=== PATIENT | male | born 1990 | race Caucasian/White ===

== ENCOUNTER 2017-02-13 22:41 | Inpatient (IN) ==
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
[2017-02-13 23:26] LABS: Bilirubin,Urine Negative (Negative); Blood,Urine Negative (Negative); Clarity,Urine Cloudy (Clear); Color,Urine Yellow (Yellow); Glucose,Urine (UA) Normal (Normal); Ketones,Urine Negative (Negative); Leukocyte Esterase,Urine Large (Negative); Nitrite,Urine Negative (Negative); PH,Urine 7.5 pH Units (5.0-8.0); Protein,Urine Negative (Neg-Trace); Specific Gravity,Urine 1.015 (1.010-1.025); Urobilinogen,Urine Normal (Normal)
[2017-02-13 23:29] LABS: Bacteria,Urine None Seen per hpf (None-Few); Hyaline Casts,Urine None Seen per lpf (None-Few); Squamous Epithelial Cell,Urine Many per lpf (None-Few); WBC,Urine TNTC per hpf (0-3)
[2017-02-13 23:45] LABS: Basophils % 0.3 %; Eosinophils # 0.1 K/mcL (0.0-0.6); Eosinophils % 0.8 %; Hematocrit 41.7 % (37.5-50.1); Hemoglobin 13.9 g/dL (12.9-16.9); Immature Granulocytes % 0.3 % (0-4); Lymphocytes # 1.5 K/mcL (0.6-4.6); Lymphocytes % 13.1 %; Mean Corpuscular HGB Conc 33.3 g/dL (31.6-35.5); Mean Corpuscular Hemoglobin 30.1 pg (28.0-33.3); Mean Corpuscular Volume 90.3 fL (83.0-100.0); Mean Platelet Volume 10.3 fL (9.4-12.4); Monocytes % 8.2 %; Neutrophils # 9.1 K/mcL (1.6-8.9); Platelet Count 112 K/mcL (140-400); Red Blood Count 4.62 M/mcL (4.19-5.50); Red Cell Distribution Width 15.6 % (11.5-14.5); Segmented Neutrophils % 77.3 %
[2017-02-14 00:08] LABS: BUN/Creatinine Ratio 18 (6-26); Blood Urea Nitrogen 9 mg/dL (8-26); Calcium 8.8 mg/dL (8.6-10.8); Carbon Dioxide 27 mEq/L (19-29); Chloride 106 mEq/L (98-109); Glucose 74 mg/dL (70-99); Osmolality,Calculated 289 (280-300); Sodium 141 mEq/L (136-145); eGFR For African Americans > 60 (> 60); eGFR For Non-African Americans > 60 (> 60)
[2017-02-14] MEDS ORDERED: Ondansetron ODT 4 MG TAB.RAPDIS SL ONE (00:19)
[2017-02-14] MEDS ORDERED: Ampicillin/Sulbactam 1,500 MG in 0.9 % Sodium Chloride Mini Bag 100 ML IVPB ONE (00:32)
[2017-02-14] MEDS ORDERED: 0.9 % Sodium Chloride 1,000 ML IVC ONE (00:59)
[2017-02-14] MEDS ORDERED: Ondansetron 4 MG/2 ML VIAL IVP PRN (05:05)
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
[2017-02-14] MEDS ORDERED: *HR* HYDROmorphone 4 MG TABLET PO SCH (05:15)
[2017-02-14] MEDS ORDERED: *HR* HYDROmorphone (PF) 1 MG/ML SYRINGE IV ONE (05:52)
[2017-02-14] MEDS: Ampicillin/Sulbactam 1,500 MG in 0.9 % Sodium Chloride Mini Bag 100 ML IVPB SCH ×3 (06:03→17:01)
[2017-02-14] MEDS: *HR* Heparin 5,000 UNIT/ML VIAL SQ SCH ×4 (06:03→23:43)
[2017-02-14] MEDS: Baclofen 10 MG TABLET PO SCH ×3 (09:24→17:01)
[2017-02-14] MEDS: diazePAM 5 MG TABLET PO SCH ×2 (09:25→23:43)
[2017-02-14] MEDS: Pregabalin 75 MG CAPSULE PO SCH ×2 (09:25→17:01)
[2017-02-14] MEDS: *HR* HYDROmorphone 4 MG TABLET PO SCH ×2 (09:25→17:01)
[2017-02-14] MEDS: Silver Sulfadiazine 50 GM TUBE TP SCH ×2 (09:25→19:49)
[2017-02-14] MEDS: Sennosides 8.6 MG TABLET PO SCH (09:25)
[2017-02-14] MEDS: *HR* HYDROmorphone (PF) 1 MG/ML SYRINGE IVP PRN ×4 (12:22→23:35)
[2017-02-14] MEDS: 0.9 % Sodium Chloride 1,000 ML IVC SCH (15:17)
--- NOTE | 2017-02-14 17:22 | Internal Med Progress Note ---
Date of Encounter: 02/14/17 Time of Encounter: 17:20 - Assessment and plan (1) UTI (urinary tract infection) Current Visit: Yes Status: Acute Assessment and plan: continue with iv antibiotics. iv fluids. continue monitoring the patient closely. has a scott in. follow cultures. typicaly intermittent self catheterizations at home Qualifiers: Urinary tract infection type: site unspecified Hematuria presence: without hematuria Qualified Code(s): N39.0 - Urinary tract infection, site not specified (2) Leukocytosis Current Visit: Yes Status: Acute Qualifiers: Leukocytosis type: unspecified Qualified Code(s): D72.829 - Elevated white blood cell count, unspecified (3) History of quadriplegia Current Visit: Yes Status: Chronic (4) DVT prophylaxis Current Visit: Yes Status: Acute - Subjective Interval history: patient seen and exmained during roudns, poor appetite. - Constitutional Vitals: Temp Pulse Resp BP Pulse Ox 98.9 F 86 17 145/64 91 02/14/17 14:56 02/14/17 14:56 02/14/17 14:56 02/14/17 14:56 02/14/17 14:56 General appearance: Present: cooperative, A&O X 3, no acute distress, answers questions appropriately Exam: indwelling scott. - Head Head exam: Present: atraumatic, normocephalic - Eye Eye exam: Present: PERRL, conjuntiva pink, sclera anicteric Pupils: Present: PERRL - Neck Neck exam general surgery: Present: supple, trachea midline. Absent: lymphadenopathy - Respiratory Respiratory exam: Present: CTAB. Absent: accessory muscle use, rales, rhonchi, wheezes - Cardiovascular Cardiovascular exam: Present: RRR, +S1, +S2. Absent: diastolic murmur, gallop, rubs, systolic murmur - GI/Abdominal GI/Abdominal exam: Present: normal bowel sounds, soft, no peritoneal signs. Absent: distended, tenderness - Extremities Exam Extremities exam: Present: warm, radial pulses palpable and symetrical. Absent : calf tenderness, cyanotic, pedal edema - Neurological Exam Neurological exam: Present: motor sensory deficit, oriented X3. Absent: pronater drift, facial droop, speech deficit - Skin Skin exam: Present: dry, intact Internal Medicine: Result - Labs CBC & Chem 7: 02/13/17 23:39 02/13/17 23:39 Consult Discharge Plan - Plan Referrals: Bang Swenson MD [Primary Care Provider] -
[2017-02-14] MEDS: Acetaminophen 325 MG TABLET PO PRN (23:42)
[2017-02-15] MEDS: *HR* HYDROmorphone 4 MG TABLET PO SCH ×3 (00:22→16:58)
[2017-02-15] MEDS: Ampicillin/Sulbactam 1,500 MG in 0.9 % Sodium Chloride Mini Bag 100 ML IVPB SCH ×4 (00:23→18:18)
[2017-02-15] MEDS: Pregabalin 75 MG CAPSULE PO SCH ×3 (00:23→16:58)
[2017-02-15] MEDS: Baclofen 10 MG TABLET PO SCH ×4 (00:23→18:17)
[2017-02-15] MEDS: Sennosides 8.6 MG TABLET PO SCH ×2 (00:24→09:22)
[2017-02-15] MEDS: *HR* HYDROmorphone (PF) 1 MG/ML SYRINGE IVP PRN ×5 (02:55→19:54)
[2017-02-15] MEDS: 0.9 % Sodium Chloride 1,000 ML IVC SCH (04:40)
[2017-02-15 05:37] LABS: Basophils % 0.4 %; Eosinophils # 0.1 K/mcL (0.0-0.6); Eosinophils % 1.2 %; Hematocrit 39.5 % (37.5-50.1); Hemoglobin 13.1 g/dL (12.9-16.9); Immature Granulocytes % 0.4 % (0-4); Lymphocytes # 1.3 K/mcL (0.6-4.6); Lymphocytes % 25.1 %; Mean Corpuscular HGB Conc 33.2 g/dL (31.6-35.5); Mean Corpuscular Hemoglobin 30.5 pg (28.0-33.3); Mean Corpuscular Volume 92.1 fL (83.0-100.0); Mean Platelet Volume 10.7 fL (9.4-12.4); Monocytes # 0.5 K/mcL (0.0-1.3); Monocytes % 9.8 %; Neutrophils # 3.2 K/mcL (1.6-8.9); Platelet Count 103 K/mcL (140-400); Red Blood Count 4.29 M/mcL (4.19-5.50); Red Cell Distribution Width 15.9 % (11.5-14.5); Segmented Neutrophils % 63.1 %
[2017-02-15 05:53] LABS: BUN/Creatinine Ratio 11 (6-26); Calcium 8.6 mg/dL (8.6-10.8); Carbon Dioxide 28 mEq/L (19-29); Chloride 107 mEq/L (98-109); Glucose 92 mg/dL (70-99); Osmolality,Calculated 291 (280-300); Potassium 3.5 mEq/L (3.5-4.5); Sodium 142 mEq/L (136-145); eGFR For African Americans > 60 (> 60); eGFR For Non-African Americans > 60 (> 60)
[2017-02-15 05:56] LABS: Blood Urea Nitrogen 5 mg/dL (8-26)
[2017-02-15] MEDS: *HR* Heparin 5,000 UNIT/ML VIAL SQ SCH ×3 (06:10→21:45)
[2017-02-15] MEDS: diazePAM 5 MG TABLET PO SCH ×2 (09:22→21:45)
[2017-02-15] MEDS: Silver Sulfadiazine 50 GM TUBE TP SCH ×2 (09:22→21:45)
--- NOTE | 2017-02-15 11:33 | Internal Med Progress Note ---
Date of Encounter: 02/15/17 Time of Encounter: 11:32 - Assessment and plan (1) UTI (urinary tract infection) Current Visit: Yes Status: Acute Assessment and plan: continue with iv antibiotics. gram negative rods. still febrile, leukocytosis resolved, will continue with unasyn and adjust according to cultures. iv fluids. continue monitoring the patient closely. has a scott in. follow cultures. typicaly intermittent self catheterizations at home Qualifiers: Urinary tract infection type: site unspecified Hematuria presence: without hematuria Qualified Code(s): N39.0 - Urinary tract infection, site not specified (2) Leukocytosis Current Visit: Yes Status: Acute Qualifiers: Leukocytosis type: unspecified Qualified Code(s): D72.829 - Elevated white blood cell count, unspecified (3) History of quadriplegia Current Visit: Yes Status: Chronic (4) DVT prophylaxis Current Visit: Yes Status: Acute - Subjective Interval history: patient seen and examined during rounds, fever yesterday. still poor appetite. - Constitutional Vitals: Temp Pulse Resp BP Pulse Ox 98.2 F 76 16 116/74 91 02/15/17 07:21 02/15/17 07:21 02/15/17 07:21 02/15/17 07:21 02/15/17 07:21 General appearance: Present: cooperative, A&O X 3, no acute distress, answers questions appropriately - Head Head exam: Present: atraumatic, normocephalic - Eye Eye exam: Present: PERRL, conjuntiva pink, sclera anicteric Pupils: Present: PERRL - Neck Neck exam general surgery: Present: supple, trachea midline. Absent: lymphadenopathy - Respiratory Respiratory exam: Present: CTAB. Absent: accessory muscle use, rales, rhonchi, wheezes - Cardiovascular Cardiovascular exam: Present: RRR, +S1, +S2. Absent: diastolic murmur, gallop, rubs, systolic murmur - GI/Abdominal GI/Abdominal exam: Present: normal bowel sounds, soft, no peritoneal signs. Absent: distended, tenderness - Extremities Exam Extremities exam: Present: warm, radial pulses palpable and symetrical. Absent : calf tenderness, cyanotic, pedal edema - Neurological Exam Neurological exam: Present: alert, oriented X3. Absent: pronater drift, facial droop, speech deficit - Skin Skin exam: Present: dry, intact Internal Medicine: Result - Labs CBC & Chem 7: 02/15/17 05:20 02/15/17 05:20 Labs: Short CBC 02/15/17 Range/Units 05:20 WBC 5.1 D (4.3-11.1) K/mcL Hgb 13.1 (12.9-16.9) g/dL Hct 39.5 (37.5-50.1) % Plt Count 103 L (140-400) K/mcL Neutrophils # 3.2 (1.6-8.9) K/mcL BMP 02/15/17 05:20 Sodium 142 Potassium 3.5 Chloride 107 Carbon Dioxide 28 BUN 5 L Creatinine 0.44 L Glucose 92 Calcium 8.6 Consult Discharge Plan - Plan Referrals: Bang Swenson MD [Primary Care Provider] -
[2017-02-15] MEDS: Acetaminophen 325 MG TABLET PO PRN (19:54)
[2017-02-16] MEDS: *HR* HYDROmorphone 4 MG TABLET PO SCH ×3 (00:42→18:05)
[2017-02-16] MEDS: Pregabalin 75 MG CAPSULE PO SCH ×3 (00:42→18:06)
[2017-02-16] MEDS: Baclofen 10 MG TABLET PO SCH ×4 (00:42→18:06)
[2017-02-16] MEDS: Sennosides 8.6 MG TABLET PO SCH ×2 (00:43→08:13)
[2017-02-16] MEDS: Ampicillin/Sulbactam 1,500 MG in 0.9 % Sodium Chloride Mini Bag 100 ML IVPB SCH ×2 (00:46→06:24)
[2017-02-16] MEDS: *HR* HYDROmorphone (PF) 1 MG/ML SYRINGE IVP PRN ×4 (02:07→20:37)
[2017-02-16] MEDS: 0.9 % Sodium Chloride 1,000 ML IVC SCH ×2 (02:23→21:50)
[2017-02-16] MEDS: *HR* Heparin 5,000 UNIT/ML VIAL SQ SCH ×3 (05:35→21:18)
[2017-02-16 06:39] LABS: Basophils % 0.7 %; Eosinophils # 0.2 K/mcL (0.0-0.6); Eosinophils % 4.5 %; Hematocrit 40.2 % (37.5-50.1); Hemoglobin 13.3 g/dL (12.9-16.9); Immature Granulocytes % 0.2 % (0-4); Lymphocytes # 1.4 K/mcL (0.6-4.6); Lymphocytes % 35.6 %; Mean Corpuscular HGB Conc 33.1 g/dL (31.6-35.5); Mean Corpuscular Hemoglobin 30.2 pg (28.0-33.3); Mean Corpuscular Volume 91.2 fL (83.0-100.0); Monocytes # 0.6 K/mcL (0.0-1.3); Monocytes % 15.4 %; Neutrophils # 1.8 K/mcL (1.6-8.9); Platelet Count 110 K/mcL (140-400); Red Blood Count 4.41 M/mcL (4.19-5.50); Red Cell Distribution Width 15.5 % (11.5-14.5); Segmented Neutrophils % 43.6 %
[2017-02-16 06:47] LABS: BUN/Creatinine Ratio 12 (6-26); Blood Urea Nitrogen 5 mg/dL (8-26); Calcium 8.5 mg/dL (8.6-10.8); Carbon Dioxide 28 mEq/L (19-29); Chloride 106 mEq/L (98-109); Glucose 74 mg/dL (70-99); Osmolality,Calculated 290 (280-300); Potassium 3.6 mEq/L (3.5-4.5); Sodium 142 mEq/L (136-145); eGFR For African Americans > 60 (> 60); eGFR For Non-African Americans > 60 (> 60)
[2017-02-16] MEDS: Silver Sulfadiazine 50 GM TUBE TP SCH ×2 (08:09→18:08)
[2017-02-16] MEDS: diazePAM 5 MG TABLET PO SCH ×2 (14:13→21:18)
--- NOTE | 2017-02-16 17:05 | Internal Med Progress Note ---
Date of Encounter: 02/16/17 Time of Encounter: 17:02 - Assessment and plan (1) Sepsis due to urinary tract infection Current Visit: Yes Status: Acute Assessment and plan: Secondary to Klebsiella UTI, pansensitive. SIRS criteria 3/4 (fever of 101.7, tachycardia of 95, and leukocytosis of 4). Patient with history of recurrent UTIs in the past. Three weeks ago, the patient was diagnosed of UTI and took keflex and bactrim for 10 days but symptoms persisted and a week later he came to our ED. Urine culture Klebsiella pneumonia, pansensitive. blood cultures negative so far. clinically improving slowly. afebrile for 12 hours only. Change antibiotics to Ceftriaxone. continue IV fluids. check retroperitoneal US. (2) UTI (urinary tract infection) Current Visit: Yes Status: Acute Assessment and plan: Klebsiella UTI. plan as above. Qualifiers: Urinary tract infection type: site unspecified Hematuria presence: without hematuria Qualified Code(s): N39.0 - Urinary tract infection, site not specified (3) Constipation Current Visit: No Status: Chronic Assessment and plan: continue home meds including enema. Qualifiers: Constipation type: unspecified constipation type Qualified Code(s): K59.00 - Constipation, unspecified - Subjective Interval history: Patient reports no nausea or vomiting. No scott at home. He does straight urinary catheterizations at home every 4 hours. - Constitutional Vitals: Temp Pulse Resp BP Pulse Ox 97.8 F 67 16 134/96 95 02/16/17 15:32 02/16/17 15:32 02/16/17 15:32 02/16/17 15:32 02/16/17 15:32 General appearance: Present: cooperative, A&O X 3, no acute distress, answers questions appropriately - Respiratory Respiratory exam: Present: CTAB - Cardiovascular Cardiovascular exam: Present: RRR - GI/Abdominal GI/Abdominal exam: Present: normal bowel sounds, soft, tenderness (lower abdominal tenderness). Absent: distended - Extremities Exam Extremities exam: Present: pedal edema (ankle) - Neurological Exam Neurological exam: Present: alert, oriented X3. Absent: facial droop, speech deficit Additional comments: quadriplegia Internal Medicine: Result - Labs CBC & Chem 7: 02/16/17 06:00 02/16/17 06:00 Labs: Short CBC 02/16/17 Range/Units 06:00 WBC 4.0 L (4.3-11.1) K/mcL Hgb 13.3 (12.9-16.9) g/dL Hct 40.2 (37.5-50.1) % Plt Count 110 L (140-400) K/mcL Neutrophils # 1.8 (1.6-8.9) K/mcL BMP 02/16/17 06:00 Sodium 142 Potassium 3.6 Chloride 106 Carbon Dioxide 28 BUN 5 L Creatinine 0.43 L Glucose 74 Calcium 8.5 L Consult Discharge Plan - Plan Referrals: Bang Swenson MD [Primary Care Provider] -
[2017-02-17] MEDS: Pregabalin 75 MG CAPSULE PO SCH ×3 (00:07→15:17)
[2017-02-17] MEDS: Baclofen 10 MG TABLET PO SCH ×4 (00:07→16:58)
[2017-02-17] MEDS: *HR* HYDROmorphone 4 MG TABLET PO SCH ×3 (00:07→15:18)
[2017-02-17] MEDS: Sennosides 8.6 MG TABLET PO SCH ×2 (00:08→09:00)
[2017-02-17] MEDS: *HR* HYDROmorphone (PF) 1 MG/ML SYRINGE IVP PRN ×5 (01:23→20:05)
[2017-02-17] MEDS: *HR* Heparin 5,000 UNIT/ML VIAL SQ SCH ×3 (06:03→20:12)
[2017-02-17] MEDS: 0.9 % Sodium Chloride 1,000 ML IVC SCH (06:04)
[2017-02-17 06:28] LABS: Basophils % 0.8 %; Eosinophils # 0.2 K/mcL (0.0-0.6); Eosinophils % 4.9 %; Hematocrit 39.9 % (37.5-50.1); Hemoglobin 13.1 g/dL (12.9-16.9); Immature Granulocytes % 0.3 % (0-4); Lymphocytes # 1.6 K/mcL (0.6-4.6); Lymphocytes % 40.1 %; Mean Corpuscular HGB Conc 32.8 g/dL (31.6-35.5); Mean Corpuscular Hemoglobin 29.8 pg (28.0-33.3); Mean Corpuscular Volume 90.9 fL (83.0-100.0); Mean Platelet Volume 10.7 fL (9.4-12.4); Monocytes # 0.6 K/mcL (0.0-1.3); Monocytes % 14.1 %; Neutrophils # 1.6 K/mcL (1.6-8.9); Platelet Count 126 K/mcL (140-400); Red Blood Count 4.39 M/mcL (4.19-5.50); Red Cell Distribution Width 15.5 % (11.5-14.5); Segmented Neutrophils % 39.8 %
[2017-02-17 06:36] LABS: BUN/Creatinine Ratio 14 (6-26); Blood Urea Nitrogen 6 mg/dL (8-26); Calcium 8.3 mg/dL (8.6-10.8); Carbon Dioxide 23 mEq/L (19-29); Chloride 107 mEq/L (98-109); Glucose 85 mg/dL (70-99); Magnesium 1.6 mg/dL (1.6-2.6); Osmolality,Calculated 289 (280-300); Potassium 3.4 mEq/L (3.5-4.5); Sodium 141 mEq/L (136-145); eGFR For African Americans > 60 (> 60); eGFR For Non-African Americans > 60 (> 60)
[2017-02-17] MEDS: diazePAM 5 MG TABLET PO SCH ×2 (09:00→20:11)
[2017-02-17] MEDS: Silver Sulfadiazine 50 GM TUBE TP SCH ×2 (09:02→20:22)
[2017-02-17] MEDS: DOCUSATE PO SCH (11:19)
[2017-02-17] MEDS: BENZOCAINE PO SCH (11:19)
[2017-02-17] MEDS: [UNRECOGNIZED DRUG - OTHER] PO SCH (11:19)
[2017-02-17] MEDS ORDERED: 0.9 % Sodium Chloride 1,000 ML IVC SCH (17:15)
--- NOTE | 2017-02-17 17:15 | Internal Med Progress Note ---
Date of Encounter: 02/17/17 Time of Encounter: 08:45 - Assessment and plan (1) Sepsis due to urinary tract infection Current Visit: Yes Status: Acute Assessment and plan: Secondary to Klebsiella UTI, pansensitive. SIRS criteria 3/4 (fever of 101.7, tachycardia of 95, and leukocytosis of 4). Patient with history of recurrent UTIs in the past. Three weeks ago, the patient was diagnosed of UTI and took keflex and bactrim for 10 days but symptoms persisted and a week later he came to our ED. Urine culture Klebsiella pneumonia, pansensitive. blood cultures negative so far. clinically improving slowly. afebrile for 24 hours. Continue Ceftriaxone and decrease IV fluids. (2) UTI (urinary tract infection) Current Visit: Yes Status: Acute Assessment and plan: Klebsiella UTI. plan as above. Qualifiers: Urinary tract infection type: site unspecified Hematuria presence: without hematuria Qualified Code(s): N39.0 - Urinary tract infection, site not specified (3) Constipation Current Visit: No Status: Chronic Assessment and plan: continue home meds including enema. Qualifiers: Constipation type: unspecified constipation type Qualified Code(s): K59.00 - Constipation, unspecified - Subjective Interval history: Patient reports no nausea or vomiting. - Constitutional Vitals: Temp Pulse Resp BP Pulse Ox 97.7 F 55 16 143/90 96 02/17/17 15:35 02/17/17 15:35 02/17/17 15:35 02/17/17 15:35 02/17/17 15:35 General appearance: Present: cooperative, A&O X 3, pleasant, no acute distress, answers questions appropriately - Respiratory Respiratory exam: Present: CTAB - Cardiovascular Cardiovascular exam: Present: RRR - GI/Abdominal GI/Abdominal exam: Present: soft. Absent: distended, tenderness - Extremities Exam Extremities exam: Present: pedal edema - Neurological Exam Neurological exam: Present: alert, oriented X3 Internal Medicine: Result - Labs CBC & Chem 7: 02/17/17 06:00 02/17/17 06:00 Labs: Short CBC 02/17/17 Range/Units 06:00 WBC 3.9 L (4.3-11.1) K/mcL Hgb 13.1 (12.9-16.9) g/dL Hct 39.9 (37.5-50.1) % Plt Count 126 L (140-400) K/mcL Neutrophils # 1.6 (1.6-8.9) K/mcL BMP 02/17/17 06:00 Sodium 141 Potassium 3.4 L Chloride 107 Carbon Dioxide 23 BUN 6 L Creatinine 0.42 L Glucose 85 Calcium 8.3 L Consult Discharge Plan - Plan Referrals: Bang Swenson MD [Primary Care Provider] -
[2017-02-18] MEDS: Pregabalin 75 MG CAPSULE PO SCH ×2 (00:19→09:59)
[2017-02-18] MEDS: Sennosides 8.6 MG TABLET PO SCH ×2 (00:20→09:59)
[2017-02-18] MEDS: *HR* HYDROmorphone 4 MG TABLET PO SCH ×2 (00:20→09:59)
[2017-02-18] MEDS: Baclofen 10 MG TABLET PO SCH ×3 (00:20→12:35)
[2017-02-18] MEDS: *HR* HYDROmorphone (PF) 1 MG/ML SYRINGE IVP PRN ×2 (01:35→05:28)
[2017-02-18 05:01] LABS: BUN/Creatinine Ratio 18 (6-26); Blood Urea Nitrogen 7 mg/dL (8-26); Calcium 8.2 mg/dL (8.6-10.8); Carbon Dioxide 24 mEq/L (19-29); Chloride 107 mEq/L (98-109); Glucose 76 mg/dL (70-99); Magnesium 1.8 mg/dL (1.6-2.6); Osmolality,Calculated 287 (280-300); Potassium 3.9 mEq/L (3.5-4.5); Sodium 140 mEq/L (136-145); eGFR For African Americans > 60 (> 60); eGFR For Non-African Americans > 60 (> 60)
[2017-02-18] MEDS: *HR* Heparin 5,000 UNIT/ML VIAL SQ SCH ×2 (05:21→12:24)
[2017-02-18 05:35] LABS: Basophils % 0.5 %; Eosinophils # 0.2 K/mcL (0.0-0.6); Eosinophils % 4.7 %; Hematocrit 40.5 % (37.5-50.1); Hemoglobin 13.6 g/dL (12.9-16.9); Immature Granulocytes % 0.2 % (0-4); Immature Platelets 6.8 % (1.1-6.1); Lymphocytes # 1.4 K/mcL (0.6-4.6); Lymphocytes % 32.4 %; Mean Corpuscular HGB Conc 33.6 g/dL (31.6-35.5); Mean Corpuscular Hemoglobin 30.3 pg (28.0-33.3); Mean Corpuscular Volume 90.2 fL (83.0-100.0); Mean Platelet Volume 10.9 fL (9.4-12.4); Monocytes # 0.5 K/mcL (0.0-1.3); Monocytes % 11.3 %; Neutrophils # 2.2 K/mcL (1.6-8.9); Platelet Count 137 K/mcL (140-400); Red Blood Count 4.49 M/mcL (4.19-5.50); Red Cell Distribution Width 15.3 % (11.5-14.5); Segmented Neutrophils % 50.9 %
[2017-02-18 07:32] VITALS: BP 112/70
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
[2017-02-18] MEDS: BENZOCAINE PO SCH (09:49)
[2017-02-18] MEDS: DOCUSATE PO SCH (09:49)
[2017-02-18] MEDS: [UNRECOGNIZED DRUG - OTHER] PO SCH (09:49)
[2017-02-18] MEDS: diazePAM 5 MG TABLET PO SCH ×2 (09:59→10:07)
[2017-02-18] MEDS: Silver Sulfadiazine 50 GM TUBE TP SCH (10:00)
--- NOTE | 2017-02-18 10:23 | Physician Discharge Referral ---
Home Health/Hosp Referral Info Transfer to: Home Health Attending Provider: evangelist Provider in Charge Post Discharge: PCP - Diagnosis (1) Sepsis due to urinary tract infection Status: Acute (2) UTI (urinary tract infection) Status: Acute (3) Constipation Status: Chronic - Respiratory Orders Smoking Cessation: Smoking cessation has been advised. For more information, call the [place] Tobacco Quit Line at 5-958-PWUT-NOW. - Diet/Nutrition Diet/Nutrition Orders: Regular - Activity Activity Orders: Bedrest - Services Needed Following services are medically necessary services: Nursing, Home Health Aide, Physical Therapy, Occupational Therapy, Home Infusion Other Treatments: Iv ceftriaxone 1 gm daily for 6 days - Transfer Medications Prescriptions: CefTRIAXone [Rocephin] 1,000 mg IVPB DAILY #6 vial Home Medications: Ascorbic Acid [Vitamin C with Cira Hips] 500 mg PO DAILY 02/14/17 [History] Baclofen 20 mg PO QID 02/14/17 [History] Diazepam [Valium] 5 mg PO BID 02/14/17 [History] Docusate Sodium [Dok] 100 mg PO BID 02/14/17 [History] HYDROmorphone [Dilaudid] 4 mg PO BID 02/14/17 [History] HYDROmorphone [Dilaudid] 8 mg PO HS 02/14/17 [History] Multivitamin [Multivitamins] 1 tab PO DAILY 02/14/17 [History] Oxybutynin [Ditropan] 5 mg PO TID 02/14/17 [History] Polyethylene Glycol 3350 [Smoothlax] 17 gm PO Q48H 02/14/17 [History] Potassium 99 mg PO DAILY 02/14/17 [History] Pregabalin [Lyrica] 150 mg PO TID 02/14/17 [History] Sennosides [Senna] 8.6 mg PO BID 02/14/17 [History] Silver Sulfadiazine [Ssd] 1 appl TP DAILY 02/14/17 [History] Docusate Sodium/Benzocaine [Enemeez Plus Mini Enema] 5 ml RC DAILY 02/16/17 [ History] CefTRIAXone [Rocephin] 1,000 mg IVPB DAILY #6 vial 02/18/17 [Rx] Allergies/Adverse Reactions: Allergies Erythromycin Base Allergy (Verified 11/27/16 08:42) See Comments comatose aspirin Adverse Reaction (Verified 11/27/16 08:42) Nausea codeine Adverse Reaction (Verified 11/27/16 08:42) Hives diphenhydramine [From Benadryl] Adverse Reaction (Verified 11/27/16 08:42) Swelling of Lip/Tongue/Throat gentamicin Adverse Reaction (Verified 11/27/16 08:42) See Comments Methadone Adverse Reaction (Verified 11/27/16 08:42) Swelling of Lip/Tongue/Throat morphine Adverse Reaction (Verified 11/27/16 08:42) Hives Oxycodone [From OxyContin] Adverse Reaction (Verified 11/27/16 08:42) Swelling of Lip/Tongue/Throat tobramycin Adverse Reaction (Verified 11/27/16 08:42) See Comments vancomycin Adverse Reaction (Verified 11/27/16 08:42) See Comments Certification: Further, I certify that my clinical findings support that this patient is homebound (i.e. absences from home require considerable and taxing effort and are for medical reasons or tenriism services or infrequently or short duration when for other reasons) because: Homebound Reason: Patient requires assistance of a person or device to safely leave home, Leaving home requires considerable and taxing effort due to condition Attestation: My signature below is to certify that this patient is under my care and that I, or nurse practitioner, or a physician's kindergarten assistant working with me, has a face-to -face encounter with this patient.
== END 2017-02-18 15:15 | disposition home health service (06) | DRG 720 ==
LOC: EMEROO 22:41 → 3BNU 22:41 → SUATTDRO 02-14 06:22
PROVIDERS: ADMIT Nurse Practitioner Family; ATTEND Internal Medicine

== ENCOUNTER 2017-03-31 21:42 | Observation (INO) ==
--- NOTE | 2017-04-01 00:07 | Emergency Department Note ---
START Narrative - START START: For this encounter, I have reviewed the ELECTRONIC TESTER or PA documentation, treatment plan, and medical decision making; and I have had face to face time with this patient. Patient to ED complaining of UTI symptoms. Patient is a quadriplegic. He states he does have a UTI Or Multiple Times. States He Has To Be Admitted or He Goes Home He Gets Unresponsive. On Exam Is Awake Alert in No Distress. Abdomen Soft. Plan. Basic Labs, UA, IV Antibiotic. Vital Signs Stable. No SIRS Criteria.
--- NOTE | 2017-04-01 00:17 | Emergency Department Note ---
Disposition Clinical Impression: UTI (urinary tract infection) Qualifiers: Urinary tract infection type: site unspecified Hematuria presence: with hematuria Qualified Code(s): N39.0 - Urinary tract infection, site not specified Disposition: Admitted As Inpatient Condition: Good Time of Disposition: 01:57 Male Urogenital HPI - General Chief complaint: ED Urogenital-Female Stated complaint: "possible UTI" Time Seen by Provider: 03/31/17 23:01 Source: EMS Mode of arrival: EMS Limitations: no limitations Nursing Notes Reviewed: Yes Vital Signs Reviewed: Yes - History of Present Illness HPI Narrative: Patient is a 26-year-old quadriplegic male that presents to the ED with chief complaint UTI. Patient states that he frequently gets UTI's and has to be admitted for IV antibiotics otherwise he is usually found unresponsive several days later. Patient does have a urologist out of [place]. He is complaining of frequently wetting his pants and foul-smelling/cloudy urine. Exact symptoms with previous UTI'S. He denies any hematuria. He denies any abdominal pain, back pain or fever. Does report he has had chills and has been weak and tired all day. Pt Subjective Complaint: other (UTI) Onset (ago): day(s) (2) Duration: constant Improves with: none Worsens with: none Reports: denies other symptoms, incontinence. Denies: discharge, swelling, mass , rash, urinary retention, hematuria, dysuria, fever, nausea/vomiting - Related Data Home Medications Medication Instructions Recorded Confirmed Ascorbic Acid [Vitamin C with Cira 500 mg PO DAILY 02/14/17 02/14/17 Hips] Baclofen 20 mg PO QID 02/14/17 02/14/17 Docusate Sodium [Dok] 100 mg PO BID 02/14/17 02/14/17 HYDROmorphone [Dilaudid] 4 mg PO BID 02/14/17 02/14/17 HYDROmorphone [Dilaudid] 8 mg PO HS 02/14/17 02/14/17 Multivitamin [Multivitamins] 1 tab PO DAILY 02/14/17 02/14/17 Oxybutynin [Ditropan] 5 mg PO TID 02/14/17 02/14/17 Polyethylene Glycol 3350 17 gm PO Q48H 02/14/17 02/14/17 [Smoothlax] Potassium 99 mg PO DAILY 02/14/17 02/14/17 Pregabalin [Lyrica] 150 mg PO TID 02/14/17 02/14/17 Sennosides [Senna] 8.6 mg PO BID 02/14/17 02/14/17 Silver Sulfadiazine [Ssd] 1 appl TP DAILY 02/14/17 02/14/17 diazePAM [Valium] 5 mg PO BID 02/14/17 02/14/17 Docusate Sodium/Benzocaine 5 ml RC DAILY 02/16/17 02/16/17 [Enemeez Plus Mini Enema] Previous Rx's Medication Instructions Recorded EPINEPHrine [Epipen] 0.3 mg IM PRN PRN #2 auto.injct 02/18/17 cefTRIAXone [Rocephin] 1,000 mg IVPB DAILY #6 vial 02/18/17 Allergies Allergy/AdvReac Type Severity Reaction Status Date / Time Erythromycin Base Allergy See Verified 11/27/16 08:42 Comments aspirin AdvReac Nausea Verified 11/27/16 08:42 codeine AdvReac Hives Verified 11/27/16 08:42 diphenhydramine AdvReac Swelling Verified 11/27/16 08:42 [From Benadryl] of Lip/Tongue/Throat gentamicin AdvReac See Verified 11/27/16 08:42 Comments Methadone AdvReac Swelling Verified 11/27/16 08:42 of Lip/Tongue/Throat morphine AdvReac Hives Verified 11/27/16 08:42 Oxycodone [From OxyContin] AdvReac Swelling Verified 11/27/16 08:42 of Lip/Tongue/Throat tobramycin AdvReac See Verified 11/27/16 08:42 Comments vancomycin AdvReac See Verified 11/27/16 08:42 Comments All systems ED: reviewed and negative except as stated. Constitutional: Reports: chills, weakness (Generalized). Denies: fever Cardiovascular: Denies: chest pain Respiratory: Denies: dyspnea Gastrointestinal: Denies: abdominal pain, nausea, vomiting, diarrhea, constipation, hematemesis, melena, hematochezia Genitourinary: Reports: other (Foul-smelling urine). Denies: urgency, dysuria, frequency, hematuria, testicular pain, testicular mass, genital lesions Musculoskeletal: Denies: back pain Integumentary: Denies: rash Neurological: Denies: headache Past Medical History - Past Medical History Source: patient Medical history: Reports: kidney stones, other Surgical history: Reports: vascular surgery, other (Neck fixation) Psychiatric history: Reports: depression - Social History Smoking Status: Never smoker Smokeless Tobacco Status: No Alcohol use: Reports: none Drug use: Reports: none Physical Exam - General Limitations: physical limitation (Quadriplegic) General appearance: alert, in no apparent distress - Head Head exam: normal inspection - Eye Eye exam: Present: normal appearance - ENT ENT exam: mucous membranes moist - Neck Neck exam: Present: normal inspection - Respiratory Respiratory exam: Present: normal lung sounds bilaterally - Cardiovascular Cardiovascular exam: Present: regular rate, normal rhythm, normal heart sounds - Abdominal Exam Abdominal Exam: Present: soft, Non-Tender, normal bowel sounds - Back Exam Back exam: Present: normal inspection, full ROM. Absent: tenderness, CVA tenderness (R), CVA tenderness (L) - Neurological Exam Neurological exam: Present: alert, oriented X3 - Psychiatric Psychiatric exam: Present: normal affect, normal mood - Skin Skin exam: Present: warm, dry, intact, normal color. Absent: rash, cyanosis, diaphoresis Course - Reevaluation(s) Reevaluation #1: Patient is a 26-year-old quadriplegic male that presents to the ED with chief complaint UTI. Patient states that he frequently gets UTI's and has to be admitted for IV antibiotics otherwise he is usually found unresponsive several days later. Patient does have a urologist out of [place]. He is complaining of frequently wetting his pants and foul-smelling/cloudy urine. Exact symptoms with previous UTI'S. He denies any hematuria. He denies any abdominal pain, back pain or fever. Does report he has had chills and has been weak and tired all day. Patient is nontoxic appearing 26-year-old male. Vital stable. Afebrile. Alert and oriented 3. Heart RRR. Lungs CTAB. Head normocephalic. Eyes normal inspection. ENT within normal limits. Airway patent. Abdomen soft, nontender. Normal bowel sounds. Back normal inspection, nontender. Plan to obtain UA and labs. UA indicate UTI. Will culture. WBC wnl Reviewed previous urine culture which grew Klebsiella. Patient started on Cipro. Discussed case with Dr. Bee. Will admit to medicine. Discussed case with the hospitalist. He will accept patient. No other request at this time. Vital Signs Temperature 98.0 F 03/31/17 21:47 Pulse Rate 84 03/31/17 21:47 Respiratory Rate 16 03/31/17 21:47 Blood Pressure 111/73 03/31/17 21:47 O2 Sat by Pulse Oximetry 93 03/31/17 21:47 Temperature 98.0 F 03/31/17 21:47 Pulse Rate 84 03/31/17 21:52 Respiratory Rate 16 03/31/17 21:52 Blood Pressure 111/73 03/31/17 21:52 O2 Sat by Pulse Oximetry 93 03/31/17 21:52 Oxygen Delivery Oxygen Delivery Room Air Urogenital-Male - Medical Records Medical records reviewed: Yes I reviewed the patient's medical records. - Lab Data Lab results reviewed: Yes I reviewed the patient's lab results. Result diagrams: 04/01/17 00:35 04/01/17 00:35 Lab Results 04/01/17 04/01/17 04/01/17 Range/Units 00:35 00:35 00:59 WBC 7.2 (4.3-11.1) K/mcL RBC 4.99 (4.19-5.50) M/mcL Hgb 14.7 (12.9-16.9) g/dL Hct 45.3 (37.5-50.1) % MCV 90.8 (83.0-100.0) fL MCH 29.5 (28.0-33.3) pg MCHC 32.5 (31.6-35.5) g/dL RDW 15.0 H (11.5-14.5) % Plt Count 160 (140-400) K/mcL MPV 10.6 (9.4-12.4) fL Immature Gran % 0.3 (0-4) % Seg Neutrophils % 66.2 % Lymphocytes % 24.1 % Monocytes % 7.5 % Eosinophils % 1.5 % Basophils % 0.4 % Neutrophils # 4.8 (1.6-8.9) K/mcL Lymphocytes # 1.7 (0.6-4.6) K/mcL Monocytes # 0.5 (0.0-1.3) K/mcL Eosinophils # 0.1 (0.0-0.6) K/mcL Basophils # 0.0 (0.0-0.2) K/mcL Sodium 138 (136-145) mEq/L Potassium 3.9 (3.5-4.5) mEq/L Chloride 103 (98-109) mEq/L Carbon Dioxide 27 (19-29) mEq/L BUN 12 (8-26) mg/dL Creatinine 0.49 L (0.72-1.25) mg/dL Est GFR ( Amer) > 60 (> 60) Est GFR (Non-Af Amer) > 60 (> 60) BUN/Creatinine Ratio 24 (6-26) Glucose 70 (70-99) mg/dL Calculated Osmolality 284 (280-300) Calcium 9.3 (8.6-10.8) mg/dL Urine Color Yellow (Yellow) Urine Clarity Turbid A (Clear) Urine pH 6.5 (5.0-8.0) pH Units Ur Specific [place] 1.019 (1.010-1.025) Urine Protein 100 H (Neg-Trace) mg/dL Urine Glucose (UA) Normal (Normal) mg/dL Urine Ketones Negative (Negative) mg/dL Urine Blood Moderate H (Negative) Urine Nitrite Positive A (Negative) Urine Bilirubin Negative (Negative) Urine Urobilinogen Normal (Normal) mg/dL Ur Leukocyte Esterase Large H (Negative) Urine Microscopic RBC 15-30 H (0-3) per hpf Urine Microscopic WBC TNTC H (0-3) per hpf Ur Squamous Epith Cells Many H (None-Few) per lpf Urine Bacteria Many H (None-Few) per hpf Hyaline Casts None Seen (None-Few) per lpf Urine Yeast Few H (None Seen) per hpf Ur Culture Indicated? YES A (NO)
[2017-04-01 01:00] LABS: BUN/Creatinine Ratio 24 (6-26); Blood Urea Nitrogen 12 mg/dL (8-26); Calcium 9.3 mg/dL (8.6-10.8); Carbon Dioxide 27 mEq/L (19-29); Chloride 103 mEq/L (98-109); Glucose 70 mg/dL (70-99); Osmolality,Calculated 284 (280-300); Potassium 3.9 mEq/L (3.5-4.5); Sodium 138 mEq/L (136-145); eGFR For African Americans > 60 (> 60); eGFR For Non-African Americans > 60 (> 60)
[2017-04-01 01:02] LABS: Basophils % 0.4 %; Eosinophils # 0.1 K/mcL (0.0-0.6); Eosinophils % 1.5 %; Hematocrit 45.3 % (37.5-50.1); Hemoglobin 14.7 g/dL (12.9-16.9); Immature Granulocytes % 0.3 % (0-4); Lymphocytes # 1.7 K/mcL (0.6-4.6); Lymphocytes % 24.1 %; Mean Corpuscular HGB Conc 32.5 g/dL (31.6-35.5); Mean Corpuscular Hemoglobin 29.5 pg (28.0-33.3); Mean Corpuscular Volume 90.8 fL (83.0-100.0); Mean Platelet Volume 10.6 fL (9.4-12.4); Monocytes # 0.5 K/mcL (0.0-1.3); Monocytes % 7.5 %; Neutrophils # 4.8 K/mcL (1.6-8.9); Platelet Count 160 K/mcL (140-400); Red Blood Count 4.99 M/mcL (4.19-5.50); Segmented Neutrophils % 66.2 %
[2017-04-01 01:05] LABS: Bilirubin,Urine Negative (Negative); Blood,Urine Moderate (Negative); Clarity,Urine Turbid (Clear); Color,Urine Yellow (Yellow); Glucose,Urine (UA) Normal (Normal); Ketones,Urine Negative (Negative); Leukocyte Esterase,Urine Large (Negative); Nitrite,Urine Positive (Negative); PH,Urine 6.5 pH Units (5.0-8.0); Protein,Urine 100 mg/dL (Neg-Trace); Specific Gravity,Urine 1.019 (1.010-1.025); Urobilinogen,Urine Normal (Normal)
[2017-04-01 01:07] LABS: Bacteria,Urine Many per hpf (None-Few); Hyaline Casts,Urine None Seen per lpf (None-Few); RBC,Urine 15-30 per hpf (0-3); Squamous Epithelial Cell,Urine Many per lpf (None-Few); WBC,Urine TNTC per hpf (0-3)
[2017-04-01 01:30] LABS: Yeast,Urine Few per hpf (None Seen)
[2017-04-01] MEDS ORDERED: *HR* OxyCODONE/APAP 5/325 TABLET PO ONE (01:55)
[2017-04-01] MEDS ORDERED: Ondansetron 4 MG/2 ML VIAL IVP ONE (01:56)
[2017-04-01] MEDS ORDERED: *HR* HYDROmorphone (PF) 1 MG/ML SYRINGE IVP ONE (01:58)
[2017-04-01] MEDS ORDERED: Naloxone 0.4 MG/ML INJ IVP PRN (03:28)
[2017-04-01] MEDS ORDERED: Ondansetron 4 MG/2 ML VIAL IVP PRN (03:28)
[2017-04-01] MEDS ORDERED: Acetaminophen 325 MG TABLET PO PRN (03:28)
[2017-04-01] MEDS: *HR* HYDROmorphone 2 MG/ML SYRINGE IVP PRN ×3 (05:07→13:19)
[2017-04-01] MEDS ORDERED: *HR* Enoxaparin 40 MG/0.4 ML SYRINGE SQ SCH (06:00)
--- NOTE | 2017-04-01 06:29 | Internal Med History&Physical ---
Date of Encounter: 04/01/17 Time of Encounter: 02:00 Assessment and Plan (1) Quadriplegia Current visit: Yes Status: Acute Due to c4-C5 level spinal injury which happened 10 yrs ago. (2) Decubitus ulcer Current visit: No Status: Chronic Continue wound care. Low pressure mattress. Turn patient every 2 hours. Qualifiers: Pressure ulcer location: sacral region Pressure ulcer stage: unspecified pressure ulcer stage Qualified Code(s): L89.159 - Pressure ulcer of sacral region, unspecified stage (3) UTI (urinary tract infection) Current visit: No Status: Acute Continue IV Rocephin. Previously urine culture result is reviewed. Sensitivity is referred. - Follow urine culture result. Qualifiers: Urinary tract infection type: site unspecified Hematuria presence: without hematuria Qualified Code(s): N39.0 - Urinary tract infection, site not specified (4) DVT prophylaxis Current visit: No Status: Acute Lovenox subcutaneously Internal Medicine - H&P: HPI Chief complaint: Dysuria Admitted From: Home Plans for Post Hospital Care: Home History of present illness: Mr. Beltran is a 26 year old male with history of quadriplegia presents to ER for dysuria. Patient has a neurogenic bladder need frequent straight catheter For urination. Patient recently has dysuria and urinary incontinence. Based on his previous experience, it means that he has a UTI. Patient also mentioned that if his UTI getting worse, he will be nonresponsive. Patient has a Sullivan catheter placed on Saturday because of the frequent urinary incontinence and patient has decubitus ulcer. Patient to come to ER for IV antibiotic. In ER, urine analysis shows UTI. Patient was admitted for IV antibiotic. Patient is full code as I discussed with patient and regarding CODE STATUS. Past Med Surg Social Fam HX - Past Medical History Medical history: kidney stones, other Psychiatric history: depression - Past Surgical History Surgical History: vascular surgery, other - Social History Smoking Status: Never smoker Smokeless Tobacco Status: No Alcohol use: none Drug use: none - Family History Father Adopted: No Family Member Ethnicity: Non- Living Status: Still Living Hx Family Endocrine Disorder: Yes (DM) Mother Adopted: No Family Member Ethnicity: Non- Living Status: Still Living Hx Family Cancer: Yes (cervical, breast) Hx Family Endocrine Disorder: Yes (DM type I) Internal Medicine - H&P: Meds Ascorbic Acid [Vitamin C with Cira Hips] 500 mg PO DAILY 02/14/17 [History] Baclofen 20 mg PO QID 02/14/17 [History] Docusate Sodium [Dok] 100 mg PO BID 02/14/17 [History] HYDROmorphone [Dilaudid] 4 mg PO BID 02/14/17 [History] HYDROmorphone [Dilaudid] 8 mg PO HS 02/14/17 [History] Multivitamin [Multivitamins] 1 tab PO DAILY 02/14/17 [History] Oxybutynin [Ditropan] 5 mg PO TID 02/14/17 [History] Polyethylene Glycol 3350 [Smoothlax] 17 gm PO Q48H 02/14/17 [History] Potassium 99 mg PO DAILY 02/14/17 [History] Pregabalin [Lyrica] 150 mg PO TID 02/14/17 [History] Sennosides [Senna] 8.6 mg PO BID 02/14/17 [History] Silver Sulfadiazine [Ssd] 1 appl TP DAILY 02/14/17 [History] diazePAM [Valium] 5 mg PO BID 02/14/17 [History] Docusate Sodium/Benzocaine [Enemeez Plus Mini Enema] 5 ml RC DAILY 02/16/17 [ History] EPINEPHrine [Epipen] 0.3 mg IM PRN PRN #2 auto.injct 02/18/17 [Rx] cefTRIAXone [Rocephin] 1,000 mg IVPB DAILY #6 vial 02/18/17 [Rx] Allergies Erythromycin Base Allergy (Verified 11/27/16 08:42) See Comments comatose aspirin Adverse Reaction (Verified 11/27/16 08:42) Nausea codeine Adverse Reaction (Verified 11/27/16 08:42) Hives diphenhydramine [From Benadryl] Adverse Reaction (Verified 11/27/16 08:42) Swelling of Lip/Tongue/Throat gentamicin Adverse Reaction (Verified 11/27/16 08:42) See Comments Methadone Adverse Reaction (Verified 11/27/16 08:42) Swelling of Lip/Tongue/Throat morphine Adverse Reaction (Verified 11/27/16 08:42) Hives Oxycodone [From OxyContin] Adverse Reaction (Verified 11/27/16 08:42) Swelling of Lip/Tongue/Throat tobramycin Adverse Reaction (Verified 11/27/16 08:42) See Comments vancomycin Adverse Reaction (Verified 11/27/16 08:42) See Comments All Systems PM: A 10-system review of systems was performed and is negative for pertinent findings except as documented above in the HPI. - Constitutional Vitals: Temp Pulse Resp BP Pulse Ox 98.4 F 85 16 115/72 97 04/01/17 03:58 04/01/17 03:58 04/01/17 03:58 04/01/17 03:58 04/01/17 03:58 General appearance: Present: A&O X 3, pleasant, no acute distress, answers questions appropriately - Head Head exam: Present: atraumatic, normocephalic - Eye Eye exam: Present: PERRL, conjuntiva pink, sclera anicteric Pupils: Present: PERRL - Neck Neck exam general surgery: Present: supple, trachea midline. Absent: lymphadenopathy - Respiratory Respiratory exam: Present: CTAB. Absent: accessory muscle use, rales, rhonchi, wheezes - Cardiovascular Cardiovascular exam: Present: RRR, +S1, +S2. Absent: diastolic murmur, gallop, rubs, systolic murmur - GI/Abdominal GI/Abdominal exam: Present: normal bowel sounds, soft, no peritoneal signs. Absent: distended, tenderness - Extremities Exam Extremities exam: Present: warm, radial pulses palpable and symetrical. Absent : calf tenderness, cyanotic, pedal edema - Neurological Exam Neurological exam: Present: CN II-XII intact, oriented X3. Absent: pronater drift, facial droop, speech deficit Additional comments: Qudriplegia - Skin Skin exam: Present: dry, intact Additional comments: Decubitus ulcer Internal Med - H&P Results - Labs CBC & Chem 7: 04/01/17 00:35 04/01/17 00:35
[2017-04-01] MEDS ORDERED: Ascorbic Acid 500 MG TABLET PO SCH (09:00)
--- NOTE | 2017-04-01 12:00 | Discharge Summary ---
Date of Encounter: 04/01/17 Time of Encounter: 11:59 - Discharge Medications Prescriptions: cefTRIAXone [Rocephin] 1,000 mg IVPB DAILY 10 Days Home Medications: Ascorbic Acid [Vitamin C with Cira Hips] 500 mg PO DAILY 02/14/17 [History] Baclofen 20 mg PO QID 02/14/17 [History] Docusate Sodium [Dok] 100 mg PO BID 02/14/17 [History] HYDROmorphone [Dilaudid] 4 mg PO BIDLS 02/14/17 [History] HYDROmorphone [Dilaudid] 8 mg PO HS 02/14/17 [History] Multivitamin [Multivitamins] 1 tab PO DAILY 02/14/17 [History] Oxybutynin [Ditropan] 5 mg PO TID 02/14/17 [History] Polyethylene Glycol 3350 [Smoothlax] 17 gm PO Q48H PRN 02/14/17 [History] Pregabalin [Lyrica] 150 mg PO TID 02/14/17 [History] Sennosides [Senna] 8.6 mg PO BID PRN 02/14/17 [History] Silver Sulfadiazine [Ssd] 1 appl TP DAILY 02/14/17 [History] diazePAM [Valium] 5 mg PO BID 02/14/17 [History] Docusate Sodium/Benzocaine [Enemeez Plus Mini Enema] 5 ml RC DAILY 02/16/17 [ History] EPINEPHrine [Epipen] 0.3 mg IM PRN PRN #2 auto.injct 02/18/17 [Rx] Acetaminophen [Non-Aspirin] 325 mg PO DAILY PRN 04/01/17 [History] Albuterol Sulfate [Albuterol Inhaler] 1 puff IH Q6H PRN 04/01/17 [History] Ibuprofen [Motrin] 200 mg PO Q6HR 04/01/17 [History] Potassium Chloride 20 meq PO DAILY 04/01/17 [History] Zinc Acetate [Galzin] 50 mg PO DAILY 04/01/17 [History] cefTRIAXone [Rocephin] 1,000 mg IVPB DAILY 10 Days 04/01/17 [Rx] Allergies/Adverse Reactions: Allergies Erythromycin Base Allergy (Verified 11/27/16 08:42) See Comments comatose aspirin Adverse Reaction (Verified 11/27/16 08:42) Nausea codeine Adverse Reaction (Verified 11/27/16 08:42) Hives diphenhydramine [From Benadryl] Adverse Reaction (Verified 11/27/16 08:42) Swelling of Lip/Tongue/Throat gentamicin Adverse Reaction (Verified 11/27/16 08:42) See Comments Methadone Adverse Reaction (Verified 11/27/16 08:42) Swelling of Lip/Tongue/Throat morphine Adverse Reaction (Verified 11/27/16 08:42) Hives Oxycodone [From OxyContin] Adverse Reaction (Verified 11/27/16 08:42) Swelling of Lip/Tongue/Throat tobramycin Adverse Reaction (Verified 11/27/16 08:42) See Comments vancomycin Adverse Reaction (Verified 11/27/16 08:42) See Comments Date of admission: 04/01/17 02:05 Primary care physician: Bang Swenson MD - Patient Status Disposition: Home Health Service Condition: Good Functional capacity at discharge: bed bound Overall status at discharge: patient is back to baseline - Discharge Instructions Follow Up With: Bang Swenson MD [Primary Care Provider] - - Diet and Activity Activity: as per physical therapy Diet: advance to your usual diet Interval History: Mr. Beltran is a 26 year old male with history of quadriplegia presents to ER for dysuria. Patient has a neurogenic bladder need frequent straight catheter For urination. Patient recently has dysuria and urinary incontinence. Based on his previous experience, he has a UTI. Patient also mentioned that if his UTI getting worse, he will be nonresponsive. He usually gets IV antibiotics for UTI. Patient has a Sullivan catheter placed on Saturday because of the frequent urinary incontinence and patient has decubitus ulcer. Patient to come to ER for IV antibiotic. In ER, urine analysis shows UTI, culture growing klebsiella which is brar sensitive. Patient was admitted for IV antibiotic. cayetano is being dc in stable condition today to complete IV antibiotic at home via for 10 days. Hospital course: Mr. Beltran is a 26 year old male - Time Spent with Patient Total time spent providing and/or coordinating discharge services: - Constitutional Vitals: Temp Pulse Resp BP Pulse Ox 97.5 F L 72 16 100/67 94 04/01/17 11:45 04/01/17 11:45 04/01/17 11:45 04/01/17 11:45 04/01/17 11:45 General appearance: Present: A&O X 3, pleasant, no acute distress, answers questions appropriately Exam: neck- supple chest- b/l clear, no added sounds CVs-s1 and s2, no mr/g/ abd-soft, non tender, bs are present ext- no edema, quadriplegic.
--- NOTE | 2017-04-01 13:22 | Physician Discharge Referral ---
Home Health/Hosp Referral Info Transfer to: Home Health Attending Provider: fina quevedo - Diagnosis (1) UTI (urinary tract infection) Status: Acute (2) History of quadriplegia Status: Chronic - Respiratory Orders Smoking Cessation: Smoking cessation has been advised. For more information, call the [place] Tobacco Quit Line at 3-653-TUQR-NOW. - Diet/Nutrition Diet/Nutrition Orders: Regular - Services Needed Following services are medically necessary services: Nursing, Home Health Aide, Physical Therapy, Occupational Therapy, Home Infusion - Transfer Medications Prescriptions: cefTRIAXone [Rocephin] 1,000 mg IVPB DAILY 10 Days Home Medications: Ascorbic Acid [Vitamin C with Cira Hips] 500 mg PO DAILY 02/14/17 [History] Baclofen 20 mg PO QID 02/14/17 [History] Docusate Sodium [Dok] 100 mg PO BID 02/14/17 [History] HYDROmorphone [Dilaudid] 4 mg PO BID 02/14/17 [History] HYDROmorphone [Dilaudid] 8 mg PO HS 02/14/17 [History] Multivitamin [Multivitamins] 1 tab PO DAILY 02/14/17 [History] Oxybutynin [Ditropan] 5 mg PO TID 02/14/17 [History] Polyethylene Glycol 3350 [Smoothlax] 17 gm PO Q48H 02/14/17 [History] Potassium 99 mg PO DAILY 02/14/17 [History] Pregabalin [Lyrica] 150 mg PO TID 02/14/17 [History] Sennosides [Senna] 8.6 mg PO BID 02/14/17 [History] Silver Sulfadiazine [Ssd] 1 appl TP DAILY 02/14/17 [History] diazePAM [Valium] 5 mg PO BID 02/14/17 [History] Docusate Sodium/Benzocaine [Enemeez Plus Mini Enema] 5 ml RC DAILY 02/16/17 [ History] EPINEPHrine [Epipen] 0.3 mg IM PRN PRN #2 auto.injct 02/18/17 [Rx] cefTRIAXone [Rocephin] 1,000 mg IVPB DAILY 10 Days 04/01/17 [Rx] Allergies/Adverse Reactions: Allergies Erythromycin Base Allergy (Verified 11/27/16 08:42) See Comments comatose aspirin Adverse Reaction (Verified 11/27/16 08:42) Nausea codeine Adverse Reaction (Verified 11/27/16 08:42) Hives diphenhydramine [From Benadryl] Adverse Reaction (Verified 11/27/16 08:42) Swelling of Lip/Tongue/Throat gentamicin Adverse Reaction (Verified 11/27/16 08:42) See Comments Methadone Adverse Reaction (Verified 11/27/16 08:42) Swelling of Lip/Tongue/Throat morphine Adverse Reaction (Verified 11/27/16 08:42) Hives Oxycodone [From OxyContin] Adverse Reaction (Verified 11/27/16 08:42) Swelling of Lip/Tongue/Throat tobramycin Adverse Reaction (Verified 11/27/16 08:42) See Comments vancomycin Adverse Reaction (Verified 11/27/16 08:42) See Comments Certification: Further, I certify that my clinical findings support that this patient is homebound (i.e. absences from home require considerable and taxing effort and are for medical reasons or jew services or infrequently or short duration when for other reasons) because: Homebound Reason: Patient requires assistance of a person or device to safely leave home Attestation: My signature below is to certify that this patient is under my care and that I, or nurse practitioner, or a physician's clinical research assistant working with me, has a face-to -face encounter with this patient.
[2017-04-01] MEDS ORDERED: Pregabalin 75 MG CAPSULE PO SCH (15:30)
[2017-04-01] MEDS ORDERED: *HR* HYDROmorphone 4 MG TABLET PO PRN (15:31)
[2017-04-01 16:40] VITALS: BP 137/93
[2017-04-01] MEDS ORDERED: Baclofen 10 MG TABLET PO SCH (17:00)
[2017-04-01] MEDS ORDERED: *HR* Heparin 5,000 UNIT/ML VIAL SQ SCH (18:00)
== END 2017-04-01 18:03 | disposition home health service (06) ==
LOC: EMEROO 21:42 → 3ANU 21:42
PROVIDERS: ADMIT Internal Medicine; ATTEND Internal Medicine Endocrinology, Diabetes & Metabolism

== ENCOUNTER 2017-09-28 22:11 | Inpatient (IN) ==
--- NOTE | 2017-09-28 22:32 | Emergency Department Note ---
Disposition Clinical Impression: Hyperbilirubinemia UTI (urinary tract infection) Qualifiers: Urinary tract infection type: acute cystitis Hematuria presence: without hematuria Qualified Code(s): N30.00 - Acute cystitis without hematuria Disposition: Admitted As Inpatient Condition: Fair Referrals: Bang Swenson MD [Primary Care Provider] - Forms: ED Satisfaction Letter General Adult HPI - General Chief complaint: ED Altered Mental Status Stated complaint: ams Time Seen by Provider: 09/28/17 22:13 Source: EMS Mode of arrival: EMS Limitations: language barrier Nursing Notes Reviewed: Yes Vital Signs Reviewed: Yes - History of Present Illness HPI Narrative: 26-year-old male with a history of a C5 injury years ago and subsequent quadraplegia. He was seen this morning for a fever and was discharged home with a dx of a UTI. He was sent home on abx. He returned to the ED tonight due to decreased alertness. He denies having N/V/D. His complaint to me is that he just "doesn't feel good". He cannot quantify to me what is the matter. Denies a cough. Radiation: non-radiation Pain Severity: moderate Pain Scale: 5 Improves with: nothing Worsens with: nothing Associated symptoms: Reports: denies other symptoms Treatments Prior to Arrival: none - Related Data Home Medications Medication Instructions Recorded Confirmed Ascorbic Acid [Vitamin C with Cira 500 mg PO DAILY 02/14/17 04/01/17 Hips] Baclofen 20 mg PO QID 02/14/17 04/01/17 Docusate Sodium [Dok] 100 mg PO BID 02/14/17 04/01/17 HYDROmorphone [Dilaudid] 4 mg PO BIDLS 02/14/17 04/01/17 HYDROmorphone [Dilaudid] 8 mg PO HS 02/14/17 04/01/17 Multivitamin [Multivitamins] 1 tab PO DAILY 02/14/17 04/01/17 Oxybutynin [Ditropan] 5 mg PO TID 02/14/17 04/01/17 Polyethylene Glycol 3350 17 gm PO Q48H PRN 02/14/17 04/01/17 [Smoothlax] Pregabalin [Lyrica] 150 mg PO TID 02/14/17 04/01/17 Sennosides [Senna] 8.6 mg PO BID PRN 02/14/17 04/01/17 Silver Sulfadiazine [Ssd] 1 appl TP DAILY 02/14/17 02/14/17 diazePAM [Valium] 5 mg PO BID 02/14/17 04/01/17 Docusate Sodium/Benzocaine 5 ml RC DAILY 02/16/17 02/16/17 [Enemeez Plus Mini Enema] Acetaminophen [Non-Aspirin] 325 mg PO DAILY PRN 04/01/17 04/01/17 Albuterol Sulfate [Albuterol 1 puff IH Q6H PRN 04/01/17 04/01/17 Inhaler] Ibuprofen [Motrin] 200 mg PO Q6HR 04/01/17 04/01/17 Potassium Chloride 20 meq PO DAILY 04/01/17 04/01/17 Zinc Acetate [Galzin] 50 mg PO DAILY 04/01/17 04/01/17 Previous Rx's Medication Instructions Recorded EPINEPHrine [Epipen] 0.3 mg IM PRN PRN #2 auto.injct 02/18/17 cefTRIAXone [Rocephin] 1,000 mg IVPB DAILY 10 Days vial 04/01/17 Acetaminophen [Tylenol Susp] 500 mg PO Q6HR PRN #1 bottle 09/28/17 Ibuprofen Susp [Motrin Susp] 400 mg PO Q6HR PRN #1 bottle 09/28/17 Sulfamethoxazole/Trimeth DS 1 each PO BID #6 tablet 09/28/17 [Bactrim DS] levoFLOXacin [Levaquin] 250 mg PO DAILY #3 tablet 09/28/17 Allergies Allergy/AdvReac Type Severity Reaction Status Date / Time Erythromycin Base Allergy See Verified 11/27/16 08:42 Comments aspirin AdvReac Nausea Verified 11/27/16 08:42 codeine AdvReac Hives Verified 11/27/16 08:42 diphenhydramine AdvReac Swelling Verified 11/27/16 08:42 [From Benadryl] of Lip/Tongue/Throat gentamicin AdvReac See Verified 11/27/16 08:42 Comments Methadone AdvReac Swelling Verified 11/27/16 08:42 of Lip/Tongue/Throat morphine AdvReac Hives Verified 11/27/16 08:42 Oxycodone [From OxyContin] AdvReac Swelling Verified 11/27/16 08:42 of Lip/Tongue/Throat tobramycin AdvReac See Verified 11/27/16 08:42 Comments vancomycin AdvReac See Verified 11/27/16 08:42 Comments All systems ED: reviewed and negative except as stated. Constitutional: Reports: fever Cardiovascular: Denies: chest pain Respiratory: Denies: cough, dyspnea Gastrointestinal: Denies: abdominal pain Integumentary: Reports: rash Past Medical History - Past Medical History Medical history: Reports: kidney stones, other Surgical history: Reports: vascular surgery, other Psychiatric history: Reports: depression - Social History Smoking Status: Never smoker Smokeless Tobacco Status: No Alcohol use: Reports: none Drug use: Reports: none Physical Exam - General General appearance: alert, in no apparent distress - Head Head exam: atraumatic - Eye Eye exam: Present: normal appearance, PERRL - ENT ENT exam: normal exam - Neck Neck exam: Present: normal inspection - Chest Chest inspection: Present: normal inspection - Respiratory Respiratory exam: Present: normal lung sounds bilaterally. Absent: respiratory distress - Cardiovascular Cardiovascular exam: Present: regular rate, normal rhythm - Abdominal Exam Abdominal exam: Present: soft, Non-Tender - Back Exam Back exam: Present: other (Chronic wound on buttocks. No surrounding erythema. ) - Skin Skin exam: Present: warm, dry, rash (mild urticarial rash on abdomen and upper extremities.) Course Course Narrative: He was discharged on bactrim. He seems to have an urticarial rash possibly from the bactrim. Will give steroids due to allergy to benadryl. No lip or tongue swelling or redness. Staff from the [facility] has arrived and they state that the rash has been there for a long time (months). His lab work is showing he has an acute doubling of his bilirubin. CT of his abdomen does not demonstrate an acute change. In addition he had a ultrasound done earlier today which did not show acute problems. I will admit him for failed outpatient his UTI and hyperbilirubinemia Vital Signs Temperature 99.4 F 09/28/17 22:16 Pulse Rate 100 09/28/17 22:16 Respiratory Rate 16 09/28/17 22:16 Blood Pressure 113/82 09/28/17 22:16 O2 Sat by Pulse Oximetry 94 09/28/17 22:16 Temperature 99.4 F 09/28/17 22:16 Pulse Rate 100 12/02/17 22:16 Respiratory Rate 16 09/28/17 22:16 Blood Pressure 113/82 09/28/17 22:16 O2 Sat by Pulse Oximetry 94 09/28/17 22:16 Oxygen Delivery Oxygen Delivery Room Air Medical Decision Making - Medical Records Medical records reviewed: Yes I reviewed the patient's medical records. - Lab Data Lab results reviewed: Yes I reviewed the patient's lab results. Result diagrams: 09/29/17 00:09 09/29/17 00:09 Lab Results 09/28/17 09/29/17 09/29/17 Range/Units 23:08 00:09 00:09 WBC 12.9 H (4.3-11.1) K/mcL RBC 4.64 (4.19-5.50) M/mcL Hgb 12.4 L (12.9-16.9) g/dL Hct 39.6 (37.5-50.1) % MCV 85.3 (83.0-100.0) fL MCH 26.7 L (28.0-33.3) pg MCHC 31.3 L (31.6-35.5) g/dL RDW 17.9 H (11.5-14.5) % Plt Count 125 L (140-400) K/mcL MPV 11.2 (9.4-12.4) fL Immature Gran % 0.3 (0-4) % Seg Neutrophils % 91.0 % Lymphocytes % 2.5 % Monocytes % 5.2 % Eosinophils % 0.8 % Basophils % 0.2 % Neutrophils # 11.7 H (1.6-8.9) K/mcL Lymphocytes # 0.3 L (0.6-4.6) K/mcL Monocytes # 0.7 (0.0-1.3) K/mcL Eosinophils # 0.1 (0.0-0.6) K/mcL Basophils # 0.0 (0.0-0.2) K/mcL Nucleated RBCs/100 WBC 0.2 H (0) /100 WBC Platelet Estimate Slight Decrease L (Normal) Sodium 135 L (136-145) mEq/L Potassium 3.8 (3.5-4.5) mEq/L Chloride 101 (98-109) mEq/L Carbon Dioxide 20 (19-29) mEq/L BUN 9 (8-26) mg/dL Creatinine 0.46 L (0.72-1.25) mg/dL Est GFR ( Amer) > 60 (> 60) Est GFR (Non-Af Amer) > 60 (> 60) BUN/Creatinine Ratio 20 (6-26) Glucose 82 (70-99) mg/dL Calculated Osmolality 278 L (280-300) Calcium 8.1 L (8.6-10.8) mg/dL Total Bilirubin 4.9 H D (0.2-1.2) mg/dL Direct Bilirubin 3.7 H D (0.0-0.5) mg/dL Indirect Bilirubin 1.2 (0.0-1.2) mg/dL AST 31 (5-34) Units/L ALT 39 (0-55) Units/L Alkaline Phosphatase 175 H (38-126) Units/L Serum Total Protein 6.3 (6.0-8.3) g/dL Albumin 2.5 L (3.5-5.0) g/dL Globulin 3.8 H (2.4-3.5) g/dL Albumin/Globulin Ratio 0.7 L (1.1-2.2) Urine Color [place] A (Yellow) Urine Clarity Cloudy A (Clear) Urine pH 6.0 (5.0-8.0) pH Units Ur Specific [place] 1.026 H (1.010-1.025) Urine Protein 30 H (Neg-Trace) mg/dL Urine Glucose (UA) Normal (Normal) mg/dL Urine Ketones 80 H (Negative) mg/dL Urine Blood Negative (Negative) Urine Nitrite Positive A (Negative) Urine Bilirubin Large H (Negative) Urine Urobilinogen 2.0 H (Normal) mg/dL Ur Leukocyte Esterase Small H (Negative) Urine Microscopic RBC 0-3 (0-3) per hpf Urine Microscopic WBC 15-30 H (0-3) per hpf Ur Squamous Epith Cells Many H (None-Few) per lpf Urine Bacteria Few (None-Few) per hpf Hyaline Casts Few (None-Few) per lpf Urine Mucus Many H (Few) Urine Yeast Test Not Performed Ur Culture Indicated? YES A (NO) - Radiology Data Radiology results reviewed: Yes I reviewed the patient's radiology results. - EKG Data EKG #1 EKG attestation: Yes I reviewed and interpreted this EKG. EKG shows normal: sinus rhythm Rate: normal Rhythm: NSR When compared to previous EKG there are: no significant changes Interpretation: no acute changes
--- NOTE | 2017-09-28 23:06 | Emergency Department Note ---
START Narrative - START START: I examined this patient and my medical decision-making was reviewed with the Resident Physician. I agree with the documented findings, disposition and treatment plan as described except to the extent set forth below. 26-year-old male presents emergency room for altered mental status. Seen this morning and diagnosed with urinary tract infection. Patient was placed on antibiotics. He returns tonight for altered mental status and more weakness and lethargy. We will do a CT abdomen and pelvis as he had elevated bilirubin this morning. We will do a chest x-ray and screening lab work again. Anticipate admission at this point for failure of outpatient treatment. Patient has multiple risk factors with being quadriplegic. He is bedbound.
[2017-09-28] MEDS ORDERED: MethylPREDNISolone 40 MG/ML VIAL IVP ONE (23:10)
[2017-09-28 23:17] LABS: Bilirubin,Urine Large (Negative); Blood,Urine Negative (Negative); Clarity,Urine Cloudy (Clear); Color,Urine Orange (Yellow); Glucose,Urine (UA) Normal (Normal); Ketones,Urine 80 mg/dL (Negative); Leukocyte Esterase,Urine Small (Negative); Nitrite,Urine Positive (Negative); Protein,Urine 30 mg/dL (Neg-Trace); Specific Gravity,Urine 1.026 (1.010-1.025)
[2017-09-28 23:19] LABS: RBC,Urine 0-3 per hpf (0-3); Squamous Epithelial Cell,Urine Many per lpf (None-Few); WBC,Urine 15-30 per hpf (0-3)
[2017-09-28 23:33] LABS: Hyaline Casts,Urine Few per lpf (None-Few)
[2017-09-28 23:34] LABS: Mucus,Urine Many (Few)
[2017-09-28 23:37] LABS: Bacteria,Urine Few per hpf (None-Few)
[2017-09-29 00:24] LABS: Basophils % 0.2 %; Eosinophils # 0.1 K/mcL (0.0-0.6); Eosinophils % 0.8 %; Hematocrit 39.6 % (37.5-50.1); Hemoglobin 12.4 g/dL (12.9-16.9); Immature Granulocytes % 0.3 % (0-4); Lymphocytes # 0.3 K/mcL (0.6-4.6); Lymphocytes % 2.5 %; Mean Corpuscular HGB Conc 31.3 g/dL (31.6-35.5); Mean Corpuscular Hemoglobin 26.7 pg (28.0-33.3); Mean Corpuscular Volume 85.3 fL (83.0-100.0); Mean Platelet Volume 11.2 fL (9.4-12.4); Monocytes # 0.7 K/mcL (0.0-1.3); Monocytes % 5.2 %; Nucleated Red Blood Cells 0.2 /100 WBC (0); Platelet Count 125 K/mcL (140-400); Red Blood Count 4.64 M/mcL (4.19-5.50); Red Cell Distribution Width 17.9 % (11.5-14.5)
[2017-09-29 00:36] LABS: Neutrophils # 11.7 K/mcL (1.6-8.9)
[2017-09-29 00:38] LABS: Platelet Estimate Slight Decrease (Normal)
[2017-09-29] MEDS ORDERED: cefTRIAXone 1,000 MG in Water for inj. (sterile) 10 ML IVP ONE (01:20)
[2017-09-29 01:22] LABS: Alanine Aminotransferase 39 Units/L (0-55); Albumin 2.5 g/dL (3.5-5.0); Albumin/Globulin Ratio 0.7 (1.1-2.2); Alkaline Phosphatase 175 Units/L (38-126); Aspartate Amino Transferase 31 Units/L (5-34); BUN/Creatinine Ratio 20 (6-26); Bilirubin,Indirect 1.2 mg/dL (0.0-1.2); Blood Urea Nitrogen 9 mg/dL (8-26); Calcium 8.1 mg/dL (8.6-10.8); Carbon Dioxide 20 mEq/L (19-29); Chloride 101 mEq/L (98-109); Globulin 3.8 g/dL (2.4-3.5); Glucose 82 mg/dL (70-99); Osmolality,Calculated 278 (280-300); Potassium 3.8 mEq/L (3.5-4.5); Sodium 135 mEq/L (136-145); Total Protein 6.3 g/dL (6.0-8.3); eGFR For African Americans > 60 (> 60); eGFR For Non-African Americans > 60 (> 60)
[2017-09-29 01:25] LABS: Bilirubin,Direct 3.7 mg/dL (0.0-0.5); Bilirubin,Total 4.9 mg/dL (0.2-1.2)
[2017-09-29] MEDS ORDERED: 0.9 % Sodium Chloride 1,000 ML IVC ONE (02:32)
[2017-09-29] MEDS ORDERED: Naloxone 0.4 MG/ML INJ IVP PRN (05:29)
[2017-09-29] MEDS ORDERED: Acetaminophen 325 MG TABLET PO PRN (05:35)
[2017-09-29] MEDS: Ondansetron 4 MG/2 ML VIAL IVP PRN ×2 (05:41→14:24)
--- NOTE | 2017-09-29 05:41 | Internal Med History&Physical ---
<William Cho - Last Filed: 09/29/17 05:44> Date of Encounter: 09/29/17 Time of Encounter: 04:00 Assessment and Plan (1) Abdominal pain Current visit: No Status: Resolved Abdominal CT shows no acute findings in abdomen and pelvis. Gallbladder U/S from earlier today was normal. Labs show an elevated T. Bili at 4.9 and an elevated Direct Bilirubin at 3.7. Alkaline phosphatase elevated at 175. Liver enzymes were normal. Albumin low at 2.5. Given the patient is reporting severe diffuse abdominal pain that is not constant, normal liver enzymes, with elevated alk phos and direct bilirubin, the primary concern for this patient is choledocolithiasis vs ascending cholangitis. Differential includes chronic hepatitis, liver cirrhosis, and pancreatitis. - MRCP. - Consult to GI. - Lipase - Amylase. - GGT. - Viral hepatitis panel pending. - Blood culture - IV fluids. Qualifiers: Abdominal location: generalized Qualified Code(s): R10.84 - Generalized abdominal pain (2) UTI (urinary tract infection) Current visit: Yes Status: Acute History of recurrent UTIs. UA was positive for nitrile and LE. - Ciprofloxacin. Qualifiers: Urinary tract infection type: acute cystitis Hematuria presence: with hematuria Qualified Code(s): N30.01 - Acute cystitis with hematuria (3) Altered mental status Current visit: Yes Status: Acute Likely secondary to UTI. Qualifiers: Qualified Code(s): R41.82 - Altered mental status, unspecified (4) Hyperbilirubinemia Current visit: Yes Status: Acute (5) Leukocytosis Current visit: No Status: Acute WBC elevated at 12.9. Qualifiers: Leukocytosis type: unspecified Qualified Code(s): D72.829 - Elevated white blood cell count, unspecified (6) Pressure ulcer Current visit: Yes Status: Acute Pressure ulcer for past 6 months. Stage 4. -Consult to wound care/ - Daily wound care. - Flagyl. Qualifiers: Pressure ulcer location: buttock Pressure ulcer stage: stage 4 Laterality : left Qualified Code(s): L89.324 - Pressure ulcer of left buttock, stage 4 (7) History of quadriplegia Current visit: No Status: Chronic (8) DVT prophylaxis Current visit: No Status: Acute - Heparin. Internal Medicine - H&P: HPI Chief complaint: AMS Admitted From: Emergency Dept History of present illness: Mr. Beltran is a 26 year old quadriplegic male with a PMH of C5 injury, nephrolithiasis, recurrent UTIs that presents for AMS. Most of history was obtained from maintenance carpenter at bedside. Patient had reported to the ER earlier today for fever. He was diagnosed with a UTI and discharged with bactrim. Later on in the day, the patient started to become altered. He currently complains of diffuse abdominal pain that is throbbing, non-constant, and "comes and goes". He admits to nausea, but denies any vomiting, diarrhea, or constipation. He denies any dysuria. Patient's maintenance carpenter says that he has been experiencing hematuria for the past two days. Patient denies any back pain, [place], dizziness, chest pain, or shortness of breath. Past Med Surg Social Fam HX - Past Medical History Medical history: kidney stones, other Psychiatric history: depression - Past Surgical History Surgical History: vascular surgery, other - Social History Smoking Status: Never smoker Smokeless Tobacco Status: No Alcohol use: none Drug use: none - Family History Father Adopted: No Family Member Ethnicity: Non- Living Status: Still Living Hx Family Endocrine Disorder: Yes (DM) Mother Adopted: No Family Member Ethnicity: Non- Living Status: Still Living Hx Family Cancer: Yes (cervical, breast) Hx Family Endocrine Disorder: Yes (DM type I) Internal Medicine - H&P: Meds Ascorbic Acid [Vitamin C with Cira Hips] 500 mg PO DAILY 02/14/17 [History] Baclofen 20 mg PO QID 02/14/17 [History] Docusate Sodium [Dok] 100 mg PO BID 02/14/17 [History] HYDROmorphone [Dilaudid] 4 mg PO BIDLS 02/14/17 [History] HYDROmorphone [Dilaudid] 8 mg PO HS 02/14/17 [History] Multivitamin [Multivitamins] 1 tab PO DAILY 02/14/17 [History] Oxybutynin [Ditropan] 5 mg PO TID 02/14/17 [History] Polyethylene Glycol 3350 [Smoothlax] 17 gm PO Q48H PRN 02/14/17 [History] Pregabalin [Lyrica] 150 mg PO TID 02/14/17 [History] Sennosides [Senna] 8.6 mg PO BID PRN 02/14/17 [History] Silver Sulfadiazine [Ssd] 1 appl TP DAILY 02/14/17 [History] diazePAM [Valium] 5 mg PO BID 02/14/17 [History] Docusate Sodium/Benzocaine [Enemeez Plus Mini Enema] 5 ml RC DAILY 02/16/17 [ History] EPINEPHrine [Epipen] 0.3 mg IM PRN PRN #2 auto.injct 02/18/17 [Rx] Acetaminophen [Non-Aspirin] 325 mg PO DAILY PRN 04/01/17 [History] Albuterol Sulfate [Albuterol Inhaler] 1 puff IH Q6H PRN 04/01/17 [History] Ibuprofen [Motrin] 200 mg PO Q6HR 04/01/17 [History] Potassium Chloride 20 meq PO DAILY 04/01/17 [History] Zinc Acetate [Galzin] 50 mg PO DAILY 04/01/17 [History] cefTRIAXone [Rocephin] 1,000 mg IVPB DAILY 10 Days vial 04/01/17 [Rx] Acetaminophen [Tylenol Susp] 500 mg PO Q6HR PRN #1 bottle 09/28/17 [Rx] Ibuprofen Susp [Motrin Susp] 400 mg PO Q6HR PRN #1 bottle 09/28/17 [Rx] Sulfamethoxazole/Trimeth DS [Bactrim DS] 1 each PO BID #6 tablet 09/28/17 [Rx] levoFLOXacin [Levaquin] 250 mg PO DAILY #3 tablet 09/28/17 [Rx] 3 Allergy/AdvReac Type Severity Reaction Status Date / Time Erythromycin Base Allergy See Verified 11/27/16 08:42 Comments aspirin AdvReac Nausea Verified 11/27/16 08:42 codeine AdvReac Hives Verified 11/27/16 08:42 diphenhydramine AdvReac Swelling Verified 11/27/16 08:42 [From Benadryl] of Lip/Tongue/Throat gentamicin AdvReac See Verified 11/27/16 08:42 Comments Methadone AdvReac Swelling Verified 11/27/16 08:42 of Lip/Tongue/Throat morphine AdvReac Hives Verified 11/27/16 08:42 Oxycodone [From OxyContin] AdvReac Swelling Verified 11/27/16 08:42 of Lip/Tongue/Throat tobramycin AdvReac See Verified 11/27/16 08:42 Comments vancomycin AdvReac See Verified 11/27/16 08:42 Comments ROS unobtainable: due to mental status, other (Part of history provided by maintenance carpenter) All Systems PM: A 10-system review of systems was performed and is negative for pertinent findings except as documented above in the HPI. - Constitutional Constitutional: fever(s) (Earlier in morning. ), lethargy, weakness - Cardiovascular Cardiovascular ROS IM: no chest pain, no dyspnea, no lightheadedness - Respiratory Respiratory: no cough, no dyspnea - Gastrointestinal Gastrointestinal: abdominal pain (Diffuse pain across abdomen. ), nausea, no change in stool character, no constipation, no diarrhea, no vomiting - Genitourinary Genitourinary ROS male: hematuria, no dysuria, no flank pain - Musculoskeletal Musculoskeletal ROS IM: no back pain - Neurological Neurological ROS: confusion, weakness, no dizziness, no headache(s) - Constitutional Vitals: Temp Pulse Resp BP Pulse Ox 99.0 F 103 16 121/76 95 09/29/17 03:02 09/29/17 03:02 09/29/17 03:02 09/29/17 03:02 09/29/17 03:02 General appearance: Present: A&O X 1. Absent: cooperative, answers questions appropriately - Respiratory Respiratory exam: Present: CTAB. Absent: rhonchi, wheezes, tachypnea - Cardiovascular Cardiovascular exam: Present: RRR, +S1, +S2 - GI/Abdominal GI/Abdominal exam: Present: distended, normal bowel sounds, soft, tenderness ( Severe tenderness with deep palpation to all four quadrants). Absent: guarding , rebound - Extremities Exam Extremities exam: Present: normal capillary refill, radial pulses palpable and symmetrical. Absent: pedal edema Additional comments: Stage 4 pressure ulcer of L buttocks. No signs of active bleeding, pus, or drainage. - Back Exam Back exam: Absent: CVA tenderness (L), CVA tenderness (R) Internal Med - H&P Results - Labs CBC & Chem 7: 09/29/17 00:09 09/29/17 00:09 <Sean Trujillo - Last Filed: 09/29/17 06:38> Date of Encounter: 09/29/17 Time of Encounter: 06:05 - Constitutional Constitutional: chills, fever(s), no night sweats - EENT Eyes: no blurry vision, no change in vision Ears: no tinnitus Nose, mouth and throat: no sinus pressure, no sore throat - Cardiovascular Cardiovascular ROS IM: no chest pain, no dyspnea - Respiratory Respiratory: no cough, no chest congestion - Gastrointestinal Gastrointestinal: abdominal pain, nausea, no diarrhea, no vomiting - Genitourinary Genitourinary ROS male: no dysuria - Integumentary Integumentary IM: no jaundice (no visible jaundice per report) - Neurological Neurological ROS: confusion, other (4 extremity paralysis (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 Absent: atraumatic - Eye Eye exam: Present: EOMI, PERRL, scleral icterus (minimal scleral icterus) Pupils: Present: normal accommodation - ENT ENT exam: Present: mucous membranes dry - Respiratory Respiratory exam: Present: CTAB. Absent: rales, respiratory distress, rhonchi, wheezes, tachypnea - Cardiovascular Cardiovascular exam: Present: RRR, +S1, +S2. Absent: diastolic murmur, systolic murmur - GI/Abdominal GI/Abdominal exam: Present: normal bowel sounds, tenderness (tenderness difficult to asses due to his quadriplegia; palpation of abdomen leads to shakes /tremors). Absent: guarding, hepatomegaly, rebound, splenomegaly - Skin Additional comments: no jaundice Internal Med - H&P Results - Labs CBC & Chem 7: 09/29/17 00:09 09/29/17 00:09 - Diagnostic Studies CT scan - abdomen Status: image reviewed by me (I viewed CT and did not appreciate abnormality; report reviewed -- negative) - Attending Attestation I discussed the patient DIOMEDE, PMH, ROS, lab data, and exam findings with Dr. Elizalde. I then saw and examined patient independently as well. When I saw patient, there were no caregivers present. However, patient was not very confused and was oriented x 2. He is in some distress, and I'm concerned about his abdominal complaints. In particular, I'm concerned about obstructive biliary problem. We ordered an MRCP despite negative GB ultrasound and abdominal CT. We are covering him with IV antibiotics for both UTI and GI lianne. I called and spoke with GI (Dr. Armando) requesting consultation, and he will see him this morning. Additionally, he has large decubitus ulcer which will need close follow up and likely surgical intervention down the road. At this time, however, his major issues is the obstructive jaundice and UTI. Imaging, consultative, and treatment plan as detailed above and per Dr. Elizalde. Other than my comments above and noted exam findings, I agree with his assessment and plan.
[2017-09-29] MEDS: 0.9 % Sodium Chloride w KCl 20 MEQ/1,000 ML MLS IVC SCH ×2 (05:45→16:29)
[2017-09-29] MEDS ORDERED: *HR* HYDROmorphone (PF) 1 MG/ML SYRINGE IVP PRN (05:48)
[2017-09-29] MEDS: *HR* Heparin 5,000 UNIT/ML VIAL SQ SCH ×3 (06:09→21:06)
[2017-09-29 06:24] LABS: Amylase 19 Units/L (25-125)
[2017-09-29] MEDS ORDERED: MetroNIDAZOLE 500 MG/100 ML 500 MG/100 ML BAG IVPB SCH (08:00)
[2017-09-29 08:31] LABS: Gamma Glutamyl Transpeptidase 85 Units/L (12-64)
[2017-09-29] MEDS: *HR* HYDROmorphone (PF) 1 MG/ML SYRINGE IVP PRN ×4 (10:31→21:06)
[2017-09-29] MEDS: *HR* Promethazine 25 MG/ML VIAL IVP PRN ×3 (10:32→22:40)
--- NOTE | 2017-09-29 12:04 | Gastroenterology Consult Note ---
Date of Encounter: 09/29/17 Time of Encounter: 12:04 - Assessment and plan (1) Decubitus ulcer Current Visit: Yes Status: Chronic Qualifiers: Pressure ulcer location: sacral region Pressure ulcer stage: unspecified pressure ulcer stage Qualified Code(s): L89.159 - Pressure ulcer of sacral region, unspecified stage (2) Abdominal pain Current Visit: No Status: Resolved Qualifiers: Abdominal location: generalized Qualified Code(s): R10.84 - Generalized abdominal pain (3) Leukocytosis Current Visit: Yes Status: Acute Qualifiers: Leukocytosis type: unspecified Qualified Code(s): D72.829 - Elevated white blood cell count, unspecified (4) UTI (urinary tract infection) Current Visit: No Status: Acute Qualifiers: Urinary tract infection type: site unspecified Hematuria presence: without hematuria Qualified Code(s): N39.0 - Urinary tract infection, site not specified (5) History of quadriplegia Current Visit: No Status: Chronic (6) Hyperbilirubinemia Current Visit: Yes Status: Acute (7) Pressure ulcer Current Visit: Yes Status: Acute Qualifiers: Pressure ulcer location: buttock Pressure ulcer stage: stage 4 Laterality : left Qualified Code(s): L89.324 - Pressure ulcer of left buttock, stage 4 - Time Spent With Patient Total time spent is greater than 50% in coordination of care (as documented) at patient's floor/unit and/or counseling patient: Greater than 35 minutes GI History of Present Illness - Data of Consult Consult date: 09/29/17 Requesting Physician: Erica Sanchez MD - Consult Narrative Reason for consult: Jaundice, abdominal pain History of present illness: Mr. Beltran is a 26 year old male who became quadriplegic after a C5 injury presents with jaundice and abdominal pain and chills. No chest pain. He says the pain has been of 2 days duration. No vomiting. Patient lives with a disabled friend apparently. He has multiple issues including a left gluteal wound which has been attended to by wound care and home health care (not on a daily basis). Patient says he has been feeling cold (his RN says he has been alternating with feeling cold and warm). He had a 1100 ml of orange colored urine evacuated from the bladder by Sullivan earlier today. Feel patient does not have ascending cholangitis. Would recommend surgical consultation and would check lactic acid. Past Med Surg Social Fam HX - Past Medical History Medical history: kidney stones, other Psychiatric history: depression - Past Surgical History Surgical History: vascular surgery, other - Social History Smoking Status: Never smoker Smokeless Tobacco Status: No Alcohol use: none Drug use: none - Family History Father Adopted: No Family Member Ethnicity: Non- Living Status: Still Living Hx Family Endocrine Disorder: Yes (DM) Mother Adopted: No Family Member Ethnicity: Non- Living Status: Still Living Hx Family Cancer: Yes (cervical, breast) Hx Family Endocrine Disorder: Yes (DM type I) - Gastrointestinal Gastrointestinal: Present: abdominal pain, nausea Additional Comments: Diffuse abdominal pain - Constitutional Additional Comments: Chills - Constitutional Vitals: Temp Pulse Resp BP Pulse Ox 98.5 F 108 18 96/58 94 09/29/17 11:08 09/29/17 11:08 09/29/17 11:08 09/29/17 11:08 09/29/17 11:08 Results - Labs CBC & Chem 7: 09/29/17 00:09 09/29/17 00:09 Labs: Last Result Calcium 8.1 mg/dL (8.6-10.8) L 09/29/17 00:09 Entire Visit Hgb 12.4 g/dL (12.9-16.9) L 09/29/17 00:09 Hct 39.6 % (37.5-50.1) 09/29/17 00:09 Total Bilirubin 4.9 mg/dL (0.2-1.2) H D 09/29/17 00:09 AST 31 Units/L (5-34) 09/29/17 00:09 ALT 39 Units/L (0-55) 09/29/17 00:09 Amylase 19 Units/L (25-125) L 09/29/17 06:11 Lipase < 10 Units/L (8-78) 09/29/17 06:11 Consult Discharge Plan - Plan Referrals: Bang Swenson MD [Primary Care Provider] -
[2017-09-29 12:52] LABS: Bilirubin,Urine Negative (Negative); Blood,Urine Negative (Negative); Clarity,Urine Cloudy (Clear); Color,Urine Yellow (Yellow); Glucose,Urine (UA) Normal (Normal); Ketones,Urine >=160 mg/dL (Negative); Leukocyte Esterase,Urine Negative (Negative); Nitrite,Urine Negative (Negative); Protein,Urine 30 mg/dL (Neg-Trace); Specific Gravity,Urine 1.022 (1.010-1.025); Urobilinogen,Urine Normal (Normal)
[2017-09-29 12:54] LABS: Bacteria,Urine None Seen per hpf (None-Few); Hyaline Casts,Urine None Seen per lpf (None-Few); Squamous Epithelial Cell,Urine Moderate per lpf (None-Few)
[2017-09-29 13:03] LABS: RBC,Urine 0-3 per hpf (0-3)
--- NOTE | 2017-09-29 14:05 | Event Note ---
Date of Encounter: 09/29/17 Time of Encounter: 14:05 26-year-old male with history of C5 spinal injury with resulting quadriplegia and stage IV decubitus ulcer, was admitted with abdominal pain and altered mental status. Patient seen and examined at bedside. Noted to be in mild distress, reports abdominal pain and nausea. No vomiting or diarrhea. No fever, chills, shortness of breath. Chest-S1, S2 heard, regular and tachycardic Lungs are clear to auscultation anterolaterally Abdomen is soft, nondistended, diffuse tenderness in all 4 quadrants and central abdomen Labs reviewed-improving leukocytosis. Initial total bilirubin noted to be 4.9 with increased direct bilirubin, repeat labs have been normal. Serum lactic acid noted to be normal. Serum amylase and lipase within normal limits. CT abdomen/pelvis showed no acute abnormality. Abdominal pain-uncertain etiology at this time, although he could have passed a small biliary stone. Labs have improved now. GI consult appreciated, recommended no acute intervention at this time. Continue pain control with when necessary IV Dilaudid, when necessary antiemetics. Diet as tolerated. Acute encephalopathy-probably due to underlying infection and pain. Currently improving. [id number] urine culture. Continue IV antibiotics.
[2017-09-29 16:13] LABS: Hematocrit 34.5 % (37.5-50.1); Immature Granulocytes % 0.9 % (0-4); Lymphocytes # 0.5 K/mcL (0.6-4.6); Lymphocytes % 4.2 %; Mean Corpuscular HGB Conc 31.9 g/dL (31.6-35.5); Mean Corpuscular Hemoglobin 26.5 pg (28.0-33.3); Mean Corpuscular Volume 83.1 fL (83.0-100.0); Mean Platelet Volume 10.4 fL (9.4-12.4); Monocytes # 0.3 K/mcL (0.0-1.3); Monocytes % 2.6 %; Neutrophils # 10.6 K/mcL (1.6-8.9); Platelet Count 156 K/mcL (140-400); Red Blood Count 4.15 M/mcL (4.19-5.50); Red Cell Distribution Width 17.7 % (11.5-14.5); Segmented Neutrophils % 92.3 %
[2017-09-29] MEDS: cefOXitin 1,000 MG in Water for inj. (sterile) 10 ML IVP SCH ×2 (16:29→21:05)
[2017-09-29 16:30] LABS: Alanine Aminotransferase 36 Units/L (0-55); Albumin 2.3 g/dL (3.5-5.0); Albumin/Globulin Ratio 0.5 (1.1-2.2); Alkaline Phosphatase 161 Units/L (38-126); Aspartate Amino Transferase 21 Units/L (5-34); BUN/Creatinine Ratio 9 (6-26); Calcium 8.3 mg/dL (8.6-10.8); Carbon Dioxide 20 mEq/L (19-29); Chloride 109 mEq/L (98-109); Globulin 4.3 g/dL (2.4-3.5); Glucose 100 mg/dL (70-99); Osmolality,Calculated 279 (280-300); Potassium 3.8 mEq/L (3.5-4.5); Sodium 136 mEq/L (136-145); Total Protein 6.6 g/dL (6.0-8.3); eGFR For African Americans > 60 (> 60); eGFR For Non-African Americans > 60 (> 60)
[2017-09-29 16:31] LABS: Albumin 2.3 g/dL (3.5-5.0); Albumin/Globulin Ratio 0.5 (1.1-2.2); Bilirubin,Indirect 0.4 mg/dL (0.0-1.2); Bilirubin,Total 1.2 mg/dL (0.2-1.2); Globulin 4.3 g/dL (2.4-3.5); Total Protein 6.6 g/dL (6.0-8.3)
[2017-09-29 16:35] LABS: Bilirubin,Direct 0.8 mg/dL (0.0-0.5)
[2017-09-29 16:36] LABS: Bilirubin,Total 1.2 mg/dL (0.2-1.2); Blood Urea Nitrogen 5 mg/dL (8-26)
[2017-09-30] MEDS: *HR* HYDROmorphone (PF) 1 MG/ML SYRINGE IVP PRN ×6 (00:29→21:05)
[2017-09-30] MEDS: Ondansetron 4 MG/2 ML VIAL IVP PRN (01:04)
[2017-09-30] MEDS: cefOXitin 1,000 MG in Water for inj. (sterile) 10 ML IVP SCH ×3 (05:10→21:05)
[2017-09-30] MEDS: *HR* Promethazine 25 MG/ML VIAL IVP PRN ×2 (05:10→16:16)
[2017-09-30] MEDS: *HR* Heparin 5,000 UNIT/ML VIAL SQ SCH ×3 (05:11→21:05)
[2017-09-30 05:14] LABS: Basophils % 0.1 %; Eosinophils % 0.4 %; Hematocrit 34.2 % (37.5-50.1); Hemoglobin 10.8 g/dL (12.9-16.9); Immature Granulocytes % 1.1 % (0-4); Lymphocytes # 0.8 K/mcL (0.6-4.6); Lymphocytes % 7.4 %; Mean Corpuscular HGB Conc 31.6 g/dL (31.6-35.5); Mean Corpuscular Hemoglobin 26.1 pg (28.0-33.3); Mean Corpuscular Volume 82.6 fL (83.0-100.0); Mean Platelet Volume 10.4 fL (9.4-12.4); Monocytes # 0.7 K/mcL (0.0-1.3); Monocytes % 6.9 %; Neutrophils # 8.8 K/mcL (1.6-8.9); Platelet Count 151 K/mcL (140-400); Red Blood Count 4.14 M/mcL (4.19-5.50); Segmented Neutrophils % 84.1 %
[2017-09-30 05:25] LABS: Alanine Aminotransferase 40 Units/L (0-55); Albumin 2.3 g/dL (3.5-5.0); Albumin/Globulin Ratio 0.5 (1.1-2.2); Alkaline Phosphatase 156 Units/L (38-126); Aspartate Amino Transferase 25 Units/L (5-34); BUN/Creatinine Ratio 11 (6-26); Bilirubin,Total 0.8 mg/dL (0.2-1.2); Blood Urea Nitrogen 6 mg/dL (8-26); Calcium 7.9 mg/dL (8.6-10.8); Carbon Dioxide 15 mEq/L (19-29); Chloride 110 mEq/L (98-109); Globulin 4.2 g/dL (2.4-3.5); Glucose 77 mg/dL (70-99); Osmolality,Calculated 282 (280-300); Potassium 3.5 mEq/L (3.5-4.5); Sodium 138 mEq/L (136-145); Total Protein 6.5 g/dL (6.0-8.3); eGFR For African Americans > 60 (> 60); eGFR For Non-African Americans > 60 (> 60)
[2017-09-30] MEDS: D5% in 0.9% NACL 1,000 ML IVC SCH ×2 (06:40→18:10)
[2017-09-30] MEDS ORDERED: Ringers Solution, Lactated 1,000 ML IVC SCH (10:15)
--- NOTE | 2017-09-30 10:21 | Internal Med Progress Note ---
Date of Encounter: 09/30/17 Time of Encounter: 10:15 - Assessment and plan (1) Abdominal pain Current Visit: Yes Status: Acute Assessment and plan: Unclear etiology at this time. Less likely cholecystitis, mesenteric ischemia. Patient continues to report diffuse abdominal pain and nausea, requesting IV Dilaudid every 2-3 hours. Reports being allergic to oral pain medications including oxycodone and hydrocodone. CT abdomen/pelvis without contrast at presentation, showed no acute abnormality. Right upper quadrant ultrasound showed normal caliber common bile duct and no evidence of acute cholecystitis. Presented with slightly elevated direct bilirubin, which currently normalized. GI was consulted, recommended no acute intervention. Continue bowel rest, IV hydration, IV Mefoxin and supportive care with when necessary antiemetics and pain control. Consulted surgery, recommend HIDA scan which is nondiagnostic as patient terminated the procedure due to significant nausea. Will await further recommendations. Qualifiers: Abdominal location: generalized Qualified Code(s): R10.84 - Generalized abdominal pain (2) UTI (urinary tract infection) Current Visit: Yes Status: Ruled-out Assessment and plan: Urine culture shows no growth. Qualifiers: Urinary tract infection type: site unspecified Hematuria presence: without hematuria Qualified Code(s): N39.0 - Urinary tract infection, site not specified (3) Quadriplegia Current Visit: Yes Status: Chronic Assessment and plan: Quadriplegic due to C5 cord injury. Bedbound. Requires higher level of nursing care. (4) Pressure ulcer Current Visit: Yes Status: Chronic Assessment and plan: Noted to have stage IV decubitus ulcer on left hip/upper lateral thigh. Noted to be moist, no foul-smelling, no clear evidence of infection. Continue local wound care, patient follows at [facility]. Patient's mother has received a call from the wound care center today stating that one culture from last week grows MRSA and Pseudomonas. We will try to obtain these results and send repeat one culture here. We will hold off on antibiotics at this time. Qualifiers: Pressure ulcer location: buttock Pressure ulcer stage: stage 4 Laterality : left Qualified Code(s): L89.324 - Pressure ulcer of left buttock, stage 4 - Subjective Interval history: Continues to have generalized abdominal pain and nausea; nausea has improved since yesterday but patient has been requesting IV Dilaudid every 3 hours; no fever/chills; poor historian otherwise; has had a BM yesterday; - Constitutional Vitals: Temp Pulse Resp BP Pulse Ox 97.8 F 99 15 105/68 96 09/30/17 06:54 09/30/17 06:54 09/30/17 06:54 09/30/17 06:54 09/30/17 06:54 General appearance: Present: cooperative, mild distress, A&O X 3, answers questions appropriately - Respiratory Respiratory exam: Present: CTAB. Absent: accessory muscle use, rales, rhonchi, wheezes - Cardiovascular Cardiovascular exam: Present: RRR, +S1, +S2, tachycardia. Absent: diastolic murmur, gallop, rubs, systolic murmur - GI/Abdominal GI/Abdominal exam: Present: normal bowel sounds (diminished in LUQ and hyperactive in RUQ and RLQ), soft (diffuse tenderness all over abdomen; no rigidity), no peritoneal signs. Absent: distended, tenderness - Extremities Exam Extremities exam: Present: pedal edema (dependent), warm, radial pulses palpable and symmetrical. Absent: calf tenderness, cyanotic - Neurological Exam Neurological exam: Present: CN II-XII intact, oriented X3, no focal deficits ( quadriplegia+). Absent: pronater drift, facial droop, speech deficit Internal Medicine: Result - Labs CBC & Chem 7: 09/30/17 05:00 09/30/17 05:00 Labs: Short CBC 09/29/17 09/30/17 Range/Units 15:35 05:00 WBC 11.5 H 10.4 (4.3-11.1) K/mcL Hgb 11.0 L 10.8 L (12.9-16.9) g/dL Hct 34.5 L 34.2 L (37.5-50.1) % Plt Count 156 151 (140-400) K/mcL Neutrophils # 10.6 H 8.8 (1.6-8.9) K/mcL BMP 09/29/17 09/30/17 15:35 05:00 Sodium 136 138 Potassium 3.8 3.5 Chloride 109 110 H Carbon Dioxide 20 15 L BUN 5 L 6 L Creatinine 0.54 L 0.57 L Glucose 100 H 77 Calcium 8.3 L 7.9 L Liver Function 09/29/17 09/29/1717 Range/Units 15:35 15:35 05:00 Total Bilirubin 1.2 D 1.2 0.8 (0.2-1.2) mg/dL Direct Bilirubin 0.8 H D (0.0-0.5) mg/dL AST 21 21 25 (5-34) Units/L ALT 36 36 40 (0-55) Units/L Alkaline Phosphatase 156 H 161 H 156 H (38-126) Units/L Albumin 2.3 L 2.3 L 2.3 L (3.5-5.0) g/dL Urine 09/29/17 Range/Units 12:40 Urine Color Yellow (Yellow) Urine Clarity Cloudy A (Clear) Urine pH 6.0 (5.0-8.0) pH Units Ur Specific [place] 1.022 (1.010-1.025) Urine Protein 30 H (Neg-Trace) mg/dL Urine Glucose (UA) Normal (Normal) mg/dL Consult Discharge Plan - Plan Referrals: Bang Swenson MD [Primary Care Provider] -
[2017-09-30 10:34] LABS: Hepatitis A Antibody IgM Nonreactive (Nonreactive); Hepatitis B Core IgM Nonreactive (Nonreactive); Hepatitis B Surface Antigen Nonreactive (Nonreactive); Hepatitis C Virus Antibody Nonreactive (Nonreactive)
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
[2017-09-30] MEDS ORDERED: *HR* HYDROmorphone (PF) 1 MG/ML SYRINGE IVP ONE (16:49)
--- NOTE | 2017-09-30 19:30 | Anesthesia Evaluation PreOp ---
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: Other (C5 quadriplegia) Other Medical History: Renal (kidney stones) Anesthesia History: No Prior Anesthetic Complications, Past Anesthesia Alcohol Use: none Drug use: none Medications and Allergies Ascorbic Acid [Vitamin C with Cira Hips] 500 mg PO DAILY 02/14/17 [History] Baclofen 20 mg PO QID 02/14/17 [History] Docusate Sodium [Dok] 100 mg PO BID 02/14/17 [History] HYDROmorphone [Dilaudid] 4 mg PO BIDLS 02/14/17 [History] HYDROmorphone [Dilaudid] 8 mg PO HS 02/14/17 [History] Multivitamin [Multivitamins] 1 tab PO DAILY 02/14/17 [History] Oxybutynin [Ditropan] 5 mg PO TID 02/14/17 [History] Polyethylene Glycol 3350 [Smoothlax] 17 gm PO Q48H PRN 02/14/17 [History] Pregabalin [Lyrica] 150 mg PO TID 02/14/17 [History] Sennosides [Senna] 8.6 mg PO BID PRN 02/14/17 [History] Silver Sulfadiazine [Ssd] 1 appl TP DAILY 02/14/17 [History] diazePAM [Valium] 5 mg PO BID 02/14/17 [History] Docusate Sodium/Benzocaine [Enemeez Plus Mini Enema] 5 ml RC DAILY 02/16/17 [ History] EPINEPHrine [Epipen] 0.3 mg IM PRN PRN #2 auto.injct 02/18/17 [Rx] Acetaminophen [Non-Aspirin] 325 mg PO DAILY PRN 04/01/17 [History] Albuterol Sulfate [Albuterol Inhaler] 1 puff IH Q6H PRN 04/01/17 [History] Ibuprofen [Motrin] 200 mg PO Q6HR 04/01/17 [History] Potassium Chloride 20 meq PO DAILY 04/01/17 [History] Zinc Acetate [Galzin] 50 mg PO DAILY 04/01/17 [History] cefTRIAXone [Rocephin] 1,000 mg IVPB DAILY 10 Days vial 04/01/17 [Rx] Acetaminophen [Tylenol Susp] 500 mg PO Q6HR PRN #1 bottle 09/28/17 [Rx] Ibuprofen Susp [Motrin Susp] 400 mg PO Q6HR PRN #1 bottle 09/28/17 [Rx] Sulfamethoxazole/Trimeth DS [Bactrim DS] 1 each PO BID #6 tablet 09/28/17 [Rx] levoFLOXacin [Levaquin] 250 mg PO DAILY #3 tablet 09/28/17 [Rx] 3 Allergy/AdvReac Type Severity Reaction Status Date / Time Erythromycin Base Allergy See Verified 11/27/16 08:42 Comments aspirin AdvReac Nausea Verified 11/27/16 08:42 codeine AdvReac Hives Verified 11/27/16 08:42 diphenhydramine AdvReac Swelling Verified 11/27/16 08:42 [From Benadryl] of Lip/Tongue/Throat gentamicin AdvReac See Verified 11/27/16 08:42 Comments Methadone AdvReac Swelling Verified 11/27/16 08:42 of Lip/Tongue/Throat morphine AdvReac Hives Verified 11/27/16 08:42 Oxycodone [From OxyContin] AdvReac Swelling Verified 11/27/16 08:42 of Lip/Tongue/Throat tobramycin AdvReac See Verified 11/27/16 08:42 Comments vancomycin AdvReac See Verified 11/27/16 08:42 Comments - Meds/Allergy Pre-op Review Medications Reviewed: Yes Allergies Reviewed: Yes Beta Blockers on Current Med List: No Anesthesia Results - Labs 09/30/17 05:00 09/30/17 05:00 - Imaging EKG: report reviewed (09/28/2017 SR, possible LAE) Anesthesia Exam Vital Signs/O2 Sat, Most Current Temp Pulse Resp BP Pulse Ox 99 F 70 15 134/94 96 09/30/17 19:00 09/30/17 19:00 09/30/17 19:00 09/30/17 19:00 09/30/17 19:00 Height: 6'/1.83 m Weight: 157 lbs/71.5 kg Pain Scale: 0 Pain Scale Used: Numeric (1 - 10) - HEENT Pupil (Motor): EOMI Mallampati: II Teeth: Normal Oral Opening: Greater than 3 - ASSOCIATE STORE LEADER LOC: Oriented ASSOCIATE STORE LEADER Motor: Normal Face, Deficit RUE, Deficit LUE, Deficit RLE, Deficit LLE ASSOCIATE STORE LEADER Sensory: Normal: Face, Deficit: RUE, LUE, RLE, LLE - Cardiac Rhythm: Regular Murmur: None - Pulmonary Breath Sounds: bilateral Clear Respiratory Effort: Symmetrical Anesthesia Assess/Plan ASA Score: 3 Modified Charlie Scale for Level of Consciousness: Cooperative, oriented, and tranquil Anesthetic Plan: General Monitoring Plan: Standard Monitors Recovery Plan: PACU
[2017-10-01] MEDS: *HR* HYDROmorphone (PF) 1 MG/ML SYRINGE IVP PRN ×5 (00:40→15:06)
[2017-10-01] MEDS: Ondansetron 4 MG/2 ML VIAL IVP PRN (02:09)
[2017-10-01] MEDS: cefOXitin 1,000 MG in Water for inj. (sterile) 10 ML IVP SCH ×3 (04:22→21:16)
[2017-10-01] MEDS: D5% in 0.9% NACL 1,000 ML IVC SCH (04:27)
[2017-10-01 04:50] LABS: BUN/Creatinine Ratio 6 (6-26); Carbon Dioxide 20 mEq/L (19-29); Chloride 105 mEq/L (98-109); Glucose 108 mg/dL (70-99); Osmolality,Calculated 285 (280-300); Potassium 2.7 mEq/L (3.5-4.5); Sodium 139 mEq/L (136-145); eGFR For African Americans > 60 (> 60); eGFR For Non-African Americans > 60 (> 60)
[2017-10-01 04:51] LABS: Blood Urea Nitrogen 3 mg/dL (8-26)
[2017-10-01 04:52] LABS: Albumin 2.6 g/dL (3.5-5.0); Albumin/Globulin Ratio 0.6 (1.1-2.2); Bilirubin,Direct 0.6 mg/dL (0.0-0.5); Bilirubin,Indirect 0.5 mg/dL (0.0-1.2); Bilirubin,Total 1.1 mg/dL (0.2-1.2); Globulin 4.5 g/dL (2.4-3.5); Total Protein 7.1 g/dL (6.0-8.3)
[2017-10-01] MEDS ORDERED: Potassium Chloride 40 MEQ, Lidocaine 1% 2 ML in D5% in Water 500 ML IVPB ONE (06:00)
[2017-10-01 06:09] LABS: Basophils % 0.2 %; Eosinophils # 0.3 K/mcL (0.0-0.6); Eosinophils % 3.1 %; Hematocrit 36.2 % (37.5-50.1); Hemoglobin 11.7 g/dL (12.9-16.9); Immature Granulocytes % 0.6 % (0-4); Lymphocytes # 1.1 K/mcL (0.6-4.6); Lymphocytes % 14.1 %; Mean Corpuscular HGB Conc 32.3 g/dL (31.6-35.5); Mean Corpuscular Volume 80.4 fL (83.0-100.0); Mean Platelet Volume 10.3 fL (9.4-12.4); Monocytes # 0.7 K/mcL (0.0-1.3); Monocytes % 8.5 %; Neutrophils # 5.9 K/mcL (1.6-8.9); Platelet Count 150 K/mcL (140-400); Red Cell Distribution Width 18.2 % (11.5-14.5); Segmented Neutrophils % 73.5 %
[2017-10-01] MEDS: *HR* Heparin 5,000 UNIT/ML VIAL SQ SCH ×4 (06:22→21:17)
[2017-10-01] MEDS: *HR* Promethazine 25 MG/ML VIAL IVP PRN ×2 (06:22→12:29)
[2017-10-01] MEDS ORDERED: Potassium Chloride 20 MEQ, Lidocaine 1% 2 ML in D5% in Water 250 ML IVPB ONE (08:27)
--- NOTE | 2017-10-01 09:49 | General Surgery Progress Note ---
Addendum entered and electronically signed by Sheeba Spear CNP 10/01/17 10: 33: Reviewed below with Dr. Aguirre. As patient requests, we will cancel surgery today. Ok for patient to resume home medications per primary medicine. Low fat diet. Follow-up as outpatient, with Dr. Aguirre, if symptoms return for possible interval cholecystectomy. Surgery will sign off. Thank you for allowing us to participate in Mr. Beltran's care. Original Note: <Sheeba Spear - Last Filed: 10/01/17 10:04> Date of Encounter: 10/01/17 Time of Encounter: 08:30 - Assessment and Plan (1) Abdominal pain Current Visit: Yes Status: Acute Patient presented with "severe UTI and then they found a possible gall bladder problem." He was seen in consult on 09/30/2017 and Given his symptom complaints, imaging, labs there was concern about biliary dyskinesia (given complaints and CBD of 2mm) and a HIDA scan was ordered. The patient did not complete the Hida scan, stating, "I got really hot and my side was hurting. I knew I would just get hotter." As his s/s would be difficult to discern d/t quadriplegia, He was placed on the surgical schedule for today. Upon re-evaluation today, the patient states that his abdomen is "not hurting but my right flank continues to hurt and it's in the back." He requests resuming his chronic medications such as Lyrica because "when I'm off them I get this type of chronic pain." He was offered the option of laproscopic cholecystectomy by refuses at this time stating he would rather attempt his chronic medications 1st. Plan: NPO except medications Resume home baclofen, lyrica, and will add IV toradol in place of ibuprofen Will review above with Dr. Aguirre Qualifiers: Abdominal location: generalized Qualified Code(s): R10.84 - Generalized abdominal pain (2) Quadriplegia Current Visit: Yes Status: Chronic (3) Hyperbilirubinemia Current Visit: Yes Status: Acute Down trending Subjective Patient reports: no new complaints, still having pain ("right flank"), no flatus , no bowel movement, afebrile Objective Vital Signs - Last 8 Hours Temp Pulse Resp BP Pulse Ox 10/01/17 07:00 98.0 F 95 16 131/94 99 10/01/17 05:00 98 F 102 17 127/90 97 Intake and Output 09/30/17 10/01/17 10/01/17 23:59 07:59 15:59 Intake Total 1020 / 1020 1010 / 1010 Output Total 1200 / 1200 625 / 625 Balance -180 / -180 385 / 385 Intake: IV Fluids 1020 / 1020 1010 / 1010 D5% And 0.9% Nacl 1000 Ml 1,000 1000 / 1000 1000 / 1000 ML @ 100 mls/hr IVC .Q10H [facility] Rx#:[id number] Mefoxin 1,000 MG In Water for inj. (sterile) 10 ML @ 150 mls/ hr IVP Q8H [facility] Rx#:[id number] Oral 0 / 0 0 / 0 Output: Catheter 1200 / 1200 625 / 625 Other: Stool Size Moderate Stool Characteristics Mucoid Stool Color White - General physical appearance no distress - ENT normal mucosa, atraumatic, normocephalic - Neck Neck exam: trachea midline - Respiratory other (Decreased anterior breath sounds) - Cardiovascular Cardiovascular exam: Present: RRR - Abdomen Abdomen: Present: bowel sounds present, soft (protuberant), tender (Right flank (lateral and posterior)) Hernia: none - Integumentary no abnormal pigmentation - Neurologic other (Quadrapilegic) - Musculoskeletal other (see above) - Psychiatric oriented to time, oriented to person, oriented to place, speech is normal, memory intact - Labs 10/01/17 05:30 10/01/17 04:15 Diabetes panel 10/01/17 10/01/17 Range/Units 04:15 04:15 Sodium 139 (136-145) mEq/L Potassium 2.7 L (3.5-4.5) mEq/L Chloride 105 (98-109) mEq/L Carbon Dioxide 20 (19-29) mEq/L BUN 3 L (8-26) mg/dL Creatinine 0.48 L (0.72-1.25) mg/dL Glucose 108 H (70-99) mg/dL Calcium 8.0 L (8.6-10.8) mg/dL AST 17 (5-34) Units/L ALT 36 (0-55) Units/L Alkaline Phosphatase 165 H (38-126) Units/L Albumin 2.6 L (3.5-5.0) g/dL Calcium panel 10/01/17 10/01/17 Range/Units 04:15 04:15 Calcium 8.0 L (8.6-10.8) mg/dL Albumin 2.6 L (3.5-5.0) g/dL Pituitary panel 10/01/17 Range/Units 04:15 Sodium 139 (136-145) mEq/L Potassium 2.7 L (3.5-4.5) mEq/L Chloride 105 (98-109) mEq/L Carbon Dioxide 20 (19-29) mEq/L BUN 3 L (8-26) mg/dL Creatinine 0.48 L (0.72-1.25) mg/dL Glucose 108 H (70-99) mg/dL Calcium 8.0 L (8.6-10.8) mg/dL Adrenal panel 10/01/17 10/01/17 Range/Units 04:15 04:15 Sodium 139 (136-145) mEq/L Potassium 2.7 L (3.5-4.5) mEq/L Chloride 105 (98-109) mEq/L Carbon Dioxide 20 (19-29) mEq/L BUN 3 L (8-26) mg/dL Creatinine 0.48 L (0.72-1.25) mg/dL Glucose 108 H (70-99) mg/dL Calcium 8.0 L (8.6-10.8) mg/dL Total Bilirubin 1.1 (0.2-1.2) mg/dL AST 17 (5-34) Units/L ALT 36 (0-55) Units/L Alkaline Phosphatase 165 H (38-126) Units/L Albumin 2.6 L (3.5-5.0) g/dL Consult Discharge Plan - Plan Referrals: Bang Swenson MD [Primary Care Provider] - <Annalisa Aguirre - Last Filed: 10/02/17 09:32> Date of Encounter: 10/01/17 - Assessment and Plan (1) Nausea Current Visit: Yes Status: Acute prn antiemetics (2) Abdominal pain Current Visit: Yes Status: Acute Qualifiers: Abdominal location: generalized Qualified Code(s): R10.84 - Generalized abdominal pain (3) Hyperbilirubinemia Current Visit: Yes Status: Acute (4) Leukocytosis Current Visit: Yes Status: Resolved Qualifiers: Leukocytosis type: unspecified Qualified Code(s): D72.829 - Elevated white blood cell count, unspecified (5) Biliary dyskinesia Current Visit: Yes Status: Acute discussed with the patient that I do think he may have biliary dyskinesia given his abdominal pain, nausea, diarrhea, and elevated lft, elevated wbc and symptoms during hida precipitating the patient stopping the test due to the pain. He states he does not want surgery at this time. He would like to restart his home medication and restart his diet. We discussed staying away from greasy and spicy foods. His symptoms may alleviate but if they do not we can always revisit surgery in the future as an outpatient. He expressed understanding will sign off at this time. Subjective Narrative: still complaining of diffuse abdominal pain some nausea no emesis patient states had some liquids but stopped drinking due to pain and fullness Objective Vital Signs - Last 8 Hours Temp Pulse Resp BP Pulse Ox 10/02/17 07:00 97.8 F 79 15 96/58 97 10/02/17 05:00 98 F 87 16 110/90 98 Intake and Output 10/01/17 10/01/17 10/02/17 15:59 23:59 07:59 Intake Total 0 / 0 Output Total 550 / 550 550 / 550 900 / 900 Balance -540 / -540 -540 / -540 -900 / -900 Intake: IV Fluids Mefoxin 1,000 MG In Water for inj. (sterile) 10 ML @ 150 mls/ hr IVP Q8H [facility] Rx#:[id number] Oral 0 / 0 0 / 0 0 / 0 Output: Catheter 550 / 550 550 / 550 900 / 900 Other: Weight 73.1 kg Patient Weight 10/02/17 23:59 Weight 73.1 kg - General physical appearance well nourished, no distress - Eyes PERRL, normal ocular movement - ENT atraumatic, normocephalic - Neck Neck exam: trachea midline - Respiratory normal expansion, normal respiratory effort - Abdomen Additional Comments: patient refused to allow me to palpate his abdomen stating it was hurting too bad - Integumentary no abnormal pigmentation, other (facial rash) - Musculoskeletal other (quadraplegia) - Psychiatric oriented to time, oriented to person, oriented to place, speech is normal, memory intact - Labs 10/02/17 05:30 10/02/17 05:30 Diabetes panel 10/02/17 Range/Units 05:30 Sodium 140 (136-145) mEq/L Potassium 3.1 L (3.5-4.5) mEq/L Chloride 106 (98-109) mEq/L Carbon Dioxide 24 (19-29) mEq/L BUN 4 L (8-26) mg/dL Creatinine 0.51 L (0.72-1.25) mg/dL Glucose 94 (70-99) mg/dL Calcium 7.9 L (8.6-10.8) mg/dL Calcium panel 10/02/17 Range/Units 05:30 Calcium 7.9 L (8.6-10.8) mg/dL Phosphorus 1.9 L (2.3-4.7) mg/dL Pituitary panel 10/02/17 Range/Units 05:30 Sodium 140 (136-145) mEq/L Potassium 3.1 L (3.5-4.5) mEq/L Chloride 106 (98-109) mEq/L Carbon Dioxide 24 (19-29) mEq/L BUN 4 L (8-26) mg/dL Creatinine 0.51 L (0.72-1.25) mg/dL Glucose 94 (70-99) mg/dL Calcium 7.9 L (8.6-10.8) mg/dL Adrenal panel 10/02/17 Range/Units 05:30 Sodium 140 (136-145) mEq/L Potassium 3.1 L (3.5-4.5) mEq/L Chloride 106 (98-109) mEq/L Carbon Dioxide 24 (19-29) mEq/L BUN 4 L (8-26) mg/dL Creatinine 0.51 L (0.72-1.25) mg/dL Glucose 94 (70-99) mg/dL Calcium 7.9 L (8.6-10.8) mg/dL - Attending Attestation I have personally performed a face to face evaluation on this patient. I have reviewed and agree with the care plan. History and Exam by me shows:
[2017-10-01] MEDS ORDERED: Simethicone 80 MG TAB.CHEW PO PRN (10:02)
[2017-10-01] MEDS: Pregabalin 75 MG CAPSULE PO SCH ×3 (11:38→21:15)
[2017-10-01] MEDS ORDERED: Ketorolac 15 MG/ML VIAL IVP SCH (12:00)
--- NOTE | 2017-10-01 12:03 | Internal Med Progress Note ---
Date of Encounter: 10/01/17 Time of Encounter: 12:01 - Assessment and plan (1) Abdominal pain Current Visit: Yes Status: Acute Assessment and plan: Unclear etiology at this time. Less likely cholecystitis, mesenteric ischemia. Patient continues to report diffuse abdominal pain and nausea, requesting IV Dilaudid every 2-3 hours. Reports being allergic to oral pain medications including oxycodone and hydrocodone. Surgery on board and lab emmett was recommended, however pt adamantly refusing Started on low fat diet today and lyrica today Continue IV Mefoxin and supportive care with when necessary antiemetics and pain control. will transition to patient's home PO dose of Dilaudid Qualifiers: Abdominal location: generalized Qualified Code(s): R10.84 - Generalized abdominal pain (2) Hypokalemia Current Visit: Yes Status: Acute Assessment and plan: K supplemented continue to monitor electrolytes and replace as needed (3) DVT prophylaxis Current Visit: No Status: Acute Assessment and plan: Heparin SQ (4) Pressure ulcer Current Visit: Yes Status: Chronic Assessment and plan: Noted to have stage IV decubitus ulcer on left hip/upper lateral thigh. Noted to be moist, no foul-smelling, no clear evidence of infection. Continue local wound care, patient follows at [facility]. Patient's mother has received a call from the wound care center today stating that one culture from last week grows MRSA and Pseudomonas. Awaiting these results and send repeat one culture here. We will hold off on antibiotics at this time. 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 Bedbound. Requires higher level of nursing care. (6) UTI (urinary tract infection) Current Visit: Yes Status: Ruled-out Assessment and plan: Urine culture shows no growth. Qualifiers: Urinary tract infection type: site unspecified Hematuria presence: without hematuria Qualified Code(s): N39.0 - Urinary tract infection, site not specified - Subjective Interval history: Patient seen and examined with mother present at bedside. Reports of mild improvement in pain. Pt and his mother adamantly refusing surgery at this time Surgery on board and outpatient follow up recommended started on low fat diet as per surgery - Constitutional Vitals: Temp Pulse Resp BP Pulse Ox 98.0 F 95 16 131/94 99 10/01/17 07:00 10/01/17 07:00 10/01/17 07:00 10/01/17 07:00 10/01/17 07:00 General appearance: Present: cooperative, A&O X 3, no acute distress, answers questions appropriately - Head Head exam: Present: atraumatic, normocephalic - Eye Eye exam: Present: conjuntiva pink, sclera anicteric - Respiratory Respiratory exam: Present: CTAB. Absent: accessory muscle use, respiratory distress, wheezes - Cardiovascular Cardiovascular exam: Present: +S1, +S2, tachycardia. Absent: diastolic murmur, gallop, rubs, systolic murmur - GI/Abdominal GI/Abdominal exam: Present: distended, normal bowel sounds, soft, tenderness ( Rt sided tenderness), no peritoneal signs. Absent: guarding - Extremities Exam Extremities exam: Present: pedal edema, warm, radial pulses palpable and symmetrical. Absent: calf tenderness - Neurological Exam Neurological exam: Present: alert, oriented X3 - Psychiatric Psychiatric exam: Present: normal affect, normal mood Internal Medicine: Result - Labs CBC & Chem 7: 10/01/17 05:30 10/01/17 04:15 Labs: Short CBC 10/01/17 Range/Units 05:30 WBC 8.1 (4.3-11.1) K/mcL Hgb 11.7 L (12.9-16.9) g/dL Hct 36.2 L (37.5-50.1) % Plt Count 150 (140-400) K/mcL Neutrophils # 5.9 (1.6-8.9) K/mcL BMP 10/01/17 04:15 Sodium 139 Potassium 2.7 L Chloride 105 Carbon Dioxide 20 BUN 3 L Creatinine 0.48 L Glucose 108 H Calcium 8.0 L Liver Function 10/01/17 Range/Units 04:15 Total Bilirubin 1.1 (0.2-1.2) mg/dL Direct Bilirubin 0.6 H (0.0-0.5) mg/dL AST 17 (5-34) Units/L ALT 36 (0-55) Units/L Alkaline Phosphatase 165 H (38-126) Units/L Albumin 2.6 L (3.5-5.0) g/dL - Impressions Impressions Bile Acid Absorption NM 09/30/17 10:19 IMPRESSION: Nondiagnostic HIDA scan as described. D/ / Galen Flores MD / Galen Flores MD Interpreting Provider: Galen Flores MD Consult Discharge Plan - Plan Referrals: Bang Swenson MD [Primary Care Provider] -
[2017-10-01] MEDS: Baclofen 10 MG TABLET PO SCH ×3 (13:17→21:15)
[2017-10-01] MEDS ORDERED: *HR* HYDROmorphone 4 MG TABLET PO PRN (15:12)
[2017-10-01] MEDS: Sennosides/Docusate Sodium TABLET PO SCH (21:15)
[2017-10-01] MEDS ORDERED: Ketorolac 15 MG/ML VIAL IVP PRN (23:25)
[2017-10-02] MEDS: *HR* HYDROmorphone (PF) 1 MG/ML SYRINGE IVP PRN ×2 (04:17→10:51)
[2017-10-02] MEDS: Ondansetron 4 MG/2 ML VIAL IVP PRN (04:21)
[2017-10-02] MEDS: *HR* Heparin 5,000 UNIT/ML VIAL SQ SCH ×2 (04:42→17:28)
[2017-10-02] MEDS: cefOXitin 1,000 MG in Water for inj. (sterile) 10 ML IVP SCH (04:43)
[2017-10-02 05:53] LABS: Basophils % 0.5 %; Eosinophils % 5.3 %; Hematocrit 36.1 % (37.5-50.1); Hemoglobin 11.4 g/dL (12.9-16.9); Immature Granulocytes % 0.9 % (0-4); Lymphocytes % 23.9 %; Mean Corpuscular HGB Conc 31.6 g/dL (31.6-35.5); Mean Corpuscular Hemoglobin 25.7 pg (28.0-33.3); Mean Corpuscular Volume 81.5 fL (83.0-100.0); Mean Platelet Volume 9.9 fL (9.4-12.4); Platelet Count 138 K/mcL (140-400); Red Blood Count 4.43 M/mcL (4.19-5.50); Red Cell Distribution Width 18.4 % (11.5-14.5); Segmented Neutrophils % 60.4 %
[2017-10-02 05:54] LABS: BUN/Creatinine Ratio 8 (6-26); Calcium 7.9 mg/dL (8.6-10.8); Carbon Dioxide 24 mEq/L (19-29); Chloride 106 mEq/L (98-109); Eosinophils # 0.3 K/mcL (0.0-0.6); Glucose 94 mg/dL (70-99); Lymphocytes # 1.4 K/mcL (0.6-4.6); Magnesium 1.5 mg/dL (1.6-2.6); Monocytes # 0.5 K/mcL (0.0-1.3); Neutrophils # 3.6 K/mcL (1.6-8.9); Osmolality,Calculated 287 (280-300); Phosphorous 1.9 mg/dL (2.3-4.7); Potassium 3.1 mEq/L (3.5-4.5); Sodium 140 mEq/L (136-145); eGFR For African Americans > 60 (> 60); eGFR For Non-African Americans > 60 (> 60)
[2017-10-02 05:55] LABS: Blood Urea Nitrogen 4 mg/dL (8-26)
--- NOTE | 2017-10-02 07:01 | Electrocardiograph Report ---
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
[2017-10-02] MEDS ORDERED: Magnesium Sulfate 1 GM in D5% in Water 100 ML IVPB ONE (09:13)
[2017-10-02] MEDS ORDERED: Potassium Phosphate 44 MEQ in 0.9 % Sodium Chloride 250 ML IVPB ONE (09:13)
[2017-10-02] MEDS: Pregabalin 75 MG CAPSULE PO SCH ×2 (10:49→17:33)
[2017-10-02] MEDS: Sennosides/Docusate Sodium TABLET PO SCH (10:49)
[2017-10-02] MEDS: Baclofen 10 MG TABLET PO SCH ×3 (10:49→17:33)
[2017-10-02] MEDS: *HR* Promethazine 25 MG/ML VIAL IVP PRN (10:51)
--- NOTE | 2017-10-02 13:26 | Internal Med Progress Note ---
Date of Encounter: 10/02/17 Time of Encounter: 13:24 - Assessment and plan (1) Abdominal pain Current Visit: Yes Status: Acute Assessment and plan: Unclear etiology at this time. Less likely cholecystitis, mesenteric ischemia. Patient continues to report diffuse abdominal pain and nausea. States he is unable to tolerate the low fat diet but willing to try clear liquid diet He is in agreement to switching over to PO Dilaudid as per his home dosing Surgery on board and lab emmett was recommended, however pt adamantly refusing started clear liquid diet, and continue lyrica Continue IV Mefoxin and supportive care with when necessary antiemetics and pain control. Qualifiers: Abdominal location: generalized Qualified Code(s): R10.84 - Generalized abdominal pain (2) Hypokalemia Current Visit: Yes Status: Acute Assessment and plan: K supplemented continue to monitor electrolytes and replace as needed (3) DVT prophylaxis Current Visit: No Status: Acute Assessment and plan: Heparin SQ (4) Pressure ulcer Current Visit: Yes Status: Chronic Assessment and plan: Noted to have stage IV decubitus ulcer on left hip/upper lateral thigh. Noted to be moist, no foul-smelling, no clear evidence of infection. Continue local wound care, patient follows at [facility]. 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 Bedbound. Requires higher level of nursing care. (6) UTI (urinary tract infection) Current Visit: Yes Status: Ruled-out Assessment and plan: Urine culture shows no growth. Qualifiers: Urinary tract infection type: site unspecified Hematuria presence: without hematuria Qualified Code(s): N39.0 - Urinary tract infection, site not specified (7) Hypomagnesemia Current Visit: Yes Status: Acute Assessment and plan: Mg supplemented continue to monitor electrolytes and replace as needed (8) Hypophosphatemia Current Visit: Yes Status: Acute Assessment and plan: Phos supplemented continue to monitor electrolytes and replace as needed - Subjective Interval history: Patient seen and examined at bedside. Reports of improvement in pain and willing to transition to PO meds Pt considering transfer to a different facility States he is unable to tolerate the low fat diet, will start clear liquid diet and advance as tolerated. Pt adamantly refusing surgery at this time Surgery on board and outpatient follow up recommended - Constitutional Vitals: Temp Pulse Resp BP Pulse Ox 97.8 F 79 15 96/58 97 10/02/17 07:00 10/02/17 07:00 10/02/17 07:00 10/02/17 07:00 10/02/17 07:00 General appearance: Present: cooperative, A&O X 3 (bed bound ), no acute distress, answers questions appropriately - Head Head exam: Present: atraumatic, normocephalic - Eye Eye exam: Present: conjuntiva pink, sclera anicteric - Respiratory Respiratory exam: Present: CTAB. Absent: accessory muscle use, rales, rhonchi, wheezes - Cardiovascular Cardiovascular exam: Present: RRR, +S1, +S2. Absent: diastolic murmur, gallop, rubs, systolic murmur - GI/Abdominal GI/Abdominal exam: Present: normal bowel sounds, soft, no peritoneal signs. Absent: distended, tenderness Additional comments: RUQ tenderness - Extremities Exam Extremities exam: Present: pedal edema, warm, radial pulses palpable and symmetrical. Absent: calf tenderness - Neurological Exam Neurological exam: Present: alert, oriented X3 Internal Medicine: Result - Labs CBC & Chem 7: 10/02/17 05:30 10/02/17 05:30 Labs: Short CBC 10/02/17 Range/Units 05:30 WBC 5.9 (4.3-11.1) K/mcL Hgb 11.4 L (12.9-16.9) g/dL Hct 36.1 L (37.5-50.1) % Plt Count 138 L (140-400) K/mcL Neutrophils # 3.6 (1.6-8.9) K/mcL BMP 10/02/17 05:30 Sodium 140 Potassium 3.1 L Chloride 106 Carbon Dioxide 24 BUN 4 L Creatinine 0.51 L Glucose 94 Calcium 7.9 L Consult Discharge Plan - Plan Referrals: Bang Swenson MD [Primary Care Provider] -
[2017-10-02 15:22] VITALS: BP 101/63
[2017-10-02] MEDS ORDERED: *HR* HYDROmorphone 4 MG TABLET PO SCH (16:00)
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
[2017-10-03] MEDS ORDERED: *HR* HYDROmorphone 4 MG TABLET PO SCH
== END 2017-10-02 22:27 | disposition left against medical advice (07) | DRG 251 ==
LOC: 3BNU 22:11 → EMEROO 22:11 → 3BNU 09-29 02:53 → SUATTDRO 09-29 05:48 → 2NENU 09-29 14:12
PROVIDERS: ADMIT Pediatrics; ATTEND Internal Medicine

== ENCOUNTER 2017-10-31 08:12 | Observation (INO) ==
--- NOTE | 2017-10-31 08:42 | Emergency Department Note ---
Disposition Clinical Impression: Dyspnea Disposition: Admitted As Inpatient Condition: Fair General Adult HPI - General Chief complaint: ED Shortness of Breath/Dyspnea Stated complaint: ROLAND/chest pain Time Seen by Provider: 10/31/17 08:17 Source: patient, EMS Limitations: physical limitation - History of Present Illness Pain Scale: 8 - Related Data Home Medications Medication Instructions Recorded Confirmed Ascorbic Acid [Vitamin C with Cira 500 mg PO DAILY 02/14/17 10/31/17 Hips] Baclofen 20 mg PO QID 02/14/17 10/31/17 Docusate Sodium [Dok] 100 mg PO BID 02/14/17 10/31/17 HYDROmorphone [Dilaudid] 4 mg PO BID 02/14/17 10/31/17 HYDROmorphone [Dilaudid] 8 mg PO 0000 02/14/17 10/31/17 Multivitamin [Multivitamins] 1 tab PO DAILY 02/14/17 10/31/17 Oxybutynin [Ditropan] 5 mg PO TID 02/14/17 10/31/17 Polyethylene Glycol 3350 17 gm PO Q48H 02/14/17 10/31/17 [Smoothlax] Pregabalin [Lyrica] 150 mg PO TID 02/14/17 10/31/17 Sennosides [Senna] 8.6 mg PO BID PRN 02/14/17 10/31/17 Docusate Sodium/Benzocaine 5 ml RC DAILY 02/16/17 10/31/17 [Enemeez Plus Mini Enema] Albuterol Sulfate [Albuterol 1 puff IH Q4H PRN 04/01/17 10/31/17 Inhaler] Potassium 99 mg PO QAM 04/01/17 10/31/17 Zinc Acetate [Galzin] 50 mg PO DAILY 04/01/17 10/31/17 Acetaminophen [Tylenol] 320 mg PO Q4H PRN 09/30/17 10/31/17 Albuterol Neb [Proventil Neb] 2.5 mg IH QID PRN 09/30/17 10/31/17 Bismuth Subsalicylate [Bismatrol] 525 mg PO Q6H PRN 09/30/17 10/31/17 Calcium Carbonate [Tums] 1,000 mg PO AD PRN 09/30/17 10/31/17 Chloraseptic [place] [Chloraseptic] 5 spray MM Q2H PRN 09/30/17 10/31/17 EPINEPHrine [Epipen] 0.3 mg IM ONCE PRN 09/30/17 10/31/17 Guaifenesin [Mucinex] 600 mg PO BID PRN 09/30/17 10/31/17 Ibuprofen Susp [Motrin Susp] 600 mg PO Q6HR PRN 09/30/17 10/31/17 Ketoconazole Shampoo [Nizoral 1 appl TP 3XW 09/30/17 10/31/17 Shampoo] Mag Hydrox/Al Hydrox/Simeth 30 ml PO Q4H PRN 09/30/17 10/31/17 [Antacid Suspension] Magnesium Citrate [Citroma] 296 ml PO TID PRN 09/30/17 10/31/17 Ondansetron HCl [Zofran] 4 mg PO Q4H PRN 09/30/17 10/31/17 Simethicone [Gas-X] 80 mg PO TID PRN 09/30/17 10/31/17 Ampicillin Trihydrate 500 mg PO QID 10/31/17 10/31/17 Cephalexin [Keflex] 500 mg PO QID 10/31/17 10/31/17 diazePAM [Valium] 10 mg PO BID 10/31/17 10/31/17 Allergies Allergy/AdvReac Type Severity Reaction Status Date / Time Erythromycin Base Allergy See Verified 10/31/17 10:56 Comments aspirin AdvReac Nausea Verified 10/31/17 10:56 codeine AdvReac Hives Verified 10/31/17 10:56 diphenhydramine AdvReac Swelling Verified 10/31/17 10:56 [From Benadryl] of Lip/Tongue/Throat gentamicin AdvReac See Verified 10/31/17 10:56 Comments Methadone AdvReac Swelling Verified 10/31/17 10:56 of Lip/Tongue/Throat morphine AdvReac Hives Verified 10/31/17 10:56 Oxycodone [From OxyContin] AdvReac Swelling Verified 10/31/17 10:56 of Lip/Tongue/Throat promethazine [From Phenergan] AdvReac See Verified 10/31/17 10:56 Comments tobramycin AdvReac See Verified 10/31/17 10:56 Comments vancomycin AdvReac See Verified 10/31/17 10:56 Comments Past Medical History - Past Medical History Medical history: Reports: kidney stones, other Surgical history: Reports: vascular surgery, other Psychiatric history: Reports: anxiety, depression - Social History Smoking Status: Never smoker Smokeless Tobacco Status: No Alcohol use: Reports: none Drug use: Reports: none Physical Exam - General Limitations: physical limitation General appearance: alert Course Vital Signs Temperature 98.5 F 10/31/17 08:19 Pulse Rate 98 10/31/17 08:19 Respiratory Rate 16 10/31/17 08:19 Blood Pressure 90/57 10/31/17 08:19 O2 Sat by Pulse Oximetry 93 10/31/17 08:19 Temperature 98.6 F 11/01/17 10:52 Pulse Rate 104 11/01/17 10:52 Respiratory Rate 17 11/01/17 10:52 Blood Pressure 114/71 11/01/17 10:52 O2 Sat by Pulse Oximetry 95 11/01/17 10:52 Oxygen Delivery Oxygen Delivery Room Air Medical Decision Making - Lab Data Result diagrams: 11/01/17 03:40 11/01/17 03:40 Lab Results 10/31/17 10/31/17 10/31/17 Range/Units 09:15 09:30 09:30 WBC 5.3 (4.3-11.1) K/mcL RBC 4.40 (4.19-5.50) M/mcL Hgb 11.3 L (12.9-16.9) g/dL Hct 36.5 L (37.5-50.1) % MCV 83.0 (83.0-100.0) fL MCH 25.7 L (28.0-33.3) pg MCHC 31.0 L (31.6-35.5) g/dL RDW 18.6 H (11.5-14.5) % Plt Count 160 (140-400) K/mcL MPV 10.5 (9.4-12.4) fL Immature Gran % 0.4 (0-4) % Seg Neutrophils % 75.0 % Lymphocytes % 10.2 % Monocytes % 11.0 % Eosinophils % 2.8 % Basophils % 0.6 % Neutrophils # 4.0 (1.6-8.9) K/mcL Lymphocytes # 0.5 L (0.6-4.6) K/mcL Monocytes # 0.6 (0.0-1.3) K/mcL Eosinophils # 0.2 (0.0-0.6) K/mcL Basophils # 0.0 (0.0-0.2) K/mcL Sodium 138 (136-145) mEq/L Potassium 3.6 (3.5-5.1) mEq/L Chloride 103 (98-107) mEq/L Carbon Dioxide 28 (23-29) mEq/L BUN 10 (6-20) mg/dL Creatinine 0.34 L (0.70-1.30) mg/dL Est GFR ( Amer) > 60 (> 60) Est GFR (Non-Af Amer) > 60 (> 60) BUN/Creatinine Ratio 29 H (6-26) Glucose 114 H (70-105) mg/dL Calculated Osmolality 286 (280-300) Lactic Acid (0.5-2.2) mmol/L Calcium 8.9 (8.6-10.3) mg/dL B-Natriuretic Peptide (Less than 100) pg/mL Urine Color Yellow (Yellow) Urine Clarity Clear (Clear) Urine pH 6.0 (5.0-8.0) pH Units Ur Specific [place] 1.022 (1.010-1.025) Urine Protein Negative (Neg-Trace) mg/dL Urine Glucose (UA) Normal (Normal) mg/dL Urine Ketones 15 H (Negative) mg/dL Urine Blood Negative (Negative) Urine Nitrite Negative (Negative) Urine Bilirubin Negative (Negative) Urine Urobilinogen Normal (Normal) mg/dL Ur Leukocyte Esterase Negative (Negative) Urine Microscopic RBC 5-15 H (0-3) per hpf Ur Squamous Epith Cells Many H (None-Few) per lpf Urine Bacteria None Seen (None-Few) per hpf Hyaline Casts None Seen (None-Few) per lpf Ur Culture Indicated? NO (NO) 10/31/17 10/31/17 Range/Units 09:30 09:30 WBC (4.3-11.1) K/mcL RBC (4.19-5.50) M/mcL Hgb (12.9-16.9) g/dL Hct (37.5-50.1) % MCV (83.0-100.0) fL MCH (28.0-33.3) pg MCHC (31.6-35.5) g/dL RDW (11.5-14.5) % Plt Count (140-400) K/mcL MPV (9.4-12.4) fL Immature Gran % (0-4) % Seg Neutrophils % % Lymphocytes % % Monocytes % % Eosinophils % % Basophils % % Neutrophils # (1.6-8.9) K/mcL Lymphocytes # (0.6-4.6) K/mcL Monocytes # (0.0-1.3) K/mcL Eosinophils # (0.0-0.6) K/mcL Basophils # (0.0-0.2) K/mcL Sodium (136-145) mEq/L Potassium (3.5-5.1) mEq/L Chloride (98-107) mEq/L Carbon Dioxide (23-29) mEq/L BUN (6-20) mg/dL Creatinine (0.70-1.30) mg/dL Est GFR ( Amer) (> 60) Est GFR (Non-Af Amer) (> 60) BUN/Creatinine Ratio (6-26) Glucose (70-105) mg/dL Calculated Osmolality (280-300) Lactic Acid 0.7 (0.5-2.2) mmol/L Calcium (8.6-10.3) mg/dL B-Natriuretic Peptide 28 (Less than 100) pg/mL Urine Color (Yellow) Urine Clarity (Clear) Urine pH (5.0-8.0) pH Units Ur Specific [place] (1.010-1.025) Urine Protein (Neg-Trace) mg/dL Urine Glucose (UA) (Normal) mg/dL Urine Ketones (Negative) mg/dL Urine Blood (Negative) Urine Nitrite (Negative) Urine Bilirubin (Negative) Urine Urobilinogen (Normal) mg/dL Ur Leukocyte Esterase (Negative) Urine Microscopic RBC (0-3) per hpf Ur Squamous Epith Cells (None-Few) per lpf Urine Bacteria (None-Few) per hpf Hyaline Casts (None-Few) per lpf Ur Culture Indicated? (NO) Attestation Statement - Attestation Attestation: For this encounter, I have reviewed the MEN'S SWIM COACH or PA documentation, treatment plan, and medical decision making; and I have had face to face time with this patient. [id number] time provided The patient appears in no acute distress on exam. No increased work of breathing. The patient and his mother requests transfer to another facility. I did review the transcribed report of the patient's chest x-ray from his previous visit several hours ago 11:12: Dr Trujillo accepts admission. Requests CTA chest
[2017-10-31] MEDS ORDERED: 0.9 % Sodium Chloride 1,000 ML IVC ONE ×2 (08:49→12:42)
[2017-10-31] MEDS ORDERED: Ipratropium/Albuterol Neb 3 ML IH ONE (08:49)
[2017-10-31] MEDS ORDERED: Levofloxacin 750 MG/150 ML 750 MG/150 ML BAG IVPB ONE (08:53)
--- NOTE | 2017-10-31 09:03 | Emergency Department Note ---
Disposition Clinical Impression: Dyspnea Qualifiers: Dyspnea type: shortness of breath Qualified Code(s): R06.02 - Shortness of breath; R06.00 - Dyspnea, unspecified; R06.01 - Orthopnea Disposition: Admitted As Inpatient Condition: Fair Referrals: Bang Swenson MD [Primary Care Provider] - Forms: ED Satisfaction Letter SOB HPI - General Chief Complaint: ED Shortness of Breath/Dyspnea Stated Complaint: ROLAND/chest pain Time Seen by Provider: 10/31/17 08:17 Source: patient, EMS Mode of arrival: private vehicle Limitations: physical limitation Nursing Notes Reviewed: Yes Vital Signs Reviewed: Yes - History of Present Illness Pt Subjective Complaint: shortness of breath, chest pain ("Lung pain" - Right lower, lateral) Onset (ago): day(s) (1 - began last night) Context: recent illness (runny nose for a couple of days), other (Hx of quadraplegia x 10 years) Severity: moderate Consistency/Duration: intermittent Improves with: nothing Worsens with: nothing Known history of: recurrent pneumonia, aspiration pneumonia Associated symptoms: Reports: chest pain, fever (felt febrile), cough. Denies: pain with inspiration, wheezing, sputum production, orthopnea, lower extremity pain, polyuria, polydipsia, parasthesias, palpitations, hemoptysis, diaphoresis , nausea/vomiting, syncope, abdominal pain, rash, sense of impending doom, other Treatment prior to arrival: other (was seen here early this AM - around 4 - received a dose of current ABX which had been prescribed by [facility] for a new culture result from left thigh wound. Flu swab was negative and CXR negative. Was sent home. Returns now feeling worse.) Cough present: Yes Cough Description: Involuntary, Non-Productive, Weak ("Unable to cough like normal b/c of paralysis") Cough Frequency: Intermittent Sputum production: No - Related Data Home oxygen amount: none Home Medications Medication Instructions Recorded Confirmed Ascorbic Acid [Vitamin C with Cira 500 mg PO DAILY 02/14/17 09/30/17 Hips] Baclofen 20 mg PO QID 02/14/17 09/30/17 Docusate Sodium [Dok] 100 mg PO BID 02/14/17 09/30/17 HYDROmorphone [Dilaudid] 4 mg PO BID 02/14/17 09/30/17 HYDROmorphone [Dilaudid] 8 mg PO 0000 02/14/17 09/30/17 Multivitamin [Multivitamins] 1 tab PO DAILY 02/14/17 09/30/17 Oxybutynin [Ditropan] 5 mg PO TID 02/14/17 09/30/17 Polyethylene Glycol 3350 17 gm PO Q48H 02/14/17 09/30/17 [Smoothlax] Pregabalin [Lyrica] 150 mg PO TID 02/14/17 09/30/17 Sennosides [Senna] 8.6 mg PO BID PRN 02/14/17 09/30/17 Docusate Sodium/Benzocaine 5 ml RC DAILY 02/16/17 09/30/17 [Enemeez Plus Mini Enema] Albuterol Sulfate [Albuterol 1 puff IH Q4H PRN 04/01/17 09/30/17 Inhaler] Potassium 99 mg PO QAM 04/01/17 09/30/17 Zinc Acetate [Galzin] 50 mg PO DAILY 04/01/17 09/30/17 Acetaminophen [Tylenol] 320 mg PO Q4H PRN 09/30/17 09/30/17 Albuterol Neb [Proventil Neb] 2.5 mg IH QID PRN 09/30/17 09/30/17 Bismuth Subsalicylate [Bismatrol] 525 mg PO Q6H PRN 09/30/17 09/30/17 Calcium Carbonate [Tums] 1,000 mg PO AD PRN 09/30/17 09/30/17 Chloraseptic [place] [Chloraseptic] 5 spray MM Q2H PRN 09/30/17 09/30/17 EPINEPHrine [Epipen] 0.3 mg IM ONCE PRN 09/30/17 09/30/17 Guaifenesin [Mucinex] 600 mg PO BID PRN 09/30/17 09/30/17 Ibuprofen Susp [Motrin Susp] 600 mg PO Q6HR PRN 09/30/17 09/30/17 Ketoconazole Shampoo [Nizoral 1 appl TP 3XW 09/30/17 09/30/17 Shampoo] Mag Hydrox/Al Hydrox/Simeth 30 ml PO Q4H PRN 09/30/17 09/30/17 [Antacid Suspension] Magnesium Citrate [Citroma] 296 ml PO TID PRN 09/30/17 09/30/17 Ondansetron HCl [Zofran] 4 mg PO Q4H PRN 09/30/17 09/30/17 Simethicone [Gas-X] 80 mg PO TID PRN 09/30/17 09/30/17 Ampicillin Trihydrate 500 mg PO QID 10/31/17 10/31/17 Cephalexin [Keflex] 500 mg PO QID 10/31/17 10/31/17 diazePAM [Valium] 10 mg PO BID 10/31/17 10/31/17 Allergies Allergy/AdvReac Type Severity Reaction Status Date / Time Erythromycin Base Allergy See Verified 10/31/17 10:56 Comments aspirin AdvReac Nausea Verified 10/31/17 10:56 codeine AdvReac Hives Verified 10/31/17 10:56 diphenhydramine AdvReac Swelling Verified 10/31/17 10:56 [From Benadryl] of Lip/Tongue/Throat gentamicin AdvReac See Verified 10/31/17 10:56 Comments Methadone AdvReac Swelling Verified 10/31/17 10:56 of Lip/Tongue/Throat morphine AdvReac Hives Verified 10/31/17 10:56 Oxycodone [From OxyContin] AdvReac Swelling Verified 10/31/17 10:56 of Lip/Tongue/Throat promethazine [From Phenergan] AdvReac See Verified 10/31/17 10:56 Comments tobramycin AdvReac See Verified 10/31/17 10:56 Comments vancomycin AdvReac See Verified 10/31/17 10:56 Comments All systems ED: reviewed and negative except as stated. Review of Systems: As Per HPI Constitutional: Reports: as per HPI, fever. Denies: chills, weakness, weight change Eyes: Denies: eye pain, eye discharge, vision change ENT ED: Denies: ear pain, throat pain, congestion, dysphagia Cardiovascular: Reports: as per HPI, chest pain. Denies: palpitations, dyspnea on exertion, orthopnea, edema, syncope Respiratory: Reports: as per HPI, cough, dyspnea. Denies: wheezes, hemoptysis, stridor, sputum production Gastrointestinal: Denies: abdominal pain, nausea, vomiting, diarrhea Genitourinary: Denies: urgency, dysuria, frequency, hematuria Musculoskeletal: Denies: joint swelling, arthralgia Integumentary: Reports: other (ulceration on left lateral femur - dressing changed daily - no wound vac today b/c HHRN could'nt locate canisters. REcent culture from [facility] grew two organisms. Patient was called in Rx for Keflex and Ampicillin. ). Denies: rash Neurological: Denies: headache, confusion, vertigo Hematological/Lymphatic: Denies: easy bleeding, easy bruising, lymphadenopathy Past Medical History - Past Medical History Attestation: Yes The following information was validated with the patient. Source: patient Medical history: Reports: kidney stones, other Surgical history: Reports: IVC Filter, tracheostomy (reversed), vascular surgery , other Psychiatric history: Reports: anxiety, depression - Social History Smoking Status: Never smoker Smokeless Tobacco Status: No Alcohol use: Reports: none Drug use: Reports: none Physical Exam - General Limitations: no limitations, physical limitation General appearance: alert, in no apparent distress - Head Head exam: atraumatic, normocephalic, normal inspection - Eye Eye exam: Present: normal appearance, PERRL. Absent: scleral icterus, conjunctival injection, periorbital swelling - ENT ENT exam: mucous membranes dry - Neck Neck exam: Present: normal inspection. Absent: meningismus - Chest Chest inspection: Present: normal inspection, symmetric chest wall rise - Respiratory Respiratory exam: Absent: respiratory distress, wheezes, stridor, accessory muscle use, prolonged expiratory phase - Expanded Respiratory Exam Location: rales: Left, Right, Lower - Cardiovascular Cardiovascular exam: Present: normal rhythm, tachycardia, normal heart sounds - Abdominal Exam Abdominal exam: Present: soft, Non-Tender. Absent: distention, mass - Extremities Exam Extremities exam: Present: other (hyperemia of bilateral shins, muscle atrophy bilateral, healing ulceration left lateral thigh with packing in place, 0.5cm of erythema surrounding, no edema. No drainage on dressing and packing appears dry.). Absent: tenderness - Neurological Exam Neurological exam: Present: alert, oriented X3, CN II-XII intact - Psychiatric Psychiatric exam: Present: normal affect, normal mood - Skin Skin exam: Present: warm, dry, intact, normal color Course Course Narrative: Patient with history of quadriplegia for the past 10 years, presents from home for evaluation of "right lung pain and shortness of breath." He states that yesterday night he began feeling short of breath and having pain in the right lung. He states, "it feels like I am getting pneumonia again." He describes an inability to cough like normal due to the paralysis affecting his diaphragm, and states that he has had pneumonia several times. He denies hemoptysis, nausea, vomiting, chills, abdominal discomfort, diarrhea, change in urine output , rash, or purulent drainage from his left leg ulceration. He was recently seen at [facility] for wound care for this left leg ulceration. Tissue biopsies were obtained and he received the results of the cultures yesterday. He was called in prescriptions for Keflex and ampicillin. He was unable to pick these up from the pharmacy before they closed. When he began feeling poorly last night. He was brought to the ER. He had an x-ray done which was negative. A nasal swab for the flu which was negative. He was given a dose of Keflex and ampicillin and was discharged to home. While at home he began to feel worse, so he returned for further evaluation. Initially, he stated that he wanted to be transferred to [facility]. His mom initially stated that she wanted him to be transferred to [facility]. Both the patient and his mom expressed myriad reasons for wanting to be transferred. After evaluating and examining the patient and discussing options with him, he states that he would like to stay here. Patient is at risk for PE given his immobile status, however he states that he has been checked for this several times and has never been positive. His mom states that he has a [place] filter. Despite this, it remains in the differential. He describes dyspnea, "lung pain", and a sensation that he needs to cough. He states that it feels like "pneumonia again", and his symptoms were preceded by a couple days of rhinitis. Thus, infectious etiology is also in the differential. He does not describe midsternal chest pain, chest heaviness or pressure, and has no risk factors for ACS. He has no known family history of ACS at a young age, so I do not think this is the cause of his symptoms. He has no rales, orthopnea, or peripheral edema. He has no murmur and no history of failure, so I do not suspect CHF as the cause of his symptoms. The pain is right lateral, he is afebrile with no history of drug use or recent infection. He has no known malignancy. Thus, pericarditis, myocarditis or endocarditis are felt to be unlikely. Labs, EKG, x-ray, DuoNeb and fluids have been ordered. Case has been discussed with Dr. Blanchard. He has already examined the patient, reviewed the previous ED visit report, and agrees with the assessment and plan. EKG shows sinus tachycardia similar to previous with no acute ST or T changes. Chest x-ray was read by the radiologist as no acute abnormality. Labs do not seem to indicate an acute systemic infection. Patient continues to be intermittently tachycardic with oxygen saturation in the mid 90s on room air. He is hypotensive, however this is his normal baseline. He has a current infection in his left leg ulcer per [facility] wound care and feels as though he is getting pneumonia. We are still in the process of ruling out a PE. The hospitalist has been contacted for admission as the patient has dyspnea with intermittent hypoxia of uncertain cause and has failed outpatient treatment. Patient has been accepted for admission. - Consultations Consultation #1: Case was discussed with Dr. Trujillo. He recommends CTA of the chest. This has been ordered. Patient has been accepted for admission. Vital Signs Temperature 98.5 F 10/31/17 08:19 Pulse Rate 98 10/31/17 08:19 Respiratory Rate 16 10/31/17 08:19 Blood Pressure 90/57 10/31/17 08:19 O2 Sat by Pulse Oximetry 93 10/31/17 08:19 Temperature 98.5 F 10/31/17 08:19 Pulse Rate 102 10/31/17 08:33 Respiratory Rate 18 10/31/17 08:33 Blood Pressure 89/56 10/31/17 08:33 O2 Sat by Pulse Oximetry 95 10/31/17 08:55 Oxygen Delivery Oxygen Delivery Room Air Shortness of Breath/Dyspnea - Medical Records Medical records reviewed: Yes I reviewed the patient's medical records. - Lab Data Lab results reviewed: Yes I reviewed the patient's lab results. Lab results narrative: Laboratory Last Values WBC 5.3 K/mcL (4.3-11.1) 10/31/17 09:30 RBC 4.40 M/mcL (4.19-5.50) 10/31/17 09:30 Hgb 11.3 g/dL (12.9-16.9) L 10/31/17 09:30 Hct 36.5 % (37.5-50.1) L 10/31/17 09:30 MCV 83.0 fL (83.0-100.0) 10/31/17 09:30 MCH 25.7 pg (28.0-33.3) L 10/31/17:30 MCHC 31.0 g/dL (31.6-35.5) L 10/31/17 09:30 RDW 18.6 % (11.5-14.5) H 10/31/17 09:30 Plt Count 160 K/mcL (140-400) 10/31/17:30 MPV 10.5 fL (9.4-12.4) 10/31/17:30 Immature Gran % 0.4 % (0-4) 10/31/17:30 Seg Neutrophils % 75.0 % 10/31/17:30 Lymphocytes % 10.2 % 10/31/17:30 Monocytes % 11.0 % 10/31/17 09:30 Eosinophils % 2.8 % 10/31/17:30 Basophils % 0.6 % 10/31/17 09:30 Neutrophils # 4.0 K/mcL (1.6-8.9) 10/31/17 09:30 Lymphocytes # 0.5 K/mcL (0.6-4.6) L 10/31/17 09:30 Monocytes # 0.6 K/mcL (0.0-1.3) 10/31/17 09:30 Eosinophils # 0.2 K/mcL (0.0-0.6) 10/31/17 09:30 Basophils # 0.0 K/mcL (0.0-0.2) 10/31/17 09:30 Sodium 138 mEq/L (136-145) 10/31/17 09:30 Potassium 3.6 mEq/L (3.5-5.1) 10/31/17 09:30 Chloride 103 mEq/L (98-107) 10/31/17 09:30 Carbon Dioxide 28 mEq/L (23-29) 10/31/17:30 BUN 10 mg/dL (6-20) 10/31/17 09:30 Creatinine 0.34 mg/dL (0.70-1.30) L 10/31/17 09:30 Est GFR ( Amer) > 60 (> 60) 10/31/17 09:30 Est GFR (Non-Af Amer) > 60 (> 60) 10/31/17 09:30 BUN/Creatinine Ratio 29 (6-26) H 10/31/17 09:30 Glucose 114 mg/dL (70-105) H 10/31/17 09:30 Calculated Osmolality 286 (280-300) 10/31/17 09:30 Lactic Acid 0.7 mmol/L (0.5-2.2) 10/31/17 09:30 Calcium 8.9 mg/dL (8.6-10.3) 10/31/17 09:30 B-Natriuretic Peptide 28 pg/mL (Less than 100) 10/31/17 09:30 Urine Color Yellow (Yellow) 10/31/17 09:15 Urine Clarity Clear (Clear) 10/31/17 09:15 Urine pH 6.0 pH Units (5.0-8.0) 10/31/17 09:15 Ur Specific [place] 1.022 (1.010-1.025) 10/31/17 09:15 Urine Protein Negative mg/dL (Neg-Trace) 10/31/17 09:15 Urine Glucose (UA) Normal mg/dL (Normal) 10/31/17 09:15 Urine Ketones 15 mg/dL (Negative) H 10/31/17 09:15 Urine Blood Negative (Negative) 10/31/17 09:15 Urine Nitrite Negative (Negative) 10/31/17 09:15 Urine Bilirubin Negative (Negative) 10/31/17 09:15 Urine Urobilinogen Normal mg/dL (Normal) 10/31/17 09:15 Ur Leukocyte Esterase Negative (Negative) 10/31/17 09:15 Urine Microscopic RBC 5-15 per hpf (0-3) H 10/31/17 09:15 Ur Squamous Epith Cells Many per lpf (None-Few) H 10/31/17 09:15 Urine Bacteria None Seen per hpf (None-Few) 10/31/17 09:15 Hyaline Casts None Seen per lpf (None-Few) 10/31/17 09:15 Ur Culture Indicated? NO (NO) 10/31/17 09:15 - Radiology Data Radiology results reviewed: Yes I reviewed the patient's radiology results. Chest X-Ray 10/31/17 08:49 IMPRESSION: Stable exam from earlier today. No new acute cardiopulmonary findings. D/ / Adrianne Andrade MD / Adrianne Andrade MD Interpreting Provider: Adrianne Andrade MD - EKG Data EKG attestation: Yes I reviewed and interpreted this EKG. EKG shows normal: Reports: sinus rhythm Rate: Reports: tachycardia Rhythm: Reports: NSR When compared to previous EKG there are: no significant changes Interpretation: Reports: unchanged when compared to prior tracing (date)
[2017-10-31 09:33] LABS: Bilirubin,Urine Negative (Negative); Blood,Urine Negative (Negative); Color,Urine Yellow (Yellow); Glucose,Urine (UA) Normal (Normal); Ketones,Urine 15 mg/dL (Negative); Leukocyte Esterase,Urine Negative (Negative); Nitrite,Urine Negative (Negative); Protein,Urine Negative (Neg-Trace); Specific Gravity,Urine 1.022 (1.010-1.025); Urobilinogen,Urine Normal (Normal)
[2017-10-31 09:36] LABS: Bacteria,Urine None Seen per hpf (None-Few); Hyaline Casts,Urine None Seen per lpf (None-Few); Squamous Epithelial Cell,Urine Many per lpf (None-Few)
[2017-10-31 09:40] LABS: Clarity,Urine Clear (Clear)
[2017-10-31 09:54] LABS: Basophils % 0.6 %; Eosinophils # 0.2 K/mcL (0.0-0.6); Eosinophils % 2.8 %; Hematocrit 36.5 % (37.5-50.1); Hemoglobin 11.3 g/dL (12.9-16.9); Immature Granulocytes % 0.4 % (0-4); Lymphocytes # 0.5 K/mcL (0.6-4.6); Lymphocytes % 10.2 %; Mean Corpuscular Hemoglobin 25.7 pg (28.0-33.3); Mean Platelet Volume 10.5 fL (9.4-12.4); Monocytes # 0.6 K/mcL (0.0-1.3); Platelet Count 160 K/mcL (140-400); Red Cell Distribution Width 18.6 % (11.5-14.5)
[2017-10-31 10:50] LABS: BUN/Creatinine Ratio 29 (6-26); Blood Urea Nitrogen 10 mg/dL (6-20); Calcium 8.9 mg/dL (8.6-10.3); Carbon Dioxide 28 mEq/L (23-29); Chloride 103 mEq/L (98-107); Glucose 114 mg/dL (70-105); Osmolality,Calculated 286 (280-300); Potassium 3.6 mEq/L (3.5-5.1); Sodium 138 mEq/L (136-145); eGFR For African Americans > 60 (> 60); eGFR For Non-African Americans > 60 (> 60)
[2017-10-31] MEDS ORDERED: *HR* HYDROmorphone (PF) 1 MG/ML SYRINGE IVP ONE ×2 (11:17→13:09)
[2017-10-31] MEDS ORDERED: Ondansetron 4 MG/2 ML VIAL IVP ONE (11:19)
[2017-10-31] MEDS ORDERED: Mag Hydrox/Al Hydrox/Simeth 30 ML UDC PO PRN (12:40)
[2017-10-31] MEDS ORDERED: Acetaminophen 325 MG TABLET PO PRN (12:40)
[2017-10-31] MEDS ORDERED: Chloraseptic Spray 177 ML BOTTLE MM PRN (12:40)
[2017-10-31] MEDS ORDERED: Albuterol 2.5 MG/3 ML NEBULIZER IH PRN (12:40)
[2017-10-31] MEDS ORDERED: Bismuth Subsalicylate 262 MG TABLET PO PRN (12:40)
[2017-10-31] MEDS ORDERED: Ondansetron ODT 4 MG TAB.RAPDIS PO PRN (12:40)
[2017-10-31] MEDS ORDERED: 0.9 % Sodium Chloride 1,000 ML IVC SCH (12:45)
--- NOTE | 2017-10-31 12:47 | Internal Med History&Physical ---
Date of Encounter: 10/31/17 Time of Encounter: 12:45 Assessment and Plan (1) Acute bronchitis Current visit: Yes Status: Acute No pneumonia on imaging. No PE Qualifiers: Qualified Code(s): J20.9 - Acute bronchitis, unspecified (2) Wound infection Current visit: Yes Status: Acute In the left hip region. wound vac has been taken out. He denies purulent drainage. Patient was started on ampicillin and cephalexin by [facility]. I reviewed the cultures done at outside hospital and so far it is no growth. I will gie him IV antibiotics instead for now since he is tachycardic and hypotensive. Start levaquin and doxycycline. Give fluids. repeat wound cultures. Lactic acid is normal. wound care to see patient. Patient gets his care at [facility]. 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 Can only take daptomycin. (3) History of quadriplegia Current visit: No Status: Chronic Bedridden. straight cath. Will put scott because of wound. (4) Anemia Current visit: Yes Status: Acute Likely AOCD. Check stool for occult blood. Qualifiers: Qualified Code(s): D64.9 - Anemia, unspecified (5) Decreased responsiveness Current visit: Yes Status: Acute will cut doses of baclofen and diazepam into half for now. Telemetry monitoring. He was alert not requiring any O2 during my interview Internal Medicine - H&P: HPI Chief complaint: cough History of present illness: Mr. Beltran is a 26 year old male who is paraplegic presents to the ED today with a main complain of cough. Since yesteray patient has been having non productive cough. He has been also having fever and chills up to 101 at [facility]. He started treatment with ampicillin and ceflex for wound infection in left hip region that started about 6 month ago. He denied any obvious purulent drainage from the wound. He denies any chest pain or hemoptysis. He has been recently hospitalized at our facitility within the past 3 month. He presented yesterday night to ED and was discharged to [place]. On arrival there he mentioned that he was less responsive and hypoxic to 86 %. On revieweing his medication list, he is on multiple sedative medications including diazepam, baclofen...etc Past Med Surg Social Fam HX - Past Medical History Medical history: kidney stones, other Psychiatric history: anxiety, depression - Past Surgical History Surgical History: IVC Filter, tracheostomy (reversed), vascular surgery, other - Social History Smoking Status: Never smoker Smokeless Tobacco Status: No Alcohol use: none Drug use: none - Family History Father Adopted: No Family Member Ethnicity: Non- Living Status: Still Living Hx Family Endocrine Disorder: Yes (DM) Mother Adopted: No Family Member Ethnicity: Non- Living Status: Still Living Hx Family Cancer: Yes (cervical, breast) Hx Family Endocrine Disorder: Yes (DM type I) Internal Medicine - H&P: Meds Ascorbic Acid [Vitamin C with Cira Hips] 500 mg PO DAILY 02/14/17 [History] Baclofen 20 mg PO QID 02/14/17 [History] Docusate Sodium [Dok] 100 mg PO BID 02/14/17 [History] HYDROmorphone [Dilaudid] 4 mg PO BID 02/14/17 [History] HYDROmorphone [Dilaudid] 8 mg PO 0000 02/14/17 [History] Multivitamin [Multivitamins] 1 tab PO DAILY 02/14/17 [History] Oxybutynin [Ditropan] 5 mg PO TID 02/14/17 [History] Polyethylene Glycol 3350 [Smoothlax] 17 gm PO Q48H 02/14/17 [History] Pregabalin [Lyrica] 150 mg PO TID 02/14/17 [History] Sennosides [Senna] 8.6 mg PO BID PRN 02/14/17 [History] Docusate Sodium/Benzocaine [Enemeez Plus Mini Enema] 5 ml RC DAILY 02/16/17 [ History] Albuterol Sulfate [Albuterol Inhaler] 1 puff IH Q4H PRN 04/01/17 [History] Potassium 99 mg PO QAM 04/01/17 [History] Zinc Acetate [Galzin] 50 mg PO DAILY 04/01/17 [History] Acetaminophen [Tylenol] 320 mg PO Q4H PRN 09/30/17 [History] Albuterol Neb [Proventil Neb] 2.5 mg IH QID PRN 09/30/17 [History] Bismuth Subsalicylate [Bismatrol] 525 mg PO Q6H PRN 09/30/17 [History] Calcium Carbonate [Tums] 1,000 mg PO AD PRN 09/30/17 [History] Chloraseptic [place] [Chloraseptic] 5 spray MM Q2H PRN 09/30/17 [History] EPINEPHrine [Epipen] 0.3 mg IM ONCE PRN 09/30/17 [History] Guaifenesin [Mucinex] 600 mg PO BID PRN 09/30/17 [History] Ibuprofen Susp [Motrin Susp] 600 mg PO Q6HR PRN 09/30/17 [History] Ketoconazole Shampoo [Nizoral Shampoo] 1 appl TP 3XW 09/30/17 [History] Mag Hydrox/Al Hydrox/Simeth [Antacid Suspension] 30 ml PO Q4H PRN 09/30/17 [ History] Magnesium Citrate [Citroma] 296 ml PO TID PRN 09/30/17 [History] Ondansetron HCl [Zofran] 4 mg PO Q4H PRN 09/30/17 [History] Simethicone [Gas-X] 80 mg PO TID PRN 09/30/17 [History] Ampicillin Trihydrate 500 mg PO QID 10/31/17 [History] Cephalexin [Keflex] 500 mg PO QID 10/31/17 [History] diazePAM [Valium] 10 mg PO BID 10/31/17 [History] 3 Allergy/AdvReac Type Severity Reaction Status Date / Time Erythromycin Base Allergy See Verified 10/31/17 10:56 Comments aspirin AdvReac Nausea Verified 10/31/17 10:56 codeine AdvReac Hives Verified 10/31/17 10:56 diphenhydramine AdvReac Swelling Verified 10/31/17 10:56 [From Benadryl] of Lip/Tongue/Throat gentamicin AdvReac See Verified 10/31/17 10:56 Comments Methadone AdvReac Swelling Verified 10/31/17 10:56 of Lip/Tongue/Throat morphine AdvReac Hives Verified 10/31/17 10:56 Oxycodone [From OxyContin] AdvReac Swelling Verified 10/31/17 10:56 of Lip/Tongue/Throat promethazine [From Phenergan] AdvReac See Verified 10/31/17 10:56 Comments tobramycin AdvReac See Verified 10/31/17 10:56 Comments vancomycin AdvReac See Verified 10/31/17 10:56 Comments All Systems PM: A 10-system review of systems was performed and is negative for pertinent findings except as documented above in the HPI. Review of systems: 10 point ROS is negative except for HPI - Constitutional Vitals: Temp Pulse Resp BP Pulse Ox 98.5 F 110 20 93/67 99 10/31/17 08:19 10/31/17 11:00 10/31/17 11:00 10/31/17 11:00 10/31/17 11:00 Exam: Gen[place]: patient is A&O, not in distress ardiac: tachycardic. Normal S1, S2, no murmurs Chest: Clear to auscultation, no crackles or bronchial breathing Abdomen: Distended but soft, non teder, no rebound or guarding. LE: Lax calf muscles Neuro: paraplegic Internal Med - H&P Results - Labs CBC & Chem 7: 10/31/17 09:30 10/31/17 09:30 Labs: Short CBC 10/31/17 Range/Units 09:30 WBC 5.3 (4.3-11.1) K/mcL Hgb 11.3 L (12.9-16.9) g/dL Hct 36.5 L (37.5-50.1) % Plt Count 160 (140-400) K/mcL Neutrophils # 4.0 (1.6-8.9) K/mcL BMP 10/31/17 09:30 Sodium 138 Potassium 3.6 Chloride 103 Carbon Dioxide 28 BUN 10 Creatinine 0.34 L Glucose 114 H Calcium 8.9 Urine 10/31/17 Range/Units 09:15 Urine Color Yellow (Yellow) Urine Clarity Clear (Clear) Urine pH 6.0 (5.0-8.0) pH Units Ur Specific [place] 1.022 (1.010-1.025) Urine Protein Negative (Neg-Trace) mg/dL Urine Glucose (UA) Normal (Normal) mg/dL - Impressions ITS Impressions Chest X-Ray 10/31/17 08:49 IMPRESSION: Stable exam from earlier today. No new acute cardiopulmonary findings. D/ / Adrianne Andrade MD / Adrianne Andrade MD Interpreting Provider: Adrianne Andrade MD Chest CTA 10/31/17 11:12 IMPRESSION: 1. No radiographic findings to suggest presence of pulmonary thromboembolism. 2. Volume loss with parenchymal disease/atelectasis within the left lower lobe. 3. Mild nonspecific bilateral hilar lymphadenopathy. 4. Narrowing of portions of the AP diameter of the trachea. Finding raises possibility of changes associated with underlying bronchomalacia as described above. D/ / Herbert Masters MD / Herbert Masters MD Interpreting Provider: Herbert Masters MD
[2017-10-31] MEDS ORDERED: Ampicillin/Sulbactam 3,000 MG in 0.9 % Sodium Chloride Mini Bag 100 ML IVPB SCH (13:00)
[2017-10-31] MEDS ORDERED: Doxycycline 100 MG in 0.9 % Sodium Chloride Mini Bag 100 ML IVPB SCH (13:00)
[2017-10-31] MEDS ORDERED: Baclofen 10 MG TABLET PO SCH (13:00)
[2017-10-31] MEDS: *HR* Heparin 5,000 UNIT/ML VIAL SQ SCH ×2 (14:46→21:12)
[2017-10-31] MEDS: Pregabalin 75 MG CAPSULE PO SCH ×2 (14:48→20:45)
[2017-10-31] MEDS: Pantoprazole 40 MG VIAL IVP SCH (14:48)
[2017-10-31] MEDS: Baclofen 10 MG TABLET PO SCH ×3 (14:48→20:44)
[2017-10-31] MEDS: 0.9 % Sodium Chloride 1,000 ML IVC SCH (14:49)
[2017-10-31] MEDS: diazePAM 10 MG TABLET PO SCH (20:45)
[2017-10-31] MEDS: *HR* HYDROmorphone 4 MG TABLET PO SCH (20:45)
[2017-10-31] MEDS ORDERED: diazePAM 10 MG TABLET PO SCH (21:00)
[2017-10-31] MEDS ORDERED: Ketorolac 15 MG/ML VIAL IVP ONE (22:33)
[2017-11-01] MEDS: *HR* HYDROmorphone 4 MG TABLET PO SCH ×3 (00:11→20:52)
[2017-11-01] MEDS: Doxycycline 100 MG in 0.9 % Sodium Chloride Mini Bag 100 ML IVPB SCH ×2 (00:16→12:58)
[2017-11-01] MEDS ORDERED: Benzonatate 100 MG CAPSULE PO PRN (03:03)
[2017-11-01] MEDS: 0.9 % Sodium Chloride 1,000 ML IVC SCH ×2 (03:33→21:02)
[2017-11-01 03:58] LABS: Basophils % 0.5 %; Eosinophils # 0.1 K/mcL (0.0-0.6); Eosinophils % 1.8 %; Immature Granulocytes % 0.3 % (0-4); Lymphocytes # 0.7 K/mcL (0.6-4.6); Lymphocytes % 17.2 %; Mean Corpuscular HGB Conc 31.3 g/dL (31.6-35.5); Mean Corpuscular Hemoglobin 25.8 pg (28.0-33.3); Mean Corpuscular Volume 82.4 fL (83.0-100.0); Mean Platelet Volume 10.4 fL (9.4-12.4); Monocytes # 0.5 K/mcL (0.0-1.3); Monocytes % 12.2 %; Neutrophils # 2.7 K/mcL (1.6-8.9); Platelet Count 151 K/mcL (140-400); Red Blood Count 3.76 M/mcL (4.19-5.50)
[2017-11-01 04:04] LABS: Hemoglobin 9.7 g/dL (12.9-16.9)
[2017-11-01] MEDS: *HR* Heparin 5,000 UNIT/ML VIAL SQ SCH ×3 (04:17→20:53)
[2017-11-01 04:28] LABS: BUN/Creatinine Ratio 25 (6-26); Blood Urea Nitrogen 7 mg/dL (6-20); C-Reactive Protein 95 mg/L (Less than 10); Calcium 7.7 mg/dL (8.6-10.3); Carbon Dioxide 23 mEq/L (23-29); Chloride 105 mEq/L (98-107); Glucose 60 mg/dL (70-105); Magnesium 1.8 mg/dL (1.6-2.6); Osmolality,Calculated 280 (280-300); Potassium 3.8 mEq/L (3.5-5.1); Sodium 137 mEq/L (136-145); eGFR For African Americans > 60 (> 60); eGFR For Non-African Americans > 60 (> 60)
[2017-11-01] MEDS: Pregabalin 75 MG CAPSULE PO SCH ×3 (08:42→20:52)
[2017-11-01] MEDS: Ascorbic Acid 500 MG TABLET PO SCH (08:43)
[2017-11-01] MEDS: Pantoprazole 40 MG VIAL IVP SCH (08:43)
[2017-11-01] MEDS: Levofloxacin 750 MG/150 ML 750 MG/150 ML BAG IVPB SCH (08:44)
[2017-11-01] MEDS: Baclofen 10 MG TABLET PO SCH ×4 (08:44→20:52)
[2017-11-01] MEDS: diazePAM 10 MG TABLET PO SCH ×2 (08:45→20:53)
[2017-11-01] MEDS ORDERED: Ketoconazole Shampoo 120 ML BOTTLE TP SCH (09:00)
[2017-11-01] MEDS ORDERED: Famotidine 20 MG/2 ML VIAL IVP SCH (09:00)
[2017-11-01] MEDS ORDERED: Sennosides 8.6 MG TABLET PO PRN (11:17)
[2017-11-01] MEDS ORDERED: Simethicone 80 MG TAB.CHEW PO PRN (11:17)
--- NOTE | 2017-11-01 11:59 | Electrocardiograph Report ---
[facility] Test Date: 2017-10-31 Pat Name: Bryan Beltran Department: 104 Room: 3B47 Gender: M Lock Expert: : 1990 Requested By: Sridevi Gee Order Number: [id number] Lili MD: Hemant Hernandez MD Measurements Intervals [place] Rate: 98 P: 53 HI: 163 QRS: 65 QRSD: 82 T: 52 QT: 348 QTc: 404 Interpretive Statements SINUS RHYTHM LEFT ATRIAL ENLARGEMENT [-0.15mV P WAVE IN V1/V2] WARNING: DATA QUALITY MAY AFFECT INTERPRETATION Electronically Signed On 11-01-2017 11:57:48 EST by Hemant Hernandez MD
[2017-11-01] MEDS: DOCUSATE SODIUM RC SCH (12:08)
[2017-11-01] MEDS: BENZOCAINE RC SCH (12:08)
[2017-11-01] MEDS: Multivit/Ca/Min/Fe/FA 1 TAB TABLET PO SCH (12:17)
[2017-11-01] MEDS: Ipratropium Neb 0.5 MG NEBULIZER IH SCH ×3 (15:49→20:04)
--- NOTE | 2017-11-01 18:44 | Internal Med Progress Note ---
Date of Encounter: 11/01/17 Time of Encounter: 10:40 - Assessment and plan (1) Acute bronchitis Current Visit: Yes Status: Acute Assessment and plan: Patient presented to the emergency department with a main complaint of cough since day prior to arrival. He reports that is productive and he has fever and chills, MAXIMUM TEMPERATURE 101 at home. Patient reports extensive cough today. His Mucinex had not been continued from the skilled nursing. I continued at this afternoon. His lungs are clear and diminished anteriorly and laterally bilaterally. Patient is not requiring supplemental oxygen. Due to immobility and skilled nursing placement, patient is at increased risk for hospital-acquired pneumonia. We will need to watch him closely and monitor labs and vital signs. Currently, patient has leukopenia and his vital signs are stable. He is afebrile, normotensive and tachycardia. Chest x-ray is negative. Chest CTA is negative other than narrowing of portions of the diameter of the trachea, will consult pulmonology. Continue Tylenol and ibuprofen for pain and fever. Continue Proventil nebulizer treatments, Tessalon Perles, doxycycline, guaifenesin, Atrovent nebulizers, Levaquin IV, and oxygen as needed to maintain sats greater than 92%. Chest X-Ray 10/31/17 08:49 IMPRESSION: Stable exam from earlier today. No new acute cardiopulmonary findings. D/ / Adrianne Andrade MD / Adrianne Andrade MD Interpreting Provider: Adrianne Andrade MD Chest CTA 10/31/17 11:12 IMPRESSION: 1. No radiographic findings to suggest presence of pulmonary thromboembolism. 2. Volume loss with parenchymal disease/atelectasis within the left lower lobe. 3. Mild nonspecific bilateral hilar lymphadenopathy. 4. Narrowing of portions of the AP diameter of the trachea. Finding raises possibility of changes associated with underlying bronchomalacia as described above. D/ / 10/31/2017 12:58:46 Herbert Masters MD / Willow Love Interpreting Provider: Herbert Masters MD Qualifiers: Qualified Code(s): J20.9 - Acute bronchitis, unspecified (2) History of quadriplegia Current Visit: Yes Status: Chronic Assessment and plan: Per patient history. Monitor for safety. Turn schedule per protocol. (3) Wound infection Current Visit: Yes Status: Acute Assessment and plan: Patient has partially healed wound to left superior buttock. Recently he has had a wound VAC which was been DC'd. Patient was [facility] at [facility] where he gets his wound care and was started on ampicillin and cephalexin. Admitting provider reviewed the cultures and there was no growth. Due to his tachycardia and hypotension, IV antibiotics were started on admission. Levaquin and doxycycline have been started. New wound culture today shows staph A. Wound care consultation is in, they will see patient. Patient has an allergy to vancomycin, clindamycin. 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 He can take daptomycin. There is no drainage, patient denies pain, no bleeding.. It is a stage IV and was noted prior to admission. (4) Anemia Current Visit: Yes Status: Acute Assessment and plan: Most likely anemia of chronic disease. Urine was negative for blood. Stool occult blood is ordered and still pending. B12, folate, iron studies ordered for morning. Qualifiers: Anemia type: other cause Other causes of anemia: chronic disease, other Qualified Code(s): D63.8 - Anemia in other chronic diseases classified elsewhere (5) Decreased responsiveness Current Visit: Yes Status: Resolved Assessment and plan: Patient has returned to his normal baseline. - Time Spent With Patient less than 15 minutes - Subjective Interval history: She was seen and assessed at bedside at 10:40 AM with community sports coordinator. Patient was pleasant, calm, alert and oriented. He reports feeling chest tightness and intense cough. After seeing patient I continued his ibuprofen mentioned, he also has Tylenol ordered. His normal dose of hydromorphone from home 8 mg at midnight, 4 mg twice daily have been continued. I have continued his Mucinex 600 mg by mouth twice a day for his cough. We will 6 suggested that patient move in bed to assist with moving secretions and assisting with pain, nurse reports that he is resistant to turning in the bed. He denies any nausea or vomiting, he denies abdominal pain. He denies headache or back pain. We will continue to monitor him until wound culture and sensitivities have returned. Patient was agreeable to this. - Constitutional Vitals: Temp Pulse Resp BP Pulse Ox 98.7 F 87 16 120/78 98 11/01/17 15:00 11/01/17 15:00 11/01/17 15:49 11/01/17 15:49 11/01/17 15:49 General appearance: Present: cooperative, A&O X 3, pleasant, no acute distress, answers questions appropriately - Head Head exam: Present: atraumatic, normal inspection, normocephalic - Eye Eye exam: Present: normal appearance, conjuntiva pink, sclera anicteric - Neck Neck exam general surgery: Present: normal inspection, supple, trachea midline. Absent: lymphadenopathy - Respiratory Respiratory exam: Present: decreased breath sounds, CTAB. Absent: accessory muscle use, chest wall tenderness, rales, rhonchi, wheezes - Cardiovascular Cardiovascular exam: Present: RRR, +S1, +S2. Absent: diastolic murmur, gallop, rubs, systolic murmur - GI/Abdominal GI/Abdominal exam: Present: normal bowel sounds, soft. Absent: distended, hepatomegaly, tenderness - Extremities Exam Extremities exam: Present: normal capillary refill, warm, radial pulses palpable and symmetrical. Absent: calf tenderness, cyanotic, normal inspection , pedal edema, tenderness - Neurological Exam Neurological exam: Present: alert, motor sensory deficit, oriented X3. Absent: facial droop, speech deficit - Skin Skin exam: Present: dry. Absent: intact Additional comments: Patient with open, stage IV, partially healed wound to left upper buttock. No drainage or odor noted. No bleeding. Internal Medicine: Result - Labs CBC & Chem 7: 11/01/17 03:40 11/01/17 03:40 Labs: Short CBC 11/01/17 Range/Units 03:40 WBC 4.0 L (4.3-11.1) K/mcL Hgb 9.7 L D (12.9-16.9) g/dL Hct 31.0 L (37.5-50.1) % Plt Count 151 (140-400) K/mcL Neutrophils # 2.7 (1.6-8.9) K/mcL BMP 11/01/17 03:40 Sodium 137 Potassium 3.8 Chloride 105 Carbon Dioxide 23 BUN 7 Creatinine 0.28 L Glucose 60 L Calcium 7.7 L Consult Discharge Plan - Plan Referrals: Bang Swenson MD [Primary Care Provider] -
[2017-11-02] MEDS: Ipratropium Neb 0.5 MG NEBULIZER IH SCH ×7 (00:18→23:49)
[2017-11-02] MEDS: *HR* HYDROmorphone 4 MG TABLET PO SCH ×2 (00:40→08:56)
[2017-11-02] MEDS: Doxycycline 100 MG in 0.9 % Sodium Chloride Mini Bag 100 ML IVPB SCH ×2 (00:41→13:01)
[2017-11-02] MEDS: 0.9 % Sodium Chloride 1,000 ML IVC SCH (01:36)
[2017-11-02] MEDS: *HR* Heparin 5,000 UNIT/ML VIAL SQ SCH ×2 (02:54→13:02)
[2017-11-02 05:53] LABS: Basophils % 0.3 %; Hematocrit 31.4 % (37.5-50.1); Hemoglobin 9.8 g/dL (12.9-16.9); Immature Granulocytes % 0.3 % (0-4); Lymphocytes % 31.3 %; Mean Corpuscular HGB Conc 31.2 g/dL (31.6-35.5); Mean Corpuscular Hemoglobin 25.7 pg (28.0-33.3); Mean Corpuscular Volume 82.4 fL (83.0-100.0); Monocytes # 0.4 K/mcL (0.0-1.3); Monocytes % 13.2 %; Neutrophils # 1.6 K/mcL (1.6-8.9); Platelet Count 146 K/mcL (140-400); Red Blood Count 3.81 M/mcL (4.19-5.50); Red Cell Distribution Width 18.7 % (11.5-14.5); Segmented Neutrophils % 53.9 %
[2017-11-02 06:29] LABS: % Iron Saturation 5 % (20-55); BUN/Creatinine Ratio 24 (6-26); Blood Urea Nitrogen 6 mg/dL (6-20); Calcium 7.7 mg/dL (8.6-10.3); Carbon Dioxide 23 mEq/L (23-29); Chloride 106 mEq/L (98-107); Glucose 57 mg/dL (70-105); Iron 13 mcg/dL (65-175); Osmolality,Calculated 283 (280-300); Potassium 3.8 mEq/L (3.5-5.1); Sodium 139 mEq/L (136-145); Transferrin 187 mg/dL (203-362); eGFR For African Americans > 60 (> 60); eGFR For Non-African Americans > 60 (> 60)
[2017-11-02 06:59] LABS: Folate 17.9 ng/mL (3.0-16.0)
[2017-11-02 07:09] VITALS: BP 128/87
[2017-11-02] MEDS ORDERED: DAPTOmycin 300 MG in 0.9 % Sodium Chloride 100 ML IVPB SCH (08:00)
[2017-11-02] MEDS: Pregabalin 75 MG CAPSULE PO SCH ×2 (08:55→13:51)
[2017-11-02] MEDS: Multivit/Ca/Min/Fe/FA 1 TAB TABLET PO SCH (08:55)
[2017-11-02] MEDS: Levofloxacin 750 MG/150 ML 750 MG/150 ML BAG IVPB SCH (08:56)
[2017-11-02] MEDS: Baclofen 10 MG TABLET PO SCH ×3 (08:56→18:02)
[2017-11-02] MEDS: Ascorbic Acid 500 MG TABLET PO SCH (08:56)
[2017-11-02] MEDS: BENZOCAINE RC SCH ×2 (08:57→11:47)
[2017-11-02] MEDS: DOCUSATE SODIUM RC SCH ×2 (08:57→11:47)
[2017-11-02] MEDS: Pantoprazole 40 MG VIAL IVP SCH (08:58)
[2017-11-02] MEDS: diazePAM 10 MG TABLET PO SCH (08:58)
[2017-11-02] MEDS ORDERED: (Zinc Acetate [Galzin] 50 MG) PO SCH (09:00)
--- NOTE | 2017-11-02 16:18 | Internal Med Progress Note ---
Date of Encounter: 11/02/17 Time of Encounter: 08:30 - Assessment and plan (1) Acute bronchitis Current Visit: Yes Status: Acute Assessment and plan: Patient presented to the emergency department with a main complaint of cough since day prior to arrival. He reports that is productive and he has fever and chills, MAXIMUM TEMPERATURE 101 at home. Patient reports cough improved today. His lungs are clear and diminished anteriorly and laterally bilaterally. Patient is not requiring supplemental oxygen. Due to immobility and retirement placement, patient is at increased risk for hospital-acquired pneumonia. We will need to watch him closely and monitor labs and vital signs. Currently, patient has leukopenia and his vital signs are stable. He is afebrile, normotensive and tachycardia. Chest x-ray is negative. Chest CTA is negative other than narrowing of portions of the diameter of the trachea, will consult pulmonology. Continue Tylenol and ibuprofen for pain and fever. Continue Proventil nebulizer treatments, Tessalon Perles, doxycycline, guaifenesin, Atrovent nebulizers, Levaquin IV, and oxygen as needed to maintain sats greater than 92%. Chest X-Ray 10/31/17 08:49 IMPRESSION: Stable exam from earlier today. No new acute cardiopulmonary findings. D/ / Adrianne Andrade MD / Adrianne Andrade MD Interpreting Provider: Adrianne Andrade MD Chest CTA 10/31/17 11:12 IMPRESSION: 1. No radiographic findings to suggest presence of pulmonary thromboembolism. 2. Volume loss with parenchymal disease/atelectasis within the left lower lobe. 3. Mild nonspecific bilateral hilar lymphadenopathy. 4. Narrowing of portions of the AP diameter of the trachea. Finding raises possibility of changes associated with underlying bronchomalacia as described above. D/ / 10/31/2017 12:58:46 Herbert Masters MD / Willow Love Interpreting Provider: Herbert Masters MD Qualifiers: Qualified Code(s): J20.9 - Acute bronchitis, unspecified (2) History of quadriplegia Current Visit: Yes Status: Chronic Assessment and plan: Per patient history. Monitor for safety. Turn schedule per protocol. (3) Wound infection Current Visit: Yes Status: Acute Assessment and plan: Patient has partially healed wound to left superior buttock. Recently he has had a wound VAC which was been DC'd. Patient was seen at [facility] where he gets his wound care and was started on ampicillin and cephalexin. Admitting provider reviewed the cultures and there was no growth. Due to his tachycardia and hypotension, IV antibiotics were started on admission. Wound care consultation is in, they will see patient. Patient has an allergy to vancomycin, clindamycin. Final culture and sensitivity show MRSA, pt has been started on Daptomycin 30mg IV qdaily There is no drainage, patient denies pain, no bleeding.. It is a stage IV and was noted prior to admission. (4) Anemia Current Visit: Yes Status: Acute Assessment and plan: Most likely anemia of chronic disease. Urine was negative for blood. Stool occult blood is ordered and still pending. B12 and Iron low. Will start B12 supplementation. Fereheme infusion. Pt declines po iron due to constipation. Pt states that even with daily laxatives, he still becomes constipated and 'it isn't worth it." Qualifiers: Anemia type: other cause Other causes of anemia: chronic disease, other Qualified Code(s): D63.8 - Anemia in other chronic diseases classified elsewhere (5) Decreased responsiveness Current Visit: Yes Status: Resolved - Time Spent With Patient less than 15 minutes - Subjective Interval history: She was seen and assessed at bedside at 8:30 AM. Patient was pleasant, calm, alert and oriented. Patient reports he is ready to go home. He states that he needs a shower at his own home. He reports that he has home health in place and a kidney refuses antibiotics. He states his pain is better. He denies any other complaints. No headache, no vomiting no nausea, no diarrhea, no chest pain or shortness of breath. After reviewing wound culture and sensitivity, we attempted to get patient home. Charge nurse made multiple phone calls to multiple [facility] trying to get infusion therapy set up for him. She was not successful. Patient is aware he will stay here for IV therapy until Saturday. - Constitutional Vitals: Temp Pulse Resp BP Pulse Ox 98.6 F 88 16 128/87 99 01/06/18 07:06 11/02/17 07:06 11/02/17 08:28 11/02/17 07:06 11/02/17 08:28 General appearance: Present: cooperative, A&O X 3, pleasant, no acute distress, answers questions appropriately - Head Head exam: Present: atraumatic, normal inspection, normocephalic - Eye Eye exam: Present: normal appearance, conjuntiva pink, sclera anicteric - Neck Neck exam general surgery: Present: supple, trachea midline. Absent: lymphadenopathy - Respiratory Respiratory exam: Present: CTAB, wheezes. Absent: accessory muscle use, chest wall tenderness, decreased breath sounds, prolonged expiratory phase, rales, rhonchi - Cardiovascular Cardiovascular exam: Present: RRR, +S1, +S2. Absent: diastolic murmur, gallop, rubs, systolic murmur - GI/Abdominal GI/Abdominal exam: Present: soft, no peritoneal signs. Absent: distended, hepatomegaly, tenderness - Extremities Exam Extremities exam: Present: normal capillary refill, pedal edema, warm, radial pulses palpable and symmetrical. Absent: calf tenderness, cyanotic, tenderness - Neurological Exam Neurological exam: Present: alert, oriented X3, no focal deficits. Absent: altered, facial droop, speech deficit - Skin Skin exam: Present: dry, intact, normal color. Absent: rash Internal Medicine: Result - Labs CBC & Chem 7: 11/02/17 05:33 11/02/17 05:33 Labs: Short CBC 11/02/17 Range/Units 05:33 WBC 3.0 L (4.3-11.1) K/mcL Hgb 9.8 L (12.9-16.9) g/dL Hct 31.4 L (37.5-50.1) % Plt Count 146 (140-400) K/mcL Neutrophils # 1.6 (1.6-8.9) K/mcL BMP 11/02/17 05:33 Sodium 139 Potassium 3.8 Chloride 106 Carbon Dioxide 23 BUN 6 Creatinine 0.25 L Glucose 57 L Calcium 7.7 L Consult Discharge Plan - Plan Referrals: Bang Swenson MD [Primary Care Provider] -
[2017-11-02] MEDS ORDERED: Ferumoxytol 510 MG in 0.9 % Sodium Chloride 100 ML IVPB ONE (16:26)
--- NOTE | 2017-11-02 16:37 | Discharge Summary ---
Date of Encounter: 11/02/17 Time of Encounter: 16:30 - Discharge Diagnosis (1) Acute bronchitis Priority: Primary Status: Acute Qualifiers: Qualified Code(s): J20.9 - Acute bronchitis, unspecified (2) History of quadriplegia Priority: Secondary Status: Chronic (3) Wound infection Priority: Secondary Status: Acute (4) Anemia Priority: Secondary Status: Acute Qualifiers: Anemia type: other cause Other causes of anemia: chronic disease, other Qualified Code(s): D63.8 - Anemia in other chronic diseases classified elsewhere (5) Decreased responsiveness Priority: Secondary Status: Resolved - Discharge Medications Home Medications: Ascorbic Acid [Vitamin C with Cira Hips] 500 mg PO DAILY 02/14/17 [History] Baclofen 20 mg PO QID 02/14/17 [History] Docusate Sodium [Dok] 100 mg PO BID 02/14/17 [History] HYDROmorphone [Dilaudid] 4 mg PO BID 02/14/17 [History] HYDROmorphone [Dilaudid] 8 mg PO 0000 02/14/17 [History] Multivitamin [Multivitamins] 1 tab PO DAILY 02/14/17 [History] Oxybutynin [Ditropan] 5 mg PO TID 02/14/17 [History] Polyethylene Glycol 3350 [Smoothlax] 17 gm PO Q48H 02/14/17 [History] Pregabalin [Lyrica] 150 mg PO TID 02/14/17 [History] Sennosides [Senna] 8.6 mg PO BID PRN 02/14/17 [History] Docusate Sodium/Benzocaine [Enemeez Plus Mini Enema] 5 ml RC DAILY 02/16/17 [ History] Albuterol Sulfate [Albuterol Inhaler] 1 puff IH Q4H PRN 04/01/17 [History] Potassium 99 mg PO QAM 04/01/17 [History] Zinc Acetate [Galzin] 50 mg PO DAILY 04/01/17 [History] Acetaminophen [Tylenol] 320 mg PO Q4H PRN 09/30/17 [History] Albuterol Neb [Proventil Neb] 2.5 mg IH QID PRN 09/30/17 [History] Bismuth Subsalicylate [Bismatrol] 525 mg PO Q6H PRN 09/30/17 [History] Calcium Carbonate [Tums] 1,000 mg PO AD PRN 09/30/17 [History] Chloraseptic [place] [Chloraseptic] 5 spray MM Q2H PRN 09/30/17 [History] EPINEPHrine [Epipen] 0.3 mg IM ONCE PRN 09/30/17 [History] Guaifenesin [Mucinex] 600 mg PO BID PRN 09/30/17 [History] Ibuprofen Susp [Motrin Susp] 600 mg PO Q6HR PRN 09/30/17 [History] Ketoconazole Shampoo [Nizoral Shampoo] 1 appl TP 3XW 09/30/17 [History] Mag Hydrox/Al Hydrox/Simeth [Antacid Suspension] 30 ml PO Q4H PRN 09/30/17 [ History] Magnesium Citrate [Citroma] 296 ml PO TID PRN 09/30/17 [History] Ondansetron HCl [Zofran] 4 mg PO Q4H PRN 09/30/17 [History] Simethicone [Gas-X] 80 mg PO TID PRN 09/30/17 [History] Ampicillin Trihydrate 500 mg PO QID 10/31/17 [History] Cephalexin [Keflex] 500 mg PO QID 10/31/17 [History] diazePAM [Valium] 10 mg PO BID 10/31/17 [History] Allergies/Adverse Reactions: 3 Allergy/AdvReac Type Severity Reaction Status Date / Time Erythromycin Base Allergy See Verified 10/31/17 10:56 Comments aspirin AdvReac Nausea Verified 10/31/17 10:56 codeine AdvReac Hives Verified 10/31/17 10:56 diphenhydramine AdvReac Swelling Verified 10/31/17 10:56 [From Benadryl] of Lip/Tongue/Throat gentamicin AdvReac See Verified 10/31/17 10:56 Comments Methadone AdvReac Swelling Verified 10/31/17 10:56 of Lip/Tongue/Throat morphine AdvReac Hives Verified 10/31/17 10:56 Oxycodone [From OxyContin] AdvReac Swelling Verified 10/31/17 10:56 of Lip/Tongue/Throat promethazine [From Phenergan] AdvReac See Verified 10/31/17 10:56 Comments tobramycin AdvReac See Verified 10/31/17 10:56 Comments vancomycin AdvReac See Verified 10/31/17 10:56 Comments Date of admission: 10/31/17 12:51 Primary care physician: Bang Swenson MD Consults: 11/01/17 10:35 Consult to Wound Care [CONS] Routine Reason for Consult: chronic wound to foot Call Completed: No Discharging clinician: Frances Serna Anticipated date of discharge: 11/02/17 - Patient Status Disposition: Left Against Medical Advice Condition: Fair Functional capacity at discharge: bed bound Overall status at discharge: patient is progressing back to baseline - Discharge Instructions Follow Up With: Bang Swenson MD [Primary Care Provider] - - Diet and Activity Activity: resume usual activities as tolerated Diet: advance to your usual diet Hospital course: Mr. Beltran is a 26 year old male with past medical history of quadriplegia, DVT. Patient has decided to sign out AMA. He says he has by mouth antibiotics at home from a deep tissue biopsy. According to documentation, there is no growth from that biopsy. Patient shows me on patient portal from [facility] that he has amoxicillin and Keflex at home that he should be taking. He states that he does not need any other prescriptions. He has most of the medications he has been getting here at home. Patient with mild, chronic anemia. He is declined. No iron supplementation, as well as IV ferriheme infusion. I went over his labs with him, he states that he cannot take iron by mouth due to severe constipation. Patient is leaving AMA. Please see progress note from same date for hospital course. - Time Spent with Patient Total time spent providing and/or coordinating discharge services: Less than 30 minutes - Constitutional Vitals: Temp Pulse Resp BP Pulse Ox 98.6 F 88 16 128/87 99 11/02/17 07:06 11/02/17 07:06 11/02/17 08:28 11/02/17 07:06 11/02/17 08:28 General appearance: Present: cooperative, A&O X 3, pleasant, no acute distress, answers questions appropriately - Head Head exam: Present: atraumatic, normal inspection, normocephalic - Eye Eye exam: Present: normal appearance, conjuntiva pink, sclera anicteric - Neck Neck exam general surgery: Present: supple, trachea midline. Absent: lymphadenopathy - Respiratory Respiratory exam: Present: CTAB. Absent: accessory muscle use, rales, rhonchi, wheezes - Cardiovascular Cardiovascular exam: Present: RRR, +S1, +S2. Absent: diastolic murmur, gallop, rubs, systolic murmur - GI/Abdominal GI/Abdominal exam: Present: normal bowel sounds, soft. Absent: distended, hepatomegaly, tenderness - Extremities Exam Extremities exam: Present: normal inspection, pedal edema, warm, radial pulses palpable and symmetrical. Absent: calf tenderness, cyanotic - Neurological Exam Neurological exam: Present: alert, oriented X3. Absent: facial droop, speech deficit - Skin Skin exam: Present: dry, intact, warm. Absent: rash
[2017-11-02] MEDS ORDERED: Doxycycline 100 MG CAPSULE PO SCH (21:00)
== END 2017-11-02 18:50 | disposition left against medical advice (07) ==
LOC: 3BNU 08:12 → EMEROO 08:12 → 3BNU 13:15
PROVIDERS: ADMIT Hospitalist; ATTEND Registered Nurse

== ENCOUNTER 2017-11-26 10:51 | Inpatient (IN) ==
[2017-11-26] MEDS ORDERED: Ipratropium/Albuterol Neb 3 ML IH ONE (10:58)
[2017-11-26 12:34] LABS: ABG Base Excess 5 mEq/L (-2 to 3); ABG HCO3 31 mEq/L (21-27); ABG Oxygen Saturation 88 % (95-98); ABG PCO2 50 mmHg (35-45); ABG PO2 56 mmHg (85-104); ABG TCO2 32 mEq/L (20-26)
[2017-11-26 12:57] LABS: Basophils % 0.4 %; Eosinophils # 0.1 K/mcL (0.0-0.6); Eosinophils % 2.4 %; Hematocrit 39.6 % (37.5-50.1); Hemoglobin 12.4 g/dL (12.9-16.9); Immature Granulocytes % 0.2 % (0-4); Lymphocytes # 1.2 K/mcL (0.6-4.6); Lymphocytes % 21.6 %; Mean Corpuscular HGB Conc 31.3 g/dL (31.6-35.5); Mean Corpuscular Hemoglobin 26.6 pg (28.0-33.3); Mean Platelet Volume 9.9 fL (9.4-12.4); Monocytes # 0.5 K/mcL (0.0-1.3); Monocytes % 9.8 %; Neutrophils # 3.6 K/mcL (1.6-8.9); Platelet Count 189 K/mcL (140-400); Red Blood Count 4.66 M/mcL (4.19-5.50); Red Cell Distribution Width 22.5 % (11.5-14.5); Segmented Neutrophils % 65.6 %
[2017-11-26 13:20] LABS: BUN/Creatinine Ratio 24 (6-26); Blood Urea Nitrogen 6 mg/dL (6-20); Calcium 8.7 mg/dL (8.6-10.3); Carbon Dioxide 30 mEq/L (23-29); Chloride 103 mEq/L (98-107); Glucose 76 mg/dL (70-105); Osmolality,Calculated 284 (280-300); Potassium 4.1 mEq/L (3.5-5.1); Sodium 139 mEq/L (136-145); eGFR For African Americans > 60 (> 60); eGFR For Non-African Americans > 60 (> 60)
--- NOTE | 2017-11-26 14:04 | Pulmonology Consult Note ---
Date of Encounter: 11/26/17 Time of Encounter: 02:00 Assessment and Plan (1) Acute respiratory failure with hypoxia and hypercapnia Current Visit: Yes Status: Acute Patient is a chronic quadriplegic with recurrent mucous plugging had multiple bronchoscopy in the past the last bronchoscopy was done last now he on 4 litres saturating 90-91% will change it to High flow nasal cannula , do accuPAP and intermittent BIPAP if the patient tolerates . Will do Duonebs every 4hrs . Will start him on antibiotics and IV steroids (2) Mucus plugging of bronchi Current Visit: Yes Status: Acute Patient has weak cough due to chronic quadriplegia had multiple episodes of mucous plugging with multiple bronchsocopy will need bronchsocopy in the morning all the risks were explained to the patient patient is consenting for bronchoscopy since patient doesnt want to undergo under local anaesthesia alone will involve anaesthesia for Monitored anesthesia care for airway protection because of acute hypoxic respiratory failure . Will keep him NPO after midnight for bronchoscopy. (3) Pneumonia Current Visit: Yes Status: Acute Will start on IV antibiotics and with steroids . Qualifiers: Laterality: left Lung location: lower lobe of lung Qualified Code(s): J18.1 - Lobar pneumonia, unspecified organism History of Present Illness Consult date: 11/26/17 Requesting physician: Hossein Sarkar Reason for consult: dyspnea, cough Chief complaint: Shortness of breadth felt like my lungs plugged again History of present illness: 27 year old male with past medical history of Quadriplegia with recurrent pneumonias in the left lower lobe and mucous plugging had a recent Bronchoscopy last week at [facility] , he felt the same symptoms what he had last week has weak cough cannot bring the secretions out no fever or chills now , has some chest pain denies any chest tightness this chest pain is chronic he said denies any recent sick contact denies any orthopnea or PND . Pulmonary was consulted for Bronchoscopy . CT chest with out contrast showed left lower lobar branches with the first and second generation of bronchus shows mucous plugging with some left lower lobe volume loss has some few secretions in the right side . Past Med Surg Social Fam HX - Past Medical History Medical history: kidney stones, other Psychiatric history: anxiety, depression - Past Surgical History Surgical History: vascular surgery, other - Social History Smoking Status: Never smoker Smokeless Tobacco Status: No Alcohol use: none Drug use: none - Family History Father Adopted: No Family Member Ethnicity: Non- Living Status: Still Living Hx Family Endocrine Disorder: Yes (DM) Mother Adopted: No Family Member Ethnicity: Non- Living Status: Still Living Hx Family Cancer: Yes (cervical, breast) Hx Family Endocrine Disorder: Yes (DM type I) Medications and Allergies Ascorbic Acid [Vitamin C with Cira Hips] 500 mg PO DAILY 02/14/17 [History] Baclofen 20 mg PO QID 02/14/17 [History] Docusate Sodium [Dok] 100 mg PO BID 02/14/17 [History] HYDROmorphone [Dilaudid] 4 mg PO BID 02/14/17 [History] HYDROmorphone [Dilaudid] 8 mg PO 0000 02/14/17 [History] Multivitamin [Multivitamins] 1 tab PO DAILY 02/14/17 [History] Oxybutynin [Ditropan] 5 mg PO TID 02/14/17 [History] Polyethylene Glycol 3350 [Smoothlax] 17 gm PO Q48H 02/14/17 [History] Pregabalin [Lyrica] 150 mg PO TID 02/14/17 [History] Sennosides [Senna] 8.6 mg PO BID PRN 02/14/17 [History] Docusate Sodium/Benzocaine [Enemeez Plus Mini Enema] 5 ml RC DAILY 02/16/17 [ History] Albuterol Sulfate [Albuterol Inhaler] 1 puff IH Q4H PRN 04/01/17 [History] Potassium 99 mg PO QAM 04/01/17 [History] Zinc Acetate [Galzin] 50 mg PO DAILY 04/01/17 [History] Acetaminophen [Tylenol] 320 mg PO Q4H PRN 09/30/17 [History] Albuterol Neb [Proventil Neb] 2.5 mg IH QID PRN 09/30/17 [History] Bismuth Subsalicylate [Bismatrol] 525 mg PO Q6H PRN 09/30/17 [History] Calcium Carbonate [Tums] 1,000 mg PO AD PRN 09/30/17 [History] Chloraseptic [place] [Chloraseptic] 5 spray MM Q2H PRN 09/30/17 [History] EPINEPHrine [Epipen] 0.3 mg IM ONCE PRN 09/30/17 [History] Guaifenesin [Mucinex] 600 mg PO BID PRN 09/30/17 [History] Ibuprofen Susp [Motrin Susp] 600 mg PO Q6HR PRN 09/30/17 [History] Ketoconazole Shampoo [Nizoral Shampoo] 1 appl TP 3XW 09/30/17 [History] Mag Hydrox/Al Hydrox/Simeth [Antacid Suspension] 30 ml PO Q4H PRN 09/30/17 [ History] Magnesium Citrate [Citroma] 296 ml PO TID PRN 09/30/17 [History] Ondansetron HCl [Zofran] 4 mg PO Q4H PRN 09/30/17 [History] Simethicone [Gas-X] 80 mg PO TID PRN 09/30/17 [History] diazePAM [Valium] 10 mg PO BID 10/31/17 [History] Cefdinir [Omnicef] 300 mg PO BID 11/26/17 [History] Ciprofloxacin HCl [Cipro] 1 tab PO BID 11/26/17 [History] levoFLOXacin [Levofloxacin] 1 tab PO DAILY 11/26/17 [History] 3 Allergy/AdvReac Type Severity Reaction Status Date / Time Erythromycin Base Allergy See Verified 10/31/17 10:56 Comments aspirin AdvReac Nausea Verified 10/31/17 10:56 codeine AdvReac Hives Verified 10/31/17 10:56 diphenhydramine AdvReac Swelling Verified 10/31/17 10:56 [From Benadryl] of Lip/Tongue/Throat gentamicin AdvReac See Verified 10/31/17 10:56 Comments Methadone AdvReac Swelling Verified 10/31/17 10:56 of Lip/Tongue/Throat morphine AdvReac Hives Verified 10/31/17 10:56 Oxycodone [From OxyContin] AdvReac Swelling Verified 10/31/17 10:56 of Lip/Tongue/Throat promethazine [From Phenergan] AdvReac See Verified 10/31/17 10:56 Comments tobramycin AdvReac See Verified 10/31/17 10:56 Comments vancomycin AdvReac See Verified 10/31/17 10:56 Comments All Systems: Remainder of the complete review of systems are negative - Constitutional Constitutional: as per HPI - EENT Eyes: other (no symptoms ) Nose, mouth and throat: other (no symptoms ) Physical Examination Vital Signs: Vital Signs, Last 4 Hours Temp Pulse Resp BP Pulse Ox 11/26/17 11:43 109 21 103/84 90 11/26/17 10:53 98.8 F 102 23 90/57 91 Effort: mildly labored Auscultation: left: diminished breath sounds, bilateral: rales (scattered rales ) Gastrointestinal: hypoactive bowel sounds Musculoskeletal: other (Patient has deformities due to his ) Gait: other (Patient cannot ambulate ) non-focal exam, other (chronic quadriplegia ) Results - Laboratory Findings CBC and BMP: 11/26/17 12:53 11/26/17 12:53 ABG ABG pH 7.40 pH Units (7.32-7.45) 11/26/17 12:26 ABG pCO2 50 mmHg (35-45) H 11/26/17 12:26 ABG pO2 56 mmHg (85-104) L 11/26/17 12:26 ABG O2 Saturation 88 % (95-98) L 11/26/17 12:26 Abnormal lab findings: Abnormal lab results Hgb 12.4 g/dL (12.9-16.9) L 11/26/17 12:53 MCH 26.6 pg (28.0-33.3) L 11/26/17 12:53 MCHC 31.3 g/dL (31.6-35.5) L 11/26/17 12:53 RDW 22.5 % (11.5-14.5) H 11/26/17 12:53 ABG pCO2 50 mmHg (35-45) H 11/26/17 12:26 ABG pO2 56 mmHg (85-104) L 11/26/17 12:26 ABG HCO3 31 mEq/L (21-27) H 11/26/17 12:26 ABG Total CO2 32 mEq/L (20-26) H 11/26/17 12:26 ABG O2 Saturation 88 % (95-98) L 11/26/17 12:26 ABG Base Excess 5 mEq/L (-2 to 3) H 11/26/17 12:26 Carbon Dioxide 30 mEq/L (23-29) H 11/26/17 12:53 Creatinine 0.25 mg/dL (0.70-1.30) L 11/26/17 12:53 - Clinical Findings Intake & Output: Intake & Output 11/25/17 11/26/17 11/26/17 23:59 07:59 15:59 Weight 72.575 kg Consult Discharge Plan - Plan Referrals: Bang Swenson MD [Primary Care Provider] -
--- NOTE | 2017-11-26 14:17 | Emergency Department Note ---
Disposition Clinical Impression: Hypoxia, Mucus plugging of bronchi, Respiratory distress Disposition: Admitted As Inpatient Condition: Fair Referrals: Bang Swenson MD [Primary Care Provider] - Time of Disposition: 15:41 SOB HPI - General Chief Complaint: ED Shortness of Breath/Dyspnea Stated Complaint: ROLAND Time Seen by Provider: 11/26/17 10:57 Source: patient, EMS Mode of arrival: EMS Limitations: no limitations Nursing Notes Reviewed: Yes Vital Signs Reviewed: Yes - History of Present Illness Patient presents by EMS for evaluation of shortness of breath. Patient is a quadriplegic that has long-standing pulmonary issues. He is concerned he may have mucous plugged again. Patient was hypoxic in transit in the 84-88 range on nonrebreather. Patient denies any other symptoms or complaints. 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: moderate Consistency/Duration: constant Improves with: oxygen, upright position Worsens with: lying flat Associated symptoms: Reports: wheezing, sputum production Treatment prior to arrival: none - Related Data Home Medications Medication Instructions Recorded Confirmed Ascorbic Acid [Vitamin C with Cira 500 mg PO DAILY 02/14/17 11/26/17 Hips] Baclofen 20 mg PO QID 02/14/17 11/26/17 Docusate Sodium [Dok] 100 mg PO BID 02/14/17 11/26/17 HYDROmorphone [Dilaudid] 4 mg PO BID 02/14/17 11/26/17 HYDROmorphone [Dilaudid] 8 mg PO 0000 02/14/17 11/26/17 Multivitamin [Multivitamins] 1 tab PO DAILY 02/14/17 11/26/17 Oxybutynin [Ditropan] 5 mg PO TID 02/14/17 11/26/17 Polyethylene Glycol 3350 17 gm PO Q48H 02/14/17 11/26/17 [Smoothlax] Pregabalin [Lyrica] 150 mg PO TID 02/14/17 11/26/17 Sennosides [Senna] 8.6 mg PO BID PRN 02/14/17 11/26/17 Docusate Sodium/Benzocaine 5 ml RC DAILY 02/16/17 11/26/17 [Enemeez Plus Mini Enema] Albuterol Sulfate [Albuterol 1 puff IH Q4H PRN 04/01/17 11/26/17 Inhaler] Potassium 99 mg PO QAM 04/01/17 11/26/17 Zinc Acetate [Galzin] 50 mg PO DAILY 04/01/17 11/26/17 Acetaminophen [Tylenol] 320 mg PO Q4H PRN 09/30/17 11/26/17 Albuterol Neb [Proventil Neb] 2.5 mg IH QID PRN 09/30/17 11/26/17 Bismuth Subsalicylate [Bismatrol] 525 mg PO Q6H PRN 09/30/17 11/26/17 Calcium Carbonate [Tums] 1,000 mg PO AD PRN 09/30/17 11/26/17 Chloraseptic [place] [Chloraseptic] 5 spray MM Q2H PRN 09/30/17 11/26/17 EPINEPHrine [Epipen] 0.3 mg IM ONCE PRN 09/30/17 11/26/17 Guaifenesin [Mucinex] 600 mg PO BID PRN 09/30/17 11/26/17 Ibuprofen Susp [Motrin Susp] 600 mg PO Q6HR PRN 09/30/17 11/26/17 Ketoconazole Shampoo [Nizoral 1 appl TP 3XW 09/30/17 11/26/17 Shampoo] Mag Hydrox/Al Hydrox/Simeth 30 ml PO Q4H PRN 09/30/17 11/26/17 [Antacid Suspension] Magnesium Citrate [Citroma] 296 ml PO TID PRN 09/30/17 11/26/17 Ondansetron HCl [Zofran] 4 mg PO Q4H PRN 09/30/17 11/26/17 Simethicone [Gas-X] 80 mg PO TID PRN 09/30/17 11/26/17 diazePAM [Valium] 10 mg PO BID 10/31/17 11/26/17 Cefdinir [Omnicef] 300 mg PO BID 11/26/17 11/26/17 Ciprofloxacin HCl [Cipro] 1 tab PO BID 11/26/17 11/26/17 levoFLOXacin [Levofloxacin] 1 tab PO DAILY 11/26/17 11/26/17 Allergies Allergy/AdvReac Type Severity Reaction Status Date / Time Erythromycin Base Allergy See Verified 10/31/17 10:56 Comments aspirin AdvReac Nausea Verified 10/31/17 10:56 codeine AdvReac Hives Verified 10/31/17 10:56 diphenhydramine AdvReac Swelling Verified 10/31/17 10:56 [From Benadryl] of Lip/Tongue/Throat gentamicin AdvReac See Verified 10/31/17 10:56 Comments Methadone AdvReac Swelling Verified 10/31/17 10:56 of Lip/Tongue/Throat morphine AdvReac Hives Verified 10/31/17 10:56 Oxycodone [From OxyContin] AdvReac Swelling Verified 10/31/17 10:56 of Lip/Tongue/Throat promethazine [From Phenergan] AdvReac See Verified 10/31/17 10:56 Comments tobramycin AdvReac See Verified 10/31/17 10:56 Comments vancomycin AdvReac See Verified 10/31/17 10:56 Comments All systems ED: reviewed and negative except as stated. Review of Systems: As Per HPI Constitutional: Denies: fever, chills, weakness ENT ED: Denies: ear pain, throat pain Cardiovascular: Reports: orthopnea. Denies: chest pain, palpitations Respiratory: Reports: dyspnea Past Medical History - Past Medical History Attestation: Yes The following information was validated with the patient. Source: patient Medical history: Reports: kidney stones, other Surgical history: Reports: vascular surgery, other Psychiatric history: Reports: anxiety, depression - Social History Smoking Status: Never smoker Smokeless Tobacco Status: No Alcohol use: Reports: none Drug use: Reports: none Physical Exam - General Limitations: no limitations General appearance: alert - Head Head exam: atraumatic, normocephalic, normal inspection - Neck Neck exam: Present: normal inspection, full ROM, trachea midline - Chest Chest inspection: Present: normal inspection, symmetric chest wall rise - Respiratory Respiratory exam: Present: respiratory distress, accessory muscle use - Cardiovascular Cardiovascular exam: Present: normal rhythm, tachycardia - Abdominal Exam Abdominal exam: Present: soft, Non-Tender. Absent: tenderness, distention, guarding, rebound, rigidity - Extremities Exam Extremities exam: Present: normal inspection - Back Exam Back exam: Present: normal inspection - Neurological Exam Neurological exam: Present: alert, oriented X3 - Skin Skin exam: Present: warm, dry, intact, normal color Course Course Narrative: Patient seen and examined the time of arrival. See history of present illness briefly 7-year-old male presents by EMS for evaluation of shortness of breath productive sputum. Patient has a history of quadriplegic issues. Patient chronically has increased work of breathing and mucus accumulation. He has had a bronchoscopy completed several times to suction out mucus secretions. Patient has little to no use of his diaphragm at this time is unable to cough up clear mucus accumulations without significant difficulty. Vital signs on presentation her baseline for this patient. Patient is chronically hypotensive secondary to lack of sympathetic tone. Patient has no other acute issues noted at least on this evaluation. Respiratory examination does show some significant increased work of breathing. He does have coarse breath sounds bilaterally on exam. Patient is slightly hypoxic initially. Conservative treatment to start this time. Chest x-ray and basic evaluation established at this point. The treatments will be given. Views of the patient will mucus spell. Initial contact was made with the on-call pattern changer and repairer further recommendations and possible bronchoscopy. Last and evaluate the chest x-ray. No other concerns or issues noted initially. We will continue to monitor until treatment course is completed. - Reevaluation(s) Reevaluation #1: Patient was evaluated by the ICU attending at the bedside. Recommended admission. CT scan was completed at the request as well. The CT scan does show bronchial thickening consistent with mucous accumulation and possible mucus plugging. Patient otherwise has been fine in the emergency room. BiPAP was applied an ABG was collected. Patient did have some symptomatic relief with the BiPAP but he did not like to continue to wear. No other acute symptoms noted at this time. Vital signs been stable. Admission process completed. Patient informed as compared with the plan. Admitted for respiratory control and possible bronchoscopy as needed. Time: 15:39 Reevaluation #2: Patient accepted by Dr. cho in the hospital for further evaluation and management of his pulmonary issues. Pulmonology will evaluate. No other concerns or issues noted. No other recommendations. Time: 15:42 Vital Signs Temperature 98.8 F 11/26/17 10:53 Pulse Rate 102 11/26/17 10:53 Respiratory Rate 23 11/26/17 10:53 Blood Pressure 90/57 11/26/17 10:53 O2 Sat by Pulse Oximetry 91 11/26/17 10:53 Temperature 98.8 F 11/26/17 10:53 Pulse Rate 109 11/26/17 11:43 Respiratory Rate 21 11/26/17 11:43 Blood Pressure 103/84 11/26/17 11:43 O2 Sat by Pulse Oximetry 90 11/26/17 11:43 Oxygen Delivery Oxygen Delivery Nasal Cannula Shortness of Breath/Dyspnea - MDM Narrative Medical decision making narrative: Mucus plugging, hypoxia, respiratory distress - Medical Records Medical records reviewed: Yes I reviewed the patient's medical records. - Lab Data Lab results reviewed: Yes I reviewed the patient's lab results. Result diagrams: 11/26/17 12:53 11/26/17 12:53 Lab Results 11/26/17 11/26/17 11/26/17 Range/Units 12:26 12:53 12:53 WBC 5.4 (4.3-11.1) K/mcL RBC 4.66 (4.19-5.50) M/mcL Hgb 12.4 L (12.9-16.9) g/dL Hct 39.6 (37.5-50.1) % MCV 85.0 (83.0-100.0) fL MCH 26.6 L (28.0-33.3) pg MCHC 31.3 L (31.6-35.5) g/dL RDW 22.5 H (11.5-14.5) % Plt Count 189 (140-400) K/mcL MPV 9.9 (9.4-12.4) fL Immature Gran % 0.2 (0-4) % Seg Neutrophils % 65.6 % Lymphocytes % 21.6 % Monocytes % 9.8 % Eosinophils % 2.4 % Basophils % 0.4 % Neutrophils # 3.6 (1.6-8.9) K/mcL Lymphocytes # 1.2 (0.6-4.6) K/mcL Monocytes # 0.5 (0.0-1.3) K/mcL Eosinophils # 0.1 (0.0-0.6) K/mcL Basophils # 0.0 (0.0-0.2) K/mcL ABG pH 7.40 (7.32-7.45) pH Units ABG pCO2 50 H (35-45) mmHg ABG pO2 56 L (85-104) mmHg ABG HCO3 31 H (21-27) mEq/L ABG Total CO2 32 H (20-26) mEq/L ABG O2 Saturation 88 L (95-98) % ABG Base Excess 5 H (-2 to 3) mEq/L O2 Delivery Device Room Air Inspired O2 21.0 (1-15=lpm [id number]%) Sodium 139 (136-145) mEq/L Potassium 4.1 (3.5-5.1) mEq/L Chloride 103 (98-107) mEq/L Carbon Dioxide 30 H (23-29) mEq/L BUN 6 (6-20) mg/dL Creatinine 0.25 L (0.70-1.30) mg/dL Est GFR ( Amer) > 60 (> 60) Est GFR (Non-Af Amer) > 60 (> 60) BUN/Creatinine Ratio 24 (6-26) Glucose 76 (70-105) mg/dL Calculated Osmolality 284 (280-300) Calcium 8.7 (8.6-10.3) mg/dL - Radiology Data Radiology results reviewed: Yes I reviewed the patient's radiology results. Chest x-ray is stable. CT of the chest that show mucus plugging with no acute consolidations or signs of pneumonia. - EKG Data EKG attestation: Yes I reviewed and interpreted this EKG. EKG results narrative: EKG shows sinus rhythm with ventricular rate of 97. 147. QRS duration of 78. QTC 389. No acute signs of ST segment elevation or abnormality. Intervals within normal limits. [place] is normal. No compatible EKG
[2017-11-26] MEDS ORDERED: *HR* HYDROmorphone 4 MG TABLET PO ONE (17:20)
[2017-11-26] MEDS: Cefepime HCl 1,000 MG in Water for inj. (sterile) 20 ML 10 ML IVP SCH (18:09)
[2017-11-26] MEDS: MethylPREDNISolone 40 MG/ML VIAL IVP SCH (18:09)
--- NOTE | 2017-11-26 19:50 | Electrocardiograph Report ---
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
[2017-11-26] MEDS: Ipratropium/Albuterol Neb 3 ML IH SCH ×2 (19:56→23:29)
--- NOTE | 2017-11-26 20:01 | Internal Med History&Physical ---
Date of Encounter: 11/26/17 Time of Encounter: 15:00 Assessment and Plan (1) Mucus plugging of bronchi Current visit: Yes Status: Acute -Pulmonology following recommendations for bronchoscopy on 11/27/17 (2) Acute respiratory failure with hypoxia Current visit: Yes Status: Acute -Secondary to above; continue supplemental oxygen as needed (3) Pneumonia Current visit: Yes Status: Acute -Will continue linezolid and cefepime per pulmonology recommendations Qualifiers: Laterality: left Lung location: lower lobe of lung Qualified Code(s): J18.1 - Lobar pneumonia, unspecified organism (4) DVT prophylaxis Current visit: No Status: Acute -SCDs Internal Medicine - H&P: HPI Chief complaint: Shortness of breath Admitted From: Home Plans for Post Hospital Care: Home History of present illness: Patient is a 27-year-old male with past medical history significant for recently treated pneumonia and treatment for mucus plugging at [facility] who presents to the ER on 11/26/17 due to shortness of breath. Patient reports of being diagnosed with pneumonia at [place] and was transferred to [facility] last week where he received further treatment for pneumonia and bronchoscopy for mucous plug. Patient was discharged home and was doing okay until recently became short of breath again and decided to come into the ER for evaluation. In the ER, CT of the chest showed mucous plugging more prominent on the left than on the right involving the bronchus supplying the left lower lobe with atelectasis and consolidation seen within the left lower lobe. Pulmonology was consulted from the ER and is following patient. Admitted to the medical floor for further management. Past Med Surg Social Fam HX - Past Medical History Medical history: kidney stones, other Psychiatric history: anxiety, depression - Past Surgical History Surgical History: vascular surgery, other - Social History Smoking Status: Never smoker Smokeless Tobacco Status: No Alcohol use: none Drug use: none - Family History Father Adopted: No Family Member Ethnicity: Non- Living Status: Still Living Hx Family Endocrine Disorder: Yes (DM) Mother Adopted: No Family Member Ethnicity: Non- Living Status: Still Living Hx Family Cancer: Yes (cervical, breast) Hx Family Endocrine Disorder: Yes (DM type I) Internal Medicine - H&P: Meds Ascorbic Acid [Vitamin C with Cira Hips] 500 mg PO DAILY 02/14/17 [History] Baclofen 20 mg PO QID 02/14/17 [History] Docusate Sodium [Dok] 100 mg PO BID 02/14/17 [History] HYDROmorphone [Dilaudid] 4 mg PO BID 02/14/17 [History] HYDROmorphone [Dilaudid] 8 mg PO 0000 02/14/17 [History] Multivitamin [Multivitamins] 1 tab PO DAILY 02/14/17 [History] Oxybutynin [Ditropan] 5 mg PO TID 02/14/17 [History] Polyethylene Glycol 3350 [Smoothlax] 17 gm PO Q48H 02/14/17 [History] Pregabalin [Lyrica] 150 mg PO TID 02/14/17 [History] Sennosides [Senna] 8.6 mg PO BID PRN 02/14/17 [History] Docusate Sodium/Benzocaine [Enemeez Plus Mini Enema] 5 ml RC DAILY 02/16/17 [ History] Albuterol Sulfate [Albuterol Inhaler] 1 puff IH Q4H PRN 04/01/17 [History] Potassium 99 mg PO QAM 04/01/17 [History] Zinc Acetate [Galzin] 50 mg PO DAILY 04/01/17 [History] Acetaminophen [Tylenol] 320 mg PO Q4H PRN 09/30/17 [History] Albuterol Neb [Proventil Neb] 2.5 mg IH QID PRN 09/30/17 [History] Bismuth Subsalicylate [Bismatrol] 525 mg PO Q6H PRN 09/30/17 [History] Calcium Carbonate [Tums] 1,000 mg PO AD PRN 09/30/17 [History] Chloraseptic [place] [Chloraseptic] 5 spray MM Q2H PRN 09/30/17 [History] EPINEPHrine [Epipen] 0.3 mg IM ONCE PRN 09/30/17 [History] Guaifenesin [Mucinex] 600 mg PO BID PRN 09/30/17 [History] Ibuprofen Susp [Motrin Susp] 600 mg PO Q6HR PRN 09/30/17 [History] Ketoconazole Shampoo [Nizoral Shampoo] 1 appl TP 3XW 09/30/17 [History] Mag Hydrox/Al Hydrox/Simeth [Antacid Suspension] 30 ml PO Q4H PRN 09/30/17 [ History] Magnesium Citrate [Citroma] 296 ml PO TID PRN 09/30/17 [History] Ondansetron HCl [Zofran] 4 mg PO Q4H PRN 09/30/17 [History] Simethicone [Gas-X] 80 mg PO TID PRN 09/30/17 [History] diazePAM [Valium] 10 mg PO BID 10/31/17 [History] Cefdinir [Omnicef] 300 mg PO BID 11/26/17 [History] Ciprofloxacin HCl [Cipro] 1 tab PO BID 11/26/17 [History] levoFLOXacin [Levofloxacin] 1 tab PO DAILY 11/26/17 [History] 3 Allergy/AdvReac Type Severity Reaction Status Date / Time Erythromycin Base Allergy See Verified 10/31/17 10:56 Comments aspirin AdvReac Nausea Verified 10/31/17 10:56 codeine AdvReac Hives Verified 10/31/17 10:56 diphenhydramine AdvReac Swelling Verified 10/31/17 10:56 [From Benadryl] of Lip/Tongue/Throat gentamicin AdvReac See Verified 10/31/17 10:56 Comments Methadone AdvReac Swelling Verified 10/31/17 10:56 of Lip/Tongue/Throat morphine AdvReac Hives Verified 10/31/17 10:56 Oxycodone [From OxyContin] AdvReac Swelling Verified 10/31/17 10:56 of Lip/Tongue/Throat promethazine [From Phenergan] AdvReac See Verified 10/31/17 10:56 Comments tobramycin AdvReac See Verified 10/31/17 10:56 Comments vancomycin AdvReac See Verified 10/31/17 10:56 Comments All Systems PM: A 10-system review of systems was performed and is negative for pertinent findings except as documented above in the HPI. - Constitutional Vitals: Temp Pulse Resp BP Pulse Ox 98.5 F 77 18 100/60 91 11/26/17 17:01 11/26/17 17:01 11/26/17 17:01 11/26/17 17:01 11/26/17 17:01 General appearance: Present: A&O X 3, no acute distress - ENT ENT exam: Present: mucous membranes moist - Respiratory Respiratory exam: Present: CTAB. Absent: accessory muscle use, rales, rhonchi, wheezes - Cardiovascular Cardiovascular exam: Present: RRR, +S1, +S2. Absent: diastolic murmur, gallop, rubs, systolic murmur - GI/Abdominal GI/Abdominal exam: Present: normal bowel sounds, soft, no peritoneal signs. Absent: distended, tenderness - Neurological Exam Neurological exam: Present: oriented X3 - Psychiatric Psychiatric exam: Present: normal mood Internal Med - H&P Results - Labs CBC & Chem 7: 11/26/17 12:53 11/26/17 12:53
[2017-11-26] MEDS ORDERED: Naloxone 0.4 MG/ML INJ IVP PRN (20:05)
[2017-11-27] MEDS: Cefepime HCl 1,000 MG in Water for inj. (sterile) 20 ML 10 ML IVP SCH ×3 (01:34→17:30)
[2017-11-27] MEDS: MethylPREDNISolone 40 MG/ML VIAL IVP SCH ×3 (01:35→17:30)
[2017-11-27] MEDS: Ipratropium/Albuterol Neb 3 ML IH SCH ×5 (03:05→20:34)
[2017-11-27] MEDS: Baclofen 10 MG TABLET PO SCH ×4 (03:46→17:30)
[2017-11-27] MEDS: *HR* HYDROmorphone 4 MG TABLET PO SCH ×2 (03:46→18:58)
[2017-11-27] MEDS: Pregabalin 75 MG CAPSULE PO SCH ×3 (03:46→17:30)
[2017-11-27] MEDS ORDERED: *HR* Alteplase (Cathflo) 2 MG VIAL IVP ONE (08:55)
[2017-11-27] MEDS ORDERED: *HR* HYDROmorphone 4 MG TABLET PO SCH ×2 (09:00→11:00)
[2017-11-27] MEDS ORDERED: Simethicone 80 MG TAB.CHEW PO PRN (10:51)
[2017-11-27] MEDS ORDERED: Acetaminophen 325 MG TABLET PO PRN (10:51)
[2017-11-27] MEDS ORDERED: Sennosides 8.6 MG TABLET PO PRN (10:51)
[2017-11-27] MEDS ORDERED: Pregabalin 75 MG CAPSULE PO SCH (11:00)
--- NOTE | 2017-11-27 11:07 | Internal Med Progress Note ---
Date of Encounter: 11/27/17 Time of Encounter: 11:04 - Assessment and plan (1) Acute respiratory failure with hypoxia Current Visit: Yes Status: Acute Assessment and plan: Continue with O2 support. Likely secondary to pneumonia and mucous plugging. Plan as below. Continue with nebulizer treatment. (2) Mucus plugging of bronchi Current Visit: Yes Status: Acute Assessment and plan: Seen by pulmonary. Plans for bronchoscopy. (3) Pneumonia Current Visit: Yes Status: Acute Assessment and plan: Continue with antibiotics with cefepime and linezolid for now. Follow up on cultures. Continue O2 support. Continue with nebs. Qualifiers: Laterality: left Lung location: lower lobe of lung Qualified Code(s): J18.1 - Lobar pneumonia, unspecified organism (4) History of quadriplegia Current Visit: No Status: Chronic Assessment and plan: Chronic (5) DVT prophylaxis Current Visit: No Status: Acute Assessment and plan: We will add heparin subcutaneous - Subjective Interval history: Patient was seen and examined. He is usually not on any oxygen. Currently on about 4-5 L of oxygen. Admitted with acute hypoxic respiratory failure. Secondary to mucus plugging. Seen by pulmonary. Has been afebrile. - Constitutional Vitals: Temp Pulse Resp BP Pulse Ox 98.2 F 94 18 104/81 95 11/27/17 07:56 11/27/17 07:56 11/27/17 07:56 11/27/17 07:56 11/27/17 07:56 General appearance: Present: A&O X 3, no acute distress Exam: GEN: NAD CVS: RRR. S1, S2, No m/r/g RESP: Diminished with coarse breath sounds almost throughout. ABD: Soft, NT, ND, +BS EXT: No edema. 2+ DP. No rashes NEURO: Quadriplegic Internal Medicine: Result - Labs CBC & Chem 7: 11/26/17 12:53 11/26/17 12:53 - ABG Interpretation ABG results: ABG ABG pH 7.40 pH Units (7.32-7.45) 11/26/17 12:26 ABG pCO2 50 mmHg (35-45) H 11/26/17 12:26 ABG pO2 56 mmHg (85-104) L 11/26/17 12:26 ABG O2 Saturation 88 % (95-98) L 11/26/17 12:26 Consult Discharge Plan - Plan Referrals: Bang Swenson MD [Primary Care Provider] - 12/06/17 11:00 am (will be at the [facility] location)
--- NOTE | 2017-11-27 11:12 | Anesthesia Evaluation PreOp ---
Date of Encounter: 11/27/17 Time of Encounter: 11:10 - Past History Planned Operation: Bronchoscopy Cardiac History: Denies any Significant Hx Pulmonary History: Other (chronic pneumonia) ROLL FORMER History: Other (C4-5 quadriplegia in 2007) Other Medical History: Renal (kidney stones) Anesthesia History: No Prior Anesthetic Complications, Past Anesthesia Alcohol Use: none Drug use: none Medications and Allergies Ascorbic Acid [Vitamin C with Cira Hips] 500 mg PO DAILY 02/14/17 [History] Baclofen 20 mg PO QID 02/14/17 [History] Docusate Sodium [Dok] 100 mg PO BID 02/14/17 [History] HYDROmorphone [Dilaudid] 4 mg PO BID 02/14/17 [History] HYDROmorphone [Dilaudid] 8 mg PO 0000 02/14/17 [History] Multivitamin [Multivitamins] 1 tab PO DAILY 02/14/17 [History] Oxybutynin [Ditropan] 5 mg PO TID 02/14/17 [History] Polyethylene Glycol 3350 [Smoothlax] 17 gm PO Q48H 02/14/17 [History] Pregabalin [Lyrica] 150 mg PO TID 02/14/17 [History] Sennosides [Senna] 8.6 mg PO BID PRN 02/14/17 [History] Docusate Sodium/Benzocaine [Enemeez Plus Mini Enema] 5 ml RC DAILY 02/16/17 [ History] Albuterol Sulfate [Albuterol Inhaler] 1 puff IH Q4H PRN 04/01/17 [History] Potassium 99 mg PO QAM 04/01/17 [History] Zinc Acetate [Galzin] 50 mg PO DAILY 04/01/17 [History] Acetaminophen [Tylenol] 320 mg PO Q4H PRN 09/30/17 [History] Albuterol Neb [Proventil Neb] 2.5 mg IH QID PRN 09/30/17 [History] Bismuth Subsalicylate [Bismatrol] 525 mg PO Q6H PRN 09/30/17 [History] Calcium Carbonate [Tums] 1,000 mg PO AD PRN 09/30/17 [History] Chloraseptic [place] [Chloraseptic] 5 spray MM Q2H PRN 09/30/17 [History] EPINEPHrine [Epipen] 0.3 mg IM ONCE PRN 09/30/17 [History] Guaifenesin [Mucinex] 600 mg PO BID PRN 09/30/17 [History] Ibuprofen Susp [Motrin Susp] 600 mg PO Q6HR PRN 09/30/17 [History] Ketoconazole Shampoo [Nizoral Shampoo] 1 appl TP 3XW 09/30/17 [History] Mag Hydrox/Al Hydrox/Simeth [Antacid Suspension] 30 ml PO Q4H PRN 09/30/17 [ History] Magnesium Citrate [Citroma] 296 ml PO TID PRN 09/30/17 [History] Ondansetron HCl [Zofran] 4 mg PO Q4H PRN 09/30/17 [History] Simethicone [Gas-X] 80 mg PO TID PRN 09/30/17 [History] diazePAM [Valium] 10 mg PO BID 10/31/17 [History] Cefdinir [Omnicef] 300 mg PO BID 11/26/17 [History] Ciprofloxacin HCl [Cipro] 1 tab PO BID 11/26/17 [History] levoFLOXacin [Levofloxacin] 1 tab PO DAILY 11/26/17 [History] 3 Allergy/AdvReac Type Severity Reaction Status Date / Time Erythromycin Base Allergy See Verified 10/31/17 10:56 Comments aspirin AdvReac Nausea Verified 10/31/17 10:56 codeine AdvReac Hives Verified 10/31/17 10:56 diphenhydramine AdvReac Swelling Verified 10/31/17 10:56 [From Benadryl] of Lip/Tongue/Throat gentamicin AdvReac See Verified 10/31/17 10:56 Comments Methadone AdvReac Swelling Verified 10/31/17 10:56 of Lip/Tongue/Throat morphine AdvReac Hives Verified 10/31/17 10:56 Oxycodone [From OxyContin] AdvReac Swelling Verified 10/31/17 10:56 of Lip/Tongue/Throat promethazine [From Phenergan] AdvReac See Verified 10/31/17 10:56 Comments tobramycin AdvReac See Verified 10/31/17 10:56 Comments vancomycin AdvReac See Verified 10/31/17 10:56 Comments - Meds/Allergy Pre-op Review Medications Reviewed: Yes Allergies Reviewed: Yes Beta Blockers on Current Med List: No Anesthesia Results - Labs 11/27/17 10:59 11/26/17 12:53 - Imaging EKG: report reviewed (11/26/2017 SINUS RHYTHM RIGHT ATRIAL ENLARGEMENT LEFT ATRIAL ENLARGEMENT 09/28/2017 SINUS RHYTHM POSSIBLE LEFT ATRIAL ENLARGEMENT) Anesthesia Exam Vital Signs/O2 Sat, Most Current Temp Pulse Resp BP Pulse Ox 98.2 F 94 18 104/81 95 11/27/17 07:56 11/27/17 07:56 11/27/17 07:56 11/27/17 07:56 11/27/17 07:56 Height: 6'1''/1.85 m Weight: 158 lbs/71.9 kg NPO (# of Hours): 8 Pain Scale: 0 Pain Scale Used: Numeric (1 - 10) - HEENT Pupil (Motor): EOMI Mallampati: II Teeth: Normal Oral Opening: Greater than 3 - ROLL FORMER LOC: Oriented ROLL FORMER Motor: Normal Face, Deficit RUE, Deficit LUE, Deficit RLE, Deficit LLE ROLL FORMER Sensory: Normal: Face, Deficit: RUE, LUE, RLE, LLE - Cardiac Rhythm: Regular Murmur: None - Pulmonary Breath Sounds: bilateral Clear Respiratory Effort: Symmetrical Anesthesia Assess/Plan ASA Score: 3 Modified Sarita Scale for Level of Consciousness: Cooperative, oriented, and tranquil Anesthetic Plan: MAC Monitoring Plan: Standard Monitors
[2017-11-27 11:26] LABS: Basophils % 0.2 %; Hematocrit 44.8 % (37.5-50.1); Hemoglobin 13.8 g/dL (12.9-16.9); Immature Granulocytes % 0.5 % (0-4); Lymphocytes # 0.6 K/mcL (0.6-4.6); Lymphocytes % 14.1 %; Mean Corpuscular HGB Conc 30.8 g/dL (31.6-35.5); Mean Corpuscular Volume 84.5 fL (83.0-100.0); Mean Platelet Volume 10.5 fL (9.4-12.4); Monocytes # 0.1 K/mcL (0.0-1.3); Monocytes % 1.7 %; Neutrophils # 3.5 K/mcL (1.6-8.9); Platelet Count 253 K/mcL (140-400); Red Cell Distribution Width 22.5 % (11.5-14.5); Segmented Neutrophils % 83.5 %
[2017-11-27] MEDS ORDERED: *HR* Propofol 200 MG/20 ML VIAL IVP ONE ×2 (12:20→12:21)
[2017-11-27] MEDS ORDERED: 0.9 % Sodium Chloride 500 ML IVC SCH (12:30)
[2017-11-27] MEDS ORDERED: Lidocaine Viscous Oral Soln 15 ML SOLUTION ONE (12:33)
[2017-11-27] MEDS ORDERED: Baclofen 10 MG TABLET PO SCH (13:00)
[2017-11-27 13:03] LABS: BUN/Creatinine Ratio 26 (6-26); Blood Urea Nitrogen 7 mg/dL (6-20); Calcium 8.8 mg/dL (8.6-10.3); Carbon Dioxide 29 mEq/L (23-29); Chloride 102 mEq/L (98-107); Glucose 124 mg/dL (70-105); Osmolality,Calculated 283 (280-300); Potassium 4.2 mEq/L (3.5-5.1); Sodium 137 mEq/L (136-145); eGFR For African Americans > 60 (> 60); eGFR For Non-African Americans > 60 (> 60)
[2017-11-27] MEDS: diazePAM 10 MG TABLET PO SCH ×2 (13:29→21:02)
--- NOTE | 2017-11-27 16:02 | Pulmonology Progress Note ---
Date of Encounter: 11/28/17 Time of Encounter: 08:00 Assessment and Plan (1) Acute respiratory failure with hypoxia and hypercapnia Current Visit: Yes Status: Acute Patient is coming with acute hypoxic respiratory failure with hypercapnia looking at his HCO3 it looks chronic most likely due to chronic hypoventilation due to chronic quadriplegia patient with current day time hypercarbia wont qualify for BIPAP but if we can outpatient PSG to demonstrate nocturnal hypoventilation will qualify for BIPAP ,patient is anxious to use BIPAP since he cannot take it off in an emergency . Counseled that will help in long run in clearing his CO2 and can help in prevent recurrent mucous plugging (2) Mucus plugging of bronchi Current Visit: Yes Status: Acute Patient is scheduled for Bronchoscopy for today afternoon . Patient needed multiple hospital admissions in the past for Bronchoscopies will need a plan to manage his airway secretions with different devices which aid bronchopulmonary hygiene . VITAL COUGH system which helps in coughing up secretions from the large airways . Other mucocilliary clearance system like [employer] CLEARANCE SYSTEM, [employer]ST AIRWAY CLEARANCE SYSTEM -HOME CARE MODEL 105 gave these names to the nursing staff to touch base with social media manager to arrange it as part of home health (3) Pneumonia Current Visit: Yes Status: Acute Will continue with current regimen of antibiotics will send the BAL samples for micro and cytology . Qualifiers: Laterality: left Lung location: lower lobe of lung Qualified Code(s): J18.1 - Lobar pneumonia, unspecified organism Subjective Principal diagnosis: Left lower lobe pneumonia Interval history: 27 year old male with chronic quadriplegia with recurrent left lower lobe pneumonia 5 years ago he used to get multiple recurrent pneumonias most likely due to weak coughing mechanism due to chronic quadriplegia this year 1 week ago he got this left lower lobe pneumonia had a bronchoscopy at [place] found to have serious mucous plugging with thick secretions in the left side patient this time presented to [facility] with same complaints CT chest showed mucous plugging in he left lower lobar airways first and second generation patient is scheduled for Bronchoscopy today Objective PUL Vital signs: Last Vital Signs Temp 98.2 F 11/27/17 07:56 Pulse 84 11/27/17 12:17 Resp 18 11/27/17 12:17 BP 116/83 11/27/17 12:17 Pulse Ox 97 11/27/17 12:17 Auscultation: bilateral: wheezes (scattered wheezes ), other (with some rales ) Gastrointestinal: hypoactive bowel sounds Extremities: other (chronic contractures ) other (quadriplegia) Results - Laboratory Findings CBC and BMP: 11/28/17 05:50 11/28/17 05:50 ABG ABG pH 7.40 pH Units (7.32-7.45) 11/26/17 12:26 ABG pCO2 50 mmHg (35-45) H 11/26/17 12:26 ABG pO2 56 mmHg (85-104) L 11/26/17 12:26 ABG O2 Saturation 88 % (95-98) L 11/26/17 12:26 Abnormal lab findings: Abnormal lab results WBC 4.2 K/mcL (4.3-11.1) L 11/27/17 10:59 MCH 26.0 pg (28.0-33.3) L 11/27/17 10:59 MCHC 30.8 g/dL (31.6-35.5) L 11/27/17 10:59 RDW 22.5 % (11.5-14.5) H 11/27/17 10:59 ABG pCO2 50 mmHg (35-45) H 11/26/17 12:26 ABG pO2 56 mmHg (85-104) L 11/26/17 12:26 ABG HCO3 31 mEq/L (21-27) H 11/26/17 12:26 ABG Total CO2 32 mEq/L (20-26) H 11/26/17 12:26 ABG O2 Saturation 88 % (95-98) L 11/26/17 12:26 ABG Base Excess 5 mEq/L (-2 to 3) H 11/26/17 12:26 Creatinine 0.27 mg/dL (0.70-1.30) L 11/27/17 11:53 Glucose 124 mg/dL (70-105) H 11/27/17 11:53 - Clinical Findings Intake & Output: Intake & Output 11/26/17 11/27/17 11/27/17 23:59 07:59 15:59 Intake Total 50 / 60 200 / 200 Output Total 1400 / 1400 Balance -1350 / -1340 200 / 200 Weight 71.9 kg Consult Discharge Plan - Plan Referrals: Bang Swenson MD [Primary Care Provider] - 12/06/17 11:00 am (will be at the [facility] location)
[2017-11-27] MEDS: *HR* Heparin 5,000 UNIT/ML VIAL SQ SCH ×2 (16:07→21:15)
[2017-11-27 19:37] LABS: Appearance of Body Fluid Cloudy (Clear); Volume of Body Fluid 22 mL
[2017-11-28] MEDS: Pregabalin 75 MG CAPSULE PO SCH ×3 (00:01→15:24)
[2017-11-28] MEDS: Baclofen 10 MG TABLET PO SCH ×3 (00:01→15:24)
[2017-11-28] MEDS: *HR* HYDROmorphone 4 MG TABLET PO SCH ×2 (00:01→11:36)
[2017-11-28] MEDS: MethylPREDNISolone 40 MG/ML VIAL IVP SCH (00:02)
[2017-11-28] MEDS: Cefepime HCl 1,000 MG in Water for inj. (sterile) 20 ML 10 ML IVP SCH ×2 (00:02→11:37)
[2017-11-28] MEDS: Levalbuterol Neb 0.63 MG/3 ML IH SCH ×5 (00:26→15:40)
[2017-11-28] MEDS: Nystatin POWDER 30 GM BOTTLE TP SCH ×3 (01:00→15:24)
[2017-11-28] MEDS: D5% in 0.45% NACL w KCl 20 MEQ/1,000 ML MLS IVC SCH ×2 (01:58→11:56)
[2017-11-28] MEDS: *HR* Heparin 5,000 UNIT/ML VIAL SQ SCH ×2 (05:46→14:50)
[2017-11-28 06:10] LABS: Hematocrit 39.7 % (37.5-50.1); Immature Granulocytes % 0.4 % (0-4); Lymphocytes # 0.6 K/mcL (0.6-4.6); Lymphocytes % 9.2 %; Mean Corpuscular HGB Conc 30.7 g/dL (31.6-35.5); Mean Corpuscular Hemoglobin 26.2 pg (28.0-33.3); Mean Corpuscular Volume 85.2 fL (83.0-100.0); Mean Platelet Volume 10.6 fL (9.4-12.4); Monocytes # 0.3 K/mcL (0.0-1.3); Monocytes % 3.8 %; Platelet Count 249 K/mcL (140-400); Red Blood Count 4.66 M/mcL (4.19-5.50); Red Cell Distribution Width 22.1 % (11.5-14.5); Segmented Neutrophils % 86.6 %
[2017-11-28 06:11] LABS: Hemoglobin 12.2 g/dL (12.9-16.9)
[2017-11-28 06:36] LABS: BUN/Creatinine Ratio 31 (6-26); Blood Urea Nitrogen 8 mg/dL (6-20); Calcium 8.5 mg/dL (8.6-10.3); Carbon Dioxide 29 mEq/L (23-29); Chloride 102 mEq/L (98-107); Glucose 184 mg/dL (70-105); Osmolality,Calculated 287 (280-300); Potassium 4.3 mEq/L (3.5-5.1); Sodium 137 mEq/L (136-145); Triglycerides 59 mg/dL (< 150); eGFR For African Americans > 60 (> 60); eGFR For Non-African Americans > 60 (> 60)
[2017-11-28 06:37] LABS: Chol/HDL Ratio 3.6 (0-4.9); Cholesterol 146 mg/dL (< 200); HDL Cholesterol 41 mg/dL (40-59); LDL Cholesterol,Calculated 93 mg/dL (0-99)
[2017-11-28] MEDS ORDERED: *HR* HYDROmorphone 4 MG TABLET PO SCH ×2 (08:00)
[2017-11-28] MEDS ORDERED: Zinc Sulfate 220 MG CAPSULE PO SCH (09:00)
[2017-11-28] MEDS ORDERED: Ascorbic Acid 500 MG TABLET PO SCH (09:00)
--- NOTE | 2017-11-28 10:41 | Discharge Summary ---
Date of Encounter: 11/28/17 Time of Encounter: 10:37 - Discharge Diagnosis (1) Acute respiratory failure with hypoxia Priority: Primary Status: Acute (2) Mucus plugging of bronchi Priority: Primary Status: Acute (3) Pneumonia Priority: Primary Status: Acute Qualifiers: Pneumonia type: due to unspecified organism Laterality: left Lung location: lower lobe of lung Qualified Code(s): J18.1 - Lobar pneumonia, unspecified organism (4) History of quadriplegia Priority: Secondary Status: Chronic - Discharge Medications Prescriptions: Doxycycline 100 mg PO BID #14 capsule predniSONE [PredniSONE] 40 mg PO DAILY 5 Days #20 tablet Home Medications: Ascorbic Acid [Vitamin C with Cira Hips] 500 mg PO DAILY 02/14/17 [History] Baclofen 20 mg PO QID 02/14/17 [History] Docusate Sodium [Dok] 100 mg PO BID 02/14/17 [History] HYDROmorphone [Dilaudid] 4 mg PO BID 02/14/17 [History] HYDROmorphone [Dilaudid] 8 mg PO 0000 02/14/17 [History] Multivitamin [Multivitamins] 1 tab PO DAILY 02/14/17 [History] Oxybutynin [Ditropan] 5 mg PO TID 02/14/17 [History] Polyethylene Glycol 3350 [Smoothlax] 17 gm PO Q48H 02/14/17 [History] Pregabalin [Lyrica] 150 mg PO TID 02/14/17 [History] Sennosides [Senna] 8.6 mg PO BID PRN 02/14/17 [History] Docusate Sodium/Benzocaine [Enemeez Plus Mini Enema] 5 ml RC DAILY 02/16/17 [ History] Albuterol Sulfate [Albuterol Inhaler] 1 puff IH Q4H PRN 04/01/17 [History] Potassium 99 mg PO QAM 04/01/17 [History] Zinc Acetate [Galzin] 50 mg PO DAILY 04/01/17 [History] Acetaminophen [Tylenol] 320 mg PO Q4H PRN 09/30/17 [History] Albuterol Neb [Proventil Neb] 2.5 mg IH QID PRN 09/30/17 [History] Bismuth Subsalicylate [Bismatrol] 525 mg PO Q6H PRN 12/04/17 [History] Calcium Carbonate [Tums] 1,000 mg PO AD PRN 09/30/17 [History] Chloraseptic [place] [Chloraseptic] 5 spray MM Q2H PRN 09/30/17 [History] EPINEPHrine [Epipen] 0.3 mg IM ONCE PRN 09/30/17 [History] Guaifenesin [Mucinex] 600 mg PO BID PRN 09/30/17 [History] Ibuprofen Susp [Motrin Susp] 600 mg PO Q6HR PRN 09/30/17 [History] Ketoconazole Shampoo [Nizoral Shampoo] 1 appl TP 3XW 09/30/17 [History] Mag Hydrox/Al Hydrox/Simeth [Antacid Suspension] 30 ml PO Q4H PRN 09/30/17 [ History] Magnesium Citrate [Citroma] 296 ml PO TID PRN 09/30/17 [History] Ondansetron HCl [Zofran] 4 mg PO Q4H PRN 09/30/17 [History] Simethicone [Gas-X] 80 mg PO TID PRN 09/30/17 [History] diazePAM [Valium] 10 mg PO PRN PRN 10/31/17 [History] Ciprofloxacin HCl [Cipro] 1 tab PO BID 11/26/17 [History] Doxycycline 100 mg PO BID #14 capsule 11/28/17 [Rx] predniSONE [PredniSONE] 40 mg PO DAILY 5 Days #20 tablet 11/28/17 [Rx] Allergies/Adverse Reactions: 3 Allergy/AdvReac Type Severity Reaction Status Date / Time Erythromycin Base Allergy See Verified 10/31/17 10:56 Comments aspirin AdvReac Nausea Verified 10/31/17 10:56 codeine AdvReac Hives Verified 10/31/17 10:56 diphenhydramine AdvReac Swelling Verified 10/31/17 10:56 [From Benadryl] of Lip/Tongue/Throat gentamicin AdvReac See Verified 10/31/17 10:56 Comments Methadone AdvReac Swelling Verified 10/31/17 10:56 of Lip/Tongue/Throat morphine AdvReac Hives Verified 10/31/17 10:56 Oxycodone [From OxyContin] AdvReac Swelling Verified 10/31/17 10:56 of Lip/Tongue/Throat promethazine [From Phenergan] AdvReac See Verified 10/31/17 10:56 Comments tobramycin AdvReac See Verified 10/31/17 10:56 Comments vancomycin AdvReac See Verified 10/31/17 10:56 Comments Date of admission: 11/27/17 02:44 Primary care physician: Bang Swenson MD Consults: 11/27/17 10:49 Consult to Occupational Therapy [CONS] Routine Comment: Evaluate, develop and implement POC Reason for Consult: therapy/placement needs Consult to Physical Therapy [CONS] Routine Comment: Evaluate, develop and implement POC Reason for Consult: PT eval - Patient Status Disposition: Home, Self-Care Overall status at discharge: patient is back to baseline - Discharge Instructions Follow Up With: Bang Swenson MD [Primary Care Provider] - 12/06/17 11:00 am ([facility] - Diet and Activity Activity: increase activity as tolerated Diet: regular diet Hospital course: Mr. Beltran is a 27 year old male with past medical history significant for recently treated pneumonia and treatment for mucus plugging at [facility] who presented to the ER on 11/26/17 due to shortness of breath. In the ER, CT of the chest showed mucous plugging more prominent on the left than on the right involving the bronchus supplying the left lower lobe with atelectasis and consolidation seen within the left lower lobe. Patient was hypoxic and needed O2. Admitted to the hospitalist service with a consult to pulmonary. Was put on IV abx and IV steroids per pulmonary and underwent bronchoscopy to remove the mucus plugs. BAL was negative and patient was off O2 the following morning. He was recommended discharge on 5 days of prednisone 40 mg as well as doxycycline 100 mg twice a day for 7 days. He was set up with mucus clearance device per pulmonary. He was stable for discharge on 11/28/2017. t. - Time Spent with Patient Total time spent providing and/or coordinating discharge services: Greater than 30 minutes - Constitutional Vitals: Temp Pulse Resp BP Pulse Ox 97.4 F L 70 15 117/85 95 11/28/17 07:06 11/28/17 07:06 11/28/17 07:06 11/28/17 07:06 11/28/17 07:06 General appearance: Present: A&O X 3, no acute distress Exam: GEN: NAD CVS: RRR. S1, S2, No m/r/g RESP: Diminished but clear ABD: Soft, NT, ND, +BS EXT: No edema. 2+ DP. No rashes NEURO: Quadriplegic
[2017-11-28 11:00] VITALS: BP 120/82
[2017-11-28] MEDS: diazePAM 10 MG TABLET PO SCH (11:37)
--- NOTE | 2017-11-28 12:29 | Physician Discharge Referral ---
Home Health/Hosp Referral Info Transfer to: Home Health - Diagnosis (1) Acute respiratory failure with hypoxia Priority: Primary Status: Acute (2) Mucus plugging of bronchi Priority: Primary Status: Acute (3) Pneumonia Priority: Primary Status: Acute (4) History of quadriplegia Priority: Secondary Status: Chronic - Respiratory Orders Smoking Cessation: Smoking cessation has been advised. For more information, call the [place] Tobacco Quit Line at 7-295-GGRQ-NOW. - Services Needed Following services are medically necessary services: Nursing, Home Health Aide - Transfer Medications Prescriptions: Doxycycline 100 mg PO BID #14 capsule predniSONE [PredniSONE] 40 mg PO DAILY 5 Days #20 tablet Home Medications: Ascorbic Acid [Vitamin C with Cira Hips] 500 mg PO DAILY 02/14/17 [History] Baclofen 20 mg PO QID 02/14/17 [History] Docusate Sodium [Dok] 100 mg PO BID 02/14/17 [History] HYDROmorphone [Dilaudid] 4 mg PO BID 02/14/17 [History] HYDROmorphone [Dilaudid] 8 mg PO 0000 02/14/17 [History] Multivitamin [Multivitamins] 1 tab PO DAILY 02/14/17 [History] Oxybutynin [Ditropan] 5 mg PO TID 02/14/17 [History] Polyethylene Glycol 3350 [Smoothlax] 17 gm PO Q48H 02/14/17 [History] Pregabalin [Lyrica] 150 mg PO TID 02/14/17 [History] Sennosides [Senna] 8.6 mg PO BID PRN 02/14/17 [History] Docusate Sodium/Benzocaine [Enemeez Plus Mini Enema] 5 ml RC DAILY 02/16/17 [ History] Albuterol Sulfate [Albuterol Inhaler] 1 puff IH Q4H PRN 04/01/17 [History] Potassium 99 mg PO QAM 04/01/17 [History] Zinc Acetate [Galzin] 50 mg PO DAILY 04/01/17 [History] Acetaminophen [Tylenol] 320 mg PO Q4H PRN 09/30/17 [History] Albuterol Neb [Proventil Neb] 2.5 mg IH QID PRN 09/30/17 [History] Bismuth Subsalicylate [Bismatrol] 525 mg PO Q6H PRN 09/30/17 [History] Calcium Carbonate [Tums] 1,000 mg PO AD PRN 09/30/17 [History] Chloraseptic [place] [Chloraseptic] 5 spray MM Q2H PRN 09/30/17 [History] EPINEPHrine [Epipen] 0.3 mg IM ONCE PRN 09/30/17 [History] Guaifenesin [Mucinex] 600 mg PO BID PRN 09/30/17 [History] Ibuprofen Susp [Motrin Susp] 600 mg PO Q6HR PRN 09/30/17 [History] Ketoconazole Shampoo [Nizoral Shampoo] 1 appl TP 3XW 09/30/17 [History] Mag Hydrox/Al Hydrox/Simeth [Antacid Suspension] 30 ml PO Q4H PRN 09/30/17 [ History] Magnesium Citrate [Citroma] 296 ml PO TID PRN 09/30/17 [History] Ondansetron HCl [Zofran] 4 mg PO Q4H PRN 09/30/17 [History] Simethicone [Gas-X] 80 mg PO TID PRN 09/30/17 [History] diazePAM [Valium] 10 mg PO PRN PRN 10/31/17 [History] Ciprofloxacin HCl [Cipro] 1 tab PO BID 11/26/17 [History] Doxycycline 100 mg PO BID #14 capsule 11/28/17 [Rx] predniSONE [PredniSONE] 40 mg PO DAILY 5 Days #20 tablet 11/28/17 [Rx] Allergies/Adverse Reactions: 3 Allergy/AdvReac Type Severity Reaction Status Date / Time Erythromycin Base Allergy See Verified 10/31/17 10:56 Comments aspirin AdvReac Nausea Verified 10/31/17 10:56 codeine AdvReac Hives Verified 10/31/17 10:56 diphenhydramine AdvReac Swelling Verified 10/31/17 10:56 [From Benadryl] of Lip/Tongue/Throat gentamicin AdvReac See Verified 10/31/17 10:56 Comments Methadone AdvReac Swelling Verified 10/31/17 10:56 of Lip/Tongue/Throat morphine AdvReac Hives Verified 10/31/17 10:56 Oxycodone [From OxyContin] AdvReac Swelling Verified 10/31/17 10:56 of Lip/Tongue/Throat promethazine [From Phenergan] AdvReac See Verified 10/31/17 10:56 Comments tobramycin AdvReac See Verified 10/31/17 10:56 Comments vancomycin AdvReac See Verified 10/31/17 10:56 Comments Certification: Further, I certify that my clinical findings support that this patient is homebound (i.e. absences from home require considerable and taxing effort and are for medical reasons or christian services or infrequently or short duration when for other reasons) because: Homebound Reason: Patient requires assistance of a person or device to safely leave home Attestation: My signature below is to certify that this patient is under my care and that I, or nurse practitioner, or a physician's licensed nursing assistant working with me, has a face-to -face encounter with this patient.
--- NOTE | 2017-11-28 19:09 | Pulmonology Progress Note ---
Date of Encounter: 11/29/17 Time of Encounter: 09:00 Assessment and Plan (1) Acute respiratory failure with hypoxia and hypercapnia Status: Acute Patient is coming with acute hypoxic respiratory failure with hypercapnia looking at his HCO3 it looks chronic most likely due to chronic hypoventilation due to chronic quadriplegia patient with current day time hypercarbia wont qualify for BIPAP but if we can outpatient PSG to demonstrate nocturnal hypoventilation will qualify for BIPAP ,patient is anxious to use BIPAP since he cannot take it off in an emergency . Counseled that will help in long run in clearing his CO2 and can help in prevent recurrent mucous plugging 2/ : Today is he off Oxygen patient says he is back to baseline he wants to go home . Will discharge him home on 5 days of prednisone taper and 7 days of Doxycline as BAL gram stain didnt show any organism and the prelim cultures are negative . (2) Mucus plugging of bronchi Status: Acute Patient is scheduled for Bronchoscopy for today afternoon . Patient needed multiple hospital admissions in the past for Bronchoscopies will need a plan to manage his airway secretions with different devices which aid bronchopulmonary hygiene . VITAL COUGH system which helps in coughing up secretions from the large airways . Other mucocilliary clearance system like [employer] CLEARANCE SYSTEM, [employer] CLEARANCE SYSTEM -HOME CARE MODEL 105 gave these names to the nursing staff to touch base with marriage and family social worker to arrange it as part of home health 2/1 : Bronchoscopy showed lot of thick copious secretions in the left lower lobe also had some secretions in RML most of the mucosa is erythematous especially more in the Left lower lobe . So far there is no growth in the BAL secretions. (3) Pneumonia Status: Acute BAL gram stain shows no organisms , and the culture growing no organisms Qualifiers: Pneumonia type: due to unspecified organism Laterality: left Lung location: lower lobe of lung Qualified Code(s): J18.1 - Lobar pneumonia, unspecified organism Subjective Principal diagnosis: Left lower lobe pneumonia Interval history: 27 year old male with chronic quadriplegia with recurrent left lower lobe pneumonia 5 years ago he used to get multiple recurrent pneumonias most likely due to weak coughing mechanism due to chronic quadriplegia this year 1 week ago he got this left lower lobe pneumonia had a bronchoscopy at [facility] found to have serious mucous plugging with thick secretions in the left side patient this time presented to [facility] with same complaints CT chest showed mucous plugging in he left lower lobar airways first and second generation patient had a uneventful Bronchoscopy yesterday . Patient is doing well off Oxygen saturating well on room air wants to go home as he said he is back to baseline , feels no chest pain is able to take deep breadths . Objective PUL Vital signs: Last Vital Signs Temp 97.3 F L 11/28/17 10:59 Pulse 70 11/28/17 10:59 Resp 15 11/28/17 10:59 BP 120/82 11/28/17 10:59 Pulse Ox 94 11/28/17 10:59 Auscultation: left: diminished breath sounds (basilar diminished breadths sounds ) Results - Laboratory Findings CBC and BMP: 11/28/17 05:50 11/28/17 05:50 ABG ABG pH 7.40 pH Units (7.32-7.45) 11/26/17 12:26 ABG pCO2 50 mmHg (35-45) H 11/26/17 12:26 ABG pO2 56 mmHg (85-104) L 11/26/17 12:26 ABG O2 Saturation 88 % (95-98) L 11/26/17 12:26 Abnormal lab findings: Abnormal lab results Hgb 12.2 g/dL (12.9-16.9) L D 11/28/17 05:50 MCH 26.2 pg (28.0-33.3) L 11/28/17 05:50 MCHC 30.7 g/dL (31.6-35.5) L 11/28/17 05:50 RDW 22.1 % (11.5-14.5) H 11/28/17 05:50 ABG pCO2 50 mmHg (35-45) H 11/26/17 12:26 ABG pO2 56 mmHg (85-104) L 11/26/17 12:26 ABG HCO3 31 mEq/L (21-27) H 11/26/17 12:26 ABG Total CO2 32 mEq/L (20-26) H 11/26/17 12:26 ABG O2 Saturation 88 % (95-98) L 11/26/17 12:26 ABG Base Excess 5 mEq/L (-2 to 3) H 11/26/17 12:26 Creatinine 0.26 mg/dL (0.70-1.30) L 11/28/17 05:50 BUN/Creatinine Ratio 31 (6-26) H 11/28/17 05:50 Glucose 184 mg/dL (70-105) H 11/28/17 05:50 Calcium 8.5 mg/dL (8.6-10.3) L 11/28/17 05:50 Fluid Appearance Cloudy (Clear) A 11/27/17 12:52 - Microbiology Findings Microbiology Findings: Microbiology, Last 48 Hours 11/27/17 12:52 Acid Fast Stain - Final Left Lower Lobe Lung 11/27/17 12:52 Respiratory Culture - Preliminary Left Lower Lobe Lung No growth. 11/27/17 12:52 Gram Stain - Final Left Lower Lobe Lung - Clinical Findings Intake & Output: Intake & Output 11/28/17 11/28/17 11/28/17 07:59 15:59 23:59 Intake Total 10 / 10 1010 / 1010 Output Total 700 / 700 1200 / 1200 Balance -690 / -690 -190 / -190 Weight 72.717 kg Consult Discharge Plan - Plan Instructions: Doxycycline (By mouth), Prednisone (By mouth) Referrals: Bang Swenson MD [Primary Care Provider] - 12/06/17 11:00 am (will be at the [facility] location) Prescriptions: Doxycycline 100 mg PO BID #14 capsule predniSONE [PredniSONE] 40 mg PO DAILY 5 Days #20 tablet
[2017-11-29 22:51] LABS: Influenza A PCR Body Fluid NOT DETECTED; Influenza B PCR Body Fluid NOT DETECTED; RVP Body Fluid Source BAL LLL
[2017-12-02 08:23] LABS: RSV PCR Body Fluid DETECTED
== END 2017-11-28 16:30 | disposition home or self-care (01) | DRG 133 ==
LOC: 2NNU 10:51 → EMEROO 10:51 → 2NNU 17:00
PROVIDERS: ADMIT Internal Medicine Cardiovascular Disease; ATTEND Internal Medicine

== ENCOUNTER 2017-11-30 20:18 | Observation (INO) ==
[2017-11-30] MEDS ORDERED: 0.9 % Sodium Chloride 1,000 ML IVC ONE (20:26)
[2017-11-30] MEDS ORDERED: Ipratropium/Albuterol Neb 3 ML IH ONE (20:26)
--- NOTE | 2017-11-30 20:33 | Emergency Department Note ---
START Narrative - START START: I examined this patient and my medical decision-making was reviewed with the Resident Physician, Alejo Chow. I agree with the documented findings, disposition and treatment plan as described except to the extent set forth below. I have personally performed a face to face evaluation on this patient. I have reviewed and agree with the care plan. Briefly: A 27-year-old male quadriplegic status post distant sledding accident , pneumonia by EMS from [facility] for possible pneumonia. Patient said he was recently had a bronchoscopy at [facility] in [place] within the past week. Patient is afebrile with stable vital signs at this time. ED workup is underway with disposition pending although admission anticipated.
[2017-11-30] MEDS ORDERED: MethylPREDNISolone 40 MG/ML VIAL IVP ONE (20:34)
--- NOTE | 2017-11-30 20:37 | Emergency Department Note ---
Disposition Clinical Impression: Quadriplegia Pneumonia Qualifiers: Pneumonia type: due to unspecified organism Laterality: unspecified laterality Lung location: unspecified part of lung Qualified Code(s): J18.9 - Pneumonia, unspecified organism Disposition: Admitted As Inpatient Condition: Fair Time of Disposition: 21:57 General Adult HPI - General Chief complaint: ED Shortness of Breath/Dyspnea Stated complaint: poss PNA Time Seen by Provider: 11/30/17 20:25 Source: patient, EMS Mode of arrival: ambulatory Limitations: no limitations Nursing Notes Reviewed: Yes Vital Signs Reviewed: Yes - History of Present Illness HPI Narrative: 27-year-old quadriplegic male for remote sledding accident is for evaluation of acute on chronic pneumonia symptoms. Patient states that he was recently admitted and had bronchoscopy and had known left lower lobe pneumonia. Patient does not have an adequate cough. Patient noted worsening symptoms of dyspnea over the past hour. No notable fevers. Patient also had increasing rattling in his chest. Patient does have aerosols as well as incentive spirometry at the [facility], [place]. Patient denies any chest pain. No nausea or vomiting. No abdominal pain. Patient was recently admitted and completed a course of antibiotics which seemed to improve his symptoms. Patient does not recall the antibiotics that he is on currently. Patient states that about oral Maalox as well as oral steroids Pain Scale: 0 - Related Data Home Medications Medication Instructions Recorded Confirmed Ascorbic Acid [Vitamin C with Cira 500 mg PO DAILY 02/14/17 11/26/17 Hips] Baclofen 20 mg PO QID 02/14/17 11/26/17 Docusate Sodium [Dok] 100 mg PO BID 02/14/17 11/26/17 HYDROmorphone [Dilaudid] 4 mg PO BID 02/14/17 11/26/17 HYDROmorphone [Dilaudid] 8 mg PO 0000 02/14/17 11/26/17 Multivitamin [Multivitamins] 1 tab PO DAILY 02/14/17 11/26/17 Oxybutynin [Ditropan] 5 mg PO TID 02/14/17 11/26/17 Polyethylene Glycol 3350 17 gm PO Q48H 02/14/17 11/26/17 [Smoothlax] Pregabalin [Lyrica] 150 mg PO TID 02/14/17 11/26/17 Sennosides [Senna] 8.6 mg PO BID PRN 02/14/17 11/26/17 Docusate Sodium/Benzocaine 5 ml RC DAILY 02/16/17 11/26/17 [Enemeez Plus Mini Enema] Albuterol Sulfate [Albuterol 1 puff IH Q4H PRN 04/01/17 11/26/17 Inhaler] Potassium 99 mg PO QAM 04/01/17 11/26/17 Zinc Acetate [Galzin] 50 mg PO DAILY 04/01/17 11/26/17 Acetaminophen [Tylenol] 320 mg PO Q4H PRN 09/30/17 11/26/17 Albuterol Neb [Proventil Neb] 2.5 mg IH QID PRN 09/30/17 11/26/17 Bismuth Subsalicylate [Bismatrol] 525 mg PO Q6H PRN 09/30/17 11/26/17 Calcium Carbonate [Tums] 1,000 mg PO AD PRN 09/30/17 11/26/17 Chloraseptic [place] [Chloraseptic] 5 spray MM Q2H PRN 09/30/17 11/26/17 EPINEPHrine [Epipen] 0.3 mg IM ONCE PRN 09/30/17 11/26/17 Guaifenesin [Mucinex] 600 mg PO BID PRN 09/30/17 11/26/17 Ibuprofen Susp [Motrin Susp] 600 mg PO Q6HR PRN 09/30/17 11/26/17 Ketoconazole Shampoo [Nizoral 1 appl TP 3XW 09/30/17 11/26/17 Shampoo] Mag Hydrox/Al Hydrox/Simeth 30 ml PO Q4H PRN 09/30/17 11/26/17 [Antacid Suspension] Magnesium Citrate [Citroma] 296 ml PO TID PRN 09/30/17 11/26/17 Ondansetron HCl [Zofran] 4 mg PO Q4H PRN 09/30/17 11/26/17 Simethicone [Gas-X] 80 mg PO TID PRN 09/30/17 11/26/17 diazePAM [Valium] 10 mg PO PRN PRN 10/31/17 11/27/17 Ciprofloxacin HCl [Cipro] 1 tab PO BID 11/26/17 11/26/17 Previous Rx's Medication Instructions Recorded Doxycycline 100 mg PO BID #14 capsule 11/28/17 predniSONE [PredniSONE] 40 mg PO DAILY 5 Days #20 tablet 11/28/17 Allergies Allergy/AdvReac Type Severity Reaction Status Date / Time Erythromycin Base Allergy See Verified 10/31/17 10:56 Comments aspirin AdvReac Nausea Verified 10/31/17 10:56 codeine AdvReac Hives Verified 10/31/17 10:56 diphenhydramine AdvReac Swelling Verified 10/31/17 10:56 [From Benadryl] of Lip/Tongue/Throat gentamicin AdvReac See Verified 10/31/17 10:56 Comments Methadone AdvReac Swelling Verified 10/31/17 10:56 of Lip/Tongue/Throat morphine AdvReac Hives Verified 10/31/17 10:56 Oxycodone [From OxyContin] AdvReac Swelling Verified 10/31/17 10:56 of Lip/Tongue/Throat promethazine [From Phenergan] AdvReac See Verified 10/31/17 10:56 Comments tobramycin AdvReac See Verified 10/31/17 10:56 Comments vancomycin AdvReac See Verified 10/31/17 10:56 Comments All systems ED: reviewed and negative except as stated. Constitutional: Denies: fever Eyes: Denies: eye pain ENT ED: Denies: ear pain Cardiovascular: Denies: chest pain Respiratory: Reports: cough, dyspnea. Denies: wheezes, hemoptysis, sputum production Gastrointestinal: Denies: abdominal pain, nausea, vomiting Past Medical History - Past Medical History Source: patient Medical history: Reports: kidney stones, other Surgical history: Reports: vascular surgery, other Psychiatric history: Reports: anxiety, depression - Social History Smoking Status: Never smoker Smokeless Tobacco Status: No Alcohol use: Reports: none Drug use: Reports: none Physical Exam - General Limitations: no limitations General appearance: alert, in no apparent distress - Head Head exam: atraumatic, normocephalic, normal inspection - Eye Eye exam: Present: normal appearance, PERRL, EOMI - ENT ENT exam: normal exam, mucous membranes moist - Neck Neck exam: Present: normal inspection, trachea midline - Chest Chest inspection: Present: normal inspection, symmetric chest wall rise - Respiratory Respiratory exam: Present: accessory muscle use, other (Increasing coarse breath sounds throughout worse on the left than the right.). Absent: respiratory distress - Cardiovascular Cardiovascular exam: Present: regular rate, normal rhythm. Absent: systolic murmur - Abdominal Exam Abdominal exam: Present: soft, Non-Tender - Rectal Exam Rectal exam: Present: other (Some erythema and dressing to a left posterior buttock decubitus ulcer) - Extremities Exam Extremities exam: Present: normal inspection, pedal edema (Trace) - Back Exam Back exam: Present: normal inspection - Neurological Exam Neurological exam: Present: alert, oriented X3 - Skin Skin exam: Present: warm, dry, intact, normal color Course Course Narrative: Patient seen and examined patient recent BAL showed no growth. Patient was placed on cefepime as well as nasally. Patient was started on that course by Lukas. Patient was noted be hypotensive. Patient was given IV fluid challenge. Patient also get basic lab work as well as antibiotics including linezolid and cefepime. Given the fact that the patient was chronically on steroids. We will give the patient IV Solu-Medrol. Patient will likely require admission. - Reevaluation(s) Reevaluation #1: Patient seen and examined. Patient states that breathing treatments did help break up his secretions. Patient's blood pressures responded to IV fluids. Currently 100/73. Patient was complaining of chronic pain and was given IV pain medicines also antiemetics. Patient resting comfortably. Awaiting further labs. Time: 21:20 Vital Signs Temperature 97.9 F 11/30/17 20:22 Pulse Rate 99 11/30/17 20:22 Respiratory Rate 16 11/30/17 20:22 Blood Pressure 83/57 11/30/17 20:22 O2 Sat by Pulse Oximetry 93 11/30/17 20:22 Temperature 97.9 F 11/30/17 20:22 Pulse Rate 107 11/30/17 22:13 Respiratory Rate 16 11/30/17 22:13 Blood Pressure 100/73 11/30/17 22:13 O2 Sat by Pulse Oximetry 92 11/30/17 22:13 Oxygen Delivery Oxygen Delivery Room Air Medical Decision Making - MDM Narrative Medical decision making narrative: 27-year-old male presented for evaluation of acute on chronic pneumonia. Patient presents a long term. Patient is quadriplegic and has decreased his rheumatoid Kevin effort. Patient cannot produce a productive cough. Patient noted worsening dyspnea within the past 1-2 hours. Patient on oral antibiotics as have not been improving. Patient was recently admitted that IVF back. Patient was improving during that hospitalization. Looking back at the records the patient did have a bronchitic which did not grow any respiratory pathogens. Patient was on cefepime and linezolid at that time. Given the patient's comorbid status he is placed back on those antibiotics which improved his respiratory status as an inpatient. Patient initially was hypotensive and has been responding to fluids. Patient is at risk for decompensation without increased pulmonary hygiene. Patient does not use any shaker best. Patient did get a DuoNeb as well as steroids in the emergency department. Patient improved with that treatment. Patient would benefit from hospitalization with increased pulmonary hygiene. - Lab Data Lab results reviewed: Yes I reviewed the patient's lab results. Result diagrams: 11/30/17 20:51 11/30/17 20:51 Lab Results 11/30/17 11/30/17 11/30/17 Range/Units 20:51 20:51 20:51 WBC 8.2 (4.3-11.1) K/mcL RBC 4.73 (4.19-5.50) M/mcL Hgb 12.3 L (12.9-16.9) g/dL Hct 40.5 (37.5-50.1) % MCV 85.6 (83.0-100.0) fL MCH 26.0 L (28.0-33.3) pg MCHC 30.4 L (31.6-35.5) g/dL RDW 21.8 H (11.5-14.5) % Plt Count 210 (140-400) K/mcL MPV 10.2 (9.4-12.4) fL Immature Gran % 0.6 (0-4) % Seg Neutrophils % 85.2 % Lymphocytes % 7.4 % Monocytes % 6.3 % Eosinophils % 0.4 % Basophils % 0.1 % Neutrophils # 7.0 (1.6-8.9) K/mcL Lymphocytes # 0.6 (0.6-4.6) K/mcL Monocytes # 0.5 (0.0-1.3) K/mcL Eosinophils # 0.0 (0.0-0.6) K/mcL Basophils # 0.0 (0.0-0.2) K/mcL Sodium 139 (136-145) mEq/L Potassium 3.8 (3.5-5.1) mEq/L Chloride 105 (98-107) mEq/L Carbon Dioxide 30 H (23-29) mEq/L BUN 16 (6-20) mg/dL Creatinine 0.26 L (0.70-1.30) mg/dL Est GFR ( Amer) > 60 (> 60) Est GFR (Non-Af Amer) > 60 (> 60) BUN/Creatinine Ratio 62 H (6-26) Glucose 123 H (70-105) mg/dL Calculated Osmolality 291 (280-300) Lactic Acid 1.4 (0.5-2.2) mmol/L Calcium 8.4 L (8.6-10.3) mg/dL - Radiology Data Radiology results reviewed: Yes I reviewed the patient's radiology results. Chest X-Ray 11/30/17 20:26 IMPRESSION: 1. No acute cardiopulmonary disease. D/ / 11/30/2017 21:39:31 Rob Hankins MD / dai Interpreting Provider: Rob Hankisn MD - EKG Data EKG #1 EKG shows normal: sinus rhythm Rate: normal Rhythm: NSR [place]/QRS: normal T wave inversions noted in: aVR, v1 Interpretation: no acute changes, unchanged when compared to prior tracing (date ) S.B.Emy - S.B.ADonna Situation: Demographics Background: Presenting Complaint, Relevant PMH, Meds, & Allergies Assessment: Vital Signs, Course and respsone to treatment, Patient/Family Expectation Recommendation: Barrier(s) to disposition, Recommendation based on pending studies, treatments, or consults S.B.A.Marcus Report Given to: Dr. Ronnie Stern Repor Time: 22:15
[2017-11-30 20:58] LABS: Basophils % 0.1 %; Eosinophils % 0.4 %; Hematocrit 40.5 % (37.5-50.1); Hemoglobin 12.3 g/dL (12.9-16.9); Immature Granulocytes % 0.6 % (0-4); Lymphocytes # 0.6 K/mcL (0.6-4.6); Lymphocytes % 7.4 %; Mean Corpuscular HGB Conc 30.4 g/dL (31.6-35.5); Mean Corpuscular Volume 85.6 fL (83.0-100.0); Mean Platelet Volume 10.2 fL (9.4-12.4); Monocytes # 0.5 K/mcL (0.0-1.3); Monocytes % 6.3 %; Platelet Count 210 K/mcL (140-400); Red Blood Count 4.73 M/mcL (4.19-5.50); Red Cell Distribution Width 21.8 % (11.5-14.5); Segmented Neutrophils % 85.2 %
[2017-11-30] MEDS ORDERED: Ondansetron 4 MG/2 ML VIAL IVP ONE (21:05)
[2017-11-30 21:15] LABS: BUN/Creatinine Ratio 62 (6-26); Blood Urea Nitrogen 16 mg/dL (6-20); Calcium 8.4 mg/dL (8.6-10.3); Carbon Dioxide 30 mEq/L (23-29); Chloride 105 mEq/L (98-107); Glucose 123 mg/dL (70-105); Osmolality,Calculated 291 (280-300); Potassium 3.8 mEq/L (3.5-5.1); Sodium 139 mEq/L (136-145); eGFR For African Americans > 60 (> 60); eGFR For Non-African Americans > 60 (> 60)
[2017-11-30] MEDS: *HR* FentaNYL (PF) 100 MCG/2 ML VIAL IVP ONE ×2 (21:26→21:39)
[2017-12-01] MEDS ORDERED: Naloxone 0.4 MG/ML INJ IVP PRN (00:50)
[2017-12-01] MEDS ORDERED: Acetaminophen 325 MG TABLET PO PRN (00:50)
[2017-12-01] MEDS ORDERED: diazePAM 10 MG TABLET PO PRN (00:57)
[2017-12-01] MEDS ORDERED: 0.9 % Sodium Chloride w KCl 20 MEQ/1,000 ML MLS IVC SCH (01:00)
[2017-12-01] MEDS ORDERED: Acetylcysteine 10% 2 ML INHSOL IH SCH (01:00)
--- NOTE | 2017-12-01 01:09 | Internal Med History&Physical ---
Date of Encounter: 11/30/17 Time of Encounter: 23:10 Assessment and Plan (1) Respiratory distress Current visit: No Status: Acute 1. Will continue scheduled albuterol aerosols. 2. Will add scheduled Mucomyst aerosols. 3. Oxygen as needed. 4. Patient noted to improve with treatments rendered thus far. 5. Continue antibiotics for now; if cultures remain negative and patient imrproves, can likely stop antibiotics soon. (2) Mucus plugging of bronchi Current visit: No Status: Acute 1. Aerosols as above. 2. Will schedule chest physiotherapy per RT. 3. Monitor clinically and with imaging, if necessary. 4. May need therapeutic bronchoscopy again if patient does not improve. (3) Quadriplegia Current visit: Yes Status: Chronic 1. Continue home meds and care. 2. Patient has a chronic sacral wound for which he's been seeing a pulmonary specialist at [facility]. 3. Consult wound care to assess and provide guidance. (4) DVT prophylaxis Current visit: No Status: Acute 1. Heparin SQ. Internal Medicine - H&P: HPI Chief complaint: SOB Admitted From: Emergency Dept Plans for Post Hospital Care: Home History of present illness: Mr. Beltran is a 27 year old male who presents to the ER tonight with complaints of shortness of breath and difficulty breathing. Patient was just discharged 2 days ago after he had significant mucus plugging and suspected pneumonia. He had to undergo therapeutic bronchoscopy and aggressive chest physiotherapy to improve his breathing during last admission. When he was discharged, he was breathing much better and feeling back to baseline. However, over the next 2 days, his breathing became more labored, he had significant shortness of breath , and could not bring up mucus and/or catch his breath. Because of this, he came back to the ER where he was noted to be significantly short of breath and could not clear his mucus or secretions. He did respond to several aerosols in the ER. Workup was negative, but he was initiated on antibiotics in the ER for concerns of pneumonia. Upon my assessment of the patient, he feels a little better now compared to his presentation. He still has some shortness of breath but he feels much better with aerosols. He states he was due to receive a physiotherapy vest for ongoing chest physiotherapy at home. However, he has not yet received this vest and feels as though he is declining from respiratory standpoint much like his last hospital stay. He denies any fevers, but he has some chills and shakes. He suspects these may be due to his autonomic dysfunction from his spinal cord injury. However, he is also worried that he may be developing pneumonia. He's been coughing more frequently, but has been unable to bring up any mucus or sputum. I reviewed his x-ray myself and, despite negative report from radiology, I suspect he has some mucous plugging and partial collapse of his left lower lobe. We will continue antibiotics for now and follow cultures. However, we will also get aggressive with chest physiotherapy. I already with respiratory therapy and requested their assistance in this matter as well. Past Med Surg Social Fam HX - Past Medical History Attestation: Yes The following information was validated with the patient. Source: patient, old records reviewed Medical history: kidney stones, other (C spine injury w quadriplegia) Psychiatric history: anxiety, depression - Past Surgical History Surgical History: vascular surgery - Social History Smoking Status: Never smoker Smokeless Tobacco Status: No Alcohol use: none Drug use: none Current living situation: Home Activity Level: Bed bound - Family History Father Adopted: No Family Member Ethnicity: Non- Living Status: Still Living Hx Family Endocrine Disorder: Yes (DM) Mother Adopted: No Family Member Ethnicity: Non- Living Status: Still Living Hx Family Cancer: Yes (cervical, breast) Hx Family Endocrine Disorder: Yes (DM type I) Internal Medicine - H&P: Meds Albuterol Neb [Proventil Neb] 2.5 mg IH QID PRN 11/30/17 [History] Albuterol Sulfate [Albuterol Inhaler] 0 puff IH Q4HR PRN 11/30/17 [History] Ascorbic Acid [Vitamin C with Cira Hips] 500 mg PO DAILY 11/30/17 [History] Augmentin 11/30/17 [History] Baclofen 20 mg PO QID 11/30/17 [History] Calcium Carbonate [Antacid] 1,000 mg PO DAILY PRN 11/30/17 [History] Docusate [Colace] 100 mg PO BID 11/30/17 [History] Hydromorphone HCl [Dilaudid] 4 mg PO BID 11/30/17 [History] Hydromorphone HCl [Dilaudid] 8 mg PO HS 11/30/17 [History] Multivit,Th Iron,Other Min [Thera-M] 1 each PO DAILY 11/30/17 [History] Oxybutynin [Ditropan] 5 mg PO TID 11/30/17 [History] Potassium Gluconate 99 mg PO DAILY 11/30/17 [History] Pregabalin [Lyrica] 150 mg PO TID 11/30/17 [History] Sennosides [Senokot] 8.6 mg PO BID 11/30/17 [History] Zinc Amino Acid Chelate [Zinc] 50 mg PO DAILY 11/30/17 [History] diazePAM [Valium] 10 mg PO BID PRN 11/30/17 [History] predniSONE [PredniSONE] 40 mg PO DAILY 11/30/17 [History] 3 Allergy/AdvReac Type Severity Reaction Status Date / Time Erythromycin Base Allergy See Verified 10/31/17 10:56 Comments aspirin AdvReac Nausea Verified 10/31/17 10:56 codeine AdvReac Hives Verified 10/31/17 10:56 diphenhydramine AdvReac Swelling Verified 10/31/17 10:56 [From Benadryl] of Lip/Tongue/Throat gentamicin AdvReac See Verified 10/31/17 10:56 Comments Methadone AdvReac Swelling Verified 10/31/17 10:56 of Lip/Tongue/Throat morphine AdvReac Hives Verified 10/31/17 10:56 Oxycodone [From OxyContin] AdvReac Swelling Verified 10/31/17 10:56 of Lip/Tongue/Throat promethazine [From Phenergan] AdvReac See Verified 10/31/17 10:56 Comments tobramycin AdvReac See Verified 10/31/17 10:56 Comments vancomycin AdvReac See Verified 10/31/17 10:56 Comments - Constitutional Constitutional: chills, no fever(s), no lethargy - EENT Eyes: no blurry vision, no change in vision Ears: no ear pain, no tinnitus Nose, mouth and throat: no nasal congestion, no sinus pressure, no sore throat - Cardiovascular Cardiovascular ROS IM: diaphoresis, dyspnea, no chest pain - Respiratory Respiratory: cough, dyspnea, chest congestion, no hemoptysis, no excessive phlegm production, no change in phlegm color - Gastrointestinal Gastrointestinal: no abdominal pain, no diarrhea, no vomiting - Genitourinary Genitourinary ROS male: no difficulty urinating - Musculoskeletal Musculoskeletal ROS IM: no arthralgias - Integumentary Integumentary IM: no rash, no jaundice - Neurological Additional comments: quadriplegia (old C spine injury) - Psychiatric Psychiatric: no anxiety, no depression - Endocrine Endocrine IM: no polydipsia, no polyuria - Hematologic/Lymphatic Hematologic/Lymphatic: no easy bruising, no lymphadenopathy - Allergic/Immunologic Allergic/Immunologic: wheezing, no GI upset with certain foods - Constitutional Vitals: Temp Pulse Resp BP Pulse Ox 99.1 F 102 16 125/85 94 12/01/17 00:12 12/01/17 00:12 12/01/17 00:12 12/01/17 00:12 12/01/17 00:12 General appearance: Present: cooperative, mild distress, A&O X 3, pleasant, answers questions appropriately - Head Head exam: Present: atraumatic, normal inspection - Eye Eye exam: Present: EOMI, normal appearance, PERRL. Absent: scleral icterus Pupils: Present: normal accommodation - ENT ENT exam: Present: mucous membranes moist, normal exam - Neck Neck exam general surgery: Present: full ROM, supple. Absent: lymphadenopathy, tenderness, nuchal rigidity - Respiratory Respiratory exam: Present: decreased breath sounds (left base), prolonged expiratory phase, rhonchi, wheezes (faint). Absent: accessory muscle use, chest wall tenderness - Cardiovascular Cardiovascular exam: Present: RRR, +S1, +S2. Absent: diastolic murmur, systolic murmur - GI/Abdominal GI/Abdominal exam: Present: normal bowel sounds, soft. Absent: mass, tenderness - Extremities Exam Extremities exam: Present: normal capillary refill, warm, radial pulses palpable and symmetrical. Absent: calf tenderness, tenderness - Neurological Exam Neurological exam: Present: alert, CN II-XII intact, oriented X3 Additional comments: quadriplegia; limited movement/function of LUE - Psychiatric Psychiatric exam: Present: normal affect, normal mood - Skin Skin exam: Present: dry, warm. Absent: rash Internal Med - H&P Results - Labs CBC & Chem 7: 11/30/17 20:51 11/30/17 20:51 - Diagnostic Studies Chest x-ray Status: image reviewed by me (left base atelectasis/pluggin; disagree with radiology read)
[2017-12-01] MEDS: Baclofen 10 MG TABLET PO SCH ×5 (02:11→21:48)
[2017-12-01] MEDS: *HR* HYDROmorphone 4 MG TABLET PO SCH ×3 (02:11→21:49)
[2017-12-01] MEDS: Albuterol 2.5 MG/3 ML NEBULIZER IH SCH ×5 (04:23→22:16)
[2017-12-01 05:04] LABS: Basophils % 0.2 %; Hematocrit 38.2 % (37.5-50.1); Hemoglobin 12.1 g/dL (12.9-16.9); Immature Granulocytes % 0.6 % (0-4); Lymphocytes # 0.4 K/mcL (0.6-4.6); Lymphocytes % 5.8 %; Mean Corpuscular HGB Conc 31.7 g/dL (31.6-35.5); Mean Corpuscular Hemoglobin 26.5 pg (28.0-33.3); Mean Corpuscular Volume 83.8 fL (83.0-100.0); Mean Platelet Volume 10.5 fL (9.4-12.4); Monocytes # 0.1 K/mcL (0.0-1.3); Monocytes % 1.6 %; Neutrophils # 5.7 K/mcL (1.6-8.9); Platelet Count 215 K/mcL (140-400); Red Blood Count 4.56 M/mcL (4.19-5.50); Red Cell Distribution Width 22.2 % (11.5-14.5); Segmented Neutrophils % 91.8 %
[2017-12-01 05:09] LABS: INR 1.1; Prothrombin Time 11.8 Seconds (9.4-12.1)
[2017-12-01 05:10] LABS: Alanine Aminotransferase 18 Units/L (7-52); Albumin 3.4 g/dL (3.5-5.7); Albumin/Globulin Ratio 1.2 (1.1-2.2); Alkaline Phosphatase 65 Units/L (34-104); Aspartate Amino Transferase 13 Units/L (13-39); BUN/Creatinine Ratio 33 (6-26); Bilirubin,Total 0.3 mg/dL (0.3-1.0); Blood Urea Nitrogen 9 mg/dL (6-20); Calcium 8.1 mg/dL (8.6-10.3); Carbon Dioxide 28 mEq/L (23-29); Chloride 108 mEq/L (98-107); Globulin 2.8 g/dL (2.4-3.5); Glucose 210 mg/dL (70-105); Osmolality,Calculated 297 (280-300); Potassium 4.2 mEq/L (3.5-5.1); Sodium 141 mEq/L (136-145); Total Protein 6.2 g/dL (6.4-8.9); eGFR For African Americans > 60 (> 60); eGFR For Non-African Americans > 60 (> 60)
[2017-12-01 05:12] LABS: Activated Partial Thrombo Time 28.8 Seconds (26.0-36.0)
[2017-12-01] MEDS ORDERED: Cefepime HCl 1,000 MG in Water for inj. (sterile) 20 ML 10 ML IVP SCH (06:00)
[2017-12-01] MEDS: *HR* Heparin 5,000 UNIT/ML VIAL SQ SCH ×3 (06:49→22:01)
[2017-12-01] MEDS: ZINC AMINO ACID CHELATE PO SCH (08:17)
[2017-12-01] MEDS: POTASSIUM GLUCONATE PO SCH (08:17)
[2017-12-01] MEDS: Sennosides 8.6 MG TABLET PO SCH ×2 (08:46→21:48)
[2017-12-01] MEDS: Multivit/Ca/Min/Fe/FA 1 TAB TABLET PO SCH (08:46)
[2017-12-01] MEDS: Pregabalin 75 MG CAPSULE PO SCH ×3 (08:46→21:48)
[2017-12-01] MEDS: Ascorbic Acid 500 MG TABLET PO SCH (08:46)
[2017-12-01] MEDS: predniSONE 20 MG TABLET PO SCH (08:46)
[2017-12-01] MEDS ORDERED: *HR* HYDROmorphone 4 MG TABLET PO SCH (09:00)
[2017-12-01] MEDS: Acetylcysteine 10% 2 ML INHSOL IH SCH ×3 (10:22→22:16)
--- NOTE | 2017-12-01 10:54 | Internal Med Progress Note ---
Date of Encounter: 12/01/17 Time of Encounter: 10:05 - Assessment and plan (1) Mucus plugging of bronchi Current Visit: No Status: Acute Assessment and plan: Recently was here and had mucous plugs cleared by pulmonary throughout bronchoscopy. Chest x-ray looks clear. He is on room air. Does not seem in any respiratory distress. Check a CT of chest. He was supposed to be getting his test/mucous clearance device today however I checked with nursing and apparently some more along the lines this has not fell through possibly due to insurance. We will have to make this is set up for him before discharge as he has a chance of bouncing back. (2) Respiratory distress Current Visit: No Status: Acute Assessment and plan: The patient does not seem in any respiratory distress currently. He is on room air. He is back to baseline. I encourage IS. Check CT of chest to see if there is any mucous plugs. Consult pulmonary if needed (3) Pneumonia Current Visit: Yes Status: Acute Assessment and plan: Was discharged last hospital stay on doxycycline and prednisone. I have resumed those and start IV antibiotics including cefepime and linezolid started on admission overnight. Continue Pulmicort toilet. Continue albuterol. Continue Mucomyst. Qualifiers: Pneumonia type: due to unspecified organism Laterality: unspecified laterality Lung location: unspecified part of lung Qualified Code(s): J18.9 - Pneumonia, unspecified organism (4) History of quadriplegia Current Visit: No Status: Chronic Assessment and plan: Chronic (5) DVT prophylaxis Current Visit: No Status: Acute Assessment and plan: Heparin subcutaneous - Subjective Interval history: No acute events. Patient came in yesterday with shortness of breath. Workup has been unrevealing mostly. He was recently discharged 2 days ago after mucous plugging clearance through bronchoscopy. He was supposed to get set up with the mucous clearing vest/device however he has not received it yet. This morning he is on room air. He has been afebrile. He actually wants to go home and watched [employer]. - Constitutional Vitals: Temp Pulse Resp BP Pulse Ox 98.3 F 92 16 105/65 94 12/01/17 07:37 12/01/17 07:37 12/01/17 10:22 12/01/17 07:37 12/01/17 10:22 General appearance: Present: cooperative, mild distress, A&O X 3, pleasant, answers questions appropriately Exam: GEN: NAD CVS: RRR. S1, S2, No m/r/g RESP: Diminished but mostly clear ABD: Soft, NT, ND, +BS EXT: No edema. 2+ DP. No rashes NEURO: Quadriplegic Internal Medicine: Result - Labs CBC & Chem 7: 12/01/17 04:30 12/01/17 04:30 Labs: Short CBC 12/01/17 Range/Units 04:30 WBC 6.2 (4.3-11.1) K/mcL Hgb 12.1 L (12.9-16.9) g/dL Hct 38.2 (37.5-50.1) % Plt Count 215 (140-400) K/mcL Neutrophils # 5.7 (1.6-8.9) K/mcL BMP 12/01/17 04:30 Sodium 141 Potassium 4.2 Chloride 108 H Carbon Dioxide 28 BUN 9 Creatinine 0.27 L Glucose 210 H Calcium 8.1 L Liver Function 12/01/17 Range/Units 04:30 Total Bilirubin 0.3 (0.3-1.0) mg/dL AST 13 (13-39) Units/L ALT 18 (7-52) Units/L Alkaline Phosphatase 65 (34-104) Units/L Albumin 3.4 L (3.5-5.7) g/dL - ABG Interpretation ABG results: PT/INR, D-dimer PT 11.8 Seconds (9.4-12.1) 12/01/17 04:30 Consult Discharge Plan - Plan Referrals: Bang Swenson MD [Primary Care Provider] -
[2017-12-01] MEDS: Doxycycline 100 MG CAPSULE PO SCH ×2 (12:05→21:48)
[2017-12-01] MEDS ORDERED: *HR* HYDROcodone/Acet 5/325 mg TABLET PO PRN (12:17)
[2017-12-01] MEDS ORDERED: traMADol 50 MG TABLET PO PRN (14:15)
[2017-12-01] MEDS ORDERED: Ketorolac 15 MG/ML VIAL IVP ONE ×2 (14:47→15:34)
[2017-12-01] MEDS ORDERED: *HR* FentaNYL (PF) 100 MCG/2 ML VIAL IVP ONE (15:58)
[2017-12-01] MEDS: 0.9 % Sodium Chloride 1,000 ML IVC SCH (16:55)
[2017-12-01] MEDS ORDERED: Cefepime HCl 2,000 MG in Water for inj. (sterile) 20 ML IVP ONE (20:32)
[2017-12-02] MEDS ORDERED: *HR* FentaNYL (PF) 100 MCG/2 ML VIAL IVP ONE (01:48)
[2017-12-02] MEDS: Albuterol 2.5 MG/3 ML NEBULIZER IH SCH ×4 (04:38→22:26)
[2017-12-02] MEDS: Acetylcysteine 10% 2 ML INHSOL IH SCH ×4 (04:38→22:26)
[2017-12-02] MEDS: *HR* Heparin 5,000 UNIT/ML VIAL SQ SCH ×4 (06:11→22:17)
[2017-12-02] MEDS: 0.9 % Sodium Chloride 1,000 ML IVC SCH ×2 (06:16→18:19)
[2017-12-02] MEDS: ZINC AMINO ACID CHELATE PO SCH (08:51)
[2017-12-02] MEDS: POTASSIUM GLUCONATE PO SCH (08:51)
[2017-12-02] MEDS: *HR* HYDROmorphone 4 MG TABLET PO SCH ×3 (08:52→22:26)
[2017-12-02] MEDS: Pregabalin 75 MG CAPSULE PO SCH ×3 (08:52→22:26)
[2017-12-02] MEDS: Doxycycline 100 MG CAPSULE PO SCH ×2 (08:52→22:26)
[2017-12-02] MEDS: Ascorbic Acid 500 MG TABLET PO SCH (08:53)
[2017-12-02] MEDS: Multivit/Ca/Min/Fe/FA 1 TAB TABLET PO SCH (08:53)
[2017-12-02] MEDS: predniSONE 20 MG TABLET PO SCH (08:53)
[2017-12-02] MEDS: Baclofen 10 MG TABLET PO SCH ×4 (08:53→22:26)
[2017-12-02] MEDS: Sennosides 8.6 MG TABLET PO SCH ×2 (08:53→22:26)
--- NOTE | 2017-12-02 14:38 | Internal Med Progress Note ---
Date of Encounter: 12/02/17 Time of Encounter: 10:00 - Assessment and plan (1) Mucus plugging of bronchi Current Visit: No Status: Acute Assessment and plan: Recently was here and had mucous plugs cleared by pulmonary throughout bronchoscopy. Chest x-ray looks clear. He says he feels worse. Repeat CXR. He is on room air. Does not seem in any respiratory distress. CT chest with no obvious mucus plugs. He was supposed to be getting his test/mucous clearance device today however was not delivered due to insurance. Our caseworker is working on that and I will not discharge him till we have this in place. We will have to make this is set up for him before discharge as he has a chance of bouncing back. (2) Respiratory distress Current Visit: No Status: Acute Assessment and plan: The patient does not seem in any respiratory distress currently. He is on room air. He is back to baseline. I encourage IS. Check CT of chest to see if there is any mucous plugs. Consult pulmonary if needed (3) Pneumonia Current Visit: Yes Status: Acute Assessment and plan: Was discharged last hospital stay on doxycycline and prednisone. I have resumed those and start IV antibiotics including cefepime and linezolid started on admission overnight. Continue Pulmicort toilet. Continue albuterol. Continue Mucomyst. Qualifiers: Pneumonia type: due to unspecified organism Laterality: unspecified laterality Lung location: unspecified part of lung Qualified Code(s): J18.9 - Pneumonia, unspecified organism (4) History of quadriplegia Current Visit: No Status: Chronic Assessment and plan: Chronic (5) DVT prophylaxis Current Visit: No Status: Acute Assessment and plan: Heparin subcutaneous - Subjective Interval history: No acute events. Patient came in with shortness of breath. He still feel that he cant clear mucus. Workup has been unrevealing mostly. He was recently discharged 2 days prior to this admission after mucous plugging clearance through bronchoscopy. He was supposed to get set up with the mucous clearing vest/device however he has not received it yet. This morning he is on room air. He has been afebrile. He actually wants to go home and watched [employer] Bowl. - Constitutional Vitals: Temp Pulse Resp BP Pulse Ox 97.4 F L 107 18 120/76 92 12/02/17 12:45 12/02/17 12:45 12/02/17 12:45 12/02/17 12:45 12/02/17 12:45 General appearance: Present: cooperative, mild distress, A&O X 3, pleasant, answers questions appropriately Exam: GEN: NAD CVS: RRR. S1, S2, No m/r/g RESP: Diminished but mostly clear ABD: Soft, NT, ND, +BS EXT: No edema. 2+ DP. No rashes NEURO: Quadriplegicl Internal Medicine: Result - Labs CBC & Chem 7: 12/01/17 04:30 12/01/17 04:30 - ABG Interpretation ABG results: PT/INR, D-dimer PT 11.8 Seconds (9.4-12.1) 12/01/17 04:30 - Impressions Impressions Chest X-Ray 12/02/17 09:55 IMPRESSION: 1. Retrocardiac airspace opacity with suspected volume loss at the left lung base, suggesting atelectasis. Possibility of superimposed pneumonia would be difficult to exclude. 2. No other acute findings in the chest. D/ / 12/02/2017 10:34:18 Vernell Jacobson / [place] Interpreting Provider: Vernell Jacobson Consult Discharge Plan - Plan Referrals: Bang Swenson MD [Primary Care Provider] - 12/06/17 11:00 am
[2017-12-03] MEDS: Acetylcysteine 10% 2 ML INHSOL IH SCH ×2 (05:02→10:40)
[2017-12-03] MEDS: Albuterol 2.5 MG/3 ML NEBULIZER IH SCH ×2 (05:02→10:41)
[2017-12-03] MEDS: *HR* Heparin 5,000 UNIT/ML VIAL SQ SCH ×2 (06:16→12:51)
[2017-12-03] MEDS: Pregabalin 75 MG CAPSULE PO SCH ×2 (08:53→15:10)
[2017-12-03] MEDS: Doxycycline 100 MG CAPSULE PO SCH (08:53)
[2017-12-03] MEDS: predniSONE 20 MG TABLET PO SCH (08:53)
[2017-12-03] MEDS: Ascorbic Acid 500 MG TABLET PO SCH (08:53)
[2017-12-03] MEDS: Sennosides 8.6 MG TABLET PO SCH (08:53)
[2017-12-03] MEDS: *HR* HYDROmorphone 4 MG TABLET PO SCH ×2 (08:54→15:10)
[2017-12-03] MEDS: Baclofen 10 MG TABLET PO SCH ×3 (08:54→15:10)
[2017-12-03] MEDS: Multivit/Ca/Min/Fe/FA 1 TAB TABLET PO SCH (08:54)
[2017-12-03] MEDS: 0.9 % Sodium Chloride 1,000 ML IVC SCH (08:55)
[2017-12-03] MEDS ORDERED: Zinc Sulfate 220 MG CAPSULE PO SCH (09:00)
--- NOTE | 2017-12-03 09:25 | Discharge Summary ---
Date of Encounter: 12/03/17 Time of Encounter: 09:22 - Discharge Diagnosis (1) Mucus plugging of bronchi Priority: Secondary Status: Acute (2) Respiratory distress Priority: Primary Status: Acute (3) Pneumonia Priority: Secondary Status: Acute Qualifiers: Pneumonia type: due to unspecified organism Laterality: unspecified laterality Lung location: unspecified part of lung Qualified Code(s): J18.9 - Pneumonia, unspecified organism (4) History of quadriplegia Priority: Secondary Status: Chronic - Discharge Medications Prescriptions: predniSONE [PredniSONE] 10 mg PO TAPER #12 tablet Home Medications: Albuterol Neb [Proventil Neb] 2.5 mg IH QID PRN 11/30/17 [History] Albuterol Sulfate [Albuterol Inhaler] 1 - 2 puff IH Q4HR PRN 11/30/17 [History] Ascorbic Acid [Vitamin C with Cira Hips] 500 mg PO DAILY 11/30/17 [History] Baclofen 20 mg PO QID 11/30/17 [History] Calcium Carbonate [Antacid] 1,000 mg PO DAILY PRN 11/30/17 [History] Docusate [Colace] 100 mg PO BID 11/30/17 [History] Hydromorphone HCl [Dilaudid] 4 mg PO BID 11/30/17 [History] Hydromorphone HCl [Dilaudid] 8 mg PO HS 11/30/17 [History] Multivit,Th Iron,Other Min [Thera-M] 1 tab PO DAILY 11/30/17 [History] Oxybutynin [Ditropan] 5 mg PO TID 11/30/17 [History] Potassium Gluconate 99 mg PO DAILY 11/30/17 [History] Pregabalin [Lyrica] 150 mg PO TID 11/30/17 [History] Sennosides [Senokot] 8.6 mg PO BID PRN 11/30/17 [History] Zinc Amino Acid Chelate [Zinc] 50 mg PO DAILY 11/30/17 [History] diazePAM [Valium] 10 mg PO BID PRN 11/30/17 [History] predniSONE [PredniSONE] 10 mg PO TAPER #12 tablet 12/03/17 [Rx] Allergies/Adverse Reactions: 3 Allergy/AdvReac Type Severity Reaction Status Date / Time Erythromycin Base Allergy See Verified 10/31/17 10:56 Comments aspirin AdvReac Nausea Verified 10/31/17 10:56 codeine AdvReac Hives Verified 10/31/17 10:56 diphenhydramine AdvReac Swelling Verified 10/31/17 10:56 [From Benadryl] of Lip/Tongue/Throat gentamicin AdvReac See Verified 10/31/17 10:56 Comments Methadone AdvReac Swelling Verified 10/31/17 10:56 of Lip/Tongue/Throat morphine AdvReac Hives Verified 10/31/17 10:56 Oxycodone [From OxyContin] AdvReac Swelling Verified 10/31/17 10:56 of Lip/Tongue/Throat promethazine [From Phenergan] AdvReac See Verified 10/31/17 10:56 Comments tobramycin AdvReac See Verified 10/31/17 10:56 Comments vancomycin AdvReac See Verified 10/31/17 10:56 Comments Procedures/tests Complete & Pending: Procedures Performed prior 72 hours Category Date Time Status CT chest wo con [CT] Stat Cat Scan 12/01/17 09:47 Completed Date of admission: 11/30/17 22:22 Primary care physician: Bang Swenson MD Consults: 12/01/17 00:27 Consult to Nutrition [CONS] Routine Comment: Consulting Provider: NUTRITION Reason for Dietary Consult: MST Score 12/01/17 01:19 Consult to Wound Care [CONS] Routine Reason for Consult: chronic sacral wound Call Completed: No - Patient Status Disposition: Home, Self-Care Overall status at discharge: patient is progressing back to baseline - Discharge Instructions Instructions: Prednisone (By mouth) Follow Up With: Bang Swenson MD [Primary Care Provider] - 12/06/17 11:00 am - Diet and Activity Activity: increase activity as tolerated Diet: regular diet Hospital course: Mr. Beltran is a 27 year old male who presented to the ER [facility] with complaints of shortness of breath and difficulty breathing. Patient was just discharged 2 days prior to this admission after he had significant mucus plugging and suspected pneumonia. He was supposed to get a cough assist/mucus clearing device delivered upon discharge which was not done (possibly due to insurance issues). Last stay he had to undergo therapeutic bronchoscopy and aggressive chest physiotherapy to improve his breathing during last admission. When he was discharged, he was breathing much better and feeling back to baseline. However, over the next 2 days, his breathing became more labored, he had significant shortness of breath, and could not bring up mucus and/or catch his breath. Because of this, he came back to the ER where he was noted to be significantly short of breath and could not clear his mucus or secretions. He did respond to several aerosols in the ER. Workup was negative, but he was initiated on antibiotics in the ER for concerns of pneumonia. He was initially started on IV antibiotics however I switched him to doxycycline which he was discharged on last time. His chest x-ray was negative. His CT chest did not show any new mucus plugs. He was continuously on room air. We worked with more physiotherapy for his secretions. This time we made sure that his cough assist device was delivered to his home prior to discharge. He was stable for discharge on 12/03/2017. He will need to go back to the doxycycline he was discharged on last time he was here which was recommended by pulmonary. - Time Spent with Patient Total time spent providing and/or coordinating discharge services: Greater than 30 minutes - Constitutional Vitals: Temp Pulse Resp BP Pulse Ox 96.1 F L 72 15 109/80 92 12/03/17 08:00 12/03/17 08:00 12/03/17 08:00 12/03/17 08:00 12/03/17 08:00 General appearance: Present: cooperative, mild distress, A&O X 3, pleasant, answers questions appropriately
[2017-12-03 11:50] VITALS: BP 126/97
--- NOTE | 2017-12-03 12:52 | Physician Discharge Referral ---
Home Health/Hosp Referral Info Transfer to: Home Health - Diagnosis (1) Mucus plugging of bronchi Priority: Primary Status: Acute (2) Respiratory distress Priority: Primary Status: Acute (3) Pneumonia Priority: Primary Status: Acute (4) History of quadriplegia Priority: Secondary Status: Chronic - Respiratory Orders Smoking Cessation: Smoking cessation has been advised. For more information, call the [place] Tobacco Quit Line at 8-424-RTOZ-NOW. - Services Needed Following services are medically necessary services: Nursing, Home Health Aide - Transfer Medications Prescriptions: predniSONE [PredniSONE] 10 mg PO TAPER #12 tablet Home Medications: Albuterol Neb [Proventil Neb] 2.5 mg IH QID PRN 11/30/17 [History] Albuterol Sulfate [Albuterol Inhaler] 1 - 2 puff IH Q4HR PRN 11/30/17 [History] Ascorbic Acid [Vitamin C with Cira Hips] 500 mg PO DAILY 11/30/17 [History] Baclofen 20 mg PO QID 11/30/17 [History] Calcium Carbonate [Antacid] 1,000 mg PO DAILY PRN 11/30/17 [History] Docusate [Colace] 100 mg PO BID 11/30/17 [History] Hydromorphone HCl [Dilaudid] 4 mg PO BID 11/30/17 [History] Hydromorphone HCl [Dilaudid] 8 mg PO HS 11/30/17 [History] Multivit,Th Iron,Other Min [Thera-M] 1 tab PO DAILY 11/30/17 [History] Oxybutynin [Ditropan] 5 mg PO TID 11/30/17 [History] Potassium Gluconate 99 mg PO DAILY 11/30/17 [History] Pregabalin [Lyrica] 150 mg PO TID 11/30/17 [History] Sennosides [Senokot] 8.6 mg PO BID PRN 11/30/17 [History] Zinc Amino Acid Chelate [Zinc] 50 mg PO DAILY 11/30/17 [History] diazePAM [Valium] 10 mg PO BID PRN 11/30/17 [History] predniSONE [PredniSONE] 10 mg PO TAPER #12 tablet 12/03/17 [Rx] Allergies/Adverse Reactions: 3 Allergy/AdvReac Type Severity Reaction Status Date / Time Erythromycin Base Allergy See Verified 10/31/17 10:56 Comments aspirin AdvReac Nausea Verified 10/31/17 10:56 codeine AdvReac Hives Verified 10/31/17 10:56 diphenhydramine AdvReac Swelling Verified 10/31/17 10:56 [From Benadryl] of Lip/Tongue/Throat gentamicin AdvReac See Verified 10/31/17 10:56 Comments Methadone AdvReac Swelling Verified 10/31/17 10:56 of Lip/Tongue/Throat morphine AdvReac Hives Verified 10/31/17 10:56 Oxycodone [From OxyContin] AdvReac Swelling Verified 10/31/17 10:56 of Lip/Tongue/Throat promethazine [From Phenergan] AdvReac See Verified 10/31/17 10:56 Comments tobramycin AdvReac See Verified 10/31/17 10:56 Comments vancomycin AdvReac See Verified 10/31/17 10:56 Comments Certification: Further, I certify that my clinical findings support that this patient is homebound (i.e. absences from home require considerable and taxing effort and are for medical reasons or caodaism services or infrequently or short duration when for other reasons) because: Homebound Reason: Patient requires assistance of a person or device to safely leave home Attestation: My signature below is to certify that this patient is under my care and that I, or nurse practitioner, or a physician's press assistant working with me, has a face-to -face encounter with this patient.
--- NOTE | 2017-12-03 20:10 | Electrocardiograph Report ---
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
== END 2017-12-03 15:35 | disposition home or self-care (01) ==
LOC: EMEROO 20:18 → 3ANU 20:18 → 2NNU 22:59
PROVIDERS: ADMIT Pediatrics; ATTEND Internal Medicine

== ENCOUNTER 2018-04-07 17:48 | Observation (INO) ==
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
[2018-04-07 18:20] LABS: Basophils % 0.5 %; Eosinophils # 0.2 K/mcL (0.0-0.6); Eosinophils % 2.9 %; Hemoglobin 12.4 g/dL (12.9-16.9); Immature Granulocytes % 0.2 % (0-4); Lymphocytes # 1.5 K/mcL (0.6-4.6); Mean Corpuscular HGB Conc 31.8 g/dL (31.6-35.5); Mean Corpuscular Hemoglobin 26.4 pg (28.0-33.3); Mean Platelet Volume 10.9 fL (9.4-12.4); Monocytes # 0.7 K/mcL (0.0-1.3); Monocytes % 11.6 %; Neutrophils # 3.3 K/mcL (1.6-8.9); Platelet Count 145 K/mcL (140-400); Red Cell Distribution Width 17.5 % (11.5-14.5); Segmented Neutrophils % 58.8 %
[2018-04-07 18:39] LABS: BUN/Creatinine Ratio 44 (6-26); Blood Urea Nitrogen 12 mg/dL (6-20); Calcium 9.1 mg/dL (8.6-10.3); Carbon Dioxide 27 mEq/L (23-29); Chloride 104 mEq/L (98-107); Glucose 99 mg/dL (70-105); Osmolality,Calculated 288 (280-300); Potassium 4.1 mEq/L (3.5-5.1); Sodium 139 mEq/L (136-145); eGFR For African Americans > 60 (> 60); eGFR For Non-African Americans > 60 (> 60)
--- NOTE | 2018-04-07 18:40 | Emergency Department Note ---
START Narrative - START START: I examined this patient and my medical decision-making was reviewed with the Resident Physician. I agree with the documented findings, disposition and treatment plan as described except to the extent set forth below. 27 yo M with quadraplegia presents to ER with right post buttock/hip wound from a malfunctioning air bed at home. unable to get bed company to come to his house for some reason and unable to properly lay in bed which in turn is causing an ulcer pt needs to be admitted for social reasons as well as consult to wound managment for this so it doesn't get any worse. will obtain labs and plain films admit
[2018-04-07] MEDS ORDERED: *HR* HYDROmorphone (PF) 1 MG/ML SYRINGE IVP ONE (19:44)
[2018-04-07] MEDS ORDERED: Naloxone 0.4 MG/ML INJ IVP PRN (20:52)
[2018-04-07] MEDS ORDERED: Sennosides 8.6 MG TABLET PO PRN (20:56)
[2018-04-07] MEDS ORDERED: Albuterol 2.5 MG/3 ML NEBULIZER IH PRN (20:56)
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
[2018-04-07] MEDS: Pregabalin 75 MG CAPSULE PO SCH (23:03)
[2018-04-07] MEDS: *HR* FentaNYL (PF) 100 MCG/2 ML VIAL IVP PRN (23:15)
[2018-04-08 05:03] LABS: Basophils % 0.7 %; Eosinophils # 0.2 K/mcL (0.0-0.6); Eosinophils % 3.9 %; Hematocrit 38.8 % (37.5-50.1); Hemoglobin 12.1 g/dL (12.9-16.9); Lymphocytes # 1.6 K/mcL (0.6-4.6); Lymphocytes % 35.3 %; Mean Corpuscular HGB Conc 31.2 g/dL (31.6-35.5); Mean Corpuscular Hemoglobin 26.2 pg (28.0-33.3); Mean Platelet Volume 11.3 fL (9.4-12.4); Monocytes # 0.5 K/mcL (0.0-1.3); Monocytes % 10.1 %; Neutrophils # 2.3 K/mcL (1.6-8.9); Platelet Count 153 K/mcL (140-400); Red Blood Count 4.62 M/mcL (4.19-5.50); Red Cell Distribution Width 17.6 % (11.5-14.5)
[2018-04-08 05:18] LABS: BUN/Creatinine Ratio 38 (6-26); Blood Urea Nitrogen 13 mg/dL (6-20); Calcium 8.8 mg/dL (8.6-10.3); Carbon Dioxide 30 mEq/L (23-29); Chloride 105 mEq/L (98-107); Glucose 119 mg/dL (70-105); Osmolality,Calculated 293 (280-300); Potassium 3.6 mEq/L (3.5-5.1); Sodium 141 mEq/L (136-145); eGFR For African Americans > 60 (> 60); eGFR For Non-African Americans > 60 (> 60)
[2018-04-08] MEDS: *HR* FentaNYL (PF) 100 MCG/2 ML VIAL IVP PRN (07:35)
[2018-04-08] MEDS ORDERED: Multivit/Ca/Min/Fe/FA 1 TAB TABLET PO SCH (09:00)
[2018-04-08] MEDS ORDERED: Ascorbic Acid 500 MG TABLET PO SCH (09:00)
[2018-04-08] MEDS ORDERED: POTASSIUM GLUCONATE PO SCH (09:00)
[2018-04-08] MEDS ORDERED: ZINC AMINO ACID CHELATE PO SCH (09:00)
[2018-04-08] MEDS ORDERED: Gadolinium Contrast Agent (WT Based) IV PRN (09:20)
[2018-04-08] MEDS: Pregabalin 75 MG CAPSULE PO SCH ×2 (09:44→14:07)
[2018-04-08] MEDS: *HR* HYDROmorphone 4 MG TABLET PO SCH ×2 (10:46→14:06)
[2018-04-08] MEDS: Baclofen 10 MG TABLET PO SCH ×3 (10:46→17:06)
--- NOTE | 2018-04-08 10:57 | Discharge Summary ---
- NOTES TO OUTPATIENT PROVIDER Notes to Outpatient Provider: Recommend routine follow-up within 1-2 weeks Date of Encounter: 04/08/18 Time of Encounter: 10:56 - Discharge Diagnosis (1) Decubitus ulcer Priority: Primary Status: Chronic Qualifiers: Pressure ulcer location: buttock Pressure ulcer stage: stage 2 Laterality : right Qualified Code(s): L89.312 - Pressure ulcer of right buttock, stage 2 (2) Chronic complete quadriplegia Priority: Primary Status: Acute Hospital course: Mr. Beltran is a 27 year old male with past medical history incomplete quad and chronic decubitus ulcer presented to [facility] on 04/07/2018 with complaints of right hip pain after his air mattress malfunctioned at home. He is placed in observation status for further workup and treatment. Information obtained from chart review and patient report. Patient reports that he has air mattress at home that has been malfunctioning for the past 2 weeks; says he basically been laying on metal bed frame since that time. Presented with worsening right hip pain. Right hip x-ray showed moderate bilateral hip degenerative changes, and a soft tissue defect along the posterior acid to the buttocks. Pelvis MRI showed bilateral ulcers with extension to underlying bone, no evidence of osteomyelitis. There was a small collection surrounding left hip suspicious for an abscess. Patient recently had wound flap created at [facility]. He was evaluated by care nurse he did not appreciate any evidence of abscess or open wound. Patient requested discharge home and requested films be sent to surgeon at [facility]. Confirmation that new bed was delivered was obtained prior to discharge home. Patient was advised to return to hospital if fevers, chills or increased drainage from wounds Discharge discussed with: patient - Time Spent with Patient Total time spent providing and/or coordinating discharge services: - Discharge Medications Home Medications: Albuterol Neb [Proventil Neb] 2.5 mg IH QID PRN 11/30/17 [History] Albuterol Sulfate [Albuterol Inhaler] 1 - 2 puff IH Q4HR PRN 11/30/17 [History] Ascorbic Acid [Vitamin C with Cira Hips] 500 mg PO DAILY 11/30/17 [History] Calcium Carbonate [Antacid] 1,000 mg PO DAILY PRN 11/30/17 [History] Docusate [Colace] 100 mg PO BID 11/30/17 [History] Hydromorphone HCl [Dilaudid] 4 mg PO BID 11/30/17 [History] Hydromorphone HCl [Dilaudid] 8 mg PO HS 11/30/17 [History] Multivit,Th Iron,Other Min [Thera-M] 1 tab PO DAILY 11/30/17 [History] Oxybutynin [Ditropan] 5 mg PO TID 11/30/17 [History] Potassium Gluconate 99 mg PO DAILY 11/30/17 [History] Pregabalin [Lyrica] 150 mg PO TID 11/30/17 [History] Sennosides [Senokot] 8.6 mg PO BID PRN 11/30/17 [History] Zinc Amino Acid Chelate [Zinc] 50 mg PO DAILY 11/30/17 [History] Baclofen 20 mg PO QID 04/08/18 [History] Allergies/Adverse Reactions: 3 Allergy/AdvReac Type Severity Reaction Status Date / Time Erythromycin Base Allergy See Verified 04/07/18 19:45 Comments aspirin AdvReac Nausea Verified 04/07/18 19:45 codeine AdvReac Hives Verified 04/07/18 19:45 diphenhydramine AdvReac Swelling Verified 04/07/18 19:45 [From Benadryl] of Lip/Tongue/Throat gentamicin AdvReac See Verified 04/07/18 19:45 Comments Methadone AdvReac Swelling Verified 04/07/18 19:45 of Lip/Tongue/Throat morphine AdvReac Hives Verified 04/07/18 19:45 Oxycodone [From OxyContin] AdvReac Swelling Verified 04/07/18 19:45 of Lip/Tongue/Throat promethazine [From Phenergan] AdvReac See Verified 04/07/18 19:45 Comments tobramycin AdvReac See Verified 04/07/18 19:45 Comments vancomycin AdvReac See Verified 04/07/18 19:45 Comments Date of admission: 04/07/18 19:40 Primary care physician: Bang Swenson MD Consults: 04/07/18 20:54 Consult to Coverage Analyst [CONS] Routine Reason for SW Consult: Quadriplegia need hospital bed 04/07/18 22:24 Consult to Coverage Analyst [CONS] Routine Reason for SW Consult: Home health 04/07/18 23:14 Consult to Wound Care [CONS] Routine Reason for Consult: Patient has pressure ulcer to sacrum. Air mattress ordered to reduce pressure/shear. Please make recommendations for daily wound care. Call Completed: No Discharging clinician: Florence Avila Anticipated date of discharge: 04/08/18 - Constitutional Vitals: Temp Pulse Resp BP Pulse Ox 98.9 F 77 18 117/53 96 04/08/18 07:40 04/08/18 07:40 04/08/18 07:40 04/08/18 07:40 04/08/18 07:40 General appearance: Present: A&O X 3, no acute distress, answers questions appropriately - Head Head exam: Present: atraumatic, normocephalic - Eye Eye exam: Present: PERRL, conjuntiva pink, sclera anicteric Pupils: Present: PERRL - Neck Neck exam general surgery: Present: supple, trachea midline. Absent: lymphadenopathy - Respiratory Respiratory exam: Present: CTAB. Absent: accessory muscle use, rales, rhonchi, wheezes - Cardiovascular Cardiovascular exam: Present: RRR, +S1, +S2. Absent: diastolic murmur, gallop, rubs, systolic murmur - GI/Abdominal GI/Abdominal exam: Present: normal bowel sounds, soft, no peritoneal signs. Absent: distended, tenderness - Extremities Exam Extremities exam: Present: warm, radial pulses palpable and symmetrical. Absent : calf tenderness, cyanotic, pedal edema - Neurological Exam Neurological exam: Present: CN II-XII intact, oriented X3. Absent: strengths equal and symetr throughout, pronater drift, facial droop, speech deficit Additional comments: Paralysis of bilateral lower extremities. 1/2 strength out of 5 to bilateral upper extremities. - Skin Skin exam: Present: dry, intact Additional comments: Right hip wound with scant amount of serous and when his drainage from proximal wound - Patient Status Disposition: Home Health Service Condition: Good Functional capacity at discharge: bed bound Overall status at discharge: patient is back to baseline - Discharge Instructions Instructions: How to Turn a Person in Bed (DC), How to Prevent Pressure Ulcers (DC), Pressure Ulcer (DC) Follow Up With: Bang Swenson MD [Primary Care Provider] - (Recommend follow-up with PCP within 1-2 weeks) - Diet and Activity Activity: increase activity as tolerated Diet: advance to your usual diet
[2018-04-08 15:18] VITALS: BP 140/80
--- NOTE | 2018-04-08 16:43 | Physician Discharge Referral ---
Home Health/Hosp Referral Info Transfer to: Home Health Attending Provider: Florence Daniels CNP Provider in Charge Post Discharge: PCP - Diagnosis (1) Decubitus ulcer Status: Chronic (2) Chronic complete quadriplegia Status: Acute - Respiratory Orders None Smoking Cessation: Smoking cessation has been advised. For more information, call the [place] Tobacco Quit Line at 0-930-JRRA-NOW. - Diet/Nutrition Diet/Nutrition Orders: Regular - Activity Activity Orders: Bedrest - Services Needed Following services are medically necessary services: Nursing, Home Health Aide, Physical Therapy, Occupational Therapy - Transfer Medications Home Medications: Albuterol Neb [Proventil Neb] 2.5 mg IH QID PRN 11/30/17 [History] Albuterol Sulfate [Albuterol Inhaler] 1 - 2 puff IH Q4HR PRN 11/30/17 [History] Ascorbic Acid [Vitamin C with Cira Hips] 500 mg PO DAILY 11/30/17 [History] Calcium Carbonate [Antacid] 1,000 mg PO DAILY PRN 11/30/17 [History] Docusate [Colace] 100 mg PO BID 11/30/17 [History] Hydromorphone HCl [Dilaudid] 4 mg PO BID 11/30/17 [History] Hydromorphone HCl [Dilaudid] 8 mg PO HS 11/30/17 [History] Multivit,Th Iron,Other Min [Thera-M] 1 tab PO DAILY 11/30/17 [History] Oxybutynin [Ditropan] 5 mg PO TID 11/30/17 [History] Potassium Gluconate 99 mg PO DAILY 11/30/17 [History] Pregabalin [Lyrica] 150 mg PO TID 11/30/17 [History] Sennosides [Senokot] 8.6 mg PO BID PRN 11/30/17 [History] Zinc Amino Acid Chelate [Zinc] 50 mg PO DAILY 11/30/17 [History] Baclofen 20 mg PO QID 04/08/18 [History] Allergies/Adverse Reactions: 3 Allergy/AdvReac Type Severity Reaction Status Date / Time Erythromycin Base Allergy See Verified 04/07/18 19:45 Comments aspirin AdvReac Nausea Verified 04/07/18 19:45 codeine AdvReac Hives Verified 04/07/18 19:45 diphenhydramine AdvReac Swelling Verified 04/07/18 19:45 [From Benadryl] of Lip/Tongue/Throat gentamicin AdvReac See Verified 04/07/18 19:45 Comments Methadone AdvReac Swelling Verified 04/07/18 19:45 of Lip/Tongue/Throat morphine AdvReac Hives Verified 04/07/18 19:45 Oxycodone [From OxyContin] AdvReac Swelling Verified 04/07/18 19:45 of Lip/Tongue/Throat promethazine [From Phenergan] AdvReac See Verified 04/07/18 19:45 Comments tobramycin AdvReac See Verified 04/07/18 19:45 Comments vancomycin AdvReac See Verified 04/07/18 19:45 Comments Certification: Further, I certify that my clinical findings support that this patient is homebound (i.e. absences from home require considerable and taxing effort and are for medical reasons or sikhism services or infrequently or short duration when for other reasons) because: Homebound Reason: Patient requires assistance of a person or device to safely leave home Attestation: My signature below is to certify that this patient is under my care and that I, or nurse practitioner, or a physician's phys assistant working with me, has a face-to -face encounter with this patient.
[2018-04-08] MEDS ORDERED: *HR* HYDROmorphone 4 MG TABLET PO ONE (16:47)
[2018-04-08] MEDS ORDERED: *HR* HYDROmorphone 4 MG TABLET PO SCH (21:00)
== END 2018-04-08 17:44 | disposition home health service (06) ==
LOC: EMEROO 17:48 → 3ANU 17:48
PROVIDERS: ADMIT Internal Medicine; ATTEND Internal Medicine

== ENCOUNTER 2019-04-29 00:47 | Inpatient (IN) ==
[2019-04-29] MEDS ORDERED: 0.9 % Sodium Chloride 1,000 ML IVC ONE (01:07)
[2019-04-29 01:32] LABS: Bilirubin,Urine Negative (Negative); Blood,Urine Negative (Negative); Clarity,Urine Clear (Clear); Color,Urine Yellow (Yellow); Glucose,Urine (UA) Normal (Normal); Ketones,Urine Negative (Negative); Leukocyte Esterase,Urine Negative (Negative); Nitrite,Urine Negative (Negative); Protein,Urine Negative (Neg-Trace); Specific Gravity,Urine 1.011 (1.010-1.025); Urobilinogen,Urine Normal (Normal)
[2019-04-29 01:45] LABS: Basophils % 0.2 %; Eosinophils % 0.1 %; Hematocrit 43.7 % (37.5-50.1); Hemoglobin 14.3 g/dL (12.9-16.9); Immature Granulocytes % 0.3 % (0-4); Lymphocytes # 0.6 K/mcL (0.6-4.6); Lymphocytes % 6.1 %; Mean Corpuscular HGB Conc 32.7 g/dL (31.6-35.5); Mean Corpuscular Hemoglobin 28.8 pg (28.0-33.3); Mean Corpuscular Volume 88.1 fL (83.0-100.0); Mean Platelet Volume 11.1 fL (9.4-12.4); Monocytes # 0.5 K/mcL (0.0-1.3); Monocytes % 4.7 %; Neutrophils # 8.5 K/mcL (1.6-8.9); Platelet Count 130 K/mcL (140-400); Red Blood Count 4.96 M/mcL (4.19-5.50); Red Cell Distribution Width 16.9 % (11.5-14.5); Segmented Neutrophils % 88.6 %; White Blood Count 9.6 K/mcL (4.3-11.1)
[2019-04-29 01:55] LABS: INR 1.4; Prothrombin Time 15.7 Seconds (9.4-12.1)
[2019-04-29 01:58] LABS: Activated Partial Thrombo Time 51.9 Seconds (26.0-36.0)
[2019-04-29 02:07] LABS: Alanine Aminotransferase 38 Units/L (7-52); Albumin 3.9 g/dL (3.5-5.7); Albumin/Globulin Ratio 1.4 (1.1-2.2); Alkaline Phosphatase 78 Units/L (34-104); Aspartate Amino Transferase 20 Units/L (13-39); BUN/Creatinine Ratio 30 (6-26); Bilirubin,Direct 0.1 mg/dL (0.0-0.2); Bilirubin,Indirect 0.5 mg/dL (0.0-1.2); Bilirubin,Total 0.6 mg/dL (0.3-1.0); Blood Urea Nitrogen 10 mg/dL (6-20); Calcium 8.7 mg/dL (8.6-10.3); Carbon Dioxide 24 mEq/L (23-29); Chloride 104 mEq/L (98-107); Globulin 2.7 g/dL (2.4-3.5); Glucose 126 mg/dL (70-105); Magnesium 1.9 mg/dL (1.6-2.6); Osmolality,Calculated 285 (280-300); Phosphorous 1.7 mg/dL (2.7-4.5); Potassium 3.7 mEq/L (3.5-5.1); Sodium 137 mEq/L (136-145); Total Protein 6.6 g/dL (6.4-8.9); eGFR For African Americans > 60 (> 60); eGFR For Non-African Americans > 60 (> 60)
[2019-04-29 02:08] LABS: Troponin I < 0.03 ng/mL (< 0.04)
[2019-04-29] MEDS ORDERED: Isovue-370 500 ML BOTTLE IVP ONE (02:24)
--- NOTE | 2019-04-29 02:28 | Emergency Department Note ---
Disposition Clinical Impression: Sepsis Qualifiers: Sepsis type: sepsis due to unspecified organism Qualified Code(s): A41.9 - Sepsis, unspecified organism Cellulitis Qualifiers: Site of cellulitis: extremity Site of cellulitis of extremity: lower extremity Laterality: left Qualified Code(s): L03.116 - Cellulitis of left lower limb Disposition: Admitted As Inpatient Condition: Fair Referrals: Bang Swenson MD [Primary Care Provider] - Forms: ED Satisfaction Letter Time of Disposition: 05:13 General Adult HPI - General Chief complaint: ED Altered Mental Status Stated complaint: poss sepsis Time Seen by Provider: 04/29/19 00:53 Source: family, EMS Mode of arrival: EMS Limitations: altered mental status, physical limitation Nursing Notes Reviewed: Yes Vital Signs Reviewed: Yes - History of Present Illness HPI Narrative: 28-year-old quadriplegic male with multiple comorbidities, who reports to the emergency department with family at bedside who state that he became less alert and oriented earlier this evening. He has had a low-grade fever earlier in the day, and then they noted a fever of 103. His mother who is a nurse, states that she thinks that he has a UTI as he normally gets like this when he has a UTI. She states that he is intermittently catheterized and this tends to cause frequent UTIs. She also notes that one of his physicians thinks that his gallbladder may need to be removed or possibly his appendix. The patient himse lf is not able to answer questions and is not alert or oriented. Pain Scale: 4 - Related Data Home Medications Medication Instructions Recorded Confirmed Albuterol Neb [Proventil Neb] 2.5 mg IH QID PRN 11/30/17 04/29/19 Albuterol Sulfate [Proventil 1 - 2 puff IH Q4HR PRN 11/30/17 04/29/19 Inhaler] Ascorbic Acid [Vitamin C with Cira 500 mg PO DAILY 11/30/17 04/29/19 Hips] Calcium Carbonate [Antacid] 1,000 mg PO DAILY PRN 11/30/17 04/29/19 Docusate [Colace] 100 mg PO BID 11/30/17 04/29/19 Hydromorphone HCl [Dilaudid] 4 mg PO BID 11/30/17 04/29/19 Hydromorphone HCl [Dilaudid] 8 mg PO HS 11/30/17 04/29/19 Multivit,Th Iron,Other Min 1 tab PO DAILY 11/30/17 04/29/19 [Thera-M] Oxybutynin [Ditropan] 5 mg PO TID 11/30/17 04/29/19 Potassium Gluconate 99 mg PO DAILY 11/30/17 04/29/19 Pregabalin [Lyrica] 150 mg PO TID 11/30/17 04/29/19 Sennosides [Senokot] 8.6 mg PO BID PRN 11/30/17 04/29/19 Zinc Amino Acid Chelate [Zinc] 50 mg PO DAILY 11/30/17 04/29/19 Baclofen 20 mg PO QID 04/08/18 04/29/19 Acetaminophen [Acetaminophen ER] 650 mg PO Q4HR 08/18/18 04/29/19 EPINEPHrine [Epipen] 0.3 mg IM ONCE PRN 08/18/18 04/29/19 Ibuprofen Susp [Motrin Susp] 600 mg PO Q6HR PRN 08/18/18 04/29/19 diazePAM [Valium] 10 mg PO BID PRN 08/18/18 04/29/19 Allergies Allergy/AdvReac Type Severity Reaction Status Date / Time Erythromycin Base Allergy See Verified 04/02/19 19:29 Comments aspirin AdvReac Nausea Verified 04/02/19 19:29 codeine AdvReac Hives Verified 04/02/19 19:29 diphenhydramine AdvReac Swelling Verified 04/02/19 19:29 [From Benadryl] of Lip/Tongue/Throat gentamicin AdvReac See Verified 04/02/19 19:29 Comments methadone AdvReac Swelling Verified 04/02/19 19:29 of Lip/Tongue/Throat morphine AdvReac Hives Verified 04/02/19 19:29 oxycodone [From OxyContin] AdvReac Swelling Verified 04/02/19 19:29 of Lip/Tongue/Throat promethazine [From Phenergan] AdvReac See Verified 04/02/19 19:29 Comments tobramycin AdvReac See Verified 04/02/19 19:29 Comments vancomycin AdvReac See Verified 04/02/19 19:29 Comments Limitations: ROS unobtainable due to patients medical condition Past Medical History - Past Medical History Attestation: Yes The following information was validated with the patient. Medical history: Reports: kidney stones, other Surgical history: Reports: vascular surgery Psychiatric history: Reports: anxiety, depression - Social History Smoking Status: Never smoker Smokeless Tobacco Status: No Alcohol use: Reports: none Drug use: Reports: none Physical Exam General: Not alert or oriented, eyes are open, but patient is not interactive. Head: atraumatic, normocephalic. ENT: No conjunctival injection, no scleral icterus. PERRLA. EOMI. Oropharynx non- erythematous. mucous membranes moist. Neuro: Unable to evaluate. Pulm: Lungs CTAB A/P. No wheezes, rales, ronchi. Cardio: Tachycardic. Chest not tender to palpation. Abd: Soft, non-distended. Normoactive bowel sounds. No guarding. Non rigid. Extremities: Radial pulses 2+ cory, dorsalis pedis/posterior tibialis 2+ cory. No LE edema. No cyanosis, clubbing. Skin: Left lateral thigh is hot to touch, erythematous. Old scar present running vertically along lateral aspect of left thigh, no signs of purulent drainage, well healed. - General Limitations: altered mental status, physical limitation General appearance: in distress Course Vital Signs Temperature 103 F H 04/29/19 00:53 Pulse Rate 115 04/29/19 00:53 Respiratory Rate 13 04/29/19 00:53 Blood Pressure 115/73 04/29/19 00:53 O2 Sat by Pulse Oximetry 91 04/29/19 00:53 Temperature 99.9 F H 04/29/19 03:54 Pulse Rate 106 04/29/19 03:54 Respiratory Rate 16 04/29/19 03:54 Blood Pressure 112/60 04/29/19 03:54 O2 Sat by Pulse Oximetry 95 04/29/19 03:54 Oxygen Delivery Oxygen Delivery Room Air Medical Decision Making - [facility] Narrative Medical decision making narrative: Chest x-ray was negative for acute cardiopulmonary findings, urinalysis was negative for signs of infection, CT of abdomen and pelvis was negative for acute intra-abdominal pathology, lab work was consistent with leukocytosis with neutrophil predominance. Source for vital sign derangements as well as increased white blood cell count was thought to be left leg cellulitis. Patient was given antibiotics while in the department after blood cultures were obtained. Patient's fever responded well to rectal administration of Tylenol. Patient was admitted to hospitalist Dr. giang who agreed to accept the patient to his service. Patient's mental status improved after his fever came down. Patient remained stable and had vital sign improvement during the course of his treatment in the emergency department. Family at bedside was given an opportunity to ask questions and all of their concerns were addressed. Family agreed with the plan for care. - Medical Records Medical records reviewed: Yes I reviewed the patient's medical records. - Lab Data Lab results reviewed: Yes I reviewed the patient's lab results. Result diagrams: 04/29/19 01:20 04/29/19 01:20 Lab Results 04/29/19 04/29/19 04/29/19 Range/Units 01:14 01:20 01:20 WBC 9.6 (4.3-11.1) K/mcL RBC 4.96 (4.19-5.50) M/mcL Hgb 14.3 (12.9-16.9) g/dL Hct 43.7 (37.5-50.1) % MCV 88.1 (83.0-100.0) fL MCH 28.8 (28.0-33.3) pg MCHC 32.7 (31.6-35.5) g/dL RDW 16.9 H (11.5-14.5) % Plt Count 130 L (140-400) K/mcL MPV 11.1 (9.4-12.4) fL Immature Gran % 0.3 (0-4) % Seg Neutrophils % 88.6 % Lymphocytes % 6.1 % Monocytes % 4.7 % Eosinophils % 0.1 % Basophils % 0.2 % Neutrophils # 8.5 (1.6-8.9) K/mcL Lymphocytes # 0.6 (0.6-4.6) K/mcL Monocytes # 0.5 (0.0-1.3) K/mcL Eosinophils # 0.0 (0.0-0.6) K/mcL Basophils # 0.0 (0.0-0.2) K/mcL PT 15.7 H (9.4-12.1) Seconds INR 1.4 APTT 51.9 H (26.0-36.0) Seconds Sodium (136-145) mEq/L Potassium (3.5-5.1) mEq/L Chloride (98-107) mEq/L Carbon Dioxide (23-29) mEq/L BUN (6-20) mg/dL Creatinine (0.70-1.30) mg/dL Est GFR ( Amer) (> 60) Est GFR (Non-Af Amer) (> 60) BUN/Creatinine Ratio (6-26) Glucose (70-105) mg/dL Calculated Osmolality (280-300) Lactic Acid (0.5-2.2) mmol/L Calcium (8.6-10.3) mg/dL Phosphorus (2.7-4.5) mg/dL Magnesium (1.6-2.6) mg/dL Total Bilirubin (0.3-1.0) mg/dL Direct Bilirubin (0.0-0.2) mg/dL Indirect Bilirubin (0.0-1.2) mg/dL AST (13-39) Units/L ALT (7-52) Units/L Alkaline Phosphatase (34-104) Units/L Troponin I (< 0.04) ng/mL Serum Total Protein (6.4-8.9) g/dL Albumin (3.5-5.7) g/dL Globulin (2.4-3.5) g/dL Albumin/Globulin Ratio (1.1-2.2) Urine Color Yellow (Yellow) Urine Clarity Clear (Clear) Urine pH 8.0 (5.0-8.0) pH Units Ur Specific [place] 1.011 (1.010-1.025) Urine Protein Negative (Neg-Trace) mg/dL Urine Glucose (UA) Normal (Normal) mg/dL Urine Ketones Negative (Negative) mg/dL Urine Blood Negative (Negative) Urine Nitrite Negative (Negative) Urine Bilirubin Negative (Negative) Urine Urobilinogen Normal (Normal) mg/dL Ur Leukocyte Esterase Negative (Negative) Ur Culture Indicated? NO (NO) 04/29/19 04/29/19 Range/Units 01:20 01:20 WBC (4.3-11.1) K/mcL RBC (4.19-5.50) M/mcL Hgb (12.9-16.9) g/dL Hct (37.5-50.1) % MCV (83.0-100.0) fL MCH (28.0-33.3) pg MCHC (31.6-35.5) g/dL RDW (11.5-14.5) % Plt Count (140-400) K/mcL MPV (9.4-12.4) fL Immature Gran % (0-4) % Seg Neutrophils % % Lymphocytes % % Monocytes % % Eosinophils % % Basophils % % Neutrophils # (1.6-8.9) K/mcL Lymphocytes # (0.6-4.6) K/mcL Monocytes # (0.0-1.3) K/mcL Eosinophils # (0.0-0.6) K/mcL Basophils # (0.0-0.2) K/mcL PT (9.4-12.1) Seconds INR APTT (26.0-36.0) Seconds Sodium 137 (136-145) mEq/L Potassium 3.7 (3.5-5.1) mEq/L Chloride 104 (98-107) mEq/L Carbon Dioxide 24 (23-29) mEq/L BUN 10 (6-20) mg/dL Creatinine 0.33 L (0.70-1.30) mg/dL Est GFR ( Amer) > 60 (> 60) Est GFR (Non-Af Amer) > 60 (> 60) BUN/Creatinine Ratio 30 H (6-26) Glucose 126 H (70-105) mg/dL Calculated Osmolality 285 (280-300) Lactic Acid 1.5 (0.5-2.2) mmol/L Calcium 8.7 (8.6-10.3) mg/dL Phosphorus 1.7 L (2.7-4.5) mg/dL Magnesium 1.9 (1.6-2.6) mg/dL Total Bilirubin 0.6 (0.3-1.0) mg/dL Direct Bilirubin 0.1 (0.0-0.2) mg/dL Indirect Bilirubin 0.5 (0.0-1.2) mg/dL AST 20 (13-39) Units/L ALT 38 (7-52) Units/L Alkaline Phosphatase 78 (34-104) Units/L Troponin I < 0.03 (< 0.04) ng/mL Serum Total Protein 6.6 (6.4-8.9) g/dL Albumin 3.9 (3.5-5.7) g/dL Globulin 2.7 (2.4-3.5) g/dL Albumin/Globulin Ratio 1.4 (1.1-2.2) Urine Color (Yellow) Urine Clarity (Clear) Urine pH (5.0-8.0) pH Units Ur Specific [place] (1.010-1.025) Urine Protein (Neg-Trace) mg/dL Urine Glucose (UA) (Normal) mg/dL Urine Ketones (Negative) mg/dL Urine Blood (Negative) Urine Nitrite (Negative) Urine Bilirubin (Negative) Urine Urobilinogen (Normal) mg/dL Ur Leukocyte Esterase (Negative) Ur Culture Indicated? (NO) - Radiology Data Radiology results reviewed: Yes I reviewed the patient's radiology results. Chest X-Ray 04/29/19 00:54 IMPRESSION: No acute disease. D/ / Jian Power MD / Jian Power MD Interpreting Provider: Jian Power MD Abdomen/Pelvis CT 04/29/19 02:25 IMPRESSION: No acute abnormality identified. D/ / Jian Power MD / Jian Power MD Interpreting Provider: Jian Power MD Head CT 04/29/19 02:33 IMPRESSION: No acute intracranial abnormality. D/ / Jian Power MD / Jian Power MD Interpreting Provider: Jian Power MD - EKG Data EKG #1 EKG attestation: Yes I reviewed and interpreted this EKG. EKG results narrative: HR 117, rhythm sinus tachycardia, axis normal. intervals within normal limits. <1mm ST elevation in aVR, V1.
[2019-04-29] MEDS ORDERED: Piperacillin/Tazobactam 3.375 GM in Water for inj. (sterile) 20 ML IVP ONE (02:31)
[2019-04-29] MEDS ORDERED: Acetaminophen 650 MG RECTAL SUPP RC ONE (02:32)
--- NOTE | 2019-04-29 02:35 | Emergency Department Note ---
Disposition Clinical Impression: Sepsis Qualifiers: Sepsis type: sepsis due to unspecified organism Qualified Code(s): A41.9 - Sepsis, unspecified organism Cellulitis Qualifiers: Site of cellulitis: extremity Site of cellulitis of extremity: lower extremity Laterality: left Qualified Code(s): L03.116 - Cellulitis of left lower limb Disposition: Admitted As Inpatient Condition: Fair Time of Disposition: 05:13 General Adult HPI - General Chief complaint: ED Altered Mental Status Stated complaint: poss sepsis Time Seen by Provider: 04/29/19 00:53 Source: family, EMS Mode of arrival: EMS Limitations: altered mental status, physical limitation Nursing Notes Reviewed: Yes Vital Signs Reviewed: Yes - History of Present Illness Pain Scale: 4 - Related Data Home Medications Medication Instructions Recorded Confirmed Albuterol Neb [Proventil Neb] 2.5 mg IH QID PRN 11/30/17 04/29/19 Albuterol Sulfate [Proventil 1 - 2 puff IH Q4HR PRN 11/30/17 04/29/19 Inhaler] Ascorbic Acid [Vitamin C with Cira 500 mg PO DAILY 11/30/17 04/29/19 Hips] Calcium Carbonate [Antacid] 1,000 mg PO DAILY PRN 11/30/17 04/29/19 Docusate [Colace] 100 mg PO BID 11/30/17 04/29/19 Hydromorphone HCl [Dilaudid] 4 mg PO BID 11/30/17 04/29/19 Hydromorphone HCl [Dilaudid] 8 mg PO HS 11/30/17 04/29/19 Multivit,Th Iron,Other Min 1 tab PO DAILY 11/30/17 04/29/19 [Thera-M] Oxybutynin [Ditropan] 5 mg PO TID 11/30/17 04/29/19 Potassium Gluconate 99 mg PO DAILY 11/30/17 04/29/19 Pregabalin [Lyrica] 150 mg PO TID 11/30/17 04/29/19 Sennosides [Senokot] 8.6 mg PO BID PRN 11/30/17 04/29/19 Zinc Amino Acid Chelate [Zinc] 50 mg PO DAILY 11/30/17 04/29/19 Baclofen 20 mg PO QID 04/08/18 04/29/19 Acetaminophen [Acetaminophen ER] 650 mg PO Q4HR 08/18/18 04/29/19 EPINEPHrine [Epipen] 0.3 mg IM ONCE PRN 08/18/18 04/29/19 Ibuprofen Susp [Motrin Susp] 600 mg PO Q6HR PRN 08/18/18 04/29/19 diazePAM [Valium] 10 mg PO BID PRN 08/18/18 04/29/19 Allergies Allergy/AdvReac Type Severity Reaction Status Date / Time Erythromycin Base Allergy See Verified 04/02/19 19:29 Comments aspirin AdvReac Nausea Verified 04/02/19 19:29 codeine AdvReac Hives Verified 04/02/19 19:29 diphenhydramine AdvReac Swelling Verified 04/02/19 19:29 [From Benadryl] of Lip/Tongue/Throat gentamicin AdvReac See Verified 04/02/19 19:29 Comments methadone AdvReac Swelling Verified 04/02/19 19:29 of Lip/Tongue/Throat morphine AdvReac Hives Verified 04/02/19 19:29 oxycodone [From OxyContin] AdvReac Swelling Verified 04/02/19 19:29 of Lip/Tongue/Throat promethazine [From Phenergan] AdvReac See Verified 04/02/19 19:29 Comments tobramycin AdvReac See Verified 04/02/19 19:29 Comments vancomycin AdvReac See Verified 04/02/19 19:29 Comments Past Medical History - Past Medical History Medical history: Reports: kidney stones, other Surgical history: Reports: vascular surgery Psychiatric history: Reports: anxiety, depression - Social History Smoking Status: Never smoker Smokeless Tobacco Status: No Alcohol use: Reports: none Drug use: Reports: none Physical Exam - General Limitations: altered mental status, physical limitation General appearance: in distress Course Vital Signs Temperature 103 F H 04/29/19 00:53 Pulse Rate 115 04/29/19 00:53 Respiratory Rate 13 04/29/19 00:53 Blood Pressure 115/73 04/29/19 00:53 O2 Sat by Pulse Oximetry 91 04/29/19 00:53 Temperature 99.9 F H 04/29/19 03:54 Pulse Rate 106 04/29/19 03:54 Respiratory Rate 16 04/29/19 03:54 Blood Pressure 112/60 04/29/19 03:54 O2 Sat by Pulse Oximetry 95 04/29/19 03:54 Oxygen Delivery Oxygen Delivery Room Air Medical Decision Making - Medical Records Medical records reviewed: Yes I reviewed the patient's medical records. - Lab Data Lab results reviewed: Yes I reviewed the patient's lab results. Result diagrams: 04/29/19 01:20 04/29/19 01:20 Lab Results 04/29/19 04/29/19 04/29/19 Range/Units 01:14 01:20 01:20 WBC 9.6 (4.3-11.1) K/mcL RBC 4.96 (4.19-5.50) M/mcL Hgb 14.3 (12.9-16.9) g/dL Hct 43.7 (37.5-50.1) % MCV 88.1 (83.0-100.0) fL MCH 28.8 (28.0-33.3) pg MCHC 32.7 (31.6-35.5) g/dL RDW 16.9 H (11.5-14.5) % Plt Count 130 L (140-400) K/mcL MPV 11.1 (9.4-12.4) fL Immature Gran % 0.3 (0-4) % Seg Neutrophils % 88.6 % Lymphocytes % 6.1 % Monocytes % 4.7 % Eosinophils % 0.1 % Basophils % 0.2 % Neutrophils # 8.5 (1.6-8.9) K/mcL Lymphocytes # 0.6 (0.6-4.6) K/mcL Monocytes # 0.5 (0.0-1.3) K/mcL Eosinophils # 0.0 (0.0-0.6) K/mcL Basophils # 0.0 (0.0-0.2) K/mcL PT 15.7 H (9.4-12.1) Seconds INR 1.4 APTT 51.9 H (26.0-36.0) Seconds Sodium (136-145) mEq/L Potassium (3.5-5.1) mEq/L Chloride (98-107) mEq/L Carbon Dioxide (23-29) mEq/L BUN (6-20) mg/dL Creatinine (0.70-1.30) mg/dL Est GFR ( Amer) (> 60) Est GFR (Non-Af Amer) (> 60) BUN/Creatinine Ratio (6-26) Glucose (70-105) mg/dL Calculated Osmolality (280-300) Lactic Acid (0.5-2.2) mmol/L Calcium (8.6-10.3) mg/dL Phosphorus (2.7-4.5) mg/dL Magnesium (1.6-2.6) mg/dL Total Bilirubin (0.3-1.0) mg/dL Direct Bilirubin (0.0-0.2) mg/dL Indirect Bilirubin (0.0-1.2) mg/dL AST (13-39) Units/L ALT (7-52) Units/L Alkaline Phosphatase (34-104) Units/L Troponin I (< 0.04) ng/mL Serum Total Protein (6.4-8.9) g/dL Albumin (3.5-5.7) g/dL Globulin (2.4-3.5) g/dL Albumin/Globulin Ratio (1.1-2.2) Urine Color Yellow (Yellow) Urine Clarity Clear (Clear) Urine pH 8.0 (5.0-8.0) pH Units Ur Specific [place] 1.011 (1.010-1.025) Urine Protein Negative (Neg-Trace) mg/dL Urine Glucose (UA) Normal (Normal) mg/dL Urine Ketones Negative (Negative) mg/dL Urine Blood Negative (Negative) Urine Nitrite Negative (Negative) Urine Bilirubin Negative (Negative) Urine Urobilinogen Normal (Normal) mg/dL Ur Leukocyte Esterase Negative (Negative) Ur Culture Indicated? NO (NO) 04/29/19 04/29/19 Range/Units 01:20 01:20 WBC (4.3-11.1) K/mcL RBC (4.19-5.50) M/mcL Hgb (12.9-16.9) g/dL Hct (37.5-50.1) % MCV (83.0-100.0) fL MCH (28.0-33.3) pg MCHC (31.6-35.5) g/dL RDW (11.5-14.5) % Plt Count (140-400) K/mcL MPV (9.4-12.4) fL Immature Gran % (0-4) % Seg Neutrophils % % Lymphocytes % % Monocytes % % Eosinophils % % Basophils % % Neutrophils # (1.6-8.9) K/mcL Lymphocytes # (0.6-4.6) K/mcL Monocytes # (0.0-1.3) K/mcL Eosinophils # (0.0-0.6) K/mcL Basophils # (0.0-0.2) K/mcL PT (9.4-12.1) Seconds INR APTT (26.0-36.0) Seconds Sodium 137 (136-145) mEq/L Potassium 3.7 (3.5-5.1) mEq/L Chloride 104 (98-107) mEq/L Carbon Dioxide 24 (23-29) mEq/L BUN 10 (6-20) mg/dL Creatinine 0.33 L (0.70-1.30) mg/dL Est GFR ( Amer) > 60 (> 60) Est GFR (Non-Af Amer) > 60 (> 60) BUN/Creatinine Ratio 30 H (6-26) Glucose 126 H (70-105) mg/dL Calculated Osmolality 285 (280-300) Lactic Acid 1.5 (0.5-2.2) mmol/L Calcium 8.7 (8.6-10.3) mg/dL Phosphorus 1.7 L (2.7-4.5) mg/dL Magnesium 1.9 (1.6-2.6) mg/dL Total Bilirubin 0.6 (0.3-1.0) mg/dL Direct Bilirubin 0.1 (0.0-0.2) mg/dL Indirect Bilirubin 0.5 (0.0-1.2) mg/dL AST 20 (13-39) Units/L ALT 38 (7-52) Units/L Alkaline Phosphatase 78 (34-104) Units/L Troponin I < 0.03 (< 0.04) ng/mL Serum Total Protein 6.6 (6.4-8.9) g/dL Albumin 3.9 (3.5-5.7) g/dL Globulin 2.7 (2.4-3.5) g/dL Albumin/Globulin Ratio 1.4 (1.1-2.2) Urine Color (Yellow) Urine Clarity (Clear) Urine pH (5.0-8.0) pH Units Ur Specific [place] (1.010-1.025) Urine Protein (Neg-Trace) mg/dL Urine Glucose (UA) (Normal) mg/dL Urine Ketones (Negative) mg/dL Urine Blood (Negative) Urine Nitrite (Negative) Urine Bilirubin (Negative) Urine Urobilinogen (Normal) mg/dL Ur Leukocyte Esterase (Negative) Ur Culture Indicated? (NO) - Radiology Data Radiology results reviewed: Yes I reviewed the patient's radiology results. - EKG Data EKG #1 EKG attestation: Yes I reviewed and interpreted this EKG. EKG results narrative: EKG shows sinus tachycardia with ventricular rate of 117. No significant ST segment elevation or depression. No ectopy. No significant change from prior EKG dated 02/19/2019. Critical Care Time Critical Care Time: Yes Total Critical Care Time: 35 Attestation: Critical care performed: Time is exclusive of separately billable procedures. Time includes: direct patient care, patient reassessment, coordination of patient care, interpretation of data (laboratory data, radiology data, and respiratory data), review of patient's medical records, medical consultation and documentation of patient care. Procedures included in critical care time: Procedures excluded from critical care time: Attestation Statement - Attestation Attestation: I, Pato Rodas MD, personally evaluated this patient and discussed their management with the resident physician. I reviewed the resident's note and agree with the documented findings, medical decision making, and plan of care. I reviewed the residents documentation and agree with the residents assessment and plan of care. I have personally had face to face time with the patient. I personally supervised and was present for the streeter/critical portions of the following procedures completed by the resident: EKG interpretation. Patient is a 28-year-old male who presents to the emergency department by EMS f or complaint of fever and altered mental status. She is quadriplegic secondary to a cervical spine injury at age 16 from a sledding accident. He is normally alert and oriented and converses normally. Mother reports that this morning he had a low-grade fever. He received Tylenol and ibuprofen and the fever seemed to resolve. At about 4 PM he seemed to be more tired than usual and then this evening he became less responsive with a temp up to 103. On arrival here the patient does respond to verbal stimuli but is nonverbal. He follows some commands. He admits to pain all over. He has a history of sepsis and recurrent UTIs due to intermittent straight catheter. On examination patient is a well-developed well-nourished male in no acute distress. He is very drowsy but responds to verbal stimuli and follows some commands. He does not talk but does nod his head to answer some questions. There is no cyanosis or diaphoresis. Breath sounds are clear and equal bilaterally. Heart regular with a moderate tachycardia. Abdomen is soft with normal bowel sounds. There does appear to be some mild diffuse abdominal tenderness. There is moderate erythema of the left hip and thigh region with warmth to touch. No palpable fluctuance. EKG shows sinus tachycardia with ventricular rate of 117. No significant ST segment elevation or depression. No ectopy. No significant change from prior EKG dated 02/19/2019. Chest x-ray negative. Labs reviewed. Urinalysis negative. Blood cultures obtained and IV antibiotics initiated. The hospitalist, Dr. Trujillo, was consulted and accepted admission of the patient.
[2019-04-29] MEDS ORDERED: *HR* HYDROmorphone (PF) 1 MG/ML SYRINGE IVP ONE (04:25)
[2019-04-29] MEDS ORDERED: Ondansetron 4 MG/2 ML VIAL IVP PRN (07:23)
[2019-04-29] MEDS ORDERED: Naloxone 0.4 MG/ML INJ IVP PRN (07:23)
[2019-04-29] MEDS ORDERED: diazePAM 10 MG TABLET PO PRN (07:24)
[2019-04-29] MEDS ORDERED: Albuterol 2.5 MG/3 ML NEBULIZER IH PRN (07:24)
[2019-04-29] MEDS ORDERED: Sennosides 8.6 MG TABLET PO PRN (07:24)
[2019-04-29] MEDS ORDERED: EPINEPHrine 1 MG/ML VIAL IM PRN (07:24)
[2019-04-29] MEDS ORDERED: 0.9 % Sodium Chloride 500 ML IVC PRN (07:26)
[2019-04-29] MEDS: 0.9 % Sodium Chloride 1,000 ML IVC SCH ×3 (07:31→22:38)
--- NOTE | 2019-04-29 08:05 | Internal Med History&Physical ---
Date of Encounter: 04/29/19 Time of Encounter: 07:15 Internal Medicine - H&P: HPI Chief complaint: L hip redness, transient episode of unresponsiveness Admitted From: Home History of present illness: Mr. 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 Further history was obtained from his mother as well given his current illness. She states that he has been having fever for the last 1-2 days associated with fluctuating mental status. He is usually A&O x 3 and lives by himself with assistance but yesterday he was found to be not as interactive with his mother as previously. He also had fever of 102 and was found to have developing redness over the left proximal thigh and hip area. Also endorses chill. No chest pain, shortness of breath, cough, sputum production, nausea/vomiting, or diarrhea. Denies any dysuria, urinary frequeny, flank pain (he does self-cath at home for neurogenic bladder). No headache, blurring of vision, facial droop, or focal weakness/numbness. In the ED, he was febrile at 103, tachycardic at 115, with borderline blood pressure. Labwork was largely unremarkable except for mild thrombocytopenia. Lactic acid normal. Urinalysis negative for leukocyte esterase or nitrite. Chest x-ray did not show any acute cardiopulmonary process and CT Abdo pelvis also do not show any acute abnormality. Patient was given IV Zyvox (allergic to vanc) and zosyn then admitted for further management of sepsis. Past Med Surg Social Fam HX - Past Medical History Medical history: kidney stones, other Additional medical history: quadraplegic Psychiatric history: anxiety, depression - Past Surgical History Surgical History: vascular surgery Additional surgical history: fusion of c3-c6. hx of PEG tube, hx of trach, [place] filter, rotaional muscle flap on right hip.left muscle flap on hip - Social History Smoking Status: Never smoker Smokeless Tobacco Status: No Alcohol use: none Drug use: none - Family History Father Adopted: No Family Member Ethnicity: Non- Living Status: Still Living Hx Family Endocrine Disorder: Yes (DM) Mother Adopted: No Family Member Ethnicity: Non- Living Status: Still Living Hx Family Cancer: Yes (cervical, breast) Hx Family Endocrine Disorder: Yes (DM type I) Internal Medicine - H&P: Meds Albuterol Neb [Proventil Neb] 2.5 mg IH QID PRN 11/30/17 [History] Albuterol Sulfate [Proventil Inhaler] 1 - 2 puff IH Q4HR PRN 11/30/17 [History] Ascorbic Acid [Vitamin C with Cira Hips] 500 mg PO DAILY 11/30/17 [History] Calcium Carbonate [Antacid] 1,000 mg PO DAILY PRN 11/30/17 [History] Docusate [Colace] 100 mg PO BID 11/30/17 [History] Hydromorphone HCl [Dilaudid] 4 mg PO BID 11/30/17 [History] Hydromorphone HCl [Dilaudid] 8 mg PO HS 11/30/17 [History] Multivit,Th Iron,Other Min [Thera-M] 1 tab PO DAILY 11/30/17 [History] Oxybutynin [Ditropan] 5 mg PO TID 11/30/17 [History] Potassium Gluconate 99 mg PO DAILY 11/30/17 [History] Pregabalin [Lyrica] 150 mg PO TID 11/30/17 [History] Sennosides [Senokot] 8.6 mg PO BID PRN 11/30/17 [History] Zinc Amino Acid Chelate [Zinc] 50 mg PO DAILY 11/30/17 [History] Baclofen 20 mg PO QID 04/08/18 [History] Acetaminophen [Acetaminophen ER] 650 mg PO Q4HR 08/18/18 [History] EPINEPHrine [Epipen] 0.3 mg IM ONCE PRN 08/18/18 [History] Ibuprofen Susp [Motrin Susp] 600 mg PO Q6HR PRN 08/18/18 [History] diazePAM [Valium] 10 mg PO BID PRN 08/18/18 [History] Allergy/AdvReac Type Severity Reaction Status Date / Time Erythromycin Base Allergy See Verified 04/02/19 19:29 Comments aspirin AdvReac Nausea Verified 04/02/19 19:29 codeine AdvReac Hives Verified 04/02/19 19:29 diphenhydramine AdvReac Swelling Verified 04/02/19 19:29 [From Benadryl] of Lip/Tongue/Throat gentamicin AdvReac See Verified 04/02/19 19:29 Comments methadone AdvReac Swelling Verified 04/02/19 19:29 of Lip/Tongue/Throat morphine AdvReac Hives Verified 04/02/19 19:29 oxycodone [From OxyContin] AdvReac Swelling Verified 04/02/19 19:29 of Lip/Tongue/Throat promethazine [From Phenergan] AdvReac See Verified 04/02/19 19:29 Comments tobramycin AdvReac See Verified 04/02/19 19:29 Comments vancomycin AdvReac See Verified 04/02/19 19:29 Comments All Systems PM: A 10-system review of systems was performed and is negative for pertinent findings except as documented above in the HPI. - Constitutional Vitals: Temp Pulse Resp BP Pulse Ox 98.5 F 81 17 94/62 97 04/29/19 07:21 04/29/19 07:21 04/29/19 07:21 04/29/19 07:21 04/29/19 07:21 Exam: General: Alert and oriented x 3, not in acute distress. Having rigor HEENT:EOMI, pupils equal, round and reactive. Cardiovascular:Normal S1 & S2, No JVD. Pulse regular. Lungs: clear to auscultation, no wheezes/rales Abdomen:Soft, non-tender, no rigidity. Extremities: Redness and warmth over the L proximal thigh on the medial aspect, extending to lateral hip. No joint swelling noted Neurological: quardiplegic, no facial droop Skin: warm, dry Pulses:Carotid and radial pulses normal +2. Rest of the physical exam is non contributory Internal Med - H&P Results - Labs CBC & Chem 7: 04/29/19 01:20 04/29/19 01:20 Labs: Short CBC 04/29/19 Range/Units 01:20 WBC 9.6 (4.3-11.1) K/mcL Hgb 14.3 (12.9-16.9) g/dL Hct 43.7 (37.5-50.1) % Plt Count 130 L (140-400) K/mcL Neutrophils # 8.5 (1.6-8.9) K/mcL BMP 04/29/19 01:20 Sodium 137 Potassium 3.7 Chloride 104 Carbon Dioxide 24 BUN 10 Creatinine 0.33 L Glucose 126 H Calcium 8.7 Cardiac Enzymes 04/29/19 Range/Units 01:20 Troponin I < 0.03 (< 0.04) ng/mL Liver Function 04/29/19 Range/Units 01:20 Total Bilirubin 0.6 (0.3-1.0) mg/dL Direct Bilirubin 0.1 (0.0-0.2) mg/dL AST 20 (13-39) Units/L ALT 38 (7-52) Units/L Alkaline Phosphatase 78 (34-104) Units/L Albumin 3.9 (3.5-5.7) g/dL Urine 04/29/19 Range/Units 01:14 Urine Color Yellow (Yellow) Urine Clarity Clear (Clear) Urine pH 8.0 (5.0-8.0) pH Units Ur Specific [place] 1.011 (1.010-1.025) Urine Protein Negative (Neg-Trace) mg/dL Urine Glucose (UA) Normal (Normal) mg/dL - Impressions ITS Impressions Chest X-Ray 04/29/19 00:54 IMPRESSION: No acute disease. D/ / Jian Power MD / Jian Power MD Interpreting Provider: Jian Power MD Abdomen/Pelvis CT 04/29/19 02:25 IMPRESSION: No acute abnormality identified. D/ / Jian Power MD / Jian Power MD Interpreting Provider: Jian Power MD Head CT 04/29/19 02:33 IMPRESSION: No acute intracranial abnormality. D/ / Jian Power MD / Jian Power MD Interpreting Provider: Jian Power MD - Assessment and Plan (1) Sepsis Current Visit: Yes Status: Acute Assessment and plan: Presented with fever, altered mental status, and tachycardia possible from L thigh/hip cellulitis. No open wound or purulent discharge identified normal lactic acid started on zosyn/zyvox due to allergy to vanc, continue. Demaracate the area follow up on blood cultures Qualifiers: Sepsis type: sepsis due to unspecified organism Qualified Code(s): A41.9 - Sepsis, unspecified organism (2) Cellulitis Current Visit: Yes Status: Acute Assessment and plan: Antibiotics as above Qualifiers: Site of cellulitis: extremity Site of cellulitis of extremity: lower extremity Laterality: left Qualified Code(s): L03.116 - Cellulitis of left lower limb (3) Metabolic encephalopathy Current Visit: Yes Status: Acute Assessment and plan: likely due to the above, improving already and he is now A&O x 3 CT head -ve (4) Chronic complete quadriplegia Current Visit: No Status: Chronic Assessment and plan: resume home meds for pain (5) Constipation Current Visit: No Status: Chronic Assessment and plan: resume home laxatives Qualifiers: Constipation type: other constipation type Qualified Code(s): K59.09 - Other constipation (6) DVT prophylaxis Current Visit: Yes Status: Acute Assessment and plan: SQ heparin - Time Spent With Patient Total time spent is greater than 50% in coordination of care (as documented) at patient's floor/unit and/or counseling patient: 25 - 35 minutes
[2019-04-29] MEDS: Piperacillin/Tazobactam 3.375 GM in 0.9 % Sodium Chloride Mini Bag 100 ML IVPB SCH ×2 (10:21→14:35)
[2019-04-29] MEDS: Ascorbic Acid 500 MG TABLET PO SCH (10:23)
[2019-04-29] MEDS: Acetaminophen 325 MG TABLET PO SCH ×4 (10:23→21:19)
[2019-04-29] MEDS: Pregabalin 75 MG CAPSULE PO SCH ×3 (10:23→21:20)
[2019-04-29] MEDS: Baclofen 10 MG TABLET PO SCH ×4 (10:24→21:20)
[2019-04-29] MEDS: *HR* HYDROmorphone 4 MG TABLET PO SCH ×3 (10:28→21:21)
--- NOTE | 2019-04-29 15:07 | Electrocardiograph Report ---
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
[2019-04-29] MEDS: Clindamycin 600 MG/50 ML 600 MG/50 ML IV.SOLN IVPB SCH (18:55)
[2019-04-29] MEDS: *HR* Heparin 5,000 UNIT/ML VIAL SQ SCH (18:57)
[2019-04-30] MEDS: Acetaminophen 325 MG TABLET PO SCH ×6 (00:28→20:50)
[2019-04-30] MEDS: Piperacillin/Tazobactam 3.375 GM in 0.9 % Sodium Chloride Mini Bag 100 ML IVPB SCH ×3 (00:29→15:47)
[2019-04-30] MEDS: Clindamycin 600 MG/50 ML 600 MG/50 ML IV.SOLN IVPB SCH ×2 (00:29→07:47)
[2019-04-30 04:54] LABS: Basophils % 0.5 %; Hematocrit 37.2 % (37.5-50.1); Hemoglobin 12.1 g/dL (12.9-16.9); Immature Granulocytes % 0.5 % (0-4); Lymphocytes # 1.1 K/mcL (0.6-4.6); Lymphocytes % 26.4 %; Mean Corpuscular HGB Conc 32.5 g/dL (31.6-35.5); Mean Corpuscular Hemoglobin 29.4 pg (28.0-33.3); Mean Corpuscular Volume 90.3 fL (83.0-100.0); Mean Platelet Volume 11.2 fL (9.4-12.4); Monocytes # 0.5 K/mcL (0.0-1.3); Monocytes % 12.9 %; Neutrophils # 2.5 K/mcL (1.6-8.9); Platelet Count 100 K/mcL (140-400); Red Blood Count 4.12 M/mcL (4.19-5.50); Red Cell Distribution Width 16.9 % (11.5-14.5); Segmented Neutrophils % 58.7 %; White Blood Count 4.2 K/mcL (4.3-11.1)
[2019-04-30 05:12] LABS: BUN/Creatinine Ratio 19 (6-26); Blood Urea Nitrogen 8 mg/dL (6-20); Calcium 7.6 mg/dL (8.6-10.3); Carbon Dioxide 26 mEq/L (23-29); Chloride 111 mEq/L (98-107); Glucose 98 mg/dL (70-105); Osmolality,Calculated 290 (280-300); Potassium 3.6 mEq/L (3.5-5.1); Sodium 141 mEq/L (136-145); eGFR For African Americans > 60 (> 60); eGFR For Non-African Americans > 60 (> 60)
[2019-04-30] MEDS: *HR* Heparin 5,000 UNIT/ML VIAL SQ SCH ×2 (05:50→15:46)
[2019-04-30] MEDS: 0.9 % Sodium Chloride 1,000 ML IVC SCH ×3 (06:56→20:50)
[2019-04-30] MEDS: BENZOCAINE RC SCH ×2 (07:48→12:25)
[2019-04-30] MEDS: DOCUSATE RC SCH ×2 (07:48→12:25)
[2019-04-30] MEDS: Pregabalin 75 MG CAPSULE PO SCH ×3 (07:49→20:50)
[2019-04-30] MEDS: Ascorbic Acid 500 MG TABLET PO SCH (07:49)
[2019-04-30] MEDS: Baclofen 10 MG TABLET PO SCH ×4 (07:50→20:50)
[2019-04-30] MEDS: *HR* HYDROmorphone 4 MG TABLET PO SCH ×2 (08:11→15:44)
--- NOTE | 2019-04-30 14:20 | Internal Med Progress Note ---
Hospitalist Progress Note - Encounter Date of Encounter: 04/30/19 Time of Encounter: 08:30 - Subjective Interval History: Patient was seen this a.m., no overnight event. He denied any fever, chills or night sweats. He reported improvement in his symptoms. - Exam Vitals: Temp Pulse Resp BP Pulse Ox 98.6 F 67 17 126/97 97 04/30/19 07:21 04/30/19 07:21 04/30/19 07:21 04/30/19 07:21 04/30/19 07:21 Exam: General: Patient is alert, oriented 3. Head: Atraumatic, normal inspection, normocephalic. Eye: EOMI, PERRLA, no scleral icterus noted. ENT: Mucous membranes moist. No odontogenic infection noted. Large amount of oral secretions noted. Neck: Normal inspection, no meningismus. Respiratory: No respiratory distress, rhonchi, or wheezes noted. Cardiovascular: Regular rate and irregular rhythm, S1 and S2 audible. No murmurs, rubs, or gallops. GI: Soft, nondistended, normal bowel sounds. Extremities: Left hip erythema and warmth with normal ROM and areas of central clearing Neurological: Alert, oriented 3,. Quadriplegic Psychiatric: normal affect, normal mood. . - Assessment and Plan (1) Cellulitis Current Visit: Yes Status: Acute (2) Sepsis Current Visit: Yes Status: Resolved (3) Constipation Current Visit: No Status: Chronic (4) Chronic complete quadriplegia Current Visit: No Status: Chronic (5) Metabolic encephalopathy Current Visit: Yes Status: Resolved (6) DVT prophylaxis Current Visit: Yes Status: Acute - Summary of Assessment and Plan Summary of Assessment and Plan: Mr. 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 He is managed for left hip cellulitis with antibiotics. Left hip cellulitis: - Patient is a status, afebrile today. WBC goes 4.2. - Patient has history of MRSA infection in the past, however he does not have purulence or discharge. - On day 2 of Zosyn and Zyvox due to multiple antibiotic allergies. He has switched to Bactrim hopefully tomorrow in anticipation of discharge. - Blood cultures are negative today. Leukopenia: - Like is secondary to above Thrombocytopenia: - Different than his baseline like his security to sepsis and infection. Will keep monitoring Urinary retention due to his neurologic injury: - Patient does not want today due to self-catheterization as he used to do at home and he requested to keep Sullivan in. History of quadriplegia: - Continue home pain medication and nursing care - Continue baclofen CODE STATUS: Full code Diet: Regular VTE prophylaxis: Heparin subcutaneous - Time Spent with Patient Total time spent is greater than 50% in coordination of care (as documented) at patient's floor/unit and/or counseling patient: Plan of Care Discussed with: patient Internal Medicine: Result - Labs CBC & Chem 7: 04/30/19 04:00 04/30/19 04:00 Labs: Short CBC 04/30/19 Range/Units 04:00 WBC 4.2 L D (4.3-11.1) K/mcL Hgb 12.1 L D (12.9-16.9) g/dL Hct 37.2 L (37.5-50.1) % Plt Count 100 L (140-400) K/mcL Neutrophils # 2.5 (1.6-8.9) K/mcL BMP 04/30/19 04:00 Sodium 141 Potassium 3.6 Chloride 111 H Carbon Dioxide 26 BUN 8 Creatinine 0.43 L Glucose 98 Calcium 7.6 L - ABG Interpretation ABG results: PT/INR, D-dimer PT 15.7 Seconds (9.4-12.1) H 04/29/19 01:20 Consult Discharge Plan - Plan Referrals: Bang Swenson MD [Primary Care Provider] - (1) Cellulitis Qualifiers: Site of cellulitis: extremity Site of cellulitis of extremity: lower extremity Laterality: left Qualified Code(s): L03.116 - Cellulitis of left lower limb (2) Sepsis Qualifiers: Sepsis type: sepsis due to unspecified organism Qualified Code(s): A41.9 - Sepsis, unspecified organism (3) Constipation Qualifiers: Constipation type: other constipation type Qualified Code(s): K59.09 - Other constipation
[2019-04-30] MEDS: Linezolid 600 MG TABLET PO SCH (15:34)
[2019-05-01] MEDS: Linezolid 600 MG TABLET PO SCH ×2 (00:04→08:47)
[2019-05-01] MEDS: *HR* HYDROmorphone 4 MG TABLET PO SCH ×4 (00:05→20:52)
[2019-05-01] MEDS: Piperacillin/Tazobactam 3.375 GM in 0.9 % Sodium Chloride Mini Bag 100 ML IVPB SCH ×3 (00:05→15:56)
[2019-05-01] MEDS: Acetaminophen 325 MG TABLET PO SCH ×6 (00:05→20:58)
[2019-05-01] MEDS: *HR* HYDROmorphone (PF) 1 MG/ML SYRINGE IVP PRN ×2 (03:55→19:26)
[2019-05-01 04:13] LABS: Basophils % 0.3 %; Eosinophils # 0.1 K/mcL (0.0-0.6); Hematocrit 37.6 % (37.5-50.1); Hemoglobin 12.2 g/dL (12.9-16.9); Immature Granulocytes % 0.2 % (0-4); Lymphocytes # 1.2 K/mcL (0.6-4.6); Lymphocytes % 19.1 %; Mean Corpuscular HGB Conc 32.4 g/dL (31.6-35.5); Mean Corpuscular Hemoglobin 29.6 pg (28.0-33.3); Mean Corpuscular Volume 91.3 fL (83.0-100.0); Mean Platelet Volume 10.5 fL (9.4-12.4); Monocytes # 0.5 K/mcL (0.0-1.3); Monocytes % 8.2 %; Neutrophils # 4.4 K/mcL (1.6-8.9); Platelet Count 107 K/mcL (140-400); Red Blood Count 4.12 M/mcL (4.19-5.50); Red Cell Distribution Width 16.7 % (11.5-14.5); Segmented Neutrophils % 71.2 %; White Blood Count 6.1 K/mcL (4.3-11.1)
[2019-05-01 04:33] LABS: Blood Urea Nitrogen 5 mg/dL (6-20); Calcium 7.8 mg/dL (8.6-10.3); Carbon Dioxide 25 mEq/L (23-29); Chloride 108 mEq/L (98-107); Glucose 79 mg/dL (70-105); Osmolality,Calculated 286 (280-300); Potassium 3.8 mEq/L (3.5-5.1); Sodium 140 mEq/L (136-145)
[2019-05-01 04:48] LABS: BUN/Creatinine Ratio 14 (6-26); eGFR For African Americans > 60 (> 60); eGFR For Non-African Americans > 60 (> 60)
[2019-05-01] MEDS: 0.9 % Sodium Chloride 1,000 ML IVC SCH (04:48)
[2019-05-01] MEDS: *HR* Heparin 5,000 UNIT/ML VIAL SQ SCH ×2 (05:04→18:29)
[2019-05-01] MEDS: Baclofen 10 MG TABLET PO SCH ×4 (08:46→20:57)
[2019-05-01] MEDS: Ascorbic Acid 500 MG TABLET PO SCH (08:47)
[2019-05-01] MEDS: Pregabalin 75 MG CAPSULE PO SCH ×3 (08:47→20:57)
--- NOTE | 2019-05-01 11:49 | Internal Med Progress Note ---
Hospitalist Progress Note - Encounter Date of Encounter: 05/01/19 Time of Encounter: 10:00 - Exam Vitals: Temp Pulse Resp BP Pulse Ox 98.4 F 65 16 124/96 94 05/01/19 07:16 05/01/19 07:16 05/01/19 03:57 05/01/19 07:16 05/01/19 07:16 Exam: General: Patient is alert, oriented 3. Head: Atraumatic, normal inspection, normocephalic. Eye: EOMI, PERRLA, no scleral icterus noted. ENT: Mucous membranes moist. No odontogenic infection noted. Large amount of oral secretions noted. Neck: Normal inspection, no meningismus. Respiratory: No respiratory distress, rhonchi, or wheezes noted. Cardiovascular: Regular rate and irregular rhythm, S1 and S2 audible. No murmurs, rubs, or gallops. GI: Soft, nondistended, normal bowel sounds. Extremities: Left hip erythema and warmth with normal ROM and areas of central clearing, the erythema is also covering his scrotum however no swelling noted. Neurological: Alert, oriented 3,. Quadriplegic Psychiatric: normal affect, normal mood. . - Assessment and Plan (1) Cellulitis Current Visit: Yes Status: Acute (2) Sepsis Current Visit: Yes Status: Resolved (3) Constipation Current Visit: No Status: Chronic (4) Chronic complete quadriplegia Current Visit: No Status: Chronic (5) DVT prophylaxis Current Visit: Yes Status: Acute (6) Metabolic encephalopathy Current Visit: Yes Status: Resolved - Summary of Assessment and Plan Summary of Assessment and Plan: Mr. 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 He is managed for left hip cellulitis with antibiotics. Left hip cellulitis: improving - Patient is HDS, afebrile today. Has no leukocytosis - Patient has history of MRSA infection in the past, however he does not have purulence or discharge. - got 3 days of Zosyn and Zyvox due to multiple antibiotic allergies. zyvox will be replaced with bactrim starting today. Will keep Zosyn until I get the US of the scrotum. - Blood cultures are negative today. Leukopenia: resolved - Like is secondary to above Thrombocytopenia: improving - Different than his baseline like his security to sepsis and infection. Will keep monitoring Urinary retention due to his neurologic injury: - Patient does not want today to do self-catheterization as he used to do at home and he requested to keep Sullivan in. History of quadriplegia: - Continue home pain medication and nursing care - Continue baclofen CODE STATUS: Full code Diet: Regular VTE prophylaxis: Heparin subcutaneous Dispo: possible discharge tomorrow. Patient is requesting social service to help him find a home nurse as his [facility] nurse stopped to follow due to lack of staff. social service consult placed. - Time Spent with Patient Total time spent is greater than 50% in coordination of care (as documented) at patient's floor/unit and/or counseling patient: Plan of Care Discussed with: patient Internal Medicine: Result - Labs CBC & Chem 7: 05/01/19 03:55 05/01/19 03:55 Labs: Short CBC 05/01/19 Range/Units 03:55 WBC 6.1 (4.3-11.1) K/mcL Hgb 12.2 L (12.9-16.9) g/dL Hct 37.6 (37.5-50.1) % Plt Count 107 L (140-400) K/mcL Neutrophils # 4.4 (1.6-8.9) K/mcL BMP 05/01/19 03:55 Sodium 140 Potassium 3.8 Chloride 108 H Carbon Dioxide 25 BUN 5 L Creatinine 0.36 L Glucose 79 Calcium 7.8 L - ABG Interpretation ABG results: PT/INR, D-dimer PT 15.7 Seconds (9.4-12.1) H 04/29/19 01:20 Consult Discharge Plan - Plan Referrals: Bang Swenson MD [Primary Care Provider] - (1) Cellulitis Qualifiers: Site of cellulitis: extremity Site of cellulitis of extremity: lower extremity Laterality: left Qualified Code(s): L03.116 - Cellulitis of left lower limb (2) Sepsis Qualifiers: Sepsis type: sepsis due to unspecified organism Qualified Code(s): A41.9 - Sepsis, unspecified organism (3) Constipation Qualifiers: Constipation type: other constipation type Qualified Code(s): K59.09 - Other constipation
[2019-05-01] MEDS: DOCUSATE RC SCH (14:28)
[2019-05-01] MEDS: BENZOCAINE RC SCH (14:28)
[2019-05-01] MEDS: Sulfamethoxazole/Trimeth DS 1 EACH TABLET PO SCH (20:58)
[2019-05-02] MEDS: Piperacillin/Tazobactam 3.375 GM in 0.9 % Sodium Chloride Mini Bag 100 ML IVPB SCH ×3 (00:22→16:33)
[2019-05-02 03:26] LABS: Hemoglobin 12.8 g/dL (12.9-16.9); Mean Corpuscular Hemoglobin 28.4 pg (28.0-33.3); Mean Corpuscular Volume 88.9 fL (83.0-100.0); Mean Platelet Volume 11.2 fL (9.4-12.4); Platelet Count 120 K/mcL (140-400); Red Cell Distribution Width 16.8 % (11.5-14.5); White Blood Count 5.9 K/mcL (4.3-11.1)
[2019-05-02] MEDS: *HR* HYDROmorphone (PF) 1 MG/ML SYRINGE IVP PRN ×2 (05:03→15:07)
[2019-05-02] MEDS: *HR* Heparin 5,000 UNIT/ML VIAL SQ SCH ×2 (05:46→05:56)
[2019-05-02] MEDS ORDERED: BENZOCAINE RC SCH (06:00)
[2019-05-02] MEDS ORDERED: DOCUSATE RC SCH (06:00)
[2019-05-02 07:32] VITALS: BP 119/83
[2019-05-02] MEDS: Sulfamethoxazole/Trimeth DS 1 EACH TABLET PO SCH (09:38)
[2019-05-02] MEDS: Pregabalin 75 MG CAPSULE PO SCH ×2 (09:38→15:32)
[2019-05-02] MEDS: Ascorbic Acid 500 MG TABLET PO SCH (09:38)
[2019-05-02] MEDS: *HR* HYDROmorphone 4 MG TABLET PO SCH ×2 (09:38→16:32)
[2019-05-02] MEDS: Baclofen 10 MG TABLET PO SCH ×2 (09:38→14:42)
[2019-05-02] MEDS: Acetaminophen 325 MG TABLET PO SCH ×3 (09:40→16:32)
--- NOTE | 2019-05-02 09:47 | Discharge Summary ---
- NOTES TO OUTPATIENT PROVIDER Notes to Outpatient Provider: Complete course of Augmentin and Bactrim Orders not resulted at time of discharge: Pending orders 04/29/19 02:00 Culture,Blood [BC] Stat Date of Encounter: 05/02/19 Time of Encounter: 10:00 - Discharge Diagnosis (1) Sepsis Priority: Primary Status: Resolved Qualifiers: Sepsis type: sepsis due to unspecified organism Qualified Code(s): A41.9 - Sepsis, unspecified organism (2) Cellulitis Priority: Secondary Status: Acute Qualifiers: Site of cellulitis: extremity Site of cellulitis of extremity: lower extremity Laterality: left Qualified Code(s): L03.116 - Cellulitis of left lower limb (3) Constipation Priority: Secondary Status: Chronic Qualifiers: Constipation type: other constipation type Qualified Code(s): K59.09 - Other constipation (4) Chronic complete quadriplegia Priority: Secondary Status: Chronic (5) DVT prophylaxis Priority: Secondary Status: Acute (6) Metabolic encephalopathy Priority: Secondary Status: Resolved Hospital course: Mr. 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 He is managed for sepsis due to left hip cellulitis with antibiotics. Sepsis: - Due to Left hip cellulitis. Patient was presented initially on Zyvox and Zosyn given his history of MRSA. Blood cultures remain negative throughout hospitalization. CT scan of the abdomen and pelvis with contrast at admission did not reveal any abscess formation. His leukocytosis resolved and he remained hemodynamically stable. Ultrasound of the scrotum did not reveal any abscess formation or spread of infection to his scrotum. Eventually his antibiotics were switched to Bactrim and Augmentin to finish total 10 days of antibiotic course. Thrombocytopenia: improving - Different than his baseline like his security to sepsis and infection. Will keep monitoring Today, patient is asymptomatic. Hemodynamically stable. He will be discharged home in stable condition Discharge discussed with: patient - Time Spent with Patient Total time spent providing and/or coordinating discharge services: 40 minutes - Discharge Medications Prescriptions: New Sulfamethoxazole/Trimeth DS [Bactrim Ds] 1 each PO BID #14 tablet Patient Taking Own Medication 0 each RC DAILY@0600 each diazePAM [Valium] 10 mg PO BID PRN tablet PRN Reason: Anxiety Continued Hydromorphone HCl [Dilaudid] 8 mg PO HS Docusate [Colace] 100 mg PO BID Multivit,Th Iron,Other Min [Thera-M] 1 tab PO DAILY Pregabalin [Lyrica] 150 mg PO TID Sennosides [Senokot] 8.6 mg PO BID PRN PRN Reason: Constipation Hydromorphone HCl [Dilaudid] 4 mg PO BID Oxybutynin [Ditropan] 5 mg PO TID Ascorbic Acid [Vitamin C with Cira Hips] 500 mg PO DAILY Albuterol Neb [Proventil Neb] 2.5 mg IH QID PRN PRN Reason: Dyspnea Albuterol Sulfate [Proventil Inhaler] 1 - 2 puff IH Q4HR PRN PRN Reason: Dyspnea Zinc Amino Acid Chelate [Zinc] 50 mg PO DAILY Potassium Gluconate 99 mg PO DAILY Calcium Carbonate [Antacid] 1,000 mg PO DAILY PRN PRN Reason: Indigestion Baclofen 20 mg PO QID EPINEPHrine [Epipen] 0.3 mg IM ONCE PRN PRN Reason: Anaphylaxis Ibuprofen Susp [Motrin Susp] 600 mg PO Q6HR PRN PRN Reason: Pain Acetaminophen [Acetaminophen ER] 650 mg PO Q4HR Home Medications: Albuterol Neb [Proventil Neb] 2.5 mg IH QID PRN 11/30/17 [History] Albuterol Sulfate [Proventil Inhaler] 1 - 2 puff IH Q4HR PRN 11/30/17 [History] Ascorbic Acid [Vitamin C with Cira Hips] 500 mg PO DAILY 11/30/17 [History] Calcium Carbonate [Antacid] 1,000 mg PO DAILY PRN 11/30/17 [History] Docusate [Colace] 100 mg PO BID 11/30/17 [History] Hydromorphone HCl [Dilaudid] 4 mg PO BID 11/30/17 [History] Hydromorphone HCl [Dilaudid] 8 mg PO HS 11/30/17 [History] Multivit,Th Iron,Other Min [Thera-M] 1 tab PO DAILY 11/30/17 [History] Oxybutynin [Ditropan] 5 mg PO TID 11/30/17 [History] Potassium Gluconate 99 mg PO DAILY 11/30/17 [History] Pregabalin [Lyrica] 150 mg PO TID 11/30/17 [History] Sennosides [Senokot] 8.6 mg PO BID PRN 11/30/17 [History] Zinc Amino Acid Chelate [Zinc] 50 mg PO DAILY 11/30/17 [History] Baclofen 20 mg PO QID 04/08/18 [History] Acetaminophen [Acetaminophen ER] 650 mg PO Q4HR 08/18/18 [History] EPINEPHrine [Epipen] 0.3 mg IM ONCE PRN 08/18/18 [History] Ibuprofen Susp [Motrin Susp] 600 mg PO Q6HR PRN 08/18/18 [History] Patient Taking Own Medication 0 each RC DAILY@0600 each 05/02/19 [Rx] Sulfamethoxazole/Trimeth DS [Bactrim Ds] 1 each PO BID #14 tablet 05/02/19 [Rx] diazePAM [Valium] 10 mg PO BID PRN tablet 05/02/19 [Rx] Allergies/Adverse Reactions: Allergy/AdvReac Type Severity Reaction Status Date / Time Erythromycin Base Allergy See Verified 04/29/19 20:55 Comments aspirin AdvReac Nausea Verified 04/29/19 20:55 codeine AdvReac Hives Verified 04/29/19 20:55 diphenhydramine AdvReac Swelling Verified 04/29/19 20:55 [From Benadryl] of Lip/Tongue/Throat gentamicin AdvReac See Verified 04/29/19 20:55 Comments methadone AdvReac Swelling Verified 04/29/19 20:55 of Lip/Tongue/Throat morphine AdvReac Hives Verified 04/29/19 20:55 oxycodone [From OxyContin] AdvReac Swelling Verified 04/29/19 20:55 of Lip/Tongue/Throat promethazine [From Phenergan] AdvReac Difficulty Verified 04/29/19 20:55 Breathing soap AdvReac Rash Verified 04/29/19 21:16 tobramycin AdvReac See Verified 04/29/19 20:55 Comments vancomycin AdvReac See Verified 04/29/19 20:55 Comments Date of admission: 04/29/19 10:41 Primary care physician: Bang Swenson MD Consults: 04/29/19 05:40 Consult to Orthopedic Shoes Salesperson [CONS] Routine Reason for SW Consult: patient has [facility] home health. may have need for 0t and pt - Constitutional Vitals: Temp Pulse Resp BP Pulse Ox 98.7 F 81 16 119/83 93 05/02/19 07:29 05/02/19 07:29 05/02/19 07:29 05/02/19 07:29 05/02/19 05:42 Exam: General: Patient is alert, oriented 3. Head: Atraumatic, normal inspection, normocephalic. Eye: EOMI, PERRLA, no scleral icterus noted. ENT: Mucous membranes moist. No odontogenic infection noted. Large amount of oral secretions noted. Neck: Normal inspection, no meningismus. Respiratory: No respiratory distress, rhonchi, or wheezes noted. Cardiovascular: Regular rate and irregular rhythm, S1 and S2 audible. No murmurs, rubs, or gallops. GI: Soft, nondistended, normal bowel sounds. Extremities: Left hip erythema and warmth resolved. Neurological: Alert, oriented 3,. Quadriplegic Psychiatric: normal affect, normal mood. - Patient Status Disposition: Home, Self-Care Condition: Good Functional capacity at discharge: bed bound Overall status at discharge: patient is back to baseline - Discharge Instructions Instructions: Cellulitis (DC), Sepsis (DC) Follow Up With: Bang Swenson MD [Primary Care Provider] - - Diet and Activity Activity: other (bedbound) Diet: regular diet
--- NOTE | 2019-05-02 12:13 | Physician Discharge Referral ---
Home Health/Hosp Referral Info Transfer to: Home Health Provider in Charge Post Discharge: PCP - Diagnosis (1) Sepsis Status: Resolved (2) Cellulitis Priority: Secondary Status: Acute (3) Constipation Priority: Secondary Status: Chronic (4) Chronic complete quadriplegia Priority: Secondary Status: Chronic (5) DVT prophylaxis Priority: Secondary Status: Acute (6) Metabolic encephalopathy Priority: Secondary Status: Resolved - Respiratory Orders Smoking Cessation: Smoking cessation has been advised. For more information, call the [place] Tobacco Quit Line at 1-250-IUQH-NOW. - Diet/Nutrition Diet/Nutrition Orders: Regular - Activity Activity Orders: Bedrest Activity: List: bedbound - Services Needed Following services are medically necessary services: Nursing - Transfer Medications Prescriptions: Amoxicillin/Clavulanate [Augmentin] 875 mg PO BIDWM #14 tablet Sulfamethoxazole/Trimeth DS [Bactrim Ds] 1 each PO BID #14 tablet Home Medications: Albuterol Neb [Proventil Neb] 2.5 mg IH QID PRN 11/30/17 [History] Albuterol Sulfate [Proventil Inhaler] 1 - 2 puff IH Q4HR PRN 11/30/17 [History] Ascorbic Acid [Vitamin C with Cira Hips] 500 mg PO DAILY 11/30/17 [History] Calcium Carbonate [Antacid] 1,000 mg PO DAILY PRN 11/30/17 [History] Docusate [Colace] 100 mg PO BID 11/30/17 [History] Hydromorphone HCl [Dilaudid] 4 mg PO BID 11/30/17 [History] Hydromorphone HCl [Dilaudid] 8 mg PO HS 11/30/17 [History] Multivit,Th Iron,Other Min [Thera-M] 1 tab PO DAILY 11/30/17 [History] Oxybutynin [Ditropan] 5 mg PO TID 11/30/17 [History] Potassium Gluconate 99 mg PO DAILY 11/30/17 [History] Pregabalin [Lyrica] 150 mg PO TID 11/30/17 [History] Sennosides [Senokot] 8.6 mg PO BID PRN 11/30/17 [History] Zinc Amino Acid Chelate [Zinc] 50 mg PO DAILY 11/30/17 [History] Baclofen 20 mg PO QID 04/08/18 [History] Acetaminophen [Acetaminophen ER] 650 mg PO Q4HR 08/18/18 [History] EPINEPHrine [Epipen] 0.3 mg IM ONCE PRN 08/18/18 [History] Ibuprofen Susp [Motrin Susp] 600 mg PO Q6HR PRN 08/18/18 [History] Amoxicillin/Clavulanate [Augmentin] 875 mg PO BIDWM #14 tablet 05/02/19 [Rx] Patient Taking Own Medication 0 each RC DAILY@0600 each 05/02/19 [Rx] Sulfamethoxazole/Trimeth DS [Bactrim Ds] 1 each PO BID #14 tablet 05/02/19 [Rx] diazePAM [Valium] 10 mg PO BID PRN tablet 05/02/19 [Rx] Allergies/Adverse Reactions: Allergy/AdvReac Type Severity Reaction Status Date / Time Erythromycin Base Allergy See Verified 04/29/19 20:55 Comments aspirin AdvReac Nausea Verified 04/29/19 20:55 codeine AdvReac Hives Verified 04/29/19 20:55 diphenhydramine AdvReac Swelling Verified 04/29/19 20:55 [From Benadryl] of Lip/Tongue/Throat gentamicin AdvReac See Verified 04/29/19 20:55 Comments methadone AdvReac Swelling Verified 04/29/19 20:55 of Lip/Tongue/Throat morphine AdvReac Hives Verified 04/29/19 20:55 oxycodone [From OxyContin] AdvReac Swelling Verified 04/29/19 20:55 of Lip/Tongue/Throat promethazine [From Phenergan] AdvReac Difficulty Verified 04/29/19 20:55 Breathing soap AdvReac Rash Verified 04/29/19 21:16 tobramycin AdvReac See Verified 04/29/19 20:55 Comments vancomycin AdvReac See Verified 04/29/19 20:55 Comments Certification: Further, I certify that my clinical findings support that this patient is homebound (i.e. absences from home require considerable and taxing effort and are for medical reasons or tenriism services or infrequently or short duration when for other reasons) because: Homebound Reason: Patient requires assistance of a person or device to safely leave home Attestation: My signature below is to certify that this patient is under my care and that I, or nurse practitioner, or a physician's mechanic's assistant working with me, has a [id number] encounter with this patient.
== END 2019-05-02 17:11 | disposition home or self-care (01) | DRG 720 ==
LOC: 2NENU 00:47 → EMEROOARM 00:47 → 2NENU 06:20 → SUATTDRO 10:41
PROVIDERS: ADMIT Pediatrics; ATTEND Internal Medicine

== ENCOUNTER 2019-08-08 00:56 | Observation (INO) ==
[2019-08-08 02:17] LABS: Basophils % 0.7 %; Eosinophils # 0.2 K/mcL (0.0-0.6); Eosinophils % 2.7 %; Hematocrit 43.1 % (37.5-50.1); Immature Granulocytes % 0.4 % (0-4); Lymphocytes # 1.9 K/mcL (0.6-4.6); Lymphocytes % 33.4 %; Mean Corpuscular HGB Conc 32.5 g/dL (31.6-35.5); Mean Corpuscular Volume 89.4 fL (83.0-100.0); Mean Platelet Volume 11.1 fL (9.4-12.4); Monocytes # 0.7 K/mcL (0.0-1.3); Monocytes % 11.7 %; Neutrophils # 2.8 K/mcL (1.6-8.9); Platelet Count 157 K/mcL (140-400); Red Blood Count 4.82 M/mcL (4.19-5.50); Red Cell Distribution Width 16.4 % (11.5-14.5); Segmented Neutrophils % 51.1 %; White Blood Count 5.5 K/mcL (4.3-11.1)
[2019-08-08 02:37] LABS: BUN/Creatinine Ratio 18 (6-26); Blood Urea Nitrogen 9 mg/dL (6-20); Calcium 9.2 mg/dL (8.6-10.3); Carbon Dioxide 28 mEq/L (23-29); Chloride 98 mEq/L (98-107); Glucose 110 mg/dL (70-105); Osmolality,Calculated 285 (280-300); Potassium 3.8 mEq/L (3.5-5.1); Sodium 138 mEq/L (136-145); eGFR For African Americans > 60 (> 60); eGFR For Non-African Americans > 60 (> 60)
[2019-08-08 02:42] LABS: Bilirubin,Urine Moderate (Negative); Blood,Urine Negative (Negative); Clarity,Urine Clear (Clear); Color,Urine Yellow (Yellow); Glucose,Urine (UA) Normal (Normal); Ketones,Urine 40 mg/dL (Negative); Leukocyte Esterase,Urine Small (Negative); Nitrite,Urine Negative (Negative); Protein,Urine Negative (Neg-Trace); Specific Gravity,Urine 1.016 (1.010-1.025); Urobilinogen,Urine Normal (Normal)
[2019-08-08 02:44] LABS: Bacteria,Urine None Seen per hpf (None-Few); Hyaline Casts,Urine None Seen per lpf (None-Few); RBC,Urine 0-3 per hpf (0-3); Squamous Epithelial Cell,Urine Many per lpf (None-Few)
[2019-08-08] MEDS ORDERED: diazePAM 10 MG TABLET PO PRN (03:42)
[2019-08-08] MEDS ORDERED: Sennosides 8.6 MG TABLET PO PRN (03:42)
[2019-08-08] MEDS ORDERED: EPINEPHrine 1 MG/ML VIAL IM PRN (03:42)
[2019-08-08] MEDS ORDERED: Acetaminophen 325 MG TABLET PO PRN (03:44)
[2019-08-08] MEDS ORDERED: Albuterol 2.5 MG/3 ML NEBULIZER IH PRN (03:44)
[2019-08-08] MEDS: *HR* Heparin 5,000 UNIT/ML VIAL SQ SCH ×3 (06:26→22:46)
[2019-08-08] MEDS ORDERED: ZINC AMINO ACID CHELATE PO SCH (09:00)
[2019-08-08] MEDS: *HR* HYDROmorphone 4 MG TABLET PO SCH ×3 (09:01→22:45)
[2019-08-08] MEDS: Baclofen 10 MG TABLET PO SCH ×4 (09:02→22:43)
[2019-08-08] MEDS: Pregabalin 75 MG CAPSULE PO SCH ×3 (09:02→22:44)
[2019-08-08] MEDS: Multivit/Ca/Min/Fe/FA 1 TAB TABLET PO SCH (09:02)
[2019-08-08] MEDS: Ascorbic Acid 500 MG TABLET PO SCH (09:03)
[2019-08-08] MEDS: POTASSIUM GLUCONATE 99 MG PO SCH (09:03)
[2019-08-08] MEDS ORDERED: *HR* OxyCODONE Immed Rel 5 MG TABLET PO PRN (14:20)
[2019-08-08] MEDS ORDERED: *HR* HYDROmorphone 4 MG TABLET PO PRN (14:24)
[2019-08-08] MEDS: *HR* HYDROmorphone (PF) 1 MG/ML SYRINGE IVP PRN (17:11)
[2019-08-09] MEDS: *HR* Heparin 5,000 UNIT/ML VIAL SQ SCH ×4 (05:25→21:24)
[2019-08-09] MEDS: *HR* HYDROmorphone (PF) 1 MG/ML SYRINGE IVP PRN (05:34)
[2019-08-09] MEDS: Baclofen 10 MG TABLET PO SCH ×4 (08:15→21:15)
[2019-08-09] MEDS: Ascorbic Acid 500 MG TABLET PO SCH (08:15)
[2019-08-09] MEDS: Pregabalin 75 MG CAPSULE PO SCH ×3 (08:15→21:16)
[2019-08-09] MEDS: Multivit/Ca/Min/Fe/FA 1 TAB TABLET PO SCH (08:15)
[2019-08-09] MEDS: POTASSIUM GLUCONATE 99 MG PO SCH (08:16)
[2019-08-09] MEDS: *HR* HYDROmorphone 4 MG TABLET PO SCH ×3 (08:16→21:15)
[2019-08-10] MEDS: *HR* HYDROmorphone (PF) 1 MG/ML SYRINGE IVP PRN ×2 (00:56→13:52)
[2019-08-10] MEDS: *HR* Heparin 5,000 UNIT/ML VIAL SQ SCH ×3 (05:36→21:54)
[2019-08-10] MEDS: Pregabalin 75 MG CAPSULE PO SCH ×3 (09:36→21:53)
[2019-08-10] MEDS: Baclofen 10 MG TABLET PO SCH ×4 (09:36→21:56)
[2019-08-10] MEDS: Multivit/Ca/Min/Fe/FA 1 TAB TABLET PO SCH (09:36)
[2019-08-10] MEDS: Ascorbic Acid 500 MG TABLET PO SCH (09:36)
[2019-08-10] MEDS: *HR* HYDROmorphone 4 MG TABLET PO SCH ×3 (09:37→21:53)
[2019-08-10] MEDS: POTASSIUM GLUCONATE 99 MG PO SCH (09:37)
[2019-08-11] MEDS: *HR* HYDROmorphone (PF) 1 MG/ML SYRINGE IVP PRN ×2 (03:10→20:08)
[2019-08-11] MEDS: *HR* Heparin 5,000 UNIT/ML VIAL SQ SCH ×2 (06:10→13:10)
[2019-08-11] MEDS: Pregabalin 75 MG CAPSULE PO SCH ×3 (09:46→20:09)
[2019-08-11] MEDS: Multivit/Ca/Min/Fe/FA 1 TAB TABLET PO SCH (09:46)
[2019-08-11] MEDS: Baclofen 10 MG TABLET PO SCH ×4 (09:46→20:09)
[2019-08-11] MEDS: *HR* HYDROmorphone 4 MG TABLET PO SCH ×2 (09:47→17:12)
[2019-08-11] MEDS: POTASSIUM GLUCONATE 99 MG PO SCH (09:47)
[2019-08-11] MEDS: Ascorbic Acid 500 MG TABLET PO SCH (09:47)
[2019-08-12] MEDS: *HR* HYDROmorphone 4 MG TABLET PO SCH ×5 (00:52→23:14)
[2019-08-12] MEDS: *HR* Heparin 5,000 UNIT/ML VIAL SQ SCH ×4 (00:54→21:27)
[2019-08-12] MEDS: Multivit/Ca/Min/Fe/FA 1 TAB TABLET PO SCH (08:19)
[2019-08-12] MEDS: Baclofen 10 MG TABLET PO SCH ×4 (08:19→21:27)
[2019-08-12] MEDS: Pregabalin 75 MG CAPSULE PO SCH ×3 (08:19→21:27)
[2019-08-12] MEDS: Ascorbic Acid 500 MG TABLET PO SCH (08:19)
[2019-08-12] MEDS: *HR* HYDROmorphone (PF) 1 MG/ML SYRINGE IVP PRN (12:26)
[2019-08-12] MEDS ORDERED: Albuterol 2.5 MG/3 ML NEBULIZER IH PRN (14:06)
[2019-08-13] MEDS: *HR* Heparin 5,000 UNIT/ML VIAL SQ SCH ×3 (04:37→21:25)
[2019-08-13] MEDS: *HR* HYDROmorphone 4 MG TABLET PO SCH ×2 (08:12→16:21)
[2019-08-13] MEDS: Ascorbic Acid 500 MG TABLET PO SCH (08:13)
[2019-08-13] MEDS: Baclofen 10 MG TABLET PO SCH ×4 (08:13→21:24)
[2019-08-13] MEDS: Multivit/Ca/Min/Fe/FA 1 TAB TABLET PO SCH (08:13)
[2019-08-13] MEDS: Pregabalin 75 MG CAPSULE PO SCH ×3 (08:13→21:24)
[2019-08-13] MEDS: Sennosides 8.6 MG TABLET PO SCH ×2 (10:20→21:25)
[2019-08-14] MEDS: *HR* HYDROmorphone 4 MG TABLET PO SCH ×2 (00:11→09:05)
[2019-08-14 03:45] LABS: Hematocrit 42.7 % (37.5-50.1); Hemoglobin 14.1 g/dL (12.9-16.9); Mean Corpuscular Hemoglobin 29.3 pg (28.0-33.3); Mean Corpuscular Volume 88.8 fL (83.0-100.0); Mean Platelet Volume 10.4 fL (9.4-12.4); Platelet Count 173 K/mcL (140-400); Red Blood Count 4.81 M/mcL (4.19-5.50); Red Cell Distribution Width 16.6 % (11.5-14.5); White Blood Count 5.8 K/mcL (4.3-11.1)
[2019-08-14 04:05] LABS: BUN/Creatinine Ratio 28 (6-26); Blood Urea Nitrogen 8 mg/dL (6-20); Calcium 8.7 mg/dL (8.6-10.3); Carbon Dioxide 27 mEq/L (23-29); Chloride 100 mEq/L (98-107); Glucose 73 mg/dL (70-105); Osmolality,Calculated 283 (280-300); Potassium 3.9 mEq/L (3.5-5.1); Sodium 138 mEq/L (136-145); eGFR For African Americans > 60 (> 60); eGFR For Non-African Americans > 60 (> 60)
[2019-08-14] MEDS: *HR* Heparin 5,000 UNIT/ML VIAL SQ SCH ×2 (05:10→14:29)
[2019-08-14] MEDS: Baclofen 10 MG TABLET PO SCH ×2 (08:38→12:42)
[2019-08-14] MEDS: Pregabalin 75 MG CAPSULE PO SCH ×2 (08:38→14:26)
[2019-08-14] MEDS: Sennosides 8.6 MG TABLET PO SCH (08:38)
[2019-08-14] MEDS: Multivit/Ca/Min/Fe/FA 1 TAB TABLET PO SCH (08:39)
[2019-08-14] MEDS: Ascorbic Acid 500 MG TABLET PO SCH (08:40)
[2019-08-14 11:49] VITALS: BP 103/73
== END 2019-08-14 17:22 ==
LOC: EMEROOARM 00:56 → 3ANU 00:56 → SUATTDRO 03:12 → 3ANU 03:32
PROVIDERS: ADMIT Internal Medicine; ATTEND Internal Medicine